=== PATIENT | female | born 1935 | race Caucasian/White ===

== ENCOUNTER → 2017-08-12 13:29 | Outpatient (CLI) | payer MEDICARE, SELFPAY ==
[2017-08-12 14:08] LABS: Absolute Lymphocyte Count 1.72 X10^3/ul (0.83-4.51); Absolute Neutrophil Count 4.7 X10^3/uL (2.0-7.7); Basophil# 0.04 X10^3/uL; Basophil% 0.6 % (0-1); Eosinophil# 0.13 X10^3/uL; Eosinophils% 1.8 % (0-5); Hematocrit 42.1 % (37-47); Hemoglobin 13.8 g/dl (12.0-15.0); Lymphocyte # 1.72 X10^3/ul (4.0); Lymphocyte % 24.4 % (19-41); Mean Corp Hgb Conc 32.8 g/gl (32-36); Mean Corpuscular Hgb 30.7 pg (27.0-32.0); Mean Corpuscular Volume 93.6 fL (81-99); Mean Platelet Vol. 10.7 fl (6.2-12.0); Monocyte# 0.47 X10^3/uL; Monocyte% 6.7 % (0-10); Neutrophil % 66.5 % (47-70); Platelet Count 227 K/mm3 (150-450); RBC Distribution Width SD 43.3 fl (35.1-43.9); White Blood Count 7.1 K/mm3 (4.4-11.0)
[2017-08-12 14:15] LABS: POSITIVE COUNT NO; POSITIVE DIFFERENTIAL NO; POSITIVE MORPHOLOGY NO
[2017-08-12 16:18] LABS: ALB/GLOB Ratio 1.2 RATIO (0.9-2.4); AST(SGOT) 16 U/L (15-37); Alanine Aminotransfer ALT/SGPT 22 U/L (13-56); Albumin, Serum 3.8 g/dL (3.2-5.0); Alkaline Phosphatase 95 U/L (45-117); Anion Gap 7 (5-15); BUN 12 mg/dL (7-18); BUN/Creat Ratio 12.9 RATIO (10-20); Chloride 107 mmol/L (98-107); Creatinine, Serum 0.93 mg/dL (0.55-1.02); EST Glomerular Filtration Rate 61 mL/min (>60); Est Glom Filt Rate - Afr Amer 74 mL/min (>60); Globulin 3.3 g/dL (2.2-4.2); Glucose 100 mg/dL (74-106); Potassium 4.1 mmol/L (3.5-5.1); Protein, Total 7.1 g/dL (6.4-8.2); Sodium Level 142 mmol/L (136-145); Uric Acid 4.3 mg/dL (2.6-6.0)
== END ==
PROVIDERS: Family Provider Family Medicine Geriatric Medicine; PCP Family Medicine Geriatric Medicine; Visit Provider Family Medicine Geriatric Medicine
DX: E11.9 Type 2 diabetes mellitus without complications (principal); E55.9 Vitamin D deficiency, unspecified; I10 Essential (primary) hypertension; M10.9 Gout, unspecified
CPT/HCPCS: 36415; 80053; 82306; 84443; 84550; 85025

== ENCOUNTER 2017-10-09 18:38 | Emergency (ER) | payer MEDICARE, SELFPAY ==
[2017-10-09 18:39] VITALS: PULSE 60; RESP 18; TEMP 36.9; O2SAT 99; BMI 29.2
[2017-10-09 18:46] VITALS: BP 196/92; PULSE 67; RESP 20; O2SAT 99
--- NOTE | 2017-10-09 19:24 | CT_ITS ---
STUDY: CT BRAIN WITHOUT CONTRAST REASON FOR EXAM: Female, 82 years old. Generalized illness, dizziness RADIATION DOSAGE (If Supplied By Facility): CTDIvol = ( 44.99 ) mGy, DLP = ( 779.24 ) mGycm TECHNIQUE: Transaxial CT imaging of the brain was performed without administration of intravenous contrast material. Individualized dose optimization techniques were used for this CT. COMPARISON: November 25, 2014. FINDINGS: Normal soft tissue structures. Normal calvarium. Normal size ventricles and extra-axial spaces for the patient's age. Bilateral white matter microangiopathic ischemic changes of the cerebral hemispheres. Probable old infarcts of the right basal ganglia. Normal thalami. Normal brainstem. Normal cerebellum. There is no intracranial hemorrhage. There are no findings of an acute ischemic infarction. Normal visualized paranasal sinuses. CT/Brain/Head without Contrast IMPRESSION: Stable age-related and chronic changes of the brain. Electronically Signed: Dakotah Cosme DO at 21:00 EDT Tel [phone], Service support ,
[2017-10-09] MEDS: Metoprolol Tartrate 5 MG/5 ML Vial IV (19:57)
[2017-10-09] MEDS: Metoprolol Tartrate 25 MG Tablet 50 MG PO (19:57)
[2017-10-09 20:04] LABS: Absolute Lymphocyte Count 2.39 X10^3/ul (0.83-4.51); Absolute Neutrophil Count 4.9 X10^3/uL (2.0-7.7); Basophil# 0.03 X10^3/uL; Basophil% 0.4 % (0-1); Eosinophil# 0.22 X10^3/uL; Eosinophils% 2.7 % (0-5); Hematocrit 40.4 % (37-47); Hemoglobin 13.2 g/dl (12.0-15.0); Lymphocyte # 2.39 X10^3/ul (4.0); Lymphocyte % 29.5 % (19-41); Mean Corp Hgb Conc 32.7 g/gl (32-36); Mean Corpuscular Hgb 29.9 pg (27.0-32.0); Mean Corpuscular Volume 91.6 fL (81-99); Monocyte# 0.53 X10^3/uL; Monocyte% 6.5 % (0-10); Neutrophil # 4.92 X10^3/uL (2.7-7.7); Neutrophil % 60.8 % (47-70); Platelet Count 226 K/mm3 (150-450); RBC Distribution Width CV 13.3 % (11.6-14.6); RBC Distribution Width SD 44.3 fl (35.1-43.9); Red Blood Count 4.41 M/mm3 (4.2-5.4); White Blood Count 8.1 K/mm3 (4.4-11.0)
[2017-10-09 20:08] LABS: POSITIVE COUNT NO; POSITIVE DIFFERENTIAL NO; POSITIVE MORPHOLOGY NO
[2017-10-09 20:14] LABS: Anion Gap 7 (5-15); BUN 19 mg/dL (7-18); BUN/Creat Ratio 18.4 RATIO (10-20); Calcium,Total 8.7 mg/dL (8.5-10.1); Chloride 107 mmol/L (98-107); Creatinine, Serum 1.03 mg/dL (0.55-1.02); EST Glomerular Filtration Rate 54 mL/min (>60); Est Glom Filt Rate - Afr Amer 66 mL/min (>60); Estimated Creatinine Clearance 36.36 ml/min; Glucose 108 mg/dL (74-106); Potassium 3.9 mmol/L (3.5-5.1); Sodium Level 140 mmol/L (136-145)
[2017-10-09 21:06] VITALS: BP 174/79; PULSE 64; RESP 18; O2SAT 94
[2017-10-09 21:23] LABS: Bacteria 0 SEEN /hpf (None Seen); Mucous, Urine 0 SEEN /hpf (<or=2+); Red Blood Cells-Urine 0 SEEN /hpf (0-5)
[2017-10-09 21:25] LABS: Color, Urine Straw (Yellow); Glucose, Dipstick Normal (Normal); Ketone-Dipstick Negative (Negative); Leukocyte Esterase-Dipstick 500 /ul (Negative); Nitrite-Dipstick Negative (Negative); Occult Blood-Urine Negative /ul (Negative); Protein-Dipstick Negative (Negative); Urine Bilirubin Dipstick Negative (Negative); Urine Urobilinogen Normal (Normal); Urine pH 6.5 (5.0 - 8.0)
[2017-10-09 21:43] LABS: Squamous Epithelial Cells - UA 5-10 SEEN /hpf (5-10); Urine Clarity Sl Cldy (Clear); White Blood Cells 10-25 SEEN /hpf (0-5)
--- NOTE | 2017-10-09 22:33 | ED.VISSUMM ---
- ER Visit Summary Date of Service: 10/09/17 Chief Complaint: Dizziness History of Present Illness: The patient is a [address] Ryan. She reports that she has had intermittent dizziness for the past 2 days. States that she does feel off balance when this is occurs. However, she has not fallen. She denies any change in her hearing. No ringing or roaring in her ears. However, she does report that she has sizzling in my ears. She denies any ear pain. She denies any nausea or vomiting. She reports she has had 2 episodes of diarrhea today. No blood in her stools or black tarry stools. Physical Examination: Vitals: Stable. Afebrile. General: Well-nourished and well-developed. Head: Normocephalic atraumatic. Neck: Supple, no lymphadenopathy. No JVD. Nontender. Cardiovascular: Regular rate and rhythm. No murmurs. Respiratory: No respiratory distress. Clear to auscultation bilaterally. Abdominal: Soft, nontender, nondistended, normal bowel sounds. No guarding, rebound, or peritoneal signs. Back: Nontender. Extremities: Nontender, no edema. Skin: Normal color, no rash. Neurologic: Alert and oriented ?3. Cranial nerves II through XII are intact. Normal strength and sensation. Psych: Normal affect. Test Results: CT brain shows chronic changes. CBC is normal. Chem-7 is more for glucose of 108, BUN 19, creatinine 1.03. UA shows 10-25 white blood cells, but has 5-10 epithelial cells and no bacteria. This was sent for culture. Emergency Department Course and Treatment: The patient was given her evening dose of metoprolol here. Her blood pressure has stabilized at 174/79. She has had no vertigo while here. She would like to go home. Treatment Plan: Patient will be discharged instructions to follow-up with Dr. Schmidt in 1-2 days if not improving. She will placed on Antivert at home. Instructed to return to the emergency department for any worsening symptoms. Disposition: To home in improved and stable condition. Impression: 1. Vertigo, resolved. 2. Coagulopathy on Eliquis. This note was generated with PowerDsine dictation software. It may contain incorrect words, spelling, and punctuation that were not noted in review of the chart prior to signing ED Disposition - Plan for ED Patient: Disposition: Home or Assisted Living Chief Complaint: General Illness Instructions: ED Dizziness [facility] Prescriptions: Meclizine HCl [Antivert] 25 mg PO 4X/DAY PRN PRN #20 tablet PRN Reason: Dizziness Referrals: Rayshawn Ryan Chi, MD [Primary Care Provider] - 1-2 Days if not improving
[2017-10-09 22:40] VITALS: BP 196/75; PULSE 54; RESP 16; O2SAT 96
--- NOTE | 2017-10-09 22:52 | ED.RN ---
CALLED PT'S FAMILY AT [phone] AND INFORMED THEM PT IS DISCHARGED TO HOME. FAMILY WILL BE HERE IN 15 MINUTES TO TAKE PT HOME. PT INFORMED OF SAME.
== END 2017-10-09 23:14 | disposition home or self-care (01) ==
PROVIDERS: Emergency Provider Emergency Medicine; Family Provider Family Medicine Geriatric Medicine; PCP Family Medicine Geriatric Medicine
DX: R42 Dizziness and giddiness (principal); Z79.02 Long term (current) use of antithrombotics/antiplatelets; Z86.73 Personal history of transient ischemic attack (TIA), and cerebral infarction without residual deficits; Z85.038 Personal history of other malignant neoplasm of large intestine
CPT/HCPCS: 70450; 80048; 81001; 85025; 87086; 87088; 96374; 99285; A4216

== ENCOUNTER 2018-03-16 09:36 | Inpatient (IN) | payer MEDICARE, SELFPAY ==
[2018-03-16] VITALS (12 sets, daily range): BP systolic 159–204; BP diastolic 74–97; PULSE 36–76; RESP 16–22; TEMP 36.6–36.7; O2SAT 94–98; BMI 26.6; BMI 25.9
--- NOTE | 2018-03-16 09:45 | EKG12_ITS ---
Test Reason : Blood Pressure : / mmHG Vent. Rate : 059 BPM Atrial Rate : 059 BPM P-R Int : 182 ms QRS Dur : 128 ms QT Int : 462 ms P-R-T Axes : 069 -45 012 degrees QTc Int : 457 ms Sinus bradycardia with marked sinus arrhythmia with Premature supraventricular complexes Left axis deviation Left ventricular hypertrophy with QRS widening Possible Lateral infarct , age undetermined Abnormal ECG Confirmed by MAURICIO MENDEZ, SHERMAN ([id number]), script editor EDUARDA MIMS ([id number]) on 03/19/2018 2:39:29 PM Referred By: KAYDEN Confirmed By:SHERMAN MARTÍNEZ MD
--- NOTE | 2018-03-16 09:45 | CT_ITS ---
STUDY: CT BRAIN WITHOUT CONTRAST REASON FOR EXAM: Female, 83 years old. Weakness. Slurred speech. RADIATION DOSAGE (If Supplied By Facility): CTDIvol = ( 44.99 ) mGy, DLP = ( 779.24 ) mGycm TECHNIQUE: Transaxial CT imaging of the brain was performed without administration of intravenous contrast material. Individualized dose optimization techniques were used for this CT. COMPARISON: October 09, 2017 and November 04, 2014. FINDINGS: Normal soft tissue structures. There is hyperostosis frontalis internus. There is mild cerebral atrophy with widening of the extra-axial spaces and ventricular dilatation. There are areas of decreased attenuation within the white matter tracts of the supratentorial brain, consistent with microvascular disease changes. There are lacunar infarcts of the basal ganglia and thalami. Stable right pontine infarct. There is mild cerebellar atrophy. There is no intracranial hemorrhage. There are no findings of an acute ischemic infarction. Normal visualized paranasal sinuses. CT/Brain/Head without Contrast IMPRESSION: Chronic involutional changes of the brain. No hemorrhage. Electronically Signed: Parish Flores MD at 10:29 EDT , Service support ,
[2018-03-16 09:58] LABS: Absolute Lymphocyte Count 1.49 X10^3/ul (0.83-4.51); Absolute Neutrophil Count 5.1 X10^3/uL (2.0-7.7); Basophil# 0.02 X10^3/uL; Basophil% 0.3 % (0-1); Eosinophil# 0.18 X10^3/uL; Eosinophils% 2.4 % (0-5); Hematocrit 41.4 % (37-47); Hemoglobin 13.3 g/dl (12.0-15.0); Lymphocyte # 1.49 X10^3/ul (4.0); Lymphocyte % 20.1 % (19-41); Mean Corp Hgb Conc 32.1 g/gl (32-36); Mean Corpuscular Volume 93.2 fL (81-99); Monocyte# 0.57 X10^3/uL; Monocyte% 7.7 % (0-10); Neutrophil # 5.13 X10^3/uL (2.7-7.7); Neutrophil % 69.4 % (47-70); Platelet Count 224 K/mm3 (150-450); RBC Distribution Width SD 44.2 fl (35.1-43.9); Red Blood Count 4.44 M/mm3 (4.2-5.4); White Blood Count 7.4 K/mm3 (4.4-11.0)
--- NOTE | 2018-03-16 09:59 | ED.DCSUM_ITS ---
- ER Visit Summary Date of Service: 03/16/18 Chief Complaint: Drooling, problems with balance History of Present Illness: The patient is a 83 F who arrived from home by ambulance because of slurred speech. She informed me that she went to bed at 1830 yesterday Saturday, March 15. She awoke at 030 Saturday, March 16. She informed me that she had drooling at that time. She also reported trouble walking. She denies headache. She denies double vision, blurred vision or partial loss of vision. She denies chest pain, palpitations or rapid heartbeat. She denies shortness of breath, cough, dyspnea on exertion. She denies abdominal pain, nausea, vomiting or diarrhea. She denies dysuria, frequency, urgency or hematuria. She denies trauma. At 0850 I was informed by her nurse, Michelle, that she now reports drooling started 1 week ago. Physical Examination: Patient is not alert but she is oriented. Head is atraumatic normocephalic. Pupils equal round reactive. Extra muscle intact. Sclerae anicteric. Conjunctive are not injected. TMs are normal. Nares are patent. There is a facial droop noted left. Her speech is slurred. Heart is regular and slow. Heart tones are distant. Lungs are clear to auscultation. Abdomen is soft nontender. There is no palpable pulsatile mass. NIH is 5. She was awarded a point for level of consciousness facial palsy on the left weakness left lower extremity and limb ataxia right side (minimal abnormality with finger-nose to finger on the right. Significant difference heel to [place] on the right.). She also received the point for slurred speech. Please read written note for complete detail Test Results: Monitor reveals a sinus rhythm with PACs. KS interval is normal. QRS duration is abnormal and demonstrates a intraventricular conduction delay most likely atypical left bundle. [place] is leftward. There is evidence of LVH. There is decreased anterior force. CT of the head was read reviewed by me and reveals no subdural, epidural, subarachnoid hemorrhage or intraparenchymal bleed. There is no obvious acute ischemic stroke. CBC is unremarkable. BUN is 19 with a creatinine of 1.05 and GFR 53. Coags are normal. Formal radiology read is pending. Emergency Department Course and Treatment: With deficits noted on exam stroke order set was initiated. Patient not a candidate for thrombolytics and she is on Eliquis. Furthermore the onset of her symptoms is unknown. Monitor reveals a sinus rhythm with PACs. KS interval is normal. QRS duration is abnormal and demonstrates a intraventricular conduction delay most likely atypical left bundle. [place] is leftward. There is evidence of LVH. There is decreased anterior force. Treatment Plan: Initiate stroke order set and if there is an intracranial bleed since patient is on Eliquis she will require in all likelihood transfer otherwise she will need admission to PCU. Patient was made n.p.o. since she is drooling and has slurred speech. Disposition: PCU for further evaluation and workup. Impression: 1. CVA 2. Systolic hypertension 3. Type 2 diabetes 4. History of hypothyroidism 5. History of hypercholesterolemia 6. History of prior stroke 7. High risk medication, Eliquis This note was generated with Viptable dictation software. It may contain incorrect words, spelling, and punctuation that were not noted in review of the chart prior to signing ED Disposition - Plan for ED Patient: Chief Complaint: Weakness Referrals: Rayshawn Ryan Chi, MD [Primary Care Provider] -
[2018-03-16 10:00] LABS: POSITIVE COUNT NO; POSITIVE DIFFERENTIAL NO; POSITIVE MORPHOLOGY NO
[2018-03-16 10:01] LABS: Bedside Glucose 110 mg/dL (70-110)
[2018-03-16 10:06] LABS: International Normalized Ratio 1.2; Partial Thromboplast Time 30.8 Seconds (24.1-36.2); Prothrombin Time (Protime)PT. 15.1 SECONDS (11.7-14.9)
[2018-03-16 10:13] LABS: Anion Gap 6 (5-15); BUN 19 mg/dL (7-18); BUN/Creat Ratio 18.1 RATIO (10-20); Calcium,Total 9.3 mg/dL (8.5-10.1); Chloride 106 mmol/L (98-107); Creatinine, Serum 1.05 mg/dL (0.55-1.02); EST Glomerular Filtration Rate 53 mL/min (>60); Est Glom Filt Rate - Afr Amer 64 mL/min (>60); Estimated Creatinine Clearance 35.06 ml/min; Glucose 105 mg/dL (74-106); Potassium 4.1 mmol/L (3.5-5.1); Sodium Level 140 mmol/L (136-145)
--- NOTE | 2018-03-16 11:56 | CT_ITS ---
STUDY: CTA NECK WITH CONTRAST REASON FOR EXAM: Female, 83 years old. TIA, stroke, history of colon cancer RADIATION DOSAGE (If Supplied By Facility): CTDIvol = ( 31.7 ) mGy, DLP = ( 621.14 ) mGycm TECHNIQUE: CT angiography with multi-detector data acquisition was performed from the aortic arch to the skull base following intravenous administration of 100 ml of Isovue 370 contrast. MIP images were reconstructed from the axial data set. Post-processing of the angiographic images was performed, with multiplanar reformation and 3D reconstruction. Individualized dose optimization techniques were used for this CT. COMPARISON: MRI March 16, 2018 FINDINGS: AORTIC ARCH: There is atherosclerotic calcific plaque formation of the aortic arch and great vessels arising from the aortic arch, without a hemodynamically significant stenosis however there is tortuosity visualized.. There is a normal origin of the brachiocephalic, left common carotid, and left subclavian arteries. Normal origins of the brachiocephalic, left common carotid, and left subclavian arteries. RIGHT CAROTID ARTERIES: Normal right common carotid artery (CCA). There is mild atherosclerotic plaque formation with minimal narrowing of the right carotid bulb. Normal origin of the right internal carotid (ICA) artery without a hemodynamically significant stenosis. There is atherosclerotic tortuous elongation of the cervical portion of the right internal carotid artery. Normal origin of the right external carotid artery (ECA). LEFT CAROTID ARTERIES: There is atherosclerotic tortuous elongation of the left common carotid artery. There is mild atherosclerotic plaque formation with minimal narrowing of the left carotid bulb. There is mild atherosclerotic plaque formation of the origin of the left internal carotid artery with less than 50% cross sectional diameter stenosis. Normal visualized cervical portion of the left internal carotid artery. Normal origin of the left external carotid artery (ECA). VERTEBRAL ARTERIES: Normal bilateral vertebral arteries. CT/CTA Neck W/WO Contrast IMPRESSION: Less than 50% stenosis of the bilateral internal carotid arteries. Electronically Signed: Rashmi Almeida MD at 15:04 EDT Tel , Service support ,
--- NOTE | 2018-03-16 11:56 | RAD_ITS ---
STUDY: X-RAY CHEST REASON FOR EXAM: Female, 83 years old. Shortness of breath TECHNIQUE: Single AP portable view of the chest. COMPARISON: Prior study of 07/30/2015 FINDINGS: There is a small calcified granuloma of the left upper lobe. There is minimal left lower lung field fibrosis. There is no demonstrated pleural abnormality. Normal size heart. Normal mediastinum and ene. Normal visualized pulmonary arteries. There are calcified plaques of the aortic arch. There is uncoiling of the descending thoracic aorta. Normal visualized thoracic spine. Normal visualized ribs, clavicles, and shoulders. There is no demonstrated abnormality of the visualized soft tissue structures of the upper abdomen. RAD/Chest 1 View (Portable) IMPRESSION: Calcified plaques of the aortic arch with uncoiling of the descending thoracic aorta. Small calcified granuloma of the left upper lobe. Minimal linear fibrosis of the left lung base. No acute cardiopulmonary disease process is seen. Chest findings are stable in the interval. Electronically Signed: Joey Akins MD at 16:44 EDT , Service support ,
--- NOTE | 2018-03-16 11:56 | ECHOD_ITS ---
Reason For Study: TIA/CVA Procedure This was a 2D Doppler, Color Flow transthoracic echocardiogram. Exam performed portable in patient room. Left Ventricle Normal LV size. Moderate concentric left ventricular hypertrophy. Left ventricular systolic function is normal. The estimated ejection fraction is 60 %. Stage 1 diastolic dysfunction. No regional wall motion abnormalities noted. Right Ventricle Normal RV size. Normal systolic function. Atria Normal left atrium. Normal right atrium. Mitral Valve Normal mitral valve. Mild (1+) eccentric mitral valve insufficiency. Tricuspid Valve Normal tricuspid valve. Mild tricuspid valve insufficiency. Pulmonary artery systolic pressure is 30 mmHg. Aortic Valve Normal aortic valve. Trisinus/trileaflet aortic valve. Pulmonic Valve Normal pulmonic valve. Great Vessels Calcified aortic root. The pulmonary artery is normal size. Normal inferior vena cava. Pericardium/Pleural No pericardial effusion. Medication Previously negative bubble study. MMode/2D Measurements & Calculations LVIDd: 4.4 cm IVSd: 1.4 cm Ao root diam: 3.5 cm LVIDs: 3.3 cm LVPWd: 1.5 cm LA dimension: 3.5 cm RVDd: 3.4 cm FS: 26.4 % LAV(MOD-bp): 25.6 ml LVAd ap4: 25.0 cm2 SV(MOD-sp4): 34.3 ml LAV(MOD-bp) Indexed: 14.8 ml/m2 EDV(MOD-sp4): 68.8 ml LAV(MOD-sp2): 28.1 ml EDV(sp4-el): 71.0 ml LAV(MOD-sp4): 22.1 ml LVAs ap4: 16.0 cm2 ESV(MOD-sp4): 34.5 ml ESV(sp4-el): 34.5 ml EF(MOD-sp4): 49.8 % EF(sp4-el): 51.3 % SV(sp4-el): 36.4 ml LA A4 area: 10.9 cm2 RA A4 area: 11.7 cm2 Time Measurements MV dec time: 0.33 sec Doppler Measurements & Calculations MV E max hunter: 51.0 cm/sec Lat Peak E' Hunter: 2.1 cm/sec Med Peak E' Hunter: 2.5 cm/sec MV A max hunter: 92.5 cm/sec E/E' lat: 24.0 E/E' med: 20.8 MV E/A: 0.55 Ao V2 max: 129.5 cm/sec LV V1 max: 82.2 cm/sec PA V2 max: 95.2 cm/sec Ao max P.7 mmHg LV V1 max P.7 mmHg TR max hunter: 256.9 cm/sec TR max P.4 mmHg Interpretation Summary Normal LV size. Moderate concentric left ventricular hypertrophy. Left ventricular systolic function is normal. The estimated ejection fraction is 60 %. Stage 1 diastolic dysfunction. Mild (1+) eccentric mitral valve insufficiency. Mild tricuspid valve insufficiency. Ordering Physician: Aurelio Lackey Referring Physician: STEFANIE HURTADO CHI Performed By: Micki Escoto, MAURO, RVT
--- NOTE | 2018-03-16 11:56 | MRI_ITS ---
STUDY: MRI BRAIN WITHOUT CONTRAST REASON FOR EXAM: Female, 83 years old. CVA. Weakness. Slurred speech. TECHNIQUE: Standardized multiplanar fat and water weighted pulse sequences were obtained. COMPARISON: 08/18/2008. FINDINGS: Linear restricted diffusion in the left retrolenticular white matter is also visible on the T2 FLAIR sequence. This is subacute lacunar ischemic infarct. Normal size of the ventricles and extra-axial spaces for the patient's age. Periventricular white matter T2 FLAIR hyperintensity foci are chronic white matter ischemic changes. Normal bilateral basal ganglia. Normal thalami. There is no extra-axial fluid accumulation. Normal flow voids within the major intracranial circulation suggesting patency by spin echo criteria. Normal sella turcica, pituitary gland, infundibular stalk, optic chiasm and hypothalamus. Normal tectal plate and pineal gland. Old cystic infarct in the right belly of the yakelin. Normal midbrain and medulla. Normal cerebellum. Normal basal cisterns. Normal bilateral temporal bones. Normal bilateral internal auditory canals. No demonstrated orbital abnormality, within the constraints of a routine brain study. Normal visualized paranasal sinuses. Normal calvarium and skull base. Normal visualized soft tissue structures. Normal visualized upper cervical spine. MRI/Brain without Contrast IMPRESSION: 1. Subacute lacunar ischemic infarct in the left retrolenticular white matter. 2. Old cystic infarct in the right anterior belly of the yakelin. 3. Progression in size and number of chronic white matter ischemic changes in both cerebral hemispheres when compared to 08/18/2008. Electronically Signed: Khalif Dooley MD at 14:30 EDT , Service support ,
--- NOTE | 2018-03-16 11:56 | CT_ITS ---
STUDY: CTA OF THE BRAIN REASON FOR EXAM: Female, 83 years old. Stroke. Slurred speech. RADIATION DOSAGE (If Supplied By Facility): CTDIvol = ( 31.7 ) mGy, DLP = ( 621.14 ) mGycm TECHNIQUE: CT angiography was performed with a multi-detector CT scanner. Data acquisition was obtained from the skull base through the vertex following intravenous administration of 100 ml of Isovue-370. MIP images were reconstructed from the axial data set. Post-processing of the angiographic images was performed, with multiplanar reformation and 3D reconstruction. Individualized dose optimization techniques were used for this CT. COMPARISON: CT of the head, March 16, 2018. FINDINGS: Normal bilateral petrous carotid arteries. There is calcified plaque formation of the right cavernous carotid artery, without a cross-sectional luminal stenosis. There is calcified plaque formation of the left cavernous carotid artery, without a cross-sectional luminal stenosis. Normal right A1 segments of the anterior cerebral artery. Normal left A1 segments of the anterior cerebral artery. Normal intact anterior communicating artery (ACOM). Normal bilateral A2 segments of the anterior cerebral arteries. Normal right M1 and M2 segments of the middle cerebral arteries, with a normal M1 bifurcation. Normal left M1 and M2 segments of the middle cerebral arteries, with a normal M1 bifurcation. There is non-visualization of the right posterior communicating artery (PCOM). Normal left posterior communicating artery (PCOM). There is a small atretic right vertebral artery with a dominant left vertebral artery. Normal basilar artery with a normal basilar bifurcation. The visualized bilateral superior cerebellar (SCA) arteries are normal. Normal P1, P2 and visualized P3 segments of the right posterior cerebral artery. There is an absent P1 segment of the left posterior cerebral artery. Normal P2 and visualized petrous segments. There is no demonstrated aneurysm of the [place]. There is no demonstrated abnormality of the visualized brain. 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 The T2 and T3 segments are supplied via the posterior communicating artery. Otherwise normal [place] of [place]. Electronically Signed: Alin Mo DO at 15:18 EDT Tel [phone], Service support ,
[2018-03-16 12:23] LABS: Thyroid Stim Hormone (TSH) 1.24 uIU/mL (0.358-3.74)
--- NOTE | 2018-03-16 12:46 | PCM.HP.STD ---
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 Prior to that she had difficulty in finding words yesterday late afternoon/evening but her speech in the morning when she woke up was slurred, incomprehensible and low volume. She also right facial droop with drooling. I also told that she has NIH 5 because of (1 for level of consciousness, 1 right upper extremity drifting, 1 for facial droop, 1 mild to moderate dysarthria and 1 for aphasia) she has left lower extremity weakness from prior stroke. Her heart rate in the ED was 32 but sometimes it slows down in 40s or 30s on monitor. On actual pulse check, it is 62/min and irregularly irregular [] Past Medical History Past Medical History (Chronic Problems): Chronic Problems Diabetes mellitus type 2 in obese (Chronic) Hypertension (Chronic) Prior stroke (Chronic) Hypothyroidism (Chronic) Allergies dicyclomine HCl [From Bentyl] Allergy (Verified 10/09/17 18:45) Unknown doxepin [Doxepin] Allergy (Verified 10/09/17 18:45) Unknown hydroxyzine HCl [From Vistaril] Allergy (Verified 10/09/17 18:45) Unknown hydroxyzine pamoate [From Vistaril] Allergy (Verified 10/09/17 18:45) Unknown oxymetazoline HCl [From Tristen-Synephrine (phenylephrine)] Allergy (Verified 10/09/17 18:45) Swelling phenylephrine HCl [From Tristen-Synephrine (phenylephrine)] Allergy (Verified 10/09/17 18:45) Swelling promethazine HCl [From Phenergan] Allergy (Verified 10/09/17 18:45) Unknown xylometazoline HCl [From Tristen-Synephrine (phenylephrine)] Allergy (Verified 10/09/17 18:45) Swelling Home Medications: Ambulatory Orders Medication Instructions Recorded Allopurinol [Zyloprim] 300 mg PO DAILY 10/02/13 Levothyroxine [Synthroid] 50 mcg PO DAILY 10/02/13 Losartan Potassium [Cozaar] 100 mg PO DAILY 10/02/13 Metformin HCl [Glucophage] 1,000 mg PO DAILY 10/02/13 Pravastatin [Pravachol] 40 mg PO QHS 10/02/13 Apixaban [Eliquis] 2.5 mg PO DAILY 10/22/14 Aspirin [Aspirin, Baby] 81 mg PO DAILY@0800 10/22/14 Atenolol [Tenormin (Beta Carol)] 50 mg PO BID 10/22/14 Ergocalciferol [Vitamin D] 50,000 unit PO Q7D 10/22/14 traMADol [Ultram (G)] 50 mg PO Q4H PRN PRN 10/22/14 Amlodipine [Norvasc] 5 mg PO DAILY #30 tablet 10/23/14 Smz/Tmp Ds [Bactrim Ds] 1 tablet PO BID #6 tablet 10/23/14 Meclizine HCl [Antivert] 25 mg PO 4X/DAY PRN PRN #20 tablet 10/09/17 Smoking Status: Never smoker - *Family History Paternal History Items: No pertinent history Review of Systems Constitutional: Denies: Chills, Fever, Weight Change HEENT: Denies: Head Aches, Sinus Congestion, Sinus Drainage Cardiovascular: Denies: Chest Pain, Palpitations Respiratory: Denies: Cough, Shortness of breath at rest, Sputum production Gastrointestinal: Denies: Abdominal Pain, Nausea, Vomiting Genitourinary: Denies: Dysuria Musculoskeletal: Reports: Joint Pain. Denies: Joint Tenderness Skin: Denies: Rash, Wounds Neurological: Reports: Balance problems, Change in Speech, Slurred speech. Denies: Focal weakness, Numbness, Tingling Psychiatric: Denies: Anxiety, Depression, Homicidal Ideations, Suicidal Ideations Hematologic/ Lymphatic: Denies: Easy Bruising, Easy Bleeding VTE Information - Inpt Only VTE Present on Admission: No VTE Mechan Device Prophylaxis: SCD's VTE Pharm Prophylaxis ordered?: Yes Patient Problems: Active and Suspected Problems Acute ischemic stroke (Acute) Dyslipidemia (Acute) - Physical Exam General: Alert, Oriented x3, Cooperative HEENT: Atraumatic, PERRLA, EOMI, Normocephalic Neck: Supple, No JVD, Negative Carotid Bruits Lungs: Clear to auscultation, Normal air movement Cardiovascular: Normal S1, Normal S2, No murmurs, Bradycardic, Irregular Rate Abdomen: Bowel Sounds Present, Soft, Non Tender Extremities: Capillary Refill Less than 3 Seconds, Edema Skin: No rashes, No breakdown Musculoskeletal: No Tenderness to Palpation of Joints or Extremities Neurological: Cranial nerves II-XII grossly intact, - - Chronic left upper extremity drift NIHSS 4 (1 left upper extremity drift, chronic; 2 right facial weakness, 1 for dysarthria) Psych/Mental Status: Normal Affect, Appropriate Vital Signs Temp Pulse Resp BP Pulse Ox 97.8 F 36 L 18 196/97 H 95 03/16/18 11:51 03/16/18 12:30 03/16/18 11:51 03/16/18 11:51 03/16/18 11:51 Oxygen Delivery Method Room Air Weight: 151 lb 1.6 oz Body Mass Index (BMI) 25.9 Assessment/Plan All Active Problems Acute ischemic stroke (Acute) Dyslipidemia (Acute) The patient is a 83 year old F with history of chronic A. 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 Prior to that she had difficulty in finding words yesterday late afternoon/evening but her speech in the morning when she woke up was slurred, incomprehensible and low volume. She also right facial droop with drooling. I also told that she has NIH 5 because of (1 for level of consciousness, 1 right upper extremity drifting, 1 for facial droop, 1 mild to moderate dysarthria and 1 for aphasia) she has left lower extremity weakness from prior stroke. Her heart rate in the ED was 32 but sometimes it slows down in 40s or 30s on monitor. On actual pulse check, it is 62/min and irregularly irregular EKG shows A. fib with LVH at [address] head was done and does not show acute hemorrhage chronic involutional changes. 1. Possible acute/subacute ischemic stroke: Time of onset is unclear as patient states today in the morning, her [id number] yesterday evening and from ER note Dr. Ponce, 1 of the relative states about 1 week ago. She is being admitted on PCU. On stroke protocol with MRI brain, CTA head and neck, aspirin and statin, BP and glucose control as per stroke protocol. Neurologist consult. PT/OT and speech evaluation. Her blood pressure currently is in within BP goal, systolic blood pressure less than 220 mmHg and diastolic less than 120 mmhg Patient did not pass initial swallow screen and made n.p.o. until further assessment by speech therapist. 2. Chronic A. fi with bradycardia: We will hold beta-carol until her heart rate is stabilized. She is on Eliquis 2.5 mg twice daily which I think is underdosed. She has 1 of 3 criteria on age more than 8-year-old. Discussed with the neurologist Dr. Pina suggested if there is no major stroke on MRI, can resume Eliquis 5 mg twice daily. Aspirin 81 mg daily. 3. Hypertension: On amlodipine 5 mg daily. Labetalol 10 mg IV as needed if the above of the BP goal. 4. Diabetes mellitus type II: Hold metformin. Accu-Chek before meals and at bedtime and cover with NovoLog sliding scale. A1c tomorrow a.m. 5. Dyslipidemia, chronic degenerative joint disease, and gout: On a statin. TSH and free T4. DVT prophylaxis: On Eliquis. Laboratory Results 03/16/18 09:50: WBC 7.4, RBC 4.44, Hgb 13.3, Hct 41.4, MCV 93.2, MCH 30.0, MCHC 32.1, RDW 13.0, RDW Differential 44.2 H, Plt Count 224, MPV 10.0, Immature Gran % (Auto) 0.100, Neut % (Auto) 69.4, Lymph % (Auto) 20.1, [place] % (Auto) 7.7, Eos % (Auto) 2.4, Baso % (Auto) 0.3, Absolute Neuts (auto) 5.1, Absolute Lymphs (auto) 1.49, Total Counted Not Reportable 03/16/18 09:50: PT 15.1 H, INR 1.2, APTT 30.8 03/16/18 09:50: Sodium 140, Potassium 4.1, Chloride 106, Carbon Dioxide 28.0, Anion Gap 6, BUN 19 H, Creatinine 1.05 H, Estim Creat Clear Calc 35.06, Est GFR (MDRD) Af Amer 64, Est GFR (MDRD) Non-Af 53 L, BUN/Creatinine Ratio 18.1, Glucose 105, Calcium 9.3 03/16/18 09:50: TSH 1.24 03/16/18 09:56: POC Glucose 110 03/16/18 12:43: POC Glucose 83 03/16/18 12:45: Troponin I < 0.015 Clinical Impression(s) from Imaging Studies Brain CT 03/16/18 09:45 IMPRESSION: Chronic involutional changes of the brain. No hemorrhage. Code Visit Inpatient E&M: 37951 Init Hosp L3
--- NOTE | 2018-03-16 12:56 | HP.PCM_ITS ---
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 Prior to that she had difficulty in finding words yesterday late afternoon/evening but her speech in the morning when she woke up was slurred, incomprehensible and low volume. She also right facial droop with drooling. I also told that she has NIH 5 because of (1 for level of consciousness, 1 right upper extremity drifting, 1 for facial droop, 1 mild to moderate dysarthria and 1 for aphasia) she has left lower extremity weakness from prior stroke. Her heart rate in the ED was 32 but sometimes it slows down in 40s or 30s on monitor. On actual pulse check, it is 62/min and irregularly irregular [] Past Medical History Past Medical History (Chronic Problems): Chronic Problems Diabetes mellitus type 2 in obese (Chronic) Hypertension (Chronic) Prior stroke (Chronic) Hypothyroidism (Chronic) Allergies dicyclomine HCl [From Bentyl] Allergy (Verified 10/09/17 18:45) Unknown doxepin [Doxepin] Allergy (Verified 10/09/17 18:45) Unknown hydroxyzine HCl [From Vistaril] Allergy (Verified 10/09/17 18:45) Unknown hydroxyzine pamoate [From Vistaril] Allergy (Verified 10/09/17 18:45) Unknown oxymetazoline HCl [From Tristen-Synephrine (phenylephrine)] Allergy (Verified 18:45) Swelling phenylephrine HCl [From Tristen-Synephrine (phenylephrine)] Allergy (Verified 18:45) Swelling promethazine HCl [From Phenergan] Allergy (Verified 10/09/17 18:45) Unknown xylometazoline HCl [From Tristen-Synephrine (phenylephrine)] Allergy (Verified 10/09 18:45) Swelling Home Medications: Ambulatory Orders Medication Instructions Recorded Allopurinol [Zyloprim] 300 mg PO DAILY 10/02/13 Levothyroxine [Synthroid] 50 mcg PO DAILY 10/02/13 Losartan Potassium [Cozaar] 100 mg PO DAILY 10/02/13 Metformin HCl [Glucophage] 1,000 mg PO DAILY 10/02/13 Pravastatin [Pravachol] 40 mg PO QHS 10/02/13 Apixaban [Eliquis] 2.5 mg PO DAILY 10/22/14 Aspirin [Aspirin, Baby] 81 mg PO DAILY@0800 10/22/14 Atenolol [Tenormin (Beta Carol)] 50 mg PO BID 10/22/14 Ergocalciferol [Vitamin D] 50,000 unit PO Q7D 10/22/14 traMADol [Ultram (G)] 50 mg PO Q4H PRN PRN 10/22/14 Amlodipine [Norvasc] 5 mg PO DAILY #30 tablet 10/23/14 Smz/Tmp Ds [Bactrim Ds] 1 tablet PO BID #6 tablet 10/23/14 Meclizine HCl [Antivert] 25 mg PO 4X/DAY PRN PRN #20 tablet 10/09/17 Smoking Status: Never smoker - *Family History Paternal History Items: No pertinent history Review of Systems Constitutional: Denies: Chills, Fever, Weight Change HEENT: Denies: Head Aches, Sinus Congestion, Sinus Drainage Cardiovascular: Denies: Chest Pain, Palpitations Respiratory: Denies: Cough, Shortness of breath at rest, Sputum production Gastrointestinal: Denies: Abdominal Pain, Nausea, Vomiting Genitourinary: Denies: Dysuria Musculoskeletal: Reports: Joint Pain. Denies: Joint Tenderness Skin: Denies: Rash, Wounds Neurological: Reports: Balance problems, Change in Speech, Slurred speech. Denies: Focal weakness, Numbness, Tingling Psychiatric: Denies: Anxiety, Depression, Homicidal Ideations, Suicidal Ideations Hematologic/ Lymphatic: Denies: Easy Bruising, Easy Bleeding VTE Information - Inpt Only VTE Present on Admission: No VTE Mechan Device Prophylaxis: SCD's VTE Pharm Prophylaxis ordered?: Yes Patient Problems: Active and Suspected Problems Acute ischemic stroke (Acute) Dyslipidemia (Acute) - Physical Exam General: Alert, Oriented x3, Cooperative HEENT: Atraumatic, PERRLA, EOMI, Normocephalic Neck: Supple, No JVD, Negative Carotid Bruits Lungs: Clear to auscultation, Normal air movement Cardiovascular: Normal S1, Normal S2, No murmurs, Bradycardic, Irregular Rate Abdomen: Bowel Sounds Present, Soft, Non Tender Extremities: Capillary Refill Less than 3 Seconds, Edema Skin: No rashes, No breakdown Musculoskeletal: No Tenderness to Palpation of Joints or Extremities Neurological: Cranial nerves II-XII grossly intact, - - Chronic left upper extremity drift NIHSS 4 (1 left upper extremity drift, chronic; 2 right facial weakness, 1 for dysarthria) Psych/Mental Status: Normal Affect, Appropriate Vital Signs Temp Pulse Resp BP Pulse Ox 97.8 F 36 L 18 196/97 H 95 03/16/18 11:51 03/16/18 12:30 03/16/18 11:51 03/16/18 11:51 03/16/18 11:51 Oxygen Delivery Method Room Air Weight: 151 lb 1.6 oz Body Mass Index (BMI) 25.9 Assessment/Plan All Active Problems Acute ischemic stroke (Acute) Dyslipidemia (Acute) The patient is a 83 year old F with history of chronic A. 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 Prior to that she had difficulty in finding words yesterday late afternoon/evening but her speech in the morning when she woke up was slurred, incomprehensible and low volume. She also right facial droop with drooling. I also told that she has NIH 5 because of (1 for level of consciousness, 1 right upper extremity drifting, 1 for facial droop, 1 mild to moderate dysarthria and 1 for aphasia) she has left lower extremity weakness from prior stroke. Her heart rate in the ED was 32 but sometimes it slows down in 40s or 30s on monitor. On actual pulse check, it is 62/min and irregularly irregular EKG shows A. fib with LVH at [address] head was done and does not show acute hemorrhage chronic involutional changes. 1. Possible acute/subacute ischemic stroke: Time of onset is unclear as patient states today in the morning, her [id number] yesterday evening and from ER note Dr. Ponce, 1 of the relative states about 1 week ago. She is being admitted on PCU. On stroke protocol with MRI brain, CTA head and neck, aspirin and statin, BP and glucose control as per stroke protocol. Neurologist consult. PT/OT and speech evaluation. Her blood pressure currently is in within BP goal, systolic blood pressure less than 220 mmHg and diastolic less than 120 mmhg Patient did not pass initial swallow screen and made n.p.o. until further assessment by speech therapist. 2. Chronic A. fi with bradycardia: We will hold beta-carol until her heart rate is stabilized. She is on Eliquis 2.5 mg twice daily which I think is underdosed. She has 1 of 3 criteria on age more than 8-year-old. Discussed with the neurologist Dr. Pina suggested if there is no major stroke on MRI , can resume Eliquis 5 mg twice daily. Aspirin 81 mg daily. 3. Hypertension: On amlodipine 5 mg daily. Labetalol 10 mg IV as needed if the above of the BP goal. 4. Diabetes mellitus type II: Hold metformin. Accu-Chek before meals and at bedtime and cover with NovoLog sliding scale. A1c tomorrow a.m. 5. Dyslipidemia, chronic degenerative joint disease, and gout: On a statin. TSH and free T4. DVT prophylaxis: On Eliquis. Laboratory Results 03/16/18 09:50: WBC 7.4, RBC 4.44, Hgb 13.3, Hct 41.4, MCV 93.2, MCH 30.0, MCHC 32.1, RDW 13.0, RDW Differential 44.2 H, Plt Count 224, MPV 10.0, Immature Gran % (Auto) 0.100, Neut % (Auto) 69.4, Lymph % (Auto) 20.1, [place] % (Auto) 7.7, Eos % (Auto) 2.4, Baso % (Auto) 0.3, Absolute Neuts (auto) 5.1, Absolute Lymphs ( auto) 1.49, Total Counted Not Reportable 03/16/18 09:50: PT 15.1 H, INR 1.2, APTT 30.8 03/16/18 09:50: Sodium 140, Potassium 4.1, Chloride 106, Carbon Dioxide 28.0, Anion Gap 6, BUN 19 H, Creatinine 1.05 H, Estim Creat Clear Calc 35.06, Est GFR (MDRD) Af Amer 64, Est GFR (MDRD) Non-Af 53 L, BUN/Creatinine Ratio 18.1, Glucose 105, Calcium 9.3 03/16/18 09:50: TSH 1.24 03/16/18 09:56: POC Glucose 110 03/16/18 12:43: POC Glucose 83 03/16/18 12:45: Troponin I < 0.015 Clinical Impression(s) from Imaging Studies Brain CT 03/16/18 09:45 IMPRESSION: Chronic involutional changes of the brain. No hemorrhage. Code Visit Inpatient E&M: 23996 Init Hosp L3
[2018-03-16] MEDS: Dext 5%-0.45% NS 1,000 ML 100 ML IV ×2 (13:00→21:45)
[2018-03-16 13:21] LABS: Bedside Glucose 83 mg/dL (70-110)
[2018-03-16 16:45] LABS: Bedside Glucose 112 mg/dL (70-110)
[2018-03-16 22:35] LABS: Bedside Glucose 110 mg/dL (70-110)
[2018-03-17] VITALS (15 sets, daily range): BP systolic 149–197; BP diastolic 66–99; PULSE 47–79; RESP 16–18; TEMP 36.5–37.1; O2SAT 92–97; BMI 25.9
[2018-03-17 06:33] LABS: Cholesterol 156 mg/dL (200); High Density Lipoprotein 42 mg/dL; T4 Free Direct 0.99 ng/dL (0.76-1.46); Triglycerides 198 mg/dL; Very Low Density Lipoprotein 40 mg/dL (5-40)
[2018-03-17 07:01] LABS: Bedside Glucose 132 mg/dL (70-110)
[2018-03-17 08:30] LABS: Hemoglobin A1c 5.7 % (4.2-6.3)
--- NOTE | 2018-03-17 09:56 | PCM.CONS.GEN ---
Reason for Consult History of Present Illness: The patient is a 83 year old Per admission H&P: The patient is a 83 year old F with history of chronic A. 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 Prior to that she had difficulty in finding words yesterday late afternoon/evening but her speech in the morning when she woke up was slurred, incomprehensible and low volume. She also right facial droop with drooling. I also told that she has NIH 5 because of (1 for level of consciousness, 1 right upper extremity drifting, 1 for facial droop, 1 mild to moderate dysarthria and 1 for aphasia) she has left lower extremity weakness from prior stroke. Her heart rate in the ED was 32 but sometimes it slows down in 40s or 30s on monitor. On actual pulse check, it is 62/min and irregularly irregula Past Medical History Past Medical History (Chronic Problems): Chronic Problems Diabetes mellitus type 2 in obese (Chronic) Hypertension (Chronic) Prior stroke (Chronic) Hypothyroidism (Chronic) Allergies dicyclomine HCl [From Bentyl] Allergy (Verified 10/09/17 18:45) Unknown doxepin [Doxepin] Allergy (Verified 10/09/17 18:45) Unknown hydroxyzine HCl [From Vistaril] Allergy (Verified 10/09/17 18:45) Unknown hydroxyzine pamoate [From Vistaril] Allergy (Verified 10/09/17 18:45) Unknown oxymetazoline HCl [From Tristen-Synephrine (phenylephrine)] Allergy (Verified 10/09/17 18:45) Swelling phenylephrine HCl [From Tristen-Synephrine (phenylephrine)] Allergy (Verified 10/09/17 18:45) Swelling promethazine HCl [From Phenergan] Allergy (Verified 10/09/17 18:45) Unknown xylometazoline HCl [From Tristen-Synephrine (phenylephrine)] Allergy (Verified 10/09/17 18:45) Swelling Home Medications: Ambulatory Orders Medication Instructions Recorded Allopurinol [Zyloprim] 300 mg PO DAILY 10/02/13 Levothyroxine [Synthroid] 50 mcg PO DAILY 10/02/13 Losartan Potassium [Cozaar] 100 mg PO DAILY 10/02/13 Apixaban [Eliquis] 2.5 mg PO BID 10/22/14 Aspirin [Aspirin, Baby] 81 mg PO DAILY@0800 10/22/14 Atenolol [Tenormin (Beta Carol)] 50 mg PO DAILY 10/22/14 traMADol [Ultram (G)] 50 mg PO Q4H PRN PRN 10/22/14 Meclizine HCl [Antivert] 25 mg PO 4X/DAY PRN PRN #20 tablet 10/09/17 Calcium Carb/Vitamin D3/Vit K1 1 each PO DAILY 03/16/18 [Citracal Soft Chew] Potassium Chloride [Klor-Con M20] 20 meq PO DAILY 03/16/18 Smoking Status: Never smoker Tobacco Use: Secondhand - *Family History Paternal History Items: No pertinent history Patient Problems: Active and Suspected Problems Acute ischemic stroke (Acute) Dyslipidemia (Acute) - Physical Exam Vital Signs Temp Pulse Resp BP Pulse Ox 36.8 C 66 18 168/66 H 94 03/17/18 07:38 03/17/18 07:38 03/17/18 08:20 03/17/18 07:38 03/17/18 07:38 Oxygen Delivery Method Room Air Weight: 68.538 kg Body Mass Index (BMI) 25.9 Intake and Output for Last 24 Hours 03/15/18 03/16/18 03/17/18 23:59 23:59 23:59 Intake Total 300 / 300 1549 / 1549 Balance 300 / 300 1549 / 1549 Laboratory Tests Past 24 Hrs 03/16/18 03/16/18 03/16/18 12:45 15:27 18:10 Hemoglobin A1c Troponin I < 0.015 < 0.015 < 0.015 Triglycerides Cholesterol LDL Cholesterol VLDL Cholesterol HDL Cholesterol Free T4 03/17/18 03/17/18 05:35 05:35 Hemoglobin A1c 5.7 Troponin I Triglycerides 198 Cholesterol 156 LDL Cholesterol 74 VLDL Cholesterol 40 HDL Cholesterol 42 Free T4 0.99 POC Glucose 03/17/18 03/16/18 03/16/18 06:51 22:31 16:38 POC Glucose 132 H 110 112 H 03/16/18 12:43 POC Glucose 83 I reviewed the MRI there is multiple old infarcts and 1 acute left basal ganglia infarct. I reviewed the CTA of the neck no significant stenosis. Assessment/Plan All Active Problems Acute ischemic stroke (Acute) Dyslipidemia (Acute)
[2018-03-17] MEDS: Aspirin 81 MG TAB.CHEW PO (10:57)
[2018-03-17] MEDS: Atorvastatin Calcium 80 MG Tablet PO (10:58)
[2018-03-17] MEDS: Allopurinol 300 MG Tablet PO (10:58)
[2018-03-17] MEDS: Losartan Potassium 100 MG Tablet PO (10:58)
[2018-03-17] MEDS: Dext 5%-0.45% NS 1,000 ML 100 ML IV (11:03)
[2018-03-17 12:36] LABS: Bedside Glucose 148 mg/dL (70-110)
--- NOTE | 2018-03-17 13:19 | PCM.PROGNOTE ---
<Precious Allan - Last Filed: 03/17/18 13:36> Patient Problems: Active and Suspected Problems Acute ischemic stroke (Acute) Dyslipidemia (Acute) Subjective: Patient seen and examined. No acute events overnight. Continues to have right facial droop, dysarthria and dysphagia. - Physical Exam General: Alert, Oriented x3, Cooperative, No apparent distress HEENT: Atraumatic, PERRLA, EOMI, Normocephalic Neck: Supple, No JVD, Negative Carotid Bruits Lungs: Clear to auscultation, Normal air movement Cardiovascular: Regular rate, Regular Rhythm, Normal S1, Normal S2, No murmurs Abdomen: Bowel Sounds Present, Soft, Non Tender, Non-Distended Extremities: No clubbing, No cyanosis, No edema, Capillary Refill Less than 3 Seconds Skin: No rashes, No breakdown Musculoskeletal: No Tenderness to Palpation of Joints or Extremities Neurological: Facial Droop - Right, - - Dysarthria Psych/Mental Status: Normal Affect, Appropriate Vital Signs Temp Pulse Resp BP Pulse Ox 98.7 F 69 18 157/92 H 96 03/17/18 11:37 03/17/18 11:37 03/17/18 11:37 03/17/18 11:37 03/17/18 11:37 Oxygen Delivery Method Room Air Body Mass Index (BMI) 25.9 Intake and Output for Last 24 Hours 03/15/18 03/16/18 03/17/18 23:59 23:59 23:59 Intake Total 300 / 300 2 / 2122 Balance 300 / 300 2 / 212 Laboratory Tests Past 24 Hrs 03/16/18 03/16/18 03/16/18 12:45 15:27 18:10 Hemoglobin A1c Troponin I < 0.015 < 0.015 < 0.015 Triglycerides Cholesterol LDL Cholesterol VLDL Cholesterol HDL Cholesterol Free T4 03/17/18 03/17/18 05:35 05:35 Hemoglobin A1c 5.7 Troponin I Triglycerides 198 Cholesterol 156 LDL Cholesterol 74 VLDL Cholesterol 40 HDL Cholesterol 42 Free T4 0.99 POC Glucose 03/17/18 03/17/18 03/16/18 12:30 06:51 22:31 POC Glucose 148 H 132 H 110 03/16/18 03/16/18 16:38 12:43 POC Glucose 112 H 83 Medical Necessity - Tobacco Use Smoking Status: Never smoker Tobacco Use: Secondhand Assessment/Plan All Active Problems Acute ischemic stroke (Acute) Dyslipidemia (Acute) 1. Acute left basal ganglia infarct-neurology consult. Patient continues to have right facial droop, dysarthria and dysphasia. Chronic left lower extremity weakness from prior stroke. Continue aspirin, statin. MRI of brain showed subacute lacunar ischemic infarct, old cystic infarct in the right anterior yakelin. Next CTA showed less than 50% stenosis bilateral internal carotid arteries. Echocardiogram pending. PT/OT/ST. Speech therapy recommending pur?e textures, thin nectar thick liquids. PT evaluation pending. Resume Eliquis pending neurology recommendations at increased dose of 5 mg twice daily. 2. Paroxysmal atrial fibrillation, bradycardia-home beta-haroldo regimen on hold. Heart rate improved. Currently sinus rhythm with a heart rate of 69. Resume Eliquis pending neurology approval. 3. Hypertension-continue home amlodipine, losartan regimen. 4. Type 2 diabetes mellitus-hemoglobin A1c 5.7%. Accu-Cheks before meals at bedtime with sliding scale insulin. 5. Hyperlipidemia-continue statin. 6. Gout-continue home allopurinol regimen. 7. Hypothyroidism-continue home Synthroid regimen. 8. Chronic kidney disease stage III-stable. DVT prophylaxis-Eliquis This patient was seen by REJI Stapleton under the supervision of Dr. Fernandez. <Randi Fenrandez - Last Filed: 03/17/18 22:29> - Physical Exam Vital Signs Temp Pulse Resp BP Pulse Ox 98.6 F 68 18 197/97 H 93 03/17/18 20:30 03/17/18 20:30 03/17/18 20:30 03/17/18 20:30 03/17/18 20:30 Oxygen Delivery Method Room Air Weight: 68.5 kg Body Mass Index (BMI) 25.9 Intake and Output for Last 24 Hours 03/15/18 03/16/18 03/17/18 23:59 23:59 23:59 Intake Total 300 / 300 2482 / 2482 Balance 300 / 300 2482 / 2482 Laboratory Tests Past 24 Hrs 03/17/18 03/17/18 05:35 05:35 Hemoglobin A1c 5.7 Triglycerides 198 Cholesterol 156 LDL Cholesterol 74 VLDL Cholesterol 40 HDL Cholesterol 42 Free T4 0.99 POC Glucose 03/17/18 03/17/18 03/17/18 20:44 16:04 12:30 POC Glucose 88 118 H 148 H 03/17/18 03/16/18 06:51 22:31 POC Glucose 132 H 110 Assessment/Plan Patient was seen and examined independently. I agree with the interval history and physical exam as well as assessment and plan as documented by Precious Allan. Patient appears weaker. No acute events overnight Vitals reviewed, BP higher. Started on home Losartan, will add amlodipine 2.5 mg to keep BP <140/90 Started on Eliquis. Passed swallow evaluation. Will dc fluids. Code Visit Inpatient E&M: 97948 Subs Hosp L2
--- NOTE | 2018-03-17 14:08 | CASEMGMT ---
SW attempted to talk with patient regarding d/c plan, possible rehab unit. However, she is very hard to understand and was tired. SW told her SW will follow up with her tomorrow. Carolee WARE MSW
[2018-03-17 16:25] LABS: Bedside Glucose 118 mg/dL (70-110)
[2018-03-17] MEDS: APIXABAN 5 MG TABLET PO (20:45)
[2018-03-17 22:05] LABS: Bedside Glucose 88 mg/dL (70-110)
[2018-03-17] MEDS: amLODIPine 2.5 MG Tablet PO (22:17)
[2018-03-18] VITALS (8 sets, daily range): BP systolic 151–166; BP diastolic 78–102; PULSE 57–85; RESP 17–18; TEMP 36.4–36.6; O2SAT 92–96; BMI 25.9
[2018-03-18] MEDS: Levothyroxine 50 MCG Tablet PO (05:17)
[2018-03-18 06:45] LABS: Anion Gap 10 (5-15); BUN 10 mg/dL (7-18); Calcium,Total 8.9 mg/dL (8.5-10.1); Chloride 108 mmol/L (98-107); Creatinine, Serum 0.83 mg/dL (0.55-1.02); EST Glomerular Filtration Rate 70 mL/min (>60); Est Glom Filt Rate - Afr Amer 84 mL/min (>60); Estimated Creatinine Clearance 44.35 ml/min; Glucose 86 mg/dL (74-106); Potassium 3.6 mmol/L (3.5-5.1); Sodium Level 144 mmol/L (136-145)
[2018-03-18] MEDS: Aspirin 81 MG TAB.CHEW PO (08:27)
[2018-03-18] MEDS: Allopurinol 300 MG Tablet PO (08:27)
[2018-03-18] MEDS: Atorvastatin Calcium 80 MG Tablet PO (08:28)
[2018-03-18] MEDS: amLODIPine 2.5 MG Tablet PO (08:28)
[2018-03-18] MEDS: Losartan Potassium 100 MG Tablet PO (08:28)
[2018-03-18] MEDS: APIXABAN 5 MG TABLET PO (08:29)
--- NOTE | 2018-03-18 10:50 | CASEMGMT ---
Per CHAGO Rojas, referral to be sent to [place] [facility] [place]. Referral faxed, fax confirmation rec'd. Precious Chou LPN Clinical Support
[2018-03-18 11:25] LABS: Bedside Glucose 173 mg/dL (70-110)
--- NOTE | 2018-03-18 11:53 | CASEMGMT ---
Per CHAGO Rojas, send referral information to [facility]. Attemped to fax, busy. Spoke with [facility]ie at [facility], she received all needed information as [facility] faxed it to her earlier this am. Voicemail left for CHAGO Rojas updating of same. Precious Chou LPN Clinical Support
--- NOTE | 2018-03-18 13:06 | PN_ITS ---
<Precious Allan - Last Filed: 03/18/18 13:07> Subjective: Patient seen and examined. Verbalizes agreement to rehab unit at discharge. However, patient wishes for patient to go to SNF at discharge where another family member is also located. Patient denies any neurological symptoms. - Physical Exam General: Alert, Oriented x3, Cooperative, No apparent distress HEENT: Atraumatic, PERRLA, EOMI, Normocephalic Neck: Supple, No JVD, Negative Carotid Bruits Lungs: Clear to auscultation, Normal air movement Cardiovascular: Regular rate, Regular Rhythm, Normal S1, Normal S2, No murmurs Abdomen: Bowel Sounds Present, Soft, Non Tender, Non-Distended Extremities: No clubbing, No cyanosis, No edema, Capillary Refill Less than 3 Seconds Skin: No rashes, No breakdown Musculoskeletal: No Tenderness to Palpation of Joints or Extremities Neurological: Cranial nerves II-XII grossly intact, - - Facial Droop - Right, - - Dysarthria Psych/Mental Status: Normal Affect, Appropriate Vital Signs Temp Pulse Resp BP Pulse Ox 97.5 F L 80 17 151/90 H 96 03/18/18 08:20 03/18/18 11:17 03/18/18 08:20 03/18/18 08:20 03/18/18 08:20 Oxygen Delivery Method Room Air Weight: 151 lb 0.266 oz Body Mass Index (BMI) 25.9 Intake and Output for Last 24 Hours 03/16/18 03/17/18 03/18/18 23:59 23:59 23:59 Intake Total 300 / 300 2909 / 2909 350 / 350 Balance 300 / 300 2909 / 2909 350 / 350 Laboratory Tests Past 24 Hrs 03/18/18 05:28 Sodium 144 Potassium 3.6 Chloride 108 H Carbon Dioxide 26.0 Anion Gap 10 BUN 10 Creatinine 0.83 Estim Creat Clear Calc 44.35 Est GFR (MDRD) Af Amer 84 Est GFR (MDRD) Non-Af 70 BUN/Creatinine Ratio 12.0 Glucose 86 Calcium 8.9 POC Glucose 03/18/18 03/17/18 03/17/18 11:20 20:44 16:04 POC Glucose 173 H 88 118 H Medical Necessity - Tobacco Use Smoking Status: Never smoker Tobacco Use: Secondhand Assessment/Plan All Active Problems Acute ischemic stroke (Acute) 1. Acute left basal ganglia infarct-neurology consult. Patient continues to have right facial droop, dysarthria and dysphasia. Chronic left lower extremity weakness from prior stroke. Continue aspirin, statin. MRI of brain showed subacute lacunar ischemic infarct, old cystic infarct in the right anterior yakelin. Next CTA showed less than 50% stenosis bilateral internal carotid arteries. Echocardiogram shows ejection fraction of 60%, stage I diastolic dysfunction, mild mitral valve insufficiency, mild tricuspid valve insufficiency.. PT/OT/ST. Speech therapy recommending pur?e textures, thin nectar thick liquids. Resume Eliquis at increased dose of 5 mg twice daily. SNF versus rehab at discharge. 2. Paroxysmal atrial fibrillation, bradycardia-home beta-haroldo regimen on hold. Heart rate improved. Currently sinus rhythm with a heart rate of 69. Resume Eliquis. 3. Hypertension-continue home amlodipine, losartan regimen. 4. Type 2 diabetes mellitus-hemoglobin A1c 5.7%. Accu-Cheks before meals at bedtime with sliding scale insulin. 5. Hyperlipidemia-continue statin. 6. Gout-continue home allopurinol regimen. 7. Hypothyroidism-continue home Synthroid regimen. 8. Chronic kidney disease stage III-stable. DVT prophylaxis-Eliquis Discharge planning: SNF versus rehab pending insurance approval. SNF is patient 's family's first choice. This patient was seen by REJI Stapleton under the supervision of Dr. Fernandez. <Randi Fernandez - Last Filed: 03/22/18 15:08> - Physical Exam Vital Signs Temp Pulse Resp BP Pulse Ox 97.9 F 72 18 153/78 H 95 03/18/18 12:15 03/18/18 16:03 03/18/18 12:15 03/18/18 12:15 03/18/18 12:15 Oxygen Delivery Method Room Air Weight: 68.5 kg Body Mass Index (BMI) 25.9 Assessment/Plan Patient was seen and examined independently. I agree with the interval history and physical exam as well as assessment and plan as documented by Precious Allan. No acute events overnight. Seen patient sitting in a chair. Denies any new complaint. Has dysarthria. Vitals reviewed, BP much better. Labs reviewed, unremarkable. We will continue on Eliquis, PT, OT, ST evaluations. Discussed with case management and social workers, patient has been accepted to SNF. Code Visit Inpatient E&M: 42773 Subs Hosp L2
--- NOTE | 2018-03-18 13:26 | PCM.EXTCARCO ---
<Precious Allan - Last Filed: 03/18/18 13:31> - Diet 03/17/18 10:32 Diet: Regular Diet Food consistency:: Puree Liquid Consistency:: [place] Thick Dietary Modifications:: Pureed Diet [place] Thick Liquids Is pt able to select menu?: No Diet Comments: Supervision; check for R pocketing, seated at 90 degrees, meds w/purees - Routine Orders/Code Status Enema Type: Fleetz Enema Frequency: Daily PRN Suppository Type: Dulcolax 10mg Suppository Frequency: Daily PRN Routine Lab Work: CBC, BMP, - - Weekly - Suggestions for Active Care Change Position every (hours): 2 Times a day to sit in chair: 3 - Therapies Physical Therapy: Eval and Treat Occupational Therapy: Eval and Treat Speech Therapy: Eval and Treat - Problem/Diagnosis (1) Acute ischemic stroke Status: Acute Current Visit: Yes (2) Dyslipidemia Status: Chronic Current Visit: No (3) Diabetes mellitus type 2 in obese Status: Chronic Current Visit: No (4) Hypertension Status: Chronic Current Visit: No (5) Hypothyroidism Status: Chronic Current Visit: No - Allergies/Procedures Done in Hospital Allergies/Adverse Reactions: Allergies dicyclomine HCl [From Bentyl] Allergy (Verified 10/09/17 18:45) Unknown doxepin [Doxepin] Allergy (Verified 10/09/17 18:45) Unknown hydroxyzine HCl [From Vistaril] Allergy (Verified 10/09/17 18:45) Unknown hydroxyzine pamoate [From Vistaril] Allergy (Verified 10/09/17 18:45) Unknown oxymetazoline HCl [From Tristen-Synephrine (phenylephrine)] Allergy (Verified 10/09/17 18:45) Swelling phenylephrine HCl [From Tristen-Synephrine (phenylephrine)] Allergy (Verified 10/09/17 18:45) Swelling promethazine HCl [From Phenergan] Allergy (Verified 10/09/17 18:45) Unknown xylometazoline HCl [From Tristen-Synephrine (phenylephrine)] Allergy (Verified 10/09/17 18:45) Swelling Procedures: 2-D Echocardiogram - Type of Care/Length of Stay Estimated LOS: Convalescent Care Less Than 30 days Type of Care Needed: Skilled Rehab Potential: Fair Prognosis: Fair - Additional Orders/Day of Discharge H&P will serve as current which was dated: 03/16/18 Day of Discharge: 03/18/18 - Dietary and Speech Recommendations Dietitian Recommendations/Changes: Suggest therapeutic diet change to liberal carb-controlled/cardiac with texture/consistency as per speech. - Follow Up Care Primary Care Physician: Rayshawn Ryan Chi, MD [Primary Care Provider] - Please follow up with your Primary Care Physician in: 1 Week Please Follow Up With: Todd Gonzalez MD When: 2-3 Weeks <Randi Fernandez - Last Filed: 03/18/18 14:03> - Diet 03/17/18 10:32 Diet: Regular Diet Food consistency:: Puree Liquid Consistency:: [place] Thick Dietary Modifications:: Pureed Diet [place] Thick Liquids Is pt able to select menu?: No Diet Comments: Supervision; check for R pocketing, seated at 90 degrees, meds w/purelisa
--- NOTE | 2018-03-18 13:29 | TREXTCA.CO_ITS ---
<Precious Allan - Last Filed: 03/18/18 13:31> - Diet 03/17/18 10:32 Diet: Regular Diet Food consistency:: Puree Liquid Consistency:: [place] Thick Dietary Modifications:: Pureed Diet [place] Thick Liquids Is pt able to select menu?: No Diet Comments: Supervision; check for R pocketing, seated at 90 degrees, meds w/purees - Routine Orders/Code Status Enema Type: Fleetz Enema Frequency: Daily PRN Suppository Type: Dulcolax 10mg Suppository Frequency: Daily PRN Routine Lab Work: CBC, BMP, - - Weekly - Suggestions for Active Care Change Position every (hours): 2 Times a day to sit in chair: 3 - Therapies Physical Therapy: Eval and Treat Occupational Therapy: Eval and Treat Speech Therapy: Eval and Treat - Problem/Diagnosis (1) Acute ischemic stroke Status: Acute Current Visit: Yes (2) Dyslipidemia Status: Chronic Current Visit: No (3) Diabetes mellitus type 2 in obese Status: Chronic Current Visit: No (4) Hypertension Status: Chronic Current Visit: No (5) Hypothyroidism Status: Chronic Current Visit: No - Allergies/Procedures Done in Hospital Allergies/Adverse Reactions: Allergies dicyclomine HCl [From Bentyl] Allergy (Verified 10/09/17 18:45) Unknown doxepin [Doxepin] Allergy (Verified 10/09/17 18:45) Unknown hydroxyzine HCl [From Vistaril] Allergy (Verified 10/09/17 18:45) Unknown hydroxyzine pamoate [From Vistaril] Allergy (Verified 10/09/17 18:45) Unknown oxymetazoline HCl [From Tristen-Synephrine (phenylephrine)] Allergy (Verified 18:45) Swelling phenylephrine HCl [From Tristen-Synephrine (phenylephrine)] Allergy (Verified 18:45) Swelling promethazine HCl [From Phenergan] Allergy (Verified 10/09/17 18:45) Unknown xylometazoline HCl [From Tristen-Synephrine (phenylephrine)] Allergy (Verified 10/09 18:45) Swelling Procedures: 2-D Echocardiogram - Type of Care/Length of Stay Estimated LOS: Convalescent Care Less Than 30 days Type of Care Needed: Skilled Rehab Potential: Fair Prognosis: Fair - Additional Orders/Day of Discharge H&P will serve as current which was dated: 03/16/18 Day of Discharge: 03/18/18 - Dietary and Speech Recommendations Dietitian Recommendations/Changes: Suggest therapeutic diet change to liberal carb-controlled/cardiac with texture/consistency as per speech. - Follow Up Care Primary Care Physician: Rayshawn Ryan Chi, MD [Primary Care Provider] - Please follow up with your Primary Care Physician in: 1 Week Please Follow Up With: Todd Gonzalez MD When: 2-3 Weeks <Randi Fernandez - Last Filed: 03/18/18 14:03> - Diet 03/17/18 10:32 Diet: Regular Diet Food consistency:: Puree Liquid Consistency:: [place] Thick Dietary Modifications:: Pureed Diet [place] Thick Liquids Is pt able to select menu?: No Diet Comments: Supervision; check for R pocketing, seated at 90 degrees, meds w/purelisa
--- NOTE | 2018-03-18 13:32 | PCM.DC.SUM ---
<Precious Allan - Last Filed: 03/18/18 13:39> Discharge Date and Diagnosis Date of Admission: 03/16/18 Date of Discharge: 03/18/18 - Primary Discharge Diagnosis Active and Suspected Problems 1. Acute left basal ganglia infarct 2. Paroxysmal atrial fibrillation, bradycardia 3. Hypertension 4. Hyperlipidemia - Secondary Discharge Diagnosis Chronic Problems Diabetes mellitus type 2 in obese (Chronic) Hypertension (Chronic) Dyslipidemia (Chronic) Hypothyroidism (Chronic) Gout Hospital Course and Treatment Imaging Results: Diagnostic Data Brain CT 03/16/18 09:45 IMPRESSION: Chronic involutional changes of the brain. No hemorrhage. Electronically Signed: Parish Flores MD at 10:29 EDT , Service support , Brain MRI 03/16/18 11:56 IMPRESSION: 1. Subacute lacunar ischemic infarct in the left retrolenticular white matter. 2. Old cystic infarct in the right anterior belly of the yakelin. 3. Progression in size and number of chronic white matter ischemic changes in both cerebral hemispheres when compared to 08/18/2008. Electronically Signed: Khalif Dooley MD at 14:30 EDT , Service support , Chest X-Ray 03/16/18 11:56 IMPRESSION: Calcified plaques of the aortic arch with uncoiling of the descending thoracic aorta. Small calcified granuloma of the left upper lobe. Minimal linear fibrosis of the left lung base. No acute cardiopulmonary disease process is seen. Chest findings are stable in the interval. 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 The T2 and T3 segments are supplied via the posterior communicating artery. Otherwise normal [place]. Electronically Signed: Alin Mo DO at 15:18 EDT Tel [phone], Service support , Neck CTA 03/16/18 11:56 IMPRESSION: Less than 50% stenosis of the bilateral internal carotid arteries. Electronically Signed: Rashmi Almeida MD at 15:04 EDT Tel , Service support , Dr. Gonzalez- Neurology Operations: None Procedures: 2-D Echocardiogram Summary of Care Provided: The patient is a 83 year old F admitted 03/16/2018 due to speech abnormality. 1. Acute left basal ganglia infarct-neurology consult. Patient continues to have right facial droop, dysarthria and dysphasia. Chronic left lower extremity weakness from prior stroke. Continue aspirin, statin. MRI of brain showed subacute lacunar ischemic infarct, old cystic infarct in the right anterior yakelin. Next CTA showed less than 50% stenosis bilateral internal carotid arteries. Echocardiogram shows ejection fraction of 60%, stage I diastolic dysfunction, mild mitral valve insufficiency, mild tricuspid valve insufficiency.. PT/OT/ST. Speech therapy recommending pur?e textures, thin nectar thick liquids. Resume Eliquis at increased dose of 5 mg twice daily. SNF at discharge. 2. Paroxysmal atrial fibrillation, bradycardia-home beta-haroldo regimen on hold. Heart rate improved. Currently sinus rhythm with a heart rate of 69. Resume Eliquis. 3. Hypertension-continue home amlodipine, losartan regimen. 4. Type 2 diabetes mellitus-hemoglobin A1c 5.7%. ADA diet. 5. Hyperlipidemia-continue statin. 6. Gout-continue home allopurinol regimen. 7. Hypothyroidism-continue home Synthroid regimen. 8. Chronic kidney disease stage III-stable. General: Alert, Oriented x3, Cooperative, No apparent distress HEENT: Atraumatic, PERRLA, EOMI, Normocephalic Neck: Supple, No JVD, Negative Carotid Bruits Lungs: Clear to auscultation, Normal air movement Cardiovascular: Regular rate, Regular Rhythm, Normal S1, Normal S2, No murmurs Abdomen: Bowel Sounds Present, Soft, Non Tender, Non-Distended Extremities: No clubbing, No cyanosis, No edema, Capillary Refill Less than 3 Seconds Skin: No rashes, No breakdown Musculoskeletal: No Tenderness to Palpation of Joints or Extremities Neurological: Facial Droop - Right, - - Dysarthria Psych/Mental Status: Normal Affect, Appropriate Patient seen and examined prior to discharge. Physical assessment as noted above patient stable for discharge to SNF for further therapy. This patient was seen by REJI Stapleton under the supervision of Dr. Fernandez. Home Medications: Medications to take at Discharge Allopurinol [Zyloprim] 300 mg PO DAILY 10/02/13 Levothyroxine [Synthroid] 50 mcg PO DAILY 10/02/13 Losartan Potassium [Cozaar] 100 mg PO DAILY 10/02/13 Aspirin [Aspirin, Baby] 81 mg PO DAILY@0800 10/22/14 traMADol [Ultram] 50 mg PO Q4H PRN PRN 10/22/14 Meclizine HCl [Antivert] 25 mg PO 4X/DAY PRN PRN #20 tablet 10/09/17 Calcium Carb/Vitamin D3/Vit K1 [Citracal Soft Chew] 1 each PO DAILY 03/16/18 Potassium Chloride [Klor-Con M20] 20 meq PO DAILY 03/16/18 Amlodipine [Norvasc] 5 mg PO DAILY tablet 03/18/18 Apixaban [Eliquis] 5 mg PO BID tablet 03/18/18 Atorvastatin Calcium [Lipitor] 40 mg PO DAILY tablet 03/18/18 Primary Care Physician: Rayshawn Ryan Chi, MD [Primary Care Provider] - Please follow up with your Primary Care Physician in: 1 Week Please Follow Up With: Todd Gonzalez MD When: 2-3 Weeks Disposition: Retirement facility Minutes spent on discharge:: 35 Patient Condition:: Stable Medical Necessity - Tobacco Use Smoking Status: Never smoker Tobacco Use: Secondhand Meaningful Use Info Meaningful Use Diagnoses (Choose all that apply): Ischemic CVA - CVA Therapy Assessed for PT,OT and/or ST?: Yes - Ischemic Stroke Antithrombotic order at d/c?: Yes Dx of Atrial fib/flutter?: Yes Anticoagulant at discharge?: Yes Statins at discharge?: Yes Primary Dx Acute Ischemic CVA?: Yes IV tPA ordered during stay?: No Reason IV t-PA not ordered: Treatment not Indicated <Randi Fernandez - Last Filed: 03/18/18 14:03> Discharge Date and Diagnosis - Secondary Discharge Diagnosis Chronic Problems Diabetes mellitus type 2 in obese (Chronic) Hypertension (Chronic) Dyslipidemia (Chronic) Hypothyroidism (Chronic) Hospital Course and Treatment Summary of Care Provided: The patient is a 83 year old F [] Code Visit Inpatient E&M: 79035 Disch Hosp
--- NOTE | 2018-03-18 13:39 | DS.PCM_ITS ---
<Precious Allan - Last Filed: 03/18/18 13:39> Discharge Date and Diagnosis Date of Admission: 03/16/18 Date of Discharge: 03/18/18 - Primary Discharge Diagnosis Active and Suspected Problems 1. Acute left basal ganglia infarct 2. Paroxysmal atrial fibrillation, bradycardia 3. Hypertension 4. Hyperlipidemia - Secondary Discharge Diagnosis Chronic Problems Diabetes mellitus type 2 in obese (Chronic) Hypertension (Chronic) Dyslipidemia (Chronic) Hypothyroidism (Chronic) Gout Hospital Course and Treatment Imaging Results: Diagnostic Data Brain CT 03/16/18 09:45 IMPRESSION: Chronic involutional changes of the brain. No hemorrhage. Electronically Signed: Parish Flores MD at 10:29 EDT , Service support , Brain MRI 03/16/18 11:56 IMPRESSION: 1. Subacute lacunar ischemic infarct in the left retrolenticular white matter. 2. Old cystic infarct in the right anterior belly of the yakelin. 3. Progression in size and number of chronic white matter ischemic changes in both cerebral hemispheres when compared to 08/18/2008. Electronically Signed: Khalif Dooley MD at 14:30 EDT , Service support , Chest X-Ray 03/16/18 11:56 IMPRESSION: Calcified plaques of the aortic arch with uncoiling of the descending thoracic aorta. Small calcified granuloma of the left upper lobe. Minimal linear fibrosis of the left lung base. No acute cardiopulmonary disease process is seen. Chest findings are stable in the interval. 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 The T2 and T3 segments are supplied via the posterior communicating artery. Otherwise normal [place]. Electronically Signed: Alin Mo DO at 15:18 EDT Tel [phone], Service support , Neck CTA 03/16/18 11:56 IMPRESSION: Less than 50% stenosis of the bilateral internal carotid arteries. Electronically Signed: Rashmi Almeida MD at 15:04 EDT Tel , Service support , Dr. Gonzalez- Neurology Operations: None Procedures: 2-D Echocardiogram Summary of Care Provided: The patient is a 83 year old F admitted 03/16/2018 due to speech abnormality. 1. Acute left basal ganglia infarct-neurology consult. Patient continues to have right facial droop, dysarthria and dysphasia. Chronic left lower extremity weakness from prior stroke. Continue aspirin, statin. MRI of brain showed subacute lacunar ischemic infarct, old cystic infarct in the right anterior yakelin. Next CTA showed less than 50% stenosis bilateral internal carotid arteries. Echocardiogram shows ejection fraction of 60%, stage I diastolic dysfunction, mild mitral valve insufficiency, mild tricuspid valve insufficiency.. PT/OT/ST. Speech therapy recommending pur?e textures, thin nectar thick liquids. Resume Eliquis at increased dose of 5 mg twice daily. SNF at discharge. 2. Paroxysmal atrial fibrillation, bradycardia-home beta-haroldo regimen on hold. Heart rate improved. Currently sinus rhythm with a heart rate of 69. Resume Eliquis. 3. Hypertension-continue home amlodipine, losartan regimen. 4. Type 2 diabetes mellitus-hemoglobin A1c 5.7%. ADA diet. 5. Hyperlipidemia-continue statin. 6. Gout-continue home allopurinol regimen. 7. Hypothyroidism-continue home Synthroid regimen. 8. Chronic kidney disease stage III-stable. General: Alert, Oriented x3, Cooperative, No apparent distress HEENT: Atraumatic, PERRLA, EOMI, Normocephalic Neck: Supple, No JVD, Negative Carotid Bruits Lungs: Clear to auscultation, Normal air movement Cardiovascular: Regular rate, Regular Rhythm, Normal S1, Normal S2, No murmurs Abdomen: Bowel Sounds Present, Soft, Non Tender, Non-Distended Extremities: No clubbing, No cyanosis, No edema, Capillary Refill Less than 3 Seconds Skin: No rashes, No breakdown Musculoskeletal: No Tenderness to Palpation of Joints or Extremities Neurological: Facial Droop - Right, - - Dysarthria Psych/Mental Status: Normal Affect, Appropriate Patient seen and examined prior to discharge. Physical assessment as noted above patient stable for discharge to SNF for further therapy. This patient was seen by REJI Stapleton under the supervision of Dr. Fernandez. Home Medications: Medications to take at Discharge Allopurinol [Zyloprim] 300 mg PO DAILY 10/02/13 Levothyroxine [Synthroid] 50 mcg PO DAILY 10/02/13 Losartan Potassium [Cozaar] 100 mg PO DAILY 10/02/13 Aspirin [Aspirin, Baby] 81 mg PO DAILY@0800 10/22/14 traMADol [Ultram] 50 mg PO Q4H PRN PRN 10/22/14 Meclizine HCl [Antivert] 25 mg PO 4X/DAY PRN PRN #20 tablet 10/09/17 Calcium Carb/Vitamin D3/Vit K1 [Citracal Soft Chew] 1 each PO DAILY 03/16/18 Potassium Chloride [Klor-Con M20] 20 meq PO DAILY 03/16/18 Amlodipine [Norvasc] 5 mg PO DAILY tablet 03/18/18 Apixaban [Eliquis] 5 mg PO BID tablet 03/18/18 Atorvastatin Calcium [Lipitor] 40 mg PO DAILY tablet 03/18/18 Primary Care Physician: Rayshawn Ryan Chi, MD [Primary Care Provider] - Please follow up with your Primary Care Physician in: 1 Week Please Follow Up With: Todd Gonzalez MD When: 2-3 Weeks Disposition[facility] Minutes spent on discharge:: 35 Patient Condition:: Stable Medical Necessity - Tobacco Use Smoking Status: Never smoker Tobacco Use: Secondhand Meaningful Use Info Meaningful Use Diagnoses (Choose all that apply): Ischemic CVA - CVA Therapy Assessed for PT,OT and/or ST?: Yes - Ischemic Stroke Antithrombotic order at d/c?: Yes Dx of Atrial fib/flutter?: Yes Anticoagulant at discharge?: Yes Statins at discharge?: Yes Primary Dx Acute Ischemic CVA?: Yes IV tPA ordered during stay?: No Reason IV t-PA not ordered: Treatment not Indicated <Randi Fernandez - Last Filed: 03/18/18 14:03> Discharge Date and Diagnosis - Secondary Discharge Diagnosis Chronic Problems Diabetes mellitus type 2 in obese (Chronic) Hypertension (Chronic) Dyslipidemia (Chronic) Hypothyroidism (Chronic) Hospital Course and Treatment Summary of Care Provided: The patient is a 83 year old F [] Code Visit Inpatient E&M: 66827 Disch Hosp
--- NOTE | 2018-03-18 14:20 | CASEMGMT ---
Social Work: TC from Erika at [facility]. Erika states a one time contract was established and that patient can be admitted today. Spoke with LYNDON Lang who states that patient is medically ready for D/C today. TC to patient's POA Sarah Tuttle who states that she is able to transport patient by car and will call this SW with a picker feeder time. HENS completed and copy in chart. Orders and med list faxed to Erika at [facility]. PLAN: Patient to be discharged to [facility] today with family transporting. JOHN Edwards
[2018-03-18 17:00] LABS: Bedside Glucose 97 mg/dL (70-110)
== END 2018-03-18 16:40 | disposition skilled nursing facility (03) | DRG 66 ==
LOC: ED 10:56 → PCU 11:10
PROVIDERS: Nurse Practitioner Family; Admitting Provider Internal Medicine; Emergency Provider Emergency Medicine; Family Provider Family Medicine Geriatric Medicine; PCP Family Medicine Geriatric Medicine; Visit Provider Internal Medicine
DX: I63.9 Cerebral infarction, unspecified (principal); E78.5 Hyperlipidemia, unspecified; M10.9 Gout, unspecified; I69.344 Monoplegia of lower limb following cerebral infarction affecting left non-dominant side; E03.9 Hypothyroidism, unspecified; R29.810 Facial weakness; R47.1 Dysarthria and anarthria; R29.705 NIHSS score 5; E11.9 Type 2 diabetes mellitus without complications; I10 Essential (primary) hypertension; Z79.84 Long term (current) use of oral hypoglycemic drugs; I48.0 Paroxysmal atrial fibrillation; R00.1 Bradycardia, unspecified; R47.02 Dysphasia
CPT/HCPCS: 36415; 70450; 70496; 70498; 70551; 71045; 80048; 80061; 82962; 83036; 84439; 84443; 84484; 85025; 85610; 85730; 92507; 93005; 93306; 97110; 97116; 97162; 97166; 97530; 97535; 97802; 99285; Q9967; A4216; J7799

== ENCOUNTER → 2018-03-20 08:00 | Outpatient (REF) | payer MEDICARE, SELFPAY ==
[2018-03-20 08:55] LABS: Hematocrit 43.2 % (37-47); Hemoglobin 14.3 g/dl (12.0-15.0); Mean Corp Hgb Conc 33.1 g/gl (32-36); Mean Corpuscular Volume 93.5 fL (81-99); Mean Platelet Vol. 10.4 fl (6.2-12.0); Platelet Count 235 K/mm3 (150-450); RBC Distribution Width CV 12.9 % (11.6-14.6); RBC Distribution Width SD 43.2 fl (35.1-43.9); Red Blood Count 4.62 M/mm3 (4.2-5.4); White Blood Count 7.8 K/mm3 (4.4-11.0)
[2018-03-20 08:59] LABS: Scan Indicated on CBC? Y/N NO
[2018-03-20 09:10] LABS: Anion Gap 8 (5-15); BUN 17 mg/dL (7-18); BUN/Creat Ratio 15.3 RATIO (10-20); Calcium,Total 9.4 mg/dL (8.5-10.1); Chloride 104 mmol/L (98-107); Creatinine, Serum 1.11 mg/dL (0.55-1.02); EST Glomerular Filtration Rate 50 mL/min (>60); Est Glom Filt Rate - Afr Amer 60 mL/min (>60); Glucose 112 mg/dL (74-106); Potassium 4.4 mmol/L (3.5-5.1); Sodium Level 139 mmol/L (136-145)
== END ==
LOC: OLS.AVEB 08:00
PROVIDERS: Visit Provider Family Medicine
DX: I10 Essential (primary) hypertension (principal); E03.9 Hypothyroidism, unspecified
CPT/HCPCS: 36415; 80048; 85027

== ENCOUNTER → 2018-03-27 05:00 | Outpatient (REF) | payer MEDICARE, SELFPAY ==
[2018-03-27 08:53] LABS: Hemoglobin 13.5 g/dl (12.0-15.0); Mean Corp Hgb Conc 32.1 g/gl (32-36); Mean Corpuscular Hgb 30.3 pg (27.0-32.0); Mean Corpuscular Volume 94.2 fL (81-99); Mean Platelet Vol. 10.7 fl (6.2-12.0); Platelet Count 258 K/mm3 (150-450); RBC Distribution Width CV 13.1 % (11.6-14.6); RBC Distribution Width SD 44.9 fl (35.1-43.9); Red Blood Count 4.46 M/mm3 (4.2-5.4); White Blood Count 7.4 K/mm3 (4.4-11.0)
[2018-03-27 08:54] LABS: Scan Indicated on CBC? Y/N NO
[2018-03-27 09:06] LABS: Anion Gap 8 (5-15); BUN 19 mg/dL (7-18); BUN/Creat Ratio 18.8 RATIO (10-20); Calcium,Total 9.4 mg/dL (8.5-10.1); Chloride 108 mmol/L (98-107); Creatinine, Serum 1.01 mg/dL (0.55-1.02); EST Glomerular Filtration Rate 56 mL/min (>60); Est Glom Filt Rate - Afr Amer 67 mL/min (>60); Glucose 121 mg/dL (74-106); Potassium 3.6 mmol/L (3.5-5.1); Sodium Level 141 mmol/L (136-145)
== END ==
LOC: OLS.AVEB 05:00
PROVIDERS: Visit Provider Family Medicine
DX: I10 Essential (primary) hypertension (principal); E78.5 Hyperlipidemia, unspecified; E03.9 Hypothyroidism, unspecified; Z79.01 Long term (current) use of anticoagulants
CPT/HCPCS: 36415; 80048; 85027

== ENCOUNTER → 2018-04-03 05:00 | Outpatient (REF) | payer MEDICARE, SELFPAY ==
[2018-04-03 08:53] LABS: Hematocrit 42.8 % (37-47); Hemoglobin 13.9 g/dl (12.0-15.0); Mean Corp Hgb Conc 32.5 g/gl (32-36); Mean Corpuscular Hgb 30.7 pg (27.0-32.0); Mean Corpuscular Volume 94.5 fL (81-99); Platelet Count 328 K/mm3 (150-450); RBC Distribution Width SD 43.8 fl (35.1-43.9); Red Blood Count 4.53 M/mm3 (4.2-5.4); White Blood Count 9.3 K/mm3 (4.4-11.0)
[2018-04-03 08:55] LABS: Scan Indicated on CBC? Y/N NO
[2018-04-03 08:59] LABS: Anion Gap 7 (5-15); BUN 17 mg/dL (7-18); BUN/Creat Ratio 15.5 RATIO (10-20); Calcium,Total 9.6 mg/dL (8.5-10.1); Chloride 107 mmol/L (98-107); EST Glomerular Filtration Rate 50 mL/min (>60); Est Glom Filt Rate - Afr Amer 61 mL/min (>60); Glucose 121 mg/dL (74-106); Potassium 4.1 mmol/L (3.5-5.1); Sodium Level 141 mmol/L (136-145)
== END ==
LOC: OLS.AVEB 05:00
PROVIDERS: Visit Provider Family Medicine
DX: I10 Essential (primary) hypertension (principal); E03.9 Hypothyroidism, unspecified
CPT/HCPCS: 36415; 80048; 85027

== ENCOUNTER → 2018-04-10 05:00 | Outpatient (REF) | payer MEDICARE, SELFPAY ==
[2018-04-10 08:13] LABS: Hematocrit 39.2 % (37-47); Hemoglobin 12.8 g/dl (12.0-15.0); Mean Corp Hgb Conc 32.7 g/gl (32-36); Mean Corpuscular Hgb 30.8 pg (27.0-32.0); Mean Corpuscular Volume 94.5 fL (81-99); Mean Platelet Vol. 10.3 fl (6.2-12.0); Platelet Count 262 K/mm3 (150-450); RBC Distribution Width SD 43.4 fl (35.1-43.9); Red Blood Count 4.15 M/mm3 (4.2-5.4); White Blood Count 7.3 K/mm3 (4.4-11.0)
[2018-04-10 08:21] LABS: Anion Gap 6 (5-15); BUN 17 mg/dL (7-18); BUN/Creat Ratio 17.6 RATIO (10-20); Calcium,Total 9.3 mg/dL (8.5-10.1); Chloride 108 mmol/L (98-107); Creatinine, Serum 0.96 mg/dL (0.55-1.02); EST Glomerular Filtration Rate 59 mL/min (>60); Est Glom Filt Rate - Afr Amer 71 mL/min (>60); Glucose 134 mg/dL (74-106); Potassium 4.2 mmol/L (3.5-5.1); Sodium Level 141 mmol/L (136-145)
[2018-04-10 08:22] LABS: Scan Indicated on CBC? Y/N NO
== END ==
LOC: OLS.AVEB 05:00
PROVIDERS: Visit Provider Family Medicine
DX: I10 Essential (primary) hypertension (principal); I25.2 Old myocardial infarction; E03.9 Hypothyroidism, unspecified
CPT/HCPCS: 36415; 80048; 85027

== ENCOUNTER → 2018-04-17 05:00 | Outpatient (REF) | payer MEDICARE, SELFPAY ==
[2018-04-17 07:58] LABS: Hematocrit 42.6 % (37-47); Hemoglobin 13.4 g/dl (12.0-15.0); Mean Corp Hgb Conc 31.5 g/gl (32-36); Mean Corpuscular Volume 95.3 fL (81-99); Mean Platelet Vol. 10.4 fl (6.2-12.0); Platelet Count 275 K/mm3 (150-450); RBC Distribution Width CV 13.5 % (11.6-14.6); RBC Distribution Width SD 46.4 fl (35.1-43.9); Red Blood Count 4.47 M/mm3 (4.2-5.4); White Blood Count 9.1 K/mm3 (4.4-11.0)
[2018-04-17 07:59] LABS: Scan Indicated on CBC? Y/N NO
[2018-04-17 08:10] LABS: Anion Gap 6 (5-15); BUN 23 mg/dL (7-18); BUN/Creat Ratio 22.3 RATIO (10-20); Calcium,Total 9.4 mg/dL (8.5-10.1); Chloride 106 mmol/L (98-107); Creatinine, Serum 1.03 mg/dL (0.55-1.02); EST Glomerular Filtration Rate 54 mL/min (>60); Est Glom Filt Rate - Afr Amer 66 mL/min (>60); Glucose 107 mg/dL (74-106); Potassium 3.6 mmol/L (3.5-5.1); Sodium Level 140 mmol/L (136-145)
== END ==
LOC: OLS.AVEB 05:00
PROVIDERS: Visit Provider Family Medicine
DX: I10 Essential (primary) hypertension (principal); E03.9 Hypothyroidism, unspecified
CPT/HCPCS: 36415; 80048; 85027

== ENCOUNTER → 2018-04-24 05:25 | Outpatient (REF) | payer MEDICARE, SELFPAY ==
[2018-04-24 08:45] LABS: Hematocrit 41.7 % (37-47); Hemoglobin 13.3 g/dl (12.0-15.0); Mean Corp Hgb Conc 31.9 g/gl (32-36); Mean Corpuscular Hgb 30.5 pg (27.0-32.0); Mean Corpuscular Volume 95.6 fL (81-99); Mean Platelet Vol. 10.5 fl (6.2-12.0); Platelet Count 256 K/mm3 (150-450); RBC Distribution Width CV 13.6 % (11.6-14.6); RBC Distribution Width SD 45.9 fl (35.1-43.9); Red Blood Count 4.36 M/mm3 (4.2-5.4); Scan Indicated on CBC? Y/N NO; White Blood Count 8.4 K/mm3 (4.4-11.0)
[2018-04-24 08:57] LABS: Anion Gap 5 (5-15); BUN 17 mg/dL (7-18); BUN/Creat Ratio 14.4 RATIO (10-20); Calcium,Total 9.4 mg/dL (8.5-10.1); Chloride 107 mmol/L (98-107); Creatinine, Serum 1.18 mg/dL (0.55-1.02); EST Glomerular Filtration Rate 47 mL/min (>60); Est Glom Filt Rate - Afr Amer 56 mL/min (>60); Glucose 104 mg/dL (74-106); Sodium Level 140 mmol/L (136-145)
== END ==
LOC: OLS.AVEB 05:25
DX: E03.9 Hypothyroidism, unspecified (principal)
CPT/HCPCS: 36415; 80048; 85027

== ENCOUNTER → 2018-07-15 16:10 | Outpatient (CLI) | payer MEDICARE, SELFPAY ==
--- NOTE | 2018-07-15 17:16 | RAD_ITS ---
STUDY: X-RAY - SACRUM/COCCYX REASON FOR EXAM: Female, 83 years old. fall last week, went to sit in chair and missed, pain to tailbone, pelvic pain TECHNIQUE: 3 view(s) of the sacrum and coccyx were obtained. COMPARISON: None. FINDINGS: There is degenerative arthrosis of the bilateral sacroiliac joints. Normal visualized sacral ala and fused sacral bodies. There is displacement of the distal sacrococcygeal articulation such that the distal aspect is anterior to the superior aspect as best seen on sagittal imaging by approximately 3 mm. This has occurred just above the third distal coccygeal segment at the articulation. The presacral soft tissue structures are unremarkable as seen by plain film. RAD/Sacrum-Coccyx min 2 Views IMPRESSION: There is displacement of the distal sacrococcygeal articulation such that the distal aspect is anterior to the superior aspect as best seen on sagittal imaging by approximately 3 mm. This has occurred just above the third distal coccygeal segment at the articulation. Electronically Signed: Jennifer James MD at 8:23 EST , Service support ,
[2018-07-15 17:17] LABS: Absolute Lymphocyte Count 1.86 X10^3/ul (0.83-4.51); Absolute Neutrophil Count 5.1 X10^3/uL (2.0-7.7); Basophil# 0.03 X10^3/uL; Basophil% 0.4 % (0-1); Eosinophil# 0.13 X10^3/uL; Eosinophils% 1.7 % (0-5); Hematocrit 42.7 % (37-47); Hemoglobin 13.9 g/dl (12.0-15.0); Lymphocyte # 1.86 X10^3/ul (4.0); Mean Corp Hgb Conc 32.6 g/gl (32-36); Mean Corpuscular Hgb 30.3 pg (27.0-32.0); Mean Corpuscular Volume 93.2 fL (81-99); Monocyte# 0.65 X10^3/uL; Monocyte% 8.4 % (0-10); Neutrophil # 5.06 X10^3/uL (2.7-7.7); Neutrophil % 65.4 % (47-70); Platelet Count 249 K/mm3 (150-450); RBC Distribution Width CV 12.7 % (11.6-14.6); RBC Distribution Width SD 42.4 fl (35.1-43.9); Red Blood Count 4.58 M/mm3 (4.2-5.4); White Blood Count 7.7 K/mm3 (4.4-11.0)
--- NOTE | 2018-07-15 17:20 | RAD_ITS ---
STUDY: X-RAY - PELVIS REASON FOR EXAM: Female, 83 years old. fall last week, went to sit in chair and missed, pain to tailbone, pelvic pain TECHNIQUE: One view of the pelvis was obtained. COMPARISON: Plain film sacrum and coccyx same date FINDINGS: There is a non-specific bowel gas pattern. There are multiple calcified phleboliths. There is cortical sclerosis and osteophyte formation of the sacroiliac joint consistent with degenerative osteoarthritic changes. Normal visualized bilateral superior and inferior pubic rami. There are degenerative changes of the pubic symphysis with articular narrowing and sclerosis. Normal ischial tuberosities. Normal visualized right femoral head. Normal right acetabulum. Normal right hip joint. Normal visualized left femoral head. Normal left acetabulum. Normal left hip joint. RAD/Pelvis 1 or 2 Views IMPRESSION: Degenerative changes. Refer to sacrococcygeal x-ray for further information. Electronically Signed: Jennifer James MD at 8:25 EST , Service support ,
[2018-07-15 17:23] LABS: POSITIVE COUNT NO; POSITIVE DIFFERENTIAL NO; POSITIVE MORPHOLOGY NO
[2018-07-15 17:48] LABS: Vitamin D,25 Hydroxy 27.6 ng/mL (29.95-100.01)
[2018-07-15 17:50] LABS: ALB/GLOB Ratio 1.2 RATIO (0.9-2.4); AST(SGOT) 17 U/L (15-37); Alanine Aminotransfer ALT/SGPT 21 U/L (13-56); Albumin, Serum 3.9 g/dL (3.2-5.0); Alkaline Phosphatase 86 U/L (45-117); Anion Gap 8 (5-15); BUN 13 mg/dL (7-18); BUN/Creat Ratio 13.2 RATIO (10-20); Calcium,Total 9.5 mg/dL (8.5-10.1); Chloride 103 mmol/L (98-107); Creatinine, Serum 0.99 mg/dL (0.55-1.02); EST Glomerular Filtration Rate 57 mL/min (>60); Est Glom Filt Rate - Afr Amer 69 mL/min (>60); Globulin 3.2 g/dL (2.2-4.2); Glucose 108 mg/dL (74-106); Protein, Total 7.1 g/dL (6.4-8.2); Sodium Level 138 mmol/L (136-145); Thyroid Stim Hormone (TSH) 1.46 uIU/mL (0.358-3.74); Uric Acid 3.7 mg/dL (2.6-6.0)
== END ==
LOC: POLAB3 16:11 → RAD 17:14
PROVIDERS: Family Provider Family Medicine Geriatric Medicine; PCP Family Medicine Geriatric Medicine; Referring Provider Family Medicine Geriatric Medicine; Visit Provider Family Medicine Geriatric Medicine
DX: E11.9 Type 2 diabetes mellitus without complications (principal); E55.9 Vitamin D deficiency, unspecified; I10 Essential (primary) hypertension; M10.9 Gout, unspecified; S32.9XXA Fracture of unspecified parts of lumbosacral spine and pelvis, initial encounter for closed fracture; S32.2XXA Fracture of coccyx, initial encounter for closed fracture
CPT/HCPCS: 36415; 72170; 72220; 80053; 82306; 84443; 84550; 85025

== ENCOUNTER → 2019-01-13 | Outpatient (CLI) | payer MEDICARE, SELFPAY ==
[2019-01-13 17:14] LABS: Absolute Lymphocyte Count 1.79 X10^3/uL (0.83-4.51); Absolute Neutrophil Count 5.5 X10^3/uL (2.0-7.7); Basophil# 0.04 X10^3/uL; Basophil% 0.5 % (0-1); Eosinophil# 0.18 X10^3/uL; Eosinophils% 2.2 % (0-5); Hemoglobin 13.1 g/dL (12.0-15.0); Lymphocyte # 1.79 X10^3/ul (4.0); Mean Corp Hgb Conc 32.8 g/dL (32-36); Mean Corpuscular Hgb 30.4 pg (27.0-32.0); Mean Corpuscular Volume 92.8 fL (81-99); Mean Platelet Vol. 10.6 fl (6.2-12.0); Monocyte% 7.4 % (0-10); NRBC Flagged by Analyzer 0 % (0-5); Neutrophil # 5.51 X10^3/uL (2.7-7.7); Neutrophil % 67.5 % (47-70); Platelet Count 252 K/mm3 (150-450); RBC Distribution Width CV 12.7 % (11.6-14.6); RBC Distribution Width SD 43.8 fl (35.1-43.9); Red Blood Count 4.31 M/mm3 (4.2-5.4); White Blood Count 8.2 K/mm3 (4.4-11.0)
[2019-01-13 17:23] LABS: Vitamin D,25 Hydroxy 19.8 ng/mL (29.95-100.01)
[2019-01-13 17:25] LABS: ALB/GLOB Ratio 1.2 RATIO (0.9-2.4); AST(SGOT) 15 U/L (15-37); Alanine Aminotransfer ALT/SGPT 19 U/L (13-56); Albumin, Serum 3.7 g/dL (3.2-5.0); Alkaline Phosphatase 74 U/L (45-117); Anion Gap 9 (5-15); BUN 19 mg/dL (7-18); BUN/Creat Ratio 19.1 RATIO (10-20); Calcium,Total 9.4 mg/dL (8.5-10.1); Chloride 104 mmol/L (98-107); EST Glomerular Filtration Rate 57 mL/min (>60); Est Glom Filt Rate - Afr Amer 68 mL/min (>60); Globulin 3.2 g/dL (2.2-4.2); Glucose 102 mg/dL (74-106); Potassium 4.3 mmol/L (3.5-5.1); Protein, Total 6.9 g/dL (6.4-8.2); Sodium Level 139 mmol/L (136-145); Uric Acid 4.2 mg/dL (2.6-6.0)
== END | disposition home or self-care (01) ==
LOC: POLAB3 09:23
PROVIDERS: Family Provider Family Medicine Geriatric Medicine; PCP Family Medicine Geriatric Medicine; Visit Provider Family Medicine Geriatric Medicine
DX: E11.9 Type 2 diabetes mellitus without complications (principal); E55.9 Vitamin D deficiency, unspecified; I10 Essential (primary) hypertension; M10.9 Gout, unspecified
CPT/HCPCS: 36415; 80053; 82306; 84443; 84550; 85025

== ENCOUNTER 2019-02-13 10:06 | Emergency (ER) | payer MEDICARE, SELFPAY ==
[2019-02-13 10:07] VITALS: BP 134/95; PULSE 61; RESP 18; TEMP 36.9; O2SAT 97; BMI 26.9
[2019-02-13 10:09] VITALS: TEMP 36.9
--- NOTE | 2019-02-13 10:28 | EKG12_ITS ---
Test Reason : SOB Blood Pressure : / mmHG Vent. Rate : 057 BPM Atrial Rate : 057 BPM P-R Int : 200 ms QRS Dur : 154 ms QT Int : 486 ms P-R-T Axes : 079 -63 088 degrees QTc Int : 473 ms Sinus bradycardia with Premature atrial complexes Left axis deviation Left bundle branch block Abnormal ECG Confirmed by MINAL MENDEZ, CHUCK ([id number]), manager editorial DALIA JOSEPH ([id number]) on 02/19/2019 1:06:49 PM Referred By: KAYDEN Confirmed By:CHCUK FONTAINE MD
--- NOTE | 2019-02-13 10:35 | RAD_ITS ---
STUDY: X-RAY CHEST REASON FOR EXAM: Female, 84 years old. Shortness of breath. History of colon cancer. TECHNIQUE: AP and lateral views of the chest. COMPARISON: Comparison is made with prior study of March 16, 2018. FINDINGS: EKG electrodes are seen. Hyperinflation. There is no demonstrated pleural abnormality. There is borderline cardiomegaly. Normal mediastinum and ene. Normal visualized pulmonary arteries. There is atherosclerotic calcification of the aortic arch with tortuosity. There are diffuse degenerative changes of the visualized thoracic spine. Normal visualized ribs, clavicles, and shoulders. There is no demonstrated abnormality of the visualized soft tissue structures of the upper abdomen. RAD/Chest PA and Lateral IMPRESSION: Hyperinflation. No acute abnormality seen. Electronically Signed: Stew Green, at 11:11 EDT , Service support ,
[2019-02-13 10:40] VITALS: PULSE 62; RESP 18; O2SAT 97
[2019-02-13 10:41] VITALS: O2SAT 97
--- NOTE | 2019-02-13 10:42 | ED.VIS.GEN ---
History of Present Illness Chief Complaint: Shortness of Breath Detail of Chief Complaint: Patient is a poor informant Informant: Patient, Family Onset: Yesterday Context: - - Unable to determine Timing: Continuous Quality: Shortness of breath Location: Not applicable Current Severity: Moderate Maximum Severity: Moderate Worsened by: Nothing Relieved by: Nothing Associated Symptoms: Per patient no associated symptoms Narrative: Patient is 84-year-old woman who has resided in a shelter since a stroke 5 years ago. Not a good informant. Daughter corrected her multiple times. Apparently she has had a cough which she did not acknowledge. Cough started yesterday. No documented fever. 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 Daughter states she has marked abnormality in one eye. Patient states she cannot read. Daughter form is able to read the numbers in the telephone book. There is no history of coronary disease or congestive heart failure. Daughter states there is no history of irregular heartbeat. Patient states there is. Prior similar symptoms: No Recent Illness/Hospitalization: No - Past Medical History (1) Acute ischemic stroke Status: Acute (2) Diabetes mellitus type 2 in obese Status: Chronic (3) Dyslipidemia Status: Chronic (4) Hypertension Status: Chronic (5) Hypothyroidism Status: Chronic Past Medical History - Allergies and Home Meds Allergies/Adverse Reactions: Allergies dicyclomine HCl [From Bentyl] Allergy (Verified 02/13/19 10:09) Unknown doxepin [Doxepin] Allergy (Verified 02/13/19 10:09) Unknown hydroxyzine HCl [From Vistaril] Allergy (Verified 02/13/19 10:09) Unknown hydroxyzine pamoate [From Vistaril] Allergy (Verified 02/13/19 10:09) Unknown oxymetazoline HCl [From Tristen-Synephrine (phenylephrine)] Allergy (Verified 02/13/19 10:09) Swelling phenylephrine HCl [From Tristen-Synephrine (phenylephrine)] Allergy (Verified 02/13/19 10:09) Swelling promethazine HCl [From Phenergan] Allergy (Verified 02/13/19 10:09) Unknown xylometazoline HCl [From Tristen-Synephrine (phenylephrine)] Allergy (Verified 02/13/19 10:09) Swelling Primary Care Physician: Rayshawn Ryan Chi, MD [Primary Care Provider] - Prior records reviewed: Yes Lives: Group Home Smoking Status: Never smoker Alcohol: None Drugs: None - Family History Paternal Family History: Reports: No pertinent history Review of Systems General: Reports: Malaise Eyes: Reports: - - States she is blind ENT: Denies: Rhinorrhea, Sore throat Cardiovascular: Denies: Palpitations, Heart racing Respiratory: Reports: Dyspnea, Cough Gastrointestinal: Denies: Abdominal pain, Nausea, Vomiting, Diarrhea, Melena, Hematochezia Genitourinary: Denies: Dysuria, Hematuria, Frequency Musculoskeletal: Denies: Myalgias, Arthralgias, Neck pain, Back pain, Swelling, Extremity Pain Skin: Reports: Rash - She stated my stupid doctors states I have heat rash.. Denies: Wounds Endocrine: Denies: Polyuria, Polydipsia Allergy: Denies: Uticaria, Swelling of the mouth, Swelling of the tongue Physical Exam Vital Signs/Narrative: Vital Signs Temp Pulse Resp BP Pulse Ox 02/13/19 10:40 62 18 97 02/13/19 10:09 98.4 F 02/13/19 10:07 98.4 F 61 18 134/95 H 97 Inital Vital Signs reviewed: Yes General: Well nourished, Well developed, No Acute Distress Head: Normocephalic, Atraumatic Eyes: Perrl, EOMI. Negative for: Pale conjunctiva, Scleral icterus, - ENT: Moist mucous membranes, No rhinorrhea, TM's clear Neck: Supple, Nontender, No lymphadenopathy, No JVD Cardiovascular: Regular rate, Regular rhythm, No murmurs. Negative for: Normal S1, Normal S2 Respiratory: No distress, Chest nontender, Rales - Lower lobe posteriorly Abdomen: Soft, Nontender, Nondistended, Normal bowel sounds Rectal: Deferred Back: Nontender, Normal Inspection. Negative for: CVA tenderness Extremities: Nontender, Edema Skin: No Trauma, Pallor, Rash. Negative for: Normal color, No rash, Cyanosis, Diaphoresis, Jaundice Neurological: Oriented x3, Cranial nerves II-XII grossly intact, Normal Strength, Normal Sensation Psychological: Depressed Diagnostic/Tx/Re-eval Chest X-Ray - ED: 2 View, Read by ED Physician, Unchanged, Normal, Heart, Mediastinum, Bony Structures, No Acute Disease, Chronic Changes Impressions Chest X-Ray 02/13/19 10:35 IMPRESSION: Hyperinflation. No acute abnormality seen. Electronically Signed: Stew Green, at 11:11 EDT , Service support , 02/13/19 10:35 Chest PA and Lateral [RAD] Stat Laboratory Results 02/13/19 02/13/19 10:35 10:35 WBC 6.6 RBC 4.37 Hgb 13.2 Hct 40.0 MCV 91.5 MCH 30.2 MCHC 33.0 RDW Std Deviation 42.0 RDW Coeff of Angie 12.6 Plt Count 213 MPV 9.7 Immature Gran % (Auto) 0.300 Neut % (Auto) 63.9 Lymph % (Auto) 20.3 [place] % (Auto) 12.1 H Eos % (Auto) 2.6 Baso % (Auto) 0.8 Absolute Neuts (auto) 4.2 Absolute Lymphs (auto) 1.34 Nucleated RBC % 0 Sodium 132 L Potassium 3.6 Chloride 97 L Carbon Dioxide 29.0 Anion Gap 6 BUN 12 Creatinine 0.97 Estim Creat Clear Calc 37.28 Est GFR (MDRD) Af Amer 70 Est GFR (MDRD) Non-Af 58 L BUN/Creatinine Ratio 12.3 Glucose 101 Calcium 9.1 - EKG Initial EKG Interpretation: Sinus Bradycardia - Sinus bradycardia with a ventricular rate of 57. MT interval is 200 ms. QRS duration 104 ms and morphology consistent with left bundle branch block. QT duration 486 ms. There are premature atrial complexes noted. [place] is to the left. - Medical Decision Making With chief complaint of shortness of breath and rales on exam and per shelter cough that started yesterday will obtain chest x-ray to assess for pneumonia. Blood work was obtained. Differential diagnosis includes bronchitis, pneumonia, congestive heart failure. EKG was obtained since monitor reveals marked irregularity. QRS complex is wide. There was no etiology for patient's symptoms. Since work-up is negative will return to nursing facility. ED Disposition - Plan for ED Patient: Disposition: [facility] Facility Diagnosis: Dyspnea Instructions: ED Dyspnea Referrals: Rayshawn Ryan Chi, MD [Primary Care Provider] - 3-5 Days if not improving
[2019-02-13 10:48] LABS: Absolute Lymphocyte Count 1.34 X10^3/uL (0.83-4.51); Absolute Neutrophil Count 4.2 X10^3/uL (2.0-7.7); Basophil# 0.05 X10^3/uL; Basophil% 0.8 % (0-1); Eosinophil# 0.17 X10^3/uL; Eosinophils% 2.6 % (0-5); Hemoglobin 13.2 g/dL (12.0-15.0); Lymphocyte # 1.34 X10^3/ul (4.0); Lymphocyte % 20.3 % (19-41); Mean Corpuscular Hgb 30.2 pg (27.0-32.0); Mean Corpuscular Volume 91.5 fL (81-99); Mean Platelet Vol. 9.7 fl (6.2-12.0); Monocyte% 12.1 % (0-10); NRBC Flagged by Analyzer 0 % (0-5); Neutrophil # 4.22 X10^3/uL (2.7-7.7); Neutrophil % 63.9 % (47-70); Platelet Count 213 K/mm3 (150-450); RBC Distribution Width CV 12.6 % (11.6-14.6); Red Blood Count 4.37 M/mm3 (4.2-5.4); White Blood Count 6.6 K/mm3 (4.4-11.0)
[2019-02-13 11:09] LABS: Anion Gap 6 (5-15); BUN 12 mg/dL (7-18); BUN/Creat Ratio 12.3 RATIO (10-20); Calcium,Total 9.1 mg/dL (8.5-10.1); Chloride 97 mmol/L (98-107); Creatinine, Serum 0.97 mg/dL (0.55-1.02); EST Glomerular Filtration Rate 58 mL/min (>60); Est Glom Filt Rate - Afr Amer 70 mL/min (>60); Estimated Creatinine Clearance 37.28 ml/min; Glucose 101 mg/dL (74-106); Potassium 3.6 mmol/L (3.5-5.1); Sodium Level 132 mmol/L (136-145)
== END 2019-02-13 11:36 | disposition home or self-care (01) ==
PROVIDERS: Emergency Provider Emergency Medicine; Family Provider Family Medicine Geriatric Medicine; PCP Family Medicine Geriatric Medicine
DX: R06.00 Dyspnea, unspecified (principal); E66.9 Obesity, unspecified; E11.9 Type 2 diabetes mellitus without complications; I10 Essential (primary) hypertension; Z86.73 Personal history of transient ischemic attack (TIA), and cerebral infarction without residual deficits
CPT/HCPCS: 71046; 80048; 85025; 93005; 99284; A4216

== ENCOUNTER → 2019-02-18 | Outpatient (CLI) | payer MEDICARE, SELFPAY ==
[2019-02-13 10:07] VITALS: BMI 26.9
[2019-02-18 12:15] LABS: Absolute Lymphocyte Count 1.47 X10^3/uL (0.83-4.51); Absolute Neutrophil Count 4.5 X10^3/uL (2.0-7.7); Basophil# 0.04 X10^3/uL; Basophil% 0.6 % (0-1); Eosinophil# 0.17 X10^3/uL; Eosinophils% 2.6 % (0-5); Hematocrit 37.4 % (37-47); Hemoglobin 12.6 g/dL (12.0-15.0); Lymphocyte # 1.47 X10^3/ul (4.0); Lymphocyte % 22.1 % (19-41); Mean Corp Hgb Conc 33.7 g/dL (32-36); Mean Corpuscular Hgb 30.4 pg (27.0-32.0); Mean Corpuscular Volume 90.3 fL (81-99); Mean Platelet Vol. 10.7 fl (6.2-12.0); Monocyte# 0.48 X10^3/uL; Monocyte% 7.2 % (0-10); NRBC Flagged by Analyzer 0 % (0-5); Neutrophil # 4.48 X10^3/uL (2.7-7.7); Neutrophil % 67.2 % (47-70); Platelet Count 213 K/mm3 (150-450); RBC Distribution Width CV 12.5 % (11.6-14.6); RBC Distribution Width SD 41.2 fl (35.1-43.9); Red Blood Count 4.14 M/mm3 (4.2-5.4); White Blood Count 6.7 K/mm3 (4.4-11.0)
[2019-02-18 12:39] LABS: Anion Gap 6 (5-15); BUN 11 mg/dL (7-18); BUN/Creat Ratio 12.5 RATIO (10-20); Calcium,Total 8.7 mg/dL (8.5-10.1); Chloride 94 mmol/L (98-107); Creatinine, Serum 0.88 mg/dL (0.55-1.02); EST Glomerular Filtration Rate 65 mL/min (>60); Est Glom Filt Rate - Afr Amer 78 mL/min (>60); Glucose 91 mg/dL (74-106); Potassium 3.8 mmol/L (3.5-5.1); Sodium Level 126 mmol/L (136-145)
== END | disposition home or self-care (01) ==
LOC: POLAB3 09:31
PROVIDERS: Family Provider Family Medicine Geriatric Medicine; PCP Family Medicine Geriatric Medicine; Visit Provider Family Medicine Geriatric Medicine
DX: N39.0 Urinary tract infection, site not specified (principal); F05 Delirium due to known physiological condition
CPT/HCPCS: 36415; 80048; 85025; 87086; 87088

== ENCOUNTER → 2019-02-19 | Outpatient (CLI) | payer MEDICARE, SELFPAY ==
[2019-02-13 10:07] VITALS: BMI 26.9
[2019-02-19 12:40] LABS: Anion Gap 6 (5-15); BUN 14 mg/dL (7-18); BUN/Creat Ratio 15.5 RATIO (10-20); Calcium,Total 8.9 mg/dL (8.5-10.1); Chloride 102 mmol/L (98-107); EST Glomerular Filtration Rate 63 mL/min (>60); Est Glom Filt Rate - Afr Amer 76 mL/min (>60); Glucose 91 mg/dL (74-106); Potassium 3.7 mmol/L (3.5-5.1); Sodium Level 136 mmol/L (136-145)
== END | disposition home or self-care (01) ==
LOC: POLAB3 11:39
PROVIDERS: Family Provider Family Medicine Geriatric Medicine; PCP Family Medicine Geriatric Medicine; Visit Provider Family Medicine Geriatric Medicine
DX: E87.6 Hypokalemia (principal)
CPT/HCPCS: 36415; 80048

== ENCOUNTER → 2019-07-16 15:29 | Outpatient (CLI) | payer MEDICARE, SELFPAY ==
[2019-07-16 16:41] LABS: Absolute Lymphocyte Count 1.91 X10^3/uL (0.83-4.51); Absolute Neutrophil Count 5.7 X10^3/uL (2.0-7.7); Basophil# 0.06 X10^3/uL; Basophil% 0.7 % (0-1); Eosinophil# 0.25 X10^3/uL; Eosinophils% 2.9 % (0-5); Hematocrit 40.8 % (37-47); Lymphocyte # 1.91 X10^3/ul (4.0); Lymphocyte % 21.9 % (19-41); Mean Corp Hgb Conc 31.9 g/dL (32-36); Mean Corpuscular Hgb 29.6 pg (27.0-32.0); Mean Corpuscular Volume 92.9 fL (81-99); Mean Platelet Vol. 10.3 fl (6.2-12.0); Monocyte# 0.81 X10^3/uL; Monocyte% 9.3 % (0-10); NRBC Flagged by Analyzer 0 % (0-5); Neutrophil # 5.66 X10^3/uL (2.7-7.7); Neutrophil % 64.9 % (47-70); Platelet Count 281 K/mm3 (150-450); RBC Distribution Width CV 12.9 % (11.6-14.6); RBC Distribution Width SD 44.2 fl (35.1-43.9); Red Blood Count 4.39 M/mm3 (4.2-5.4); White Blood Count 8.7 K/mm3 (4.4-11.0)
[2019-07-16 17:10] LABS: ALB/GLOB Ratio 1.1 RATIO (0.9-2.4); AST(SGOT) 18 U/L (15-37); Alanine Aminotransfer ALT/SGPT 25 U/L (13-56); Albumin, Serum 3.6 g/dL (3.2-5.0); Alkaline Phosphatase 85 U/L (45-117); Anion Gap 6 (5-15); BUN 17 mg/dL (7-18); Calcium,Total 9.1 mg/dL (8.5-10.1); Chloride 98 mmol/L (98-107); Creatinine, Serum 1.06 mg/dL (0.55-1.02); EST Glomerular Filtration Rate 52 mL/min (>60); Est Glom Filt Rate - Afr Amer 63 mL/min (>60); Globulin 3.3 g/dL (2.2-4.2); Glucose 143 mg/dL (74-106); Potassium 3.9 mmol/L (3.5-5.1); Protein, Total 6.9 g/dL (6.4-8.2); Sodium Level 133 mmol/L (136-145); Thyroid Stim Hormone (TSH) 1.69 uIU/mL (0.358-3.74); Uric Acid 3.6 mg/dL (2.6-6.0)
== END ==
PROVIDERS: PCP Family Medicine Geriatric Medicine; Visit Provider Family Medicine Geriatric Medicine
DX: E55.9 Vitamin D deficiency, unspecified (principal); I10 Essential (primary) hypertension; M10.9 Gout, unspecified
CPT/HCPCS: 36415; 80053; 82306; 84443; 84550; 85025

== ENCOUNTER → 2020-08-24 15:18 | Outpatient (CLI) | payer MEDICARE, SELFPAY ==
[2020-08-24 16:14] LABS: Absolute Lymphocyte Count 1.37 X10^3/uL (0.83-4.51); Absolute Neutrophil Count 5.1 X10^3/uL (2.0-7.7); Basophil# 0.04 X10^3/uL; Basophil% 0.5 % (0-1); Eosinophil# 0.23 X10^3/uL; Eosinophils% 3.1 % (0-5); Lymphocyte # 1.37 X10^3/ul (4.0); Lymphocyte % 18.6 % (19-41); Mean Corp Hgb Conc 31.7 g/dL (32-36); Mean Corpuscular Volume 94.5 fL (81-99); Monocyte# 0.59 X10^3/uL; NRBC Flagged by Analyzer 0 % (0-5); Neutrophil # 5.11 X10^3/uL (2.7-7.7); Neutrophil % 69.5 % (47-70); Platelet Count 283 K/mm3 (150-450); RBC Distribution Width CV 12.9 % (11.6-14.6); RBC Distribution Width SD 45.2 fl (35.1-43.9); Red Blood Count 4.34 M/mm3 (4.2-5.4); White Blood Count 7.4 K/mm3 (4.4-11.0)
[2020-08-24 16:44] LABS: Vitamin D,25 Hydroxy 20.7 ng/mL
[2020-08-24 16:50] LABS: ALB/GLOB Ratio 1.2 RATIO (0.9-2.4); AST(SGOT) 18 U/L (15-37); Alanine Aminotransfer ALT/SGPT 22 U/L (13-56); Albumin, Serum 3.8 g/dL (3.2-5.0); Alkaline Phosphatase 83 U/L (45-117); Anion Gap 6 (5-15); BUN 20 mg/dL (7-18); Calcium,Total 9.4 mg/dL (8.5-10.1); Chloride 104 mmol/L (98-107); Creatinine, Serum 1.05 mg/dL (0.55-1.02); EST Glomerular Filtration Rate 53 mL/min (>60); Est Glom Filt Rate - Afr Amer 64 mL/min (>60); Globulin 3.3 g/dL (2.2-4.2); Glucose 108 mg/dL (74-106); Potassium 4.3 mmol/L (3.5-5.1); Protein, Total 7.1 g/dL (6.4-8.2); Sodium Level 140 mmol/L (136-145); Thyroid Stim Hormone (TSH) 1.72 uIU/mL (0.358-3.74); Uric Acid 4.3 mg/dL (2.6-6.0)
== END ==
PROVIDERS: PCP Family Medicine Geriatric Medicine; Visit Provider Family Medicine Geriatric Medicine
DX: E11.9 Type 2 diabetes mellitus without complications (principal); E55.9 Vitamin D deficiency, unspecified; M10.9 Gout, unspecified; R53.83 Other fatigue
CPT/HCPCS: 36415; 80053; 82306; 84443; 84550; 85025

== ENCOUNTER → 2021-02-23 15:02 | Outpatient (CLI) | payer MEDICARE, SELFPAY ==
[2021-02-23 16:46] LABS: Vitamin D,25 Hydroxy 29.7 ng/mL
[2021-02-23 17:00] LABS: Absolute Lymphocyte Count 1.77 X10^3/uL (0.83-4.51); Absolute Neutrophil Count 4.5 X10^3/uL (2.0-7.7); Basophil# 0.04 X10^3/uL; Basophil% 0.6 % (0-1); Eosinophil# 0.21 X10^3/uL; Eosinophils% 2.9 % (0-5); Hematocrit 37.2 % (37-47); Hemoglobin 12.1 g/dL (12.0-15.0); Lymphocyte # 1.77 X10^3/ul (0.83-4.51); Lymphocyte % 24.8 % (19-41); Mean Corp Hgb Conc 32.5 g/dL (32-36); Mean Corpuscular Hgb 30.2 pg (27.0-32.0); Mean Corpuscular Volume 92.8 fL (81-99); Mean Platelet Vol. 10.2 fl (6.2-12.0); Monocyte# 0.58 X10^3/uL; Monocyte% 8.1 % (0-10); NRBC Flagged by Analyzer 0 % (0-5); Neutrophil # 4.51 X10^3/uL (2.7-7.7); Neutrophil % 63.2 % (47-70); Platelet Count 255 K/mm3 (150-450); RBC Distribution Width CV 12.8 % (11.6-14.6); RBC Distribution Width SD 43.8 fl (35.1-43.9); Red Blood Count 4.01 M/mm3 (4.2-5.4); White Blood Count 7.1 K/mm3 (4.4-11.0)
[2021-02-23 17:08] LABS: ALB/GLOB Ratio 1.1 RATIO (0.9-2.4); AST(SGOT) 20 U/L (15-37); Alanine Aminotransfer ALT/SGPT 34 U/L (13-56); Albumin, Serum 3.4 g/dL (3.2-5.0); Alkaline Phosphatase 75 U/L (45-117); Anion Gap 6 (5-15); BUN 17 mg/dL (7-18); BUN/Creat Ratio 17.1 RATIO (10-20); Calcium,Total 8.6 mg/dL (8.5-10.1); Chloride 98 mmol/L (98-107); EST Glomerular Filtration Rate 56 mL/min (>60); Est Glom Filt Rate - Afr Amer 68 mL/min (>60); Globulin 3.1 g/dL (2.2-4.2); Glucose 121 mg/dL (74-106); Potassium 3.9 mmol/L (3.5-5.1); Protein, Total 6.5 g/dL (6.4-8.2); Sodium Level 132 mmol/L (136-145); Thyroid Stim Hormone (TSH) 1.79 uIU/mL (0.358-3.74)
== END ==
PROVIDERS: PCP Family Medicine Geriatric Medicine; Visit Provider Family Medicine Geriatric Medicine
DX: E11.9 Type 2 diabetes mellitus without complications (principal); E55.9 Vitamin D deficiency, unspecified; I10 Essential (primary) hypertension; M10.9 Gout, unspecified
CPT/HCPCS: 36415; 80053; 82306; 84443; 84550; 85025

== ENCOUNTER 2021-03-06 13:57 | Emergency (ER) | payer MEDICARE, SELFPAY ==
[2021-03-06 14:02] VITALS: BP 176/69; PULSE 62; RESP 16; TEMP 36.8; O2SAT 96; BMI 26.9
[2021-03-06 15:10] VITALS: BP 176/76; PULSE 61; RESP 18; O2SAT 97
--- NOTE | 2021-03-06 15:17 | EKG12_ITS ---
Test Reason : SYNCOPE Blood Pressure : / mmHG Vent. Rate : 055 BPM Atrial Rate : 055 BPM P-R Int : 208 ms QRS Dur : 156 ms QT Int : 494 ms P-R-T Axes : 071 -57 102 degrees QTc Int : 472 ms Sinus bradycardia Left axis deviation Left bundle branch block Abnormal ECG Confirmed by MAURICIO MENDEZ, SHERMAN ([id number]), associate editor DALIA JOSEPH ([id number]) on 03/08/2021 9:16:52 AM Referred By: Confirmed By:SHERMAN MARTÍNEZ MD
--- NOTE | 2021-03-06 15:23 | RAD_ITS ---
STUDY: X-RAY CHEST REASON FOR EXAM: Female, 86 years old. Chest pain. Near syncopal episode after mowing the lawn. No change in symptoms over several days. TECHNIQUE: Single AP portable view of the chest. COMPARISON: 02/13/2019. FINDINGS: The lungs are clear and expanded. There is no demonstrated pleural abnormality. Normal size heart. Normal mediastinum and ene. Normal visualized pulmonary arteries. There is mild atherosclerotic calcification of the aortic arch with tortuosity. There are diffuse degenerative changes of the visualized thoracic spine. There is degenerative osteoarthritis of the bilateral shoulders. There is no demonstrated abnormality of the visualized soft tissue structures of the upper abdomen. RAD/Chest 1 View (Portable) IMPRESSION: No acute cardiopulmonary disease or major interval change. Electronically Signed: Alin Mo DO at 16:17 EDT Tel [phone], Service support ,
[2021-03-06 15:30] LABS: Absolute Neutrophil Count 4.5 X10^3/uL (2.0-7.7); Basophil# 0.05 X10^3/uL; Basophil% 0.7 % (0-1); Eosinophil# 0.24 X10^3/uL; Eosinophils% 3.4 % (0-5); Hematocrit 41.6 % (37-47); Hemoglobin 13.1 g/dL (12.0-15.0); Lymphocyte % 23.9 % (19-41); Mean Corp Hgb Conc 31.5 g/dL (32-36); Mean Corpuscular Volume 95.4 fL (81-99); Mean Platelet Vol. 10.4 fl (6.2-12.0); Monocyte% 8.4 % (0-10); NRBC Flagged by Analyzer 0 % (0-5); Neutrophil # 4.49 X10^3/uL (2.7-7.7); Neutrophil % 63.2 % (47-70); Platelet Count 256 K/mm3 (150-450); RBC Distribution Width CV 13.1 % (11.6-14.6); Red Blood Count 4.36 M/mm3 (4.2-5.4); White Blood Count 7.1 K/mm3 (4.4-11.0)
--- NOTE | 2021-03-06 15:45 | EX.ED.DYSGE1 ---
HPI History of Present Illness Chief Complaint: Syncope Detail of Chief Complaint: Lightheaded. No syncope. Patient did not pass out. Informant: patient and family Onset/Context/Timing Onset: Today and Days Context: Gradual Onset Timing: Continuous Current Severity: Mild Maximum Severity: Mild Narrative Narrative: 86-year-old female with vascular dementia. Prior stroke, diabetes currently on no medication. History of A. fib on Eliquis. Prior colon cancer partial colectomy. Patient states she feels dizzy today. Has the last several days. She describes it as a feeling lightheaded. She denies any headache. She denies room spinning. She denies recent illness. No nausea, vomiting or diarrhea. No melena. No fever or chills. No dysuria. She denies any recent falls or head injury. She normally uses a walker. Daughter states that she was downstairs short of punch people upstairs and she realized that her mom had called the paramedics stating that she was lightheaded. Daughter states she has not been recently ill nor is she recently been hospitalized. Prior similar symptoms: Yes Recent Illness/Hospitalization: No PFSH PFSH Medical History Afib CVA (cerebral vascular accident) Depression Gout HTN (hypertension) Hypothyroid TIA (transient ischemic attack) Vascular dementia Home Medications allopurinol 150 mg PO DAILY 10/02/13 [History Last Taken Unknown] levothyroxine 50 mcg PO DAILY 10/02/13 [History Last Taken 11/12/13 07:30 50 MCG] losartan [Cozaar] 100 mg PO DAILY 10/02/13 [History Last Taken 11/12/13 07:30 100 MG] calcium-vitamin D3-vitamin K [Citracal-D3 Soft Chew] 1 ea PO DAILY 03/16/18 [History Last Taken Unknown] potassium chloride [Klor-Con M20] 20 meq PO DAILY 03/16/18 [History Last Taken Unknown] amlodipine 5 mg PO DAILY tablet 03/18/18 [Rx Last Taken Unknown] apixaban [Eliquis] 2.5 mg PO DAILY 03/06/21 [History Last Taken Unknown] atenolol 50 mg PO DAILY 03/06/21 [History Last Taken Unknown] quetiapine 25 mg PO QHS 03/06/21 [History Last Taken Unknown] Allergy/AdvReac Type Severity Reaction Status Date / Time dicyclomine HCl [From Bentyl] Allergy Unknown Verified 03/06/21 15:06 doxepin [Doxepin] Allergy Unknown Verified 03/06/21 15:06 hydroxyzine HCl Allergy Unknown Verified 03/06/21 15:06 [From Vistaril] hydroxyzine pamoate Allergy Unknown Verified 03/06/21 15:06 [From Vistaril] oxymetazoline HCl Allergy Swelling Verified 03/06/21 15:06 [From Tristen-Synephrine (phenylephrine)] phenylephrine HCl Allergy Swelling Verified 03/06/21 15:06 [From Tristen-Synephrine (phenylephrine)] promethazine HCl Allergy Unknown Verified 03/06/21 15:06 [From Phenergan] xylometazoline HCl Allergy Swelling Verified 03/06/21 15:06 [From Tristen-Synephrine (phenylephrine)] Social History Smoking Status: Never smoker ROS ROS ED ROS Narrative Denies recent illness. Review of Systems ROS Unobtainable: Denies due to encephalopathy Constitutional Constitutional ED: Denies chills or fever(s) Eyes Eyes: Denies change in vision ENT ENT ED: Denies ear pain or sore throat Cardiovascular Cardiovascular: Denies chest pain or palpitations Respiratory/Chest Respiratory/Chest: Denies cough or dyspnea Gastrointestinal Gastrointestinal: Denies abdominal pain, diarrhea, melena, nausea or vomiting Genitourinary Genitourinary ED: Denies dysuria or hematuria Integumentary Denies rash Neurologic Neurologic: Denies headache(s) Psychiatric Psychiatric: Denies depression Endocrine Endocrinology: Denies polyuria Allergic/Immunologic Allergic/Immunologic ED: Denies urticaria EXAM Physical Exam Narrative Exam Narrative: Well-appearing elderly female. Vital signs are stable and afebrile. Pulse ox 97% on room air no signs hypoxia. Patient is in no distress. H EENT exam unremarkable. Pupils are reactive light. No facial droop. Normal speech. No signs of trauma. Neck nontender. Lungs clear to auscultation bilaterally. Heart regular rhythm rate about 60 no murmur. Abdomen soft nontender normal bowel sounds no peritoneal signs. Chest were nontender. Pelvic girdle intact. Moving all 4 extremities. Trace edema left lower extremity. Neurologically she is awake and alert. She is answering questions and following commands. 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 She can lift either leg. There is no focal motor deficits. Const Vital Signs: 03/06/21 14:02 03/06/21 15:10 03/06/21 15:15 Temperature 98.3 F Temperature Source Temporal Pulse Rate 62 61 Respiratory Rate 16 18 Respiratory Effort Normal Non-Labored Respiratory Pattern Normal Blood Pressure 176/69 H 176/76 H Blood Pressure Mean 104 109 Pulse Ox 96 97 Oxygen Delivery Method Room Air Room Air 03/06/21 15:37 Temperature Temperature Source Pulse Rate Respiratory Rate Respiratory Effort Respiratory Pattern Blood Pressure Blood Pressure Mean Pulse Ox Oxygen Delivery Method Room Air Positive well nourished and well developed; Negative for unkempt General Appearance ED: well developed and NAD; Negative for unkempt HEENT Reports moist mucous membranes Negative for trauma or tenderness Eyes PERRL and EOMs intact bilaterally Neck no lymphadenopathy, supple and no JVD General: Negative for tenderness Chest Wall inspection of chest normal and palpation of chest normal Resp normal respiratory effort and clear to auscultation bilaterally Auscultation: Negative for rales, rhonchi or diminished lung sounds Cardio regular rate, regular rhythm, S1 normal heart sound, S2 normal heart sound and no murmurs GI normal to inspection, nondistended, normoactive bowel sounds, non-tender and non-distended; Negative for no masses Inspection: Negative for abdominal distention Auscultation: normoactive bowel sounds Palpation: soft; Negative for tender, guarding or rebound tenderness present Back/Spine no CVA tenderness General Back: Negative for CVA tenderness Cervical Spine: Negative for cervical spine tenderness Extremity normal to inspection Extremity Narrative: Trace edema left lower leg. Calf nontender no cord. General Extremety ED: Yes edema; Negative for tenderness General Extremity: edema Neuro oriented x3 Sensorium / Orientation: alert; Negative for lethargic or stuporous Motor Exam: strength 5/5 throughout Psych mental status grossly normal Appearance: Negative for unkempt Skin no rashes or lesions noted and no wounds MDM MDM MDM Narrative Medical decision making narrative: Elderly female reportedly lightheaded. Vital signs stable afebrile. Exam is benign. Repeat exam at 4:55 PM patient is doing well will be discharged home. Outpatient follow-up with her primary care physician. Lab Data Attestation: I reviewed the patient's lab results. Lab results narrative: CBC shows a white count of 7. Hemoglobin 13. No bands. Chemistries show a gap of 5 normal creatinine glucose of 119. Troponin is 17. Labs: Laboratory Results - last 24 hr 03/06/21 03/06/21 14:00 14:00 WBC 7.1 RBC 4.36 Hgb 13.1 Hct 41.6 MCV 95.4 MCH 30.0 MCHC 31.5 L RDW Std Deviation 46.0 H RDW Coeff of Angie 13.1 Plt Count 256 MPV 10.4 Immature Gran % (Auto) 0.400 Neut % (Auto) 63.2 Lymph % (Auto) 23.9 [place] % (Auto) 8.4 Eos % (Auto) 3.4 Baso % (Auto) 0.7 Absolute Neuts (auto) 4.5 Absolute Lymphs (auto) 1.70 Nucleated RBC % 0 Sodium 141 Potassium 3.9 Chloride 109 H Carbon Dioxide 27.0 Anion Gap 5 BUN 18 Creatinine 0.97 Estim Creat Clear Calc 35.95 Est GFR (MDRD) Af Amer 70 Est GFR (MDRD) Non-Af 58 L BUN/Creatinine Ratio 18.6 Glucose 119 H Calcium 9.3 Troponin I High Sens 17 Radiography Chest X-Ray - ED: 1 View, Read by ED Physician, Read by Radiologist, Normal, Heart, Lungs, Mediastinum, Bony Structures, No Acute Disease and Chronic Changes Diagnostic Testing: Radiology Impression Chest X-Ray 03/06/21 15:23 IMPRESSION: No acute cardiopulmonary disease or major interval change. Electronically Signed: Alin Mo DO at 16:17 EDT Tel [phone], Service support , Portable single view chest x-ray showed chronic changes no acute process. Interpreted both by myself and radiologist. Rhythm Strip Rhythm Strip: Sinus Rhythm Rate: 55 EKG Initial EKG: Attestation: I personally reviewed and interpreted this EKG as follows: Interpretation: No Acute Injury Pattern and Sinus Bradycardia Comments: Sinus bradycardia rate of 55 no acute signs of MA or ischemia. Left bundle branch block. Discharge Plan Triage Chief Complaint: Syncope ED Provider: Trace Menon Dx/Rx/DC Orders Clinical Impression: Dizziness, nonspecific Instructions: ED Dizziness, Uncertain Cause Prescriptions: No Action allopurinol 300 MG tablet 150 mg PO DAILY RF: 0 losartan [Cozaar] 100 MG tablet 100 mg PO DAILY RF: 0 levothyroxine 50 MCG tablet 50 mcg PO DAILY RF: 0 potassium chloride [Klor-Con M20] 20 MEQ tablet,ER particles/crystals 20 meq PO DAILY RF: 0 calcium-vitamin D3-vitamin K [Citracal-D3 Soft Chew] 1 EACH tablet,chewable 1 ea PO DAILY RF: 0 amlodipine 2.5 MG tablet 5 mg PO DAILY RF: 0 quetiapine 25 mg tablet 25 mg PO QHS RF: 0 atenolol 50 mg tablet 50 mg PO DAILY RF: 0 Eliquis 2.5 mg tablet 2.5 mg PO DAILY RF: 0 Primary Care Provider: Rayshawn Ryan Chi Referrals: Rayshawn Ryan Chi, MD [Primary Care Provider] - 3-5 Days Activity Restrictions/Additional Instructions: Your labs are unremarkable. Exam is benign. Follow-up your primary care physician. Disposition Disposition: Home, Self Care
[2021-03-06 16:15] LABS: Anion Gap 5 (5-15); BUN 18 mg/dL (7-18); BUN/Creat Ratio 18.6 RATIO (10-20); Calcium,Total 9.3 mg/dL (8.5-10.1); Chloride 109 mmol/L (98-107); Creatinine, Serum 0.97 mg/dL (0.55-1.02); EST Glomerular Filtration Rate 58 mL/min (>60); Est Glom Filt Rate - Afr Amer 70 mL/min (>60); Estimated Creatinine Clearance 35.95 ml/min; Glucose 119 mg/dL (74-106); Potassium 3.9 mmol/L (3.5-5.1); Sodium Level 141 mmol/L (136-145); Troponin-I HS 17 pg/mL (3.0-54.0)
[2021-03-06 17:53] VITALS: BP 184/93; PULSE 63; RESP 14; O2SAT 97
[2021-03-06 18:03] VITALS: BP 170/98; BP 175/81; BP 183/87; PULSE 54; PULSE 58; PULSE 60; PULSE 62; RESP 20
[2021-03-06 18:18] VITALS: BP 170/98; PULSE 61; RESP 18; O2SAT 98
== END 2021-03-06 18:43 | disposition home or self-care (01) ==
PROVIDERS: Emergency Provider Emergency Medicine; PCP Family Medicine Geriatric Medicine
DX: R42 Dizziness and giddiness (principal); F01.50 Vascular dementia, unspecified severity, without behavioral disturbance, psychotic disturbance, mood disturbance, and anxiety; I48.91 Unspecified atrial fibrillation; F32.9 Major depressive disorder, single episode, unspecified; I10 Essential (primary) hypertension; E03.9 Hypothyroidism, unspecified; Z79.02 Long term (current) use of antithrombotics/antiplatelets; Z79.899 Other long term (current) drug therapy; Z86.73 Personal history of transient ischemic attack (TIA), and cerebral infarction without residual deficits
CPT/HCPCS: 71045; 80048; 84484; 85025; 93005; 99285

== ENCOUNTER 2021-09-01 10:48 | Inpatient (IN) | payer MEDICARE, MEDICAID, SELFPAY ==
[2021-09-01] VITALS (17 sets, daily range): BP systolic 129–200; BP diastolic 58–80; PULSE 25–46; RESP 12–28; TEMP 36.1–36.9; O2SAT 17–98; BMI 31.1; BMI 30.4
--- NOTE | 2021-09-01 10:53 | EKG12_ITS ---
Test Reason : BRADYCARDIA Blood Pressure : / mmHG Vent. Rate : 048 BPM Atrial Rate : 073 BPM P-R Int : 000 ms QRS Dur : 142 ms QT Int : 578 ms P-R-T Axes : 000 084 -60 degrees QTc Int : 516 ms Wide QRS rhythm with frequent Premature ventricular complexes , AV Dissociation Non-specific intra-ventricular conduction block T wave abnormality, consider inferior ischemia T wave abnormality, consider anterolateral ischemia Abnormal ECG Confirmed by MINAL MENDEZ, CHUCK ([id number]), electronic news gathering editor DALIA JOSEPH ([id number]) on 09/04/2021 10:49:59 AM Referred By: TRACI Confirmed By:CHUCK FONTAINE MD
[2021-09-01 11:01] LABS: Bedside Glucose 147 mg/dL (74-106)
[2021-09-01 11:05] LABS: Absolute Lymphocyte Count 1.31 X10^3/uL (0.83-4.51); Absolute Neutrophil Count 5.8 X10^3/uL (2.0-7.7); Basophil# 0.05 X10^3/uL; Basophil% 0.6 % (0-1); Eosinophil# 0.19 X10^3/uL; Eosinophils% 2.4 % (0-5); Hematocrit 38.1 % (37-47); Hemoglobin 12.1 g/dL (12.0-15.0); Lymphocyte # 1.31 X10^3/ul (0.83-4.51); Lymphocyte % 16.2 % (19-41); Mean Corp Hgb Conc 31.8 g/dL (32-36); Mean Corpuscular Hgb 30.3 pg (27.0-32.0); Mean Corpuscular Volume 95.5 fL (81-99); Mean Platelet Vol. 10.4 fl (6.2-12.0); Monocyte# 0.65 X10^3/uL; Monocyte% 8.1 % (0-10); NRBC Flagged by Analyzer 0 % (0-5); Neutrophil # 5.84 X10^3/uL (2.7-7.7); Neutrophil % 72.3 % (47-70); Platelet Count 198 K/mm3 (150-450); RBC Distribution Width CV 13.4 % (11.6-14.6); RBC Distribution Width SD 47.2 fl (35.1-43.9); Red Blood Count 3.99 M/mm3 (4.2-5.4); White Blood Count 8.1 K/mm3 (4.4-11.0)
[2021-09-01] MEDS: Atropine Sulfate 1 MG/10 ML Syringe 0.5 MG IV (11:05)
--- NOTE | 2021-09-01 11:18 | CT_ITS ---
STUDY: CT BRAIN WITHOUT CONTRAST REASON FOR EXAM: Female, 86 years old. Altered mental status RADIATION DOSAGE (If Supplied By Facility): CTDIvol = ( 44.99 ) mGy, DLP = ( 832.67 ) mGycm TECHNIQUE: Transaxial CT imaging of the brain was performed without administration of intravenous contrast material. Individualized dose optimization techniques were used for this CT. COMPARISON: Comparison is made with prior study dated 03/16/2018. FINDINGS: Normal soft tissue structures. Normal calvarium. There is mild cerebral atrophy with widening of the extra-axial spaces and ventricular dilatation. There are areas of decreased attenuation within the white matter tracts of the supratentorial brain, consistent with microvascular disease changes. Stable small bilateral lacunar infarcts. Normal brainstem. There is mild cerebellar atrophy. There is no intracranial hemorrhage. There are no findings of an acute ischemic infarction. Atherosclerotic calcification of the vertebral arteries and cavernous portions of the internal carotid arteries bilaterally. Normal visualized paranasal sinuses. CT/Brain/Head without Contrast IMPRESSION: Chronic involutional changes of the brain. Stable examination. Electronically Signed: Stew Green MD at 12:28 EST ,
[2021-09-01 11:22] LABS: Bacteria 0 SEEN /hpf (None Seen); Mucous, Urine 0 SEEN /hpf (<or=2+); Red Blood Cells-Urine 0 SEEN /hpf (0-5)
[2021-09-01] MEDS: Glucagon 1 MG/ML Syringe 5 MG IV (11:22)
[2021-09-01 11:31] LABS: Anion Gap 1 (5-15); BUN 21 mg/dL (7-18); BUN/Creat Ratio 17.2 RATIO (10-20); Calcium,Total 8.9 mg/dL (8.5-10.1); Chloride 109 mmol/L (98-107); Creatinine, Serum 1.22 mg/dL (0.55-1.02); EST Glomerular Filtration Rate 44 mL/min (>60); Est Glom Filt Rate - Afr Amer 54 mL/min (>60); Estimated Creatinine Clearance 28.58 ml/min; Glucose 141 mg/dL (74-106); Magnesium 2.6 mg/dL (1.6-2.6); Potassium 4.2 mmol/L (3.5-5.1); Sodium Level 140 mmol/L (136-145); Thyroid Stim Hormone (TSH) 2.41 uIU/mL (0.358-3.74); Troponin-I HS 78 pg/mL (3.0-54.0)
[2021-09-01 11:33] LABS: Color, Urine Yellow (Yellow); Glucose, Dipstick Normal (Normal); Ketone-Dipstick Negative (Negative); Leukocyte Esterase-Dipstick 25 /ul (Negative); Nitrite-Dipstick Negative (Negative); Occult Blood-Urine Negative /ul (Negative); Protein-Dipstick 15 mg/dl (Negative); Urine Bilirubin Dipstick Negative (Negative); Urine Clarity Sl. Cloudy (Clear); Urine Urobilinogen Normal (Normal); Urine pH 6.5 (5.0 - 8.0)
[2021-09-01 11:39] LABS: Squamous Epithelial Cells - UA 0-5 SEEN /hpf (5-10); White Blood Cells 0-5 SEEN /hpf (0-5)
[2021-09-01] MEDS: Metoclopramide 10 MG/2 ML Vial IV (11:42)
--- NOTE | 2021-09-01 11:42 | EDS_ITS ---
HPI History of Present Illness Chief Complaint: Mental Status Change Narrative Narrative: 86-year-old female with history of diabetes, hypertension, ischemic stroke, dyslipidemia, hypothyroidism presenting with confusion and generalized weakness. It was reported that she did not come out of her room and somebody went to check on her and she appeared confused. EMS found her to have a heart rate in the 40s. They did not transmit a rhythm strip or EKG. Patient was given atropine just before arrival without any response. Patient is awake and alert with a history of dementia and is a poor informant. She states that she does have some lower back pain secondary to bad hips. She does not report chest pain or shortness of breath. She does state that she would not see want CPR or intubation. Her POA did arrive and did confirm this. Appropriate paperwork was filled out during the interview process. She states she has not had any fall or injury. [facility] Medical History (Updated 09/01/21 @ 13:[address] Sonny Alicea, ) Afib Colon cancer CVA (cerebral vascular accident) Depression Diabetes Diabetes Gout HTN (hypertension) Hypothyroid TIA (transient ischemic attack) Vascular dementia Home Medications allopurinol 300 mg PO DAILY 10/02/13 [History Last Taken Unknown] levothyroxine 50 mcg PO DAILY 10/02/13 [History Last Taken 11/12/13 07:30 50 MCG] losartan [Cozaar] 100 mg PO DAILY 10/02/13 [History Last Taken 11/12/13 07:30 100 MG] calcium-vitamin D3-vitamin K [Citracal-D3 Soft Chew] 1 ea PO DAILY 03/16/18 [History Last Taken Unknown] potassium chloride [Klor-Con M20] 20 meq PO DAILY 03/16/18 [History Last Taken Unknown] apixaban [Eliquis] 2.5 mg PO BID 03/06/21 [History Last Taken Unknown] atenolol 50 mg PO DAILY 03/06/21 [History Last Taken Unknown] citalopram 09/01/21 [History Last Taken Unknown] metformin 1,500 mg PO DAILY 09/01/21 [History Last Taken Unknown] pravastatin 40 mg PO DAILY 09/01/21 [History Last Taken Unknown] Allergy/AdvReac Type Severity Reaction Status Date / Time dicyclomine HCl [From Bentyl] Allergy Unknown Verified 09/01/21 11:41 doxepin [Doxepin] Allergy Unknown Verified 09/01/21 11:41 hydroxyzine HCl Allergy Unknown Verified 09/01/21 11:41 [From Vistaril] hydroxyzine pamoate Allergy Unknown Verified 09/01/21 11:41 [From Vistaril] oxymetazoline HCl Allergy Swelling Verified 09/01/21 11:41 [From Tristen-Synephrine (phenylephrine)] phenylephrine HCl Allergy Swelling Verified 09/01/21 11:41 [From Tristen-Synephrine (phenylephrine)] promethazine HCl Allergy Unknown Verified 09/01/21 11:41 [From Phenergan] xylometazoline HCl Allergy Swelling Verified 09/01/21 11:41 [From Trsiten-Synephrine (phenylephrine)] Surgical History (Updated 09/01/21 @ 11:49 by Michelle Cobos) H/O eye surgery History of colon surgery Social History Smoking Status: Never smoker ROS ROS ED Constitutional Constitutional ED: Denies chills or fever(s) Eyes Eyes: Denies blurry vision or diplopia ENT ENT ED: Denies rhinorrhea or sore throat Cardiovascular Cardiovascular: Denies chest pain Respiratory/Chest Respiratory/Chest: Denies cough or dyspnea Gastrointestinal Gastrointestinal: Reports nausea; Denies abdominal pain or vomiting Genitourinary Genitourinary ED: Denies dysuria or hematuria Integumentary Denies rash Neurologic Neurologic: Reports other Details: Generalized weakness EXAM Physical Exam Const Vital Signs: 09/01/21 10:49 09/01/21 11:04 09/01/21 11:09 Temperature 96.9 F L Temperature Source Temporal Pulse Rate 45 L 43 L Respiratory Rate 16 18 Blood Pressure 160/60 H Blood Pressure Mean 93 Pulse Ox 96 17 Oxygen Delivery Method Room Air Room Air Room Air Oxygen Flow Rate (L/min) 09/01/21 11:24 09/01/21 11:50 09/01/21 12:16 Temperature Temperature Source Pulse Rate 46 L 38 L 31 L Respiratory Rate 19 H 14 15 Blood Pressure 180/80 H 190/78 H 192/72 H Blood Pressure Mean 113 115 112 Pulse Ox 98 96 95 Oxygen Delivery Method Room Air Nasal Cannula Nasal Cannula Oxygen Flow Rate (L/min) 2 2 09/01/21 12:38 09/01/21 12:56 09/01/21 13:05 Temperature Temperature Source Pulse Rate 37 L 30 L Respiratory Rate 12 18 Blood Pressure 188/76 H 182/80 H Blood Pressure Mean 113 114 Pulse Ox 97 96 Oxygen Delivery Method Nasal Cannula Nasal Cannula Oxygen Flow Rate (L/min) 2 2 Positive obese General Appearance ED: NAD; Negative for pallor Nutritional Appearance: obese HEENT Reports moist mucous membranes Negative for trauma Eyes PERRL and EOMs intact bilaterally General Eye ED: Negative for pale conjunctiva Resp normal respiratory effort and clear to auscultation bilaterally Cardio Rate: bradycardia Rhythm: abnormal rhythm irregularly irregular Extremity normal to inspection Neuro oriented x3 and CN's II-XII intact bilaterally Sensorium / Orientation: alert Psych Psych Narrative: Slow to answer Skin no rashes or lesions noted General Skin Exam: Negative for jaundice or pallor MDM MDM MDM Narrative Medical decision making narrative: Patient presenting with confusion and generalized weakness from her long-term. She is bradycardic and her EKG is c oncerning for complete heart block with a ventricular rate of 48 bpm. Patient was given atropine in route and in the emergency room and this did not change her heart rate. She has been actually a little hypertensive. She was given glucagon by milligrams without change in her heart rhythm. I spoke with Dr. Herr who recommended to admit the patient and we will have to wait to do a pacemaker because she is on Eliquis. I did review the EKGs with him. She had a second EKG interpreted by myself to be complete heart block at a ventricular to 30 bpm. Chest x-ray is read by the radiologist as left lower lobe infiltrate however the patient is not febrile, does not have a leukocytosis, is not hypoxic so I do not interpret this as a pneumonia that needs antibiotics. CT of the brain is performed and is negative for acute findings. Patient CBC shows a white blood cell count 8.1, hemoglobin 12.1, hematocrit 38.1, platelets 198. Creatinine slightly elevated at 1.22 TSH is normal. High-sensitivity troponin is 69. The patient states that she does not want CPR or intubation. A DNR CCA was filled out. Her POA who is here signed this after speaking with her. Both the family and the patient as well as the POA want her to have a pacemaker if possible. This was again discussed with Dr. Nemesio later. Patient was discussed with the hospitalist for admission. Impression: 1. heart block 2. Confusion 3. Generalized weakness Lab Data Attestation: I reviewed the patient's lab results. Labs: Laboratory Results - last 24 hr 09/01/21 09/01/21 09/01/21 10:53 10:53 10:54 WBC 8.1 RBC 3.99 L Hgb 12.1 Hct 38.1 MCV 95.5 MCH 30.3 MCHC 31.8 L RDW Std Deviation 47.2 H RDW Coeff of Angie 13.4 Plt Count 198 MPV 10.4 Immature Gran % (Auto) 0.400 Neut % (Auto) 72.3 H Lymph % (Auto) 16.2 L [place] % (Auto) 8.1 Eos % (Auto) 2.4 Baso % (Auto) 0.6 Absolute Neuts (auto) 5.8 Absolute Lymphs (auto) 1.31 Nucleated RBC % 0 Sodium 140 Potassium 4.2 Chloride 109 H Carbon Dioxide 30.0 Anion Gap 1 L BUN 21 H Creatinine 1.22 H Estim Creat Clear Calc 28.58 Est GFR (MDRD) Af Amer 54 L Est GFR (MDRD) Non-Af 44 L BUN/Creatinine Ratio 17.2 Glucose 141 H Calcium 8.9 Magnesium 2.6 Troponin I High Sens 78 H TSH 2.41 Urine Color Urine Clarity Urine pH Ur Specific [place] Urine Protein Urine Glucose (UA) Urine Ketones Urine Occult Blood Urine Nitrite Urine Bilirubin Urine Urobilinogen Ur Leukocyte Esterase Urine RBC Urine WBC Ur Squamous Epith Cells Urine Bacteria Urine Mucus POC Glucose 147 H 09/01/21 09/01/21 11:12 13:00 WBC RBC Hgb Hct MCV MCH MCHC RDW Std Deviation RDW Coeff of Angie Plt Count MPV Immature Gran % (Auto) Neut % (Auto) Lymph % (Auto) [place] % (Auto) Eos % (Auto) Baso % (Auto) Absolute Neuts (auto) Absolute Lymphs (auto) Nucleated RBC % Sodium Potassium Chloride Carbon Dioxide Anion Gap BUN Creatinine Estim Creat Clear Calc Est GFR (MDRD) Af Amer Est GFR (MDRD) Non-Af BUN/Creatinine Ratio Glucose Calcium Magnesium Troponin I High Sens 69 H TSH Urine Color Yellow Urine Clarity Sl. Cloudy Urine pH 6.5 Ur Specific [place] 1.010 Urine Protein 15 H Urine Glucose (UA) Normal Urine Ketones Negative Urine Occult Blood Negative Urine Nitrite Negative Urine Bilirubin Negative Urine Urobilinogen Normal Ur Leukocyte Esterase 25 H Urine RBC 0 SEEN Urine WBC 0-5 SEEN Ur Squamous Epith Cells 0-5 SEEN Urine Bacteria 0 SEEN Urine Mucus 0 SEEN POC Glucose Radiography Diagnostic Testing: Clinical Impression(s) from Imaging Studies Brain CT 09/01/21 11:18 IMPRESSION: Chronic involutional changes of the brain. Stable examination. Electronically Signed: Stew Green MD at 12:28 EST , Chest X-Ray 09/01/21 11:53 IMPRESSION: Left lower lobe infiltrate. Electronically Signed: Stew Green MD at 12:20 EST , Discharge Plan Triage Chief Complaint: Mental Status Change ED Provider: Tho Cho Dx/Rx/DC Orders Primary Care Provider: Rayshawn Ryan Chi
--- NOTE | 2021-09-01 11:53 | RAD_ITS ---
STUDY: X-RAY CHEST REASON FOR EXAM: Female, 86 years old. Chest pain TECHNIQUE: Single AP portable view of the chest. COMPARISON: Comparison is made with prior study of 03/06/2021. FINDINGS: EKG electrodes are seen. Left lower lobe infiltrate. There is no demonstrated pleural abnormality. Normal size heart. Normal mediastinum and ene. Normal visualized pulmonary arteries. There is atherosclerotic tortuosity of the aortic arch and descending thoracic aorta. There are diffuse degenerative changes of the visualized thoracic spine. Normal visualized ribs, clavicles, and shoulders. There is no demonstrated abnormality of the visualized soft tissue structures of the upper abdomen. RAD/Chest 1 View (Portable) IMPRESSION: Left lower lobe infiltrate. Electronically Signed: Stew Green MD at 12:20 EST ,
--- NOTE | 2021-09-01 13:10 | EKG12_ITS ---
Test Reason : REPEAT Blood Pressure : / mmHG Vent. Rate : 032 BPM Atrial Rate : 084 BPM P-R Int : 000 ms QRS Dur : 114 ms QT Int : 570 ms P-R-T Axes : 000 103 -84 degrees QTc Int : 416 ms AV Dissociation Low voltage QRS ST & T wave abnormality, consider inferolateral ischemia Abnormal ECG Confirmed by MINAL MENDEZ, CHUCK ([id number]), development editor DALIA JOSEPH ([id number]) on 09/04/2021 10:51:39 AM Referred By: TRACI Confirmed By:CHUCK FONTAINE MD
[2021-09-01 13:26] LABS: Troponin-I HS 69 pg/mL (3.0-54.0)
--- NOTE | 2021-09-01 13:46 | HP.PCM.HOS_ITS ---
HPI - General General Date of Admission: 09/01/21 Date of Service: 09/01/21 Chief Complaint: confusion HPI Narrative WILI SOARES, is a 86 F who presents presents after being noted to be confused by family. Baseline, patient normally pretty interactive but not as sharp as she used to be according to her family. Is much more withdrawn today and they were concerned and patient was brought to the hospital. Patient was noted to have heart rate in the 30s and did receive atropine which had little benefit. She also did receive some glucagon she does take atenolol but no benefit as well. Dr. Herr, cardiology, was contacted and I would be seeing the patient in consultation. No imminent plans for permanent pacemaker at this time. Patient is groggy but able to state that she is not short of breath or having any chest pain. [facility] Medical History Afib Colon cancer CVA (cerebral vascular accident) Depression Diabetes Diabetes Gout HTN (hypertension) Hypothyroid TIA (transient ischemic attack) Vascular dementia Home Medications allopurinol 300 mg PO DAILY 10/02/13 [History Last Taken Unknown] levothyroxine 50 mcg PO DAILY 10/02/13 [History Last Taken 11/12/13 07:30 50 MCG] losartan [Cozaar] 100 mg PO DAILY 10/02/13 [History Last Taken 11/12/13 07:30 100 MG] calcium-vitamin D3-vitamin K [Citracal-D3 Soft Chew] 1 ea PO DAILY 03/16/18 [History Last Taken Unknown] potassium chloride [Klor-Con M20] 20 meq PO DAILY 03/16/18 [History Last Taken Unknown] apixaban [Eliquis] 2.5 mg PO BID 03/06/21 [History Last Taken Unknown] atenolol 50 mg PO DAILY 03/06/21 [History Last Taken Unknown] citalopram 09/01/21 [History Last Taken Unknown] metformin 1,500 mg PO DAILY 09/01/21 [History Last Taken Unknown] pravastatin 40 mg PO DAILY 09/01/21 [History Last Taken Unknown] Allergy/AdvReac Type Severity Reaction Status Date / Time dicyclomine HCl [From Bentyl] Allergy Unknown Verified 09/01/21 11:41 doxepin [Doxepin] Allergy Unknown Verified 09/01/21 11:41 hydroxyzine HCl Allergy Unknown Verified 09/01/21 11:41 [From Vistaril] hydroxyzine pamoate Allergy Unknown Verified 09/01/21 11:41 [From Vistaril] oxymetazoline HCl Allergy Swelling Verified 09/01/21 11:41 [From Tristen-Synephrine (phenylephrine)] phenylephrine HCl Allergy Swelling Verified 09/01/21 11:41 [From Tristen-Synephrine (phenylephrine)] promethazine HCl Allergy Unknown Verified 09/01/21 11:41 [From Phenergan] xylometazoline HCl Allergy Swelling Verified 09/01/21 11:41 [From Tritsen-Synephrine (phenylephrine)] unable to obtain (Patient very groggy and poor historian) Surgical History H/O eye surgery History of colon surgery Social History Smoking Status: Never smoker ROS ROS Narrative Limited review of systems given patient's grogginess and not answering questions appropriately. Otherwise all review of systems were negative except as mentioned above in the history of present illness and the other review of systems. Vital Signs Vital Signs Vital Signs: 09/01/21 10:49 09/01/21 11:04 09/01/21 11:09 Temperature 36.1 C L Temperature Source Temporal Pulse Rate 45 L 43 L Respiratory Rate 16 18 Blood Pressure 160/60 H Blood Pressure Mean 93 Pulse Ox 96 17 Oxygen Delivery Method Room Air Room Air Room Air Oxygen Flow Rate (L/min) 09/01/21 11:24 09/01/21 11:50 09/01/21 12:16 Temperature Temperature Source Pulse Rate 46 L 38 L 31 L Respiratory Rate 19 H 14 15 Blood Pressure 180/80 H 190/78 H 192/72 H Blood Pressure Mean 113 115 112 Pulse Ox 98 96 95 Oxygen Delivery Method Room Air Nasal Cannula Nasal Cannula Oxygen Flow Rate (L/min) 2 2 09/01/21 12:38 09/01/21 12:56 09/01/21 13:05 Temperature Temperature Source Pulse Rate 37 L 30 L Respiratory Rate 12 18 Blood Pressure 188/76 H 182/80 H Blood Pressure Mean 113 114 Pulse Ox 97 96 Oxygen Delivery Method Nasal Cannula Nasal Cannula Oxygen Flow Rate (L/min) 2 2 Weight Weight: 82.2 kg Body Mass Index (BMI) 31.1 Physical Exam Const alert and no apparent distress Constitutional Narrative: Opens eyes to voice and does follow some commands and does not answer any questions appropriately but other times trails off in regar ds to her answers none does not answer the questions sufficiently. General Appearance: cooperative HEENT normocephalic and head/scalp atraumatic Resp normal respiratory effort, no retractions, no use of accessory muscles and clear to auscultation bilaterally Cardio regular rate, regular rhythm, S1 normal heart sound and S2 normal heart sound GI normal to inspection, nondistended, normoactive bowel sounds, soft to palpation, non-tender and non-distended Extremity Extremity Narrative: Bilateral nonpitting lower extremity edema Skin no rashes or lesions noted Neuro Sensorium / Orientation: awake and alert Results Lab / Micro Data Attestation: I reviewed the patient's lab results. Result Diagrams: 09/01/21 10:53 09/01/21 10:53 Labs: Laboratory Results - last 24 hr 09/01/21 10:53: WBC 8.1, RBC 3.99 L, Hgb 12.1, Hct 38.1, MCV 95.5, MCH 30.3, MCHC 31.8 L, RDW Std Deviation 47.2 H, RDW Coeff of Angie 13.4, Plt Count 198, MPV 10.4, Immature Gran % (Auto) 0.400, Neut % (Auto) 72.3 H, Lymph % (Auto) 16.2 L, [place] % (Auto) 8.1, Eos % (Auto) 2.4, Baso % (Auto) 0.6, Absolute Neuts (auto) 5.8, Absolute Lymphs (auto) 1.31, Nucleated RBC % 0 09/01/21 10:53: Sodium 140, Potassium 4.2, Chloride 109 H, Carbon Dioxide 30.0, Anion Gap 1 L, BUN 21 H, Creatinine 1.22 H, Estim Creat Clear Calc 28.58, Est GFR (MDRD) Af Amer 54 L, Est GFR (MDRD) Non-Af 44 L, BUN/Creatinine Ratio 17.2, Glucose 141 H, Calcium 8.9, Magnesium 2.6, Troponin I High Sens 78 H, TSH 2.41 09/01/21 10:54: POC Glucose 147 H 09/01/21 11:12: Urine Color Yellow, Urine Clarity Sl. Cloudy, Urine pH 6.5, Ur Specific [place] 1.010, Urine Protein 15 H, Urine Glucose (UA) Normal, Urine Ketones Negative, Urine Occult Blood Negative, Urine Nitrite Negative, Urine Bilirubin Negative, Urine Urobilinogen Normal, Ur Leukocyte Esterase 25 H, Urine RBC 0 SEEN, Urine WBC 0-5 SEEN, Ur Squamous Epith Cells 0-5 SEEN, Urine Bacteria 0 SEEN, Urine Mucus 0 SEEN 09/01/21 13:00: Troponin I High Sens 69 H EKG Initial EKG: Attestation: I personally reviewed and interpreted this EKG as follows: Prior EKG tracings: available for review EKG Rhythm Intrepretation: Sinus Bradycardia Radiology Impression Brain CT 09/01/21 11:18 IMPRESSION: Chronic involutional changes of the brain. Stable examination. Electronically Signed: Stew Green MD at 12:28 EST , Chest X-Ray 09/01/21 11:53 IMPRESSION: Left lower lobe infiltrate. Electronically Signed: Stew Green MD at 12:20 EST , Assessment & Plan Assessment/Plan (1) Bradycardia: (2) Metabolic encephalopathy: PLAN: 1. Bradycardia I do not feel that this is iatrogenic but will hold the atenolol. Patient has received atropine in the emergency room with minimal benefit. Continue to hold the atenolol . Cardiology consult. Discussed with the family that patient may need transcutaneous pacing if she further decompensates. 2. Encephalopathy, metabolic Likely related to bradycardia. Cannot rule out underlying dementia but family notes that the patient is not as sharp as she used to be. Hold potentiating medications Follow-up geriatrics for formal dementia evaluation. Seems like the family was leaning towards an evaluation prior to this visit. 3. Diabetes mellitus type 2 Sliding scale insulin 4. VTE prophylaxis with SCDs 5. Chronic A. fib Hold atenolol and apixaban. Holding the apixaban for potential pacemaker placement. 6. CODE STATUS: Addressed with family. Patient has previous been DNR Comfort Care arrest. Discussed with them that the may wish to consider resending that until after her pacemaker, she does have that placed. Power of certified meeting professional is currently not available. Encouraged them to discuss with power of certified meeting professional and if they do decide to change to let us know and we can change her over full CODE STATUS but in the meantime patient will be DNR Comfort Care arrest no intubation. Charges/Coding Visit Charges Inpatient E&M: 42438 Init Hosp L3
--- NOTE | 2021-09-01 16:23 | ECHOD_ITS ---
Reason For Study: Abn EKG Procedure This was a 2D Doppler, Color Flow transthoracic echocardiogram. Exam performed portable in patient room. Left Ventricle Normal LV size. Moderate concentric left ventricular hypertrophy. Left ventricular systolic function is normal. The estimated ejection fraction is 60 %. No regional wall motion abnormalities noted. Right Ventricle Normal RV size. Normal systolic function. Atria Normal left atrium. Normal right atrium. Mitral Valve Normal mitral valve. Tricuspid Valve Normal tricuspid valve. Mild (1+) tricuspid valve insufficiency. Pulmonary artery systolic pressure is 44 mmHg. Aortic Valve Trisinus/trileaflet aortic valve. Normal aortic valve. Pulmonic Valve The pulmonic valve is not well visualized. Great Vessels Calcified aortic root. The pulmonary artery is normal size. Normal inferior vena cava. Pericardium/Pleural No pericardial effusion. MMode/2D Measurements & Calculations LVIDd: 4.9 cm IVSd: 1.3 cm Ao root diam: 3.3 cm LVIDs: 3.6 cm LVPWd: 1.5 cm RVDd: 3.8 cm FS: 26.1 % LAV(MOD-bp): 59.0 ml LVAd ap4: 26.0 cm2 SV(MOD-sp4): 40.4 ml LAV(MOD-bp) Indexed: 31.8 ml/m2 LVLd ap4: 7.6 cm LAV(MOD-sp2): 68.9 ml EDV(MOD-sp4): 73.6 ml LAV(MOD-sp4): 46.1 ml EDV(sp4-el): 75.7 ml LVAs ap4: 15.0 cm2 LVLs ap4: 5.9 cm ESV(MOD-sp4): 33.1 ml ESV(sp4-el): 32.4 ml EF(MOD-sp4): 54.9 % EF(sp4-el): 57.1 % SV(sp4-el): 43.3 ml LA A4 area: 18.0 cm2 LA dimension(2D): 4.4 cm RA A4 area: 19.2 cm2 Doppler Measurements & Calculations MV E max jemal: 117.6 cm/sec Ao V2 max: 181.5 cm/sec LV V1 max: 87.7 cm/sec Ao max P.2 mmHg LV V1 max P.1 mmHg Ao V2 mean: 116.0 cm/sec Ao mean P.1 mmHg Ao V2 VTI: 41.9 cm PA V2 max: 69.0 cm/sec TR max jemal: 313.5 cm/sec TR max P.3 mmHg ECHO/Echo Complete Interpretation Summary Normal LV size. Moderate concentric left ventricular hypertrophy. Left ventricular systolic function is normal. The estimated ejection fraction is 60 %. Pulmonary artery systolic pressure is 44 mmHg. Ordering Physician: Sonny Alicea Referring Physician: Rayshawn Ryan Chi Performed By: Lauren Varghese, MAURO, RVT
--- NOTE | 2021-09-01 16:25 | EKG12_ITS ---
Test Reason : HR Blood Pressure : / mmHG Vent. Rate : 032 BPM Atrial Rate : 034 BPM P-R Int : 000 ms QRS Dur : 118 ms QT Int : 600 ms P-R-T Axes : 000 114 -48 degrees QTc Int : 438 ms Sinus rhythm with AV dissociation Low voltage QRS ST & T wave abnormality, consider inferolateral ischemia Abnormal ECG When compared with ECG of 06-MAR-2021 14:04, Junctional rhythm has replaced Sinus rhythm Vent. rate has decreased BY 23 BPM Left bundle branch block is no longer Present Confirmed by MINAL MENDEZ, CHUCK ([id number]), editor at large DALIA JOSEPH ([id number]) on 09/04/2021 2:31:38 PM Referred By: CAROLYNN Confirmed By:CHUCK FONTAINE MD
--- NOTE | 2021-09-01 16:26 | EKG12_ITS ---
Test Reason : HR Blood Pressure : / mmHG Vent. Rate : 039 BPM Atrial Rate : 061 BPM P-R Int : 000 ms QRS Dur : 134 ms QT Int : 566 ms P-R-T Axes : -21 -61 108 degrees QTc Int : 455 ms Sinus rhythm with A-V dissociation and Idioventricular rhythm with occasional Premature ventricular c omplexes Left axis deviation Right bundle branch block Left ventricular hypertrophy with QRS widening Inferior infarct , age undetermined T wave abnormality, consider lateral ischemia Abnormal ECG When compared with ECG of 01-SEP-2021 16:25, MANUAL COMPARISON REQUIRED, DATA IS UNCONFIRMED Confirmed by MINAL MENDEZ, CHUCK ([id number]), editor magazine DALIA JOSEPH ([id number]) on 09/04/2021 2:30:57 PM Referred By: CAROLYNN Confirmed By:CHUCK FONTAINE MD
[2021-09-01 17:25] LABS: Bedside Glucose 90 mg/dL (74-106)
[2021-09-01 17:43] LABS: Troponin-I HS 74 pg/mL (3.0-54.0)
--- NOTE | 2021-09-01 17:57 | CON.PCM.CA_ITS ---
Assessment & Plan Assessment/Plan (1) Bradycardia: PLAN: Patient presents with minimally symptomatic bradycardia. The EKG demonstrates sinus rhythm with A-V dissociation as well as junctional rhythm. There are periods of 3-1 AV block noted. I suspect the above is likely secondary to beta-haroldo interaction with intrinsic conduction system disease. * Her blood pressure appears to be stable at this time I do not see any evidence of heart failure. I would recommend that we hold her beta-haroldo as well as her Eliquis. * If there is no improvement in the next 24 to 48 hrs. then I would consider permanent pacemaker implantation. I have discussed this at length with the family and they understand. I did suggest to them that it may not necessarily be alive prolonging measure. * An echocardiogram should be performed to assess her ventricular function. * * Thank you for allowing me to participate in the care of your patient. Please don't hesitate to call if any issues arise. (2) Hypertension: PLAN: She is hypertensive with her blood pressure not under good control at this particular time. We will however continue to hold her antihypertensive medication until she has received her pacemaker all things have normalized with respect to her heart rhythm. HPI Consult Data Date of Consult: 09/01/21 HPI Narrative HPI Narrative: WILI SOARES, is a 86 F who presents from the assisted with a feeling of grogginess which appears to be more than usual. It is difficult to obtain a history from the patient. However it appears that she has a previous history of atrial fibrillation, hypertension, previous transient ischemic attack on anticoagulation as well as antihypertensive therapy. She was seen in the emergency room and was noted to be hypertensive with a slow heart rate. She had been given atropine on the way here. She denies any chest pain or shortness of breath or paroxysmal nocturnal dyspnea she does have mild pedal edema. She is currently domiciled in the assisted. [facility] Medical History Afib Cancer Chest pain Colon cancer CVA (cerebral vascular accident) Dementia Depression Diabetes Diabetes Gout HTN (hypertension) Hypothyroid Non-smoker TIA (transient ischemic attack) Vascular dementia Home Medications allopurinol 150 mg PO DAILY 10/02/13 [History Last Taken 09/01/21] levothyroxine 50 mcg PO DAILY 10/02/13 [History Last Taken 09/01/21] losartan [Cozaar] 100 mg PO DAILY 10/02/13 [History Last Taken 09/01/21] calcium-vitamin D3-vitamin K [Citracal-D3 Soft Chew] 1 ea PO DAILY 03/16/18 [History Last Taken 09/01/21] potassium chloride [Klor-Con M20] 20 meq PO DAILY 03/16/18 [History Last Taken 09/01/21] apixaban [Eliquis] 2.5 mg PO BID 03/06/21 [History Last Taken 09/01/21] atenolol 50 mg PO DAILY 03/06/21 [History Last Taken 09/01/21] amlodipine 2.5 mg PO DAILY 09/01/21 [History Last Taken 09/01/21] quetiapine 25 mg PO QHS 09/01/21 [History Last Taken 08/31/21] Allergy/AdvReac Type Severity Reaction Status Date / Time dicyclomine HCl [From Bentyl] Allergy Unknown Verified 09/01/21 11:41 doxepin [Doxepin] Allergy Unknown Verified 09/01/21 11:41 hydroxyzine HCl Allergy Unknown Verified 09/01/21 11:41 [From Vistaril] hydroxyzine pamoate Allergy Unknown Verified 09/01/21 11:41 [From Vistaril] oxymetazoline HCl Allergy Swelling Verified 09/01/21 11:41 [From Tristen-Synephrine (phenylephrine)] phenylephrine HCl Allergy Swelling Verified 09/01/21 11:41 [From Tristen-Synephrine (phenylephrine)] promethazine HCl Allergy Unknown Verified 09/01/21 11:41 [From Phenergan] xylometazoline HCl Allergy Swelling Verified 09/01/21 11:41 [From Tristen-Synephrine (phenylephrine)] Family History unable to obtain Surgical History H/O eye surgery History of colon surgery Social History Smoking Status: Never smoker ROS Constitutional Constitutional: Denies fever(s) or weight loss Eyes Eyes: Reports systems reviewed and no addt'l complaints, except as documented ENT HEENT: Reports systems reviewed and no addt'l complaints, except as documented Cardiovascular Cardiovascular: Denies chest pain at rest, chest pain with activity, dyspnea at rest, dyspnea on exertion, edema, palpitations or paroxysmal nocturnal dyspnea Respiratory/Chest Respiratory/Chest: Denies dyspnea on exertion, productive cough, shortness of breath at rest or shortness of breath with exertion Gastrointestinal Gastrointestinal: Denies change in bowel habits, nausea, vomiting or weight changes Genitourinary Genitourinary: Denies difficulty urinating Musculoskeletal Musculoskeletal: Denies joint stiffness or muscle weakness Integumentary Integumentary: Denies lesions Neurologic Neurologic: Denies dizziness or syncope Psychiatric Psychiatric: Denies anxiety Endocrine Endocrinology: Denies excessive sweating or fatigue Hematologic/Lymphatic Hematologic/Lymphatic: Denies anemia Allergic/Immunologic Allergic/Immunologic: Denies seasonal rhinorrhea Physical Exam Const alert, oriented x3 and no apparent distress General Appearance: cooperative HEENT hearing grossly normal bilaterally Head and Scalp: atraumatic Eyes EOMs intact bilaterally Neck General: normal visual inspection Chest inspection of chest normal and palpation of chest normal Resp normal respiratory effort Auscultation: clear to auscultation bilaterally Cardio regular rate, regular rhythm, S1 normal heart sound and S2 normal heart sound Cardio Narrative: Bradycardic Jugular Venous Distention: JVD GI normal to inspection, nondistended, normoactive bowel sounds Extremity normal capillary refill General Extremity: edema Peripheral Pulses: Yes pulses 2+ throughout and femoral pulses present Skin no rashes or lesions noted Neuro oriented x3 and CN's II-XII intact bilaterally Psych Appearance: grossly normal and appropriate Risk Stratification Risk Stratification Applicable: No Objective Data Vital Signs: Vital Signs Temp Pulse Resp BP Pulse Ox 97.5 F L 25 L 22 H 148/68 H 96 09/01/21 15:55 09/01/21 16:03 09/01/21 15:55 09/01/21 15:55 09/01/21 15:55 Oxygen Flow Rate (L/min) 4 Oxygen Delivery Method Nasal Cannula Weight: 177 lb 4.026 oz Body Mass Index (BMI) 30.4 Lab / Micro Data Result Diagrams: 09/01/21 10:53 09/01/21 10:53 Labs: Laboratory Results - last 24 hr 09/01/21 10:53: WBC 8.1, RBC 3.99 L, Hgb 12.1, Hct 38.1, MCV 95.5, MCH 30.3, MCHC 31.8 L, RDW Std Deviation 47.2 H, RDW Coeff of Angie 13.4, Plt Count 198, MPV 10.4, Immature Gran % (Auto) 0.400, Neut % (Auto) 72.3 H, Lymph % (Auto) 16.2 L, [place] % (Auto) 8.1, Eos % (Auto) 2.4, Baso % (Auto) 0.6, Absolute Neuts (auto) 5.8, Absolute Lymphs (auto) 1.31, Nucleated RBC % 0 09/01/21 10:53: Sodium 140, Potassium 4.2, Chloride 109 H, Carbon Dioxide 30.0, Anion Gap 1 L, BUN 21 H, Creatinine 1.22 H, Estim Creat Clear Calc 28.58, Est GFR (MDRD) Af Amer 54 L, Est GFR (MDRD) Non-Af 44 L, BUN/Creatinine Ratio 17.2, Glucose 141 H, Calcium 8.9, Magnesium 2.6, Troponin I High Sens 78 H, TSH 2.41 09/01/21 10:54: POC Glucose 147 H 09/01/21 11:12: Urine Color Yellow, Urine Clarity Sl. Cloudy, Urine pH 6.5, Ur Specific [place] 1.010, Urine Protein 15 H, Urine Glucose (UA) Normal, Urine Ketones Negative, Urine Occult Blood Negative, Urine Nitrite Negative, Urine Bilirubin Negative, Urine Urobilinogen Normal, Ur Leukocyte Esterase 25 H, Urine RBC 0 SEEN, Urine WBC 0-5 SEEN, Ur Squamous Epith Cells 0-5 SEEN, Urine Bacteria 0 SEEN, Urine Mucus 0 SEEN 09/01/21 13:00: Troponin I High Sens 69 H 09/01/21 17:05: Troponin I High Sens 74 H 09/01/21 17:20: POC Glucose 90 Cardiology Labs/Tests 09/01/21 10:53: WBC 8.1, RBC 3.99 L, Hgb 12.1, Hct 38.1, MCV 95.5, MCH 30.3, MCHC 31.8 L, Plt Count 198, MPV 10.4, Immature Gran % (Auto) 0.400, Neut % (Auto) 72.3 H, Lymph % (Auto) 16.2 L, [place] % (Auto) 8.1, Eos % (Auto) 2.4, Baso % (Auto) 0.6, Absolute Neuts (auto) 5.8, Nucleated RBC % 0 09/01/21 10:53: Sodium 140, Potassium 4.2, Chloride 109 H, Carbon Dioxide 30.0, Anion Gap 1 L, BUN 21 H, Creatinine 1.22 H, Est GFR (MDRD) Af Amer 54 L, Est GFR (MDRD) Non-Af 44 L, BUN/Creatinine Ratio 17.2, Glucose 141 H, Calcium 8.9, Magnesium 2.6 09/01/21 11:12: Urine Color Yellow, Urine Clarity Sl. Cloudy, Urine pH 6.5, Ur Specific [place] 1.010, Urine Protein 15 H, Urine Glucose (UA) Normal, Urine Ketones Negative, Urine Occult Blood Negative, Urine Nitrite Negative, Urine Bilirubin Negative, Urine Urobilinogen Normal, Ur Leukocyte Esterase 25 H, Urine RBC 0 SEEN, Urine WBC 0-5 SEEN Rhythm: EKG: ECHO: Stress Test: Cardiac Cath: PCI: CT Surgery: Holter monitor: EPS: PPM: CXR: Chest CT Scan: Radiography Diagnostic Testing: Radiology Impression Brain CT 09/01/21 11:18 IMPRESSION: Chronic involutional changes of the brain. Stable examination. Electronically Signed: Stew Green MD at 12:28 EST , Chest X-Ray 09/01/21 11:53 IMPRESSION: Left lower lobe infiltrate. Electronically Signed: Stew Green MD at 12:20 EST ,
[2021-09-01 22:35] LABS: Bedside Glucose 144 mg/dL (74-106)
[2021-09-02] VITALS (15 sets, daily range): BP systolic 113–166; BP diastolic 50–137; PULSE 32–54; RESP 14–28; TEMP 36.4–37.4; O2SAT 92–97
[2021-09-02] MEDS: Levothyroxine 50 MCG Tablet PO (06:49)
[2021-09-02 07:01] LABS: Bedside Glucose 96 mg/dL (74-106)
[2021-09-02 07:28] LABS: Anion Gap 5 (5-15); BUN 21 mg/dL (7-18); BUN/Creat Ratio 20.4 RATIO (10-20); Calcium,Total 8.6 mg/dL (8.5-10.1); Chloride 111 mmol/L (98-107); Creatinine, Serum 1.03 mg/dL (0.55-1.02); EST Glomerular Filtration Rate 54 mL/min (>60); Est Glom Filt Rate - Afr Amer 65 mL/min (>60); Estimated Creatinine Clearance 33.86 ml/min; Glucose 92 mg/dL (74-106); Potassium 3.8 mmol/L (3.5-5.1); Sodium Level 141 mmol/L (136-145); Thyroid Stim Hormone (TSH) 3.03 uIU/mL (0.358-3.74)
[2021-09-02 07:32] LABS: International Normalized Ratio 1.3; Prothrombin Time (Protime)PT. 15.8 SECONDS (11.7-14.9)
--- NOTE | 2021-09-02 08:38 | EKG12_ITS ---
Test Reason : HEART BLOCK Blood Pressure : / mmHG Vent. Rate : 038 BPM Atrial Rate : 083 BPM P-R Int : 000 ms QRS Dur : 146 ms QT Int : 586 ms P-R-T Axes : 072 -70 070 degrees QTc Int : 465 ms Sinus rhythm with A-V dissociation and Idioventricular rhythm with frequent Premature ventricular com plexes with ventricular escape complexes Right bundle branch block Left anterior fascicular block Confirmed by MINAL MENDEZ, CHUCK ([id number]), associate editor DALIA JOSEPH ([id number]) on 09/04/2021 2:26:34 PM Referred By: CAROLYNN Confirmed By:CHUCK FONTAINE MD
--- NOTE | 2021-09-02 09:02 | EKG12_ITS ---
Test Reason : BRADYCARDIA Blood Pressure : / mmHG Vent. Rate : 042 BPM Atrial Rate : 022 BPM P-R Int : 000 ms QRS Dur : 146 ms QT Int : 548 ms P-R-T Axes : 000 -60 109 degrees QTc Int : 457 ms Sinus rhythm with AV dissociation Right bundle branch block Left anterior fascicular block Bifascicular block T wave abnormality, consider lateral ischemia Abnormal ECG When compared with ECG of 01-SEP-2021 16:26, MANUAL COMPARISON REQUIRED, DATA IS UNCONFIRMED Confirmed by MINAL MENDEZ, CHUCK ([id number]), videotape editor DALIA JOSEPH ([id number]) on 09/04/2021 2:32:01 PM Referred By: MINAL Confirmed By:CHUCK FONTAINE MD
--- NOTE | 2021-09-02 09:38 | CASEMGMT ---
WAQAR CONWAY Assessment: Face to Face with pt for initial transition planning/care coordination assessment. RN MAN introduced self and role at [facility], pt voices understanding and consents to assessment. Pt is A/O x4 and answers all questions appropriately at this time. Pt lying in bed, nurse at bedside as well as DIL. Physician also came into room during assessment. Care providers, pharmacy, and demographics verified/updated. Admitting Dx: bradycardia PCP:Connor Specialists:Pt denies. Preferred Pharmacy: [facility] Insurance: [employer] [facility], [facility] Prescription Benefit: yes LW/HPOA: Pt has a LW/DPOA on file at [facility] and it is her DIL Sarah Tuttle. LNOK: Sarah Tuttle, emeterio Living Arrangements: Pt lives with son and dil in a single story house with 5 steps to enter with a rail on both sides. Pt reports being I in ADL's and denies concerns at home. Transportation: Pt dil transports her to medical appts. Pt denies concerns with transportation. DME/HHC/SNF: Pt has a cane, walker, grab bars in the bathroom. Pt has had HHC in the past but is unsure of which agency this was from. DIL did not know either. Pt has been to [facility] and [facility]. Pt goes to [facility] daily 7am to 4pm. Pt states no concerns with going home at time of dc. Pt is currently on BR per nurse. Pt states no further concerns/needs. CM to follow. Advised pt to ask CM if any further question/concerns/needs arise, voices understanding. Pt Goal: Home Plan: Home with family support and resuming [facility].
[2021-09-02] MEDS: Allopurinol 300 MG Tablet PO (10:04)
[2021-09-02] MEDS: Pravastatin 40 MG Tablet PO (10:04)
[2021-09-02] MEDS: Losartan Potassium 100 MG Tablet PO (10:04)
[2021-09-02] MEDS: amLODIPine 2.5 MG Tablet PO (10:04)
[2021-09-02] MEDS: Calcium Carb/Vitamin D 1 TABLET Tablet PO (11:13)
[2021-09-02 12:10] LABS: Bedside Glucose 135 mg/dL (74-106)
--- NOTE | 2021-09-02 13:09 | PCM.PN.HOSP ---
Subjective Subjective No new events. Objective Data Objective Data Vital Signs: Vital Signs Temp Pulse Resp BP Pulse Ox 36.8 C 32 L 14 158/52 H 92 09/02/21 12:57 09/02/21 12:57 09/02/21 12:57 09/02/21 12:57 09/02/21 12:57 Oxygen Flow Rate (L/min) 2 Oxygen Delivery Method Nasal Cannula Weight: 80.4 kg Body Mass Index (BMI) 30.4 Intake & Output: Intake and Output for Last 24 Hours 08/31/21 09/01/21 09/02/21 23:59 23:59 23:59 Intake Total 100 / 100 300 / 300 Output Total 400 / 400 700 / 700 Balance -300 / -300 -400 / -400 Lab / Micro Data Result Diagrams: 09/01/21 10:53 09/02/21 06:08 Labs: Laboratory Results - last 24 hr 09/01/21 13:00: Troponin I High Sens 69 H 09/01/21 17:05: Troponin I High Sens 74 H 09/01/21 17:20: POC Glucose 90 09/01/21 21:56: POC Glucose 144 H 09/02/21 06:08: PT 15.8 H, INR 1.3 09/02/21 06:08: Sodium 141, Potassium 3.8, Chloride 111 H, Carbon Dioxide 25.0, Anion Gap 5, BUN 21 H, Creatinine 1.03 H, Estim Creat Clear Calc 33.86, Est GFR (MDRD) Af Amer 65, Est GFR (MDRD) Non-Af 54 L, BUN/Creatinine Ratio 20.4 H, Glucose 92, Calcium 8.6, TSH 3.03 09/02/21 06:47: POC Glucose 96 09/02/21 11:11: POC Glucose 135 H Physical Exam Const alert and no apparent distress Resp normal respiratory effort, no retractions, no use of accessory muscles and clear to auscultation bilaterally Cardio regular rate, regular rhythm, S1 normal heart sound and S2 normal heart sound GI normal to inspection, nondistended, normoactive bowel sounds, soft to palpation, non-tender and non-distended Extremity normal to inspection Assessment & Plan Assessment/Plan (1) Bradycardia: (2) Metabolic encephalopathy: PLAN: 1. Bradycardia Ongoing. I do not feel that this is iatrogenic but will hold the atenolol. Patient has received atropine in the emergency room with minimal benefit. Continue to hold the atenolol . Cardiology consult. Discussed with the family that patient may need transcutaneous pacing if she further decompensates. 2. Encephalopathy, metabolic Resolved Likely related to bradycardia. Cannot rule out underlying dementia but family notes that the patient is not as sharp as she used to be. Hold potentiating medications Follow-up geriatrics for formal dementia evaluation. Seems like the family was leaning towards an evaluation prior to this visit. 3. Diabetes mellitus type 2 Sliding scale insulin 4. VTE prophylaxis with SCDs 5. Chronic A. fib Hold atenolol and apixaban. Holding the apixaban for potential pacemaker placement. 6. CODE STATUS: Addressed with family. Patient has previous been DNR Comfort Care arrest. Discussed with them that the may wish to consider resending that until after her pacemaker, she does have that placed. Power of business unit manager is currently not available. Encouraged them to discuss with power of business unit manager and if they do decide to change to let us know and we can change her over full CODE STATUS but in the meantime patient will be DNR Comfort Care arrest no intubation. Charges/Coding Visit Charges Inpatient E&M: 21326 Subs Hosp L2
[2021-09-02 16:16] LABS: Bedside Glucose 186 mg/dL (74-106)
[2021-09-02] MEDS: Furosemide 40 MG/4 ML Vial IV (20:52)
[2021-09-02 21:56] LABS: Bedside Glucose 109 mg/dL (74-106)
--- NOTE | 2021-09-02 23:22 | NURSING ---
Pt down to lab specialist w/ [employer] [facility] and primary RN per Dr. Herr's plan to put in a temporary pacer.
--- NOTE | 2021-09-02 23:41 | PN.CARD_ITS ---
Subjective Subjective Patient seen and evaluated. Was stable this morning. Echocardiogram performed this morning demonstrated preserved ejection fraction. Was called by the nurse later this evening that patient was having rather labored breathing which was getting worse. Objective Data Vital Signs: Vital Signs Temp Pulse Resp BP Pulse Ox 98.5 F 42 L 20 H 152/72 H 95 09/02/21 21:47 09/02/21 21:47 09/02/21 21:47 09/02/21 21:47 09/02/21 21:47 Oxygen Flow Rate (L/min) 2 Oxygen Delivery Method Nasal Cannula Weight: 177 lb 4.026 oz Body Mass Index (BMI) 30.4 Intake & Output: Intake and Output for Last 24 Hours 08/31/21 09/01/21 09/02/21 23:59 23:59 23:59 Intake Total 100 / 100 420 / 420 Output Total 400 / 400 1625 / 1625 Balance -300 / -300 -1205 / -1205 Lab / Micro Data Result Diagrams: 09/01/21 10:53 09/02/21 06:08 Labs: Laboratory Results - last 24 hr 09/02/21 06:08: PT 15.8 H, INR 1.3 09/02/21 06:08: Sodium 141, Potassium 3.8, Chloride 111 H, Carbon Dioxide 25.0, Anion Gap 5, BUN 21 H, Creatinine 1.03 H, Estim Creat Clear Calc 33.86, Est GFR (MDRD) Af Amer 65, Est GFR (MDRD) Non-Af 54 L, BUN/Creatinine Ratio 20.4 H, Glucose 92, Calcium 8.6, TSH 3.03 09/02/21 06:47: POC Glucose 96 09/02/21 11:11: POC Glucose 135 H 09/02/21 15:59: POC Glucose 186 H 09/02/21 21:44: POC Glucose 109 H Cardiology Labs/Tests 09/02/21 06:08: PT 15.8 H, INR 1.3 09/02/21 06:08: Sodium 141, Potassium 3.8, Chloride 111 H, Carbon Dioxide 25.0, Anion Gap 5, BUN 21 H, Creatinine 1.03 H, Est GFR (MDRD) Af Amer 65, Est GFR (MD RD) Non-Af 54 L, BUN/Creatinine Ratio 20.4 H, Glucose 92, Calcium 8.6 Rhythm: EKG: ECHO: Stress Test: Cardiac Cath: PCI: CT Surgery: Holter monitor: EPS: PPM: CXR: Chest CT Scan: Radiography Diagnostic Testing: Radiology Impression Echocardiogram 09/01/21 16:23 Interpretation Summary Normal LV size. Moderate concentric left ventricular hypertrophy. Left ventricular systolic function is normal. The estimated ejection fraction is 60 %. Pulmonary artery systolic pressure is 44 mmHg. Ordering Physician: Sonny Alicea Referring Physician: Rayshawn Ryan Chi Performed By: Lauren Varghese, MAURO, RVT Physical Exam Const alert, oriented x3 and no apparent distress General Appearance: cooperative HEENT hearing grossly normal bilaterally Head and Scalp: atraumatic Eyes EOMs intact bilaterally Neck General: normal visual inspection Chest inspection of chest normal and palpation of chest normal Resp normal respiratory effort Auscultation: clear to auscultation bilaterally Cardio regular rate, regular rhythm, S1 normal heart sound and S2 normal heart sound Jugular Venous Distention: JVD GI normal to inspection, nondistended, normoactive bowel sounds Extremity normal capillary refill and no pedal edema General Extremity: edema Peripheral Pulses: Yes pulses 2+ throughout and femoral pulses present Skin no rashes or lesions noted Neuro oriented x3 and CN's II-XII intact bilaterally Psych Appearance: grossly normal and appropriate Assessment & Plan Assessment/Plan (1) Bradycardia: PLAN: Patient presents with minimally symptomatic bradycardia. The EKG demonstrates sinus rhythm with A-V dissociation as well as junctional rhythm. There are periods of 3-1 AV block noted. I suspect the above is likely secondary to beta-haroldo interaction with intrinsic conduction system disease. * Her blood pressure appears to be stable at this time I do not see any evidence of heart failure. I would recommend that we hold her beta-haroldo as well as her Eliquis. * If there is no improvement in the next 24 to 48 hrs. then I would consider per manent pacemaker implantation. I have discussed this at length with the family and they understand. I did suggest to them that it may not necessarily be alive prolonging measure. * An echocardiogram performed demonstrated preserved left ventricular systolic function. * * Addendum: Was called to see patient was having more labored breathing. EKG continues to demonstrate a 3-1 heart block with A-V dissociation and mildly increased QRS widening. It was therefore decided that should pursue temporary pacemaker implantation. This was performed on an emergency basis successfully. With scheduled for permanent pacemaker implantation in a.m. * * Thank you for allowing me to participate in the care of your patient. Please don't hesitate to call if any issues arise. (2) Hypertension: PLAN: She is hypertensive with her blood pressure not under good control at this particular time. We will however continue to hold her antihypertensive medication until she has received her pacemaker all things have normalized with respect to her heart rhythm.
--- NOTE | 2021-09-02 23:51 | CL.IE_ITS ---
Patient: WILI SOARES Study Date: 09/02/2021 Performing: Oscar Herr MD : 1935 Age: 86 Gender: female PROCEDURES PERFORMED LP13-([id number])TEMPORARY INTRAVENTRICULAR PACING INDICATIONS 3 to 1 heart block PROCEDURE DETAILS The patient was brought to the Catheterization Lab in the postabsorptive nonsedated state. [facility] the procedure. Temporary pacemaker was inserted into the right femo ral vein and advanced to the RV apex, settings were placed at a rate of 60 ppm , 5 mA , VVI mode, Tem porary pacemaker turned on, Temporary pacemaker was secured and left in place. . The patient tolerat ed the procedure well. Estimated Blood Loss: 10 ml's IMPLANTED / EX-PLANTED DEVICES DEVICE PARAMETERS CONCLUSIONS / RECOMMENDATIONS Device Conclusions: Successful implantation of a single chamber temporary transvenous pacemaker PROCEDURE MEDICATIONS Oxygen: 2 L/min via nasal cannula Signed By Oscar Herr MD On 09/02/2021 23:50:07 Oscar Herr MD
[2021-09-03] VITALS (36 sets, daily range): BP systolic 136–218; BP diastolic 61–108; PULSE 60–99; RESP 18–30; TEMP 36.4–37.7; O2SAT 91–97
[2021-09-03] MEDS: 0.9% Normal Saline 1,000 ML 15 ML IV (00:15)
[2021-09-03] MEDS: hydrALAZINE 20 MG/ML Vial 10 MG IV ×3 (02:30→14:33)
[2021-09-03] MEDS: CHLORHEXIDINE GLUC 2% CLOTH 1 EACH TOWELETTE TOPICAL (04:00)
[2021-09-03] MEDS: Ondansetron 4 MG/2 ML Vial IV ×2 (04:28→10:31)
[2021-09-03 05:03] LABS: Absolute Lymphocyte Count 0.76 X10^3/uL (0.83-4.51); Absolute Neutrophil Count 9.8 X10^3/uL (2.0-7.7); Basophil# 0.04 X10^3/uL; Basophil% 0.3 % (0-1); Eosinophil# 0.11 X10^3/uL; Hematocrit 39.5 % (37-47); Hemoglobin 13.1 g/dL (12.0-15.0); Lymphocyte # 0.76 X10^3/ul (0.83-4.51); Lymphocyte % 6.6 % (19-41); Mean Corp Hgb Conc 33.2 g/dL (32-36); Mean Corpuscular Hgb 31.6 pg (27.0-32.0); Mean Corpuscular Volume 95.2 fL (81-99); Mean Platelet Vol. 10.6 fl (6.2-12.0); Monocyte% 6.9 % (0-10); NRBC Flagged by Analyzer 0 % (0-5); Neutrophil # 9.79 X10^3/uL (2.7-7.7); Neutrophil % 84.7 % (47-70); Platelet Count 219 K/mm3 (150-450); RBC Distribution Width CV 13.2 % (11.6-14.6); RBC Distribution Width SD 46.5 fl (35.1-43.9); Red Blood Count 4.15 M/mm3 (4.2-5.4); White Blood Count 11.6 K/mm3 (4.4-11.0)
[2021-09-03 05:17] LABS: Anion Gap 7 (5-15); BUN 22 mg/dL (7-18); Calcium,Total 8.5 mg/dL (8.5-10.1); Chloride 108 mmol/L (98-107); EST Glomerular Filtration Rate 50 mL/min (>60); Est Glom Filt Rate - Afr Amer 61 mL/min (>60); Glucose 139 mg/dL (74-106); Potassium 3.1 mmol/L (3.5-5.1); Sodium Level 142 mmol/L (136-145)
[2021-09-03] MEDS: 0.9% Saline Lock 10 ML Syringe IV ×3 (05:44→10:31)
[2021-09-03] MEDS: Potassium Chloride 10mEq/100mL 10 MEQ/100 ML IV.SOLN. 100 MEQ IV BOLUS ×4 (05:44→08:39)
[2021-09-03] MEDS: Levothyroxine 50 MCG Tablet PO (05:51)
[2021-09-03 10:41] LABS: Bedside Glucose 150 mg/dL (74-106)
[2021-09-03] MEDS: Losartan Potassium 100 MG Tablet PO (11:16)
[2021-09-03] MEDS: amLODIPine 10 MG Tablet PO (11:16)
--- NOTE | 2021-09-03 11:30 | NURSING ---
Pt down to poultry farm laborer at this time. family at bedside. Down with pt to poultry farm laborer
--- NOTE | 2021-09-03 13:08 | PCM.PN.HOSP ---
Subjective Subjective Shortness of breath last night. Had a temporary catheter placed last evening. Objective Data Objective Data Vital Signs: Vital Signs Temp Pulse Resp BP Pulse Ox 37.5 C H 63 21 H 171/70 H 96 09/03/21 10:00 09/03/21 11:00 09/03/21 11:00 09/03/21 11:00 09/03/21 11:00 Oxygen Flow Rate (L/min) 2 Oxygen Delivery Method Nasal Cannula Weight: 76.5 kg Body Mass Index (BMI) 30.4 Intake & Output: Intake and Output for Last 24 Hours 09/01/21 09/02/21 09/03/21 23:59 23:59 23:59 Intake Total 100 / 100 420 / 420 386.67 / 386.67 Output Total 400 / 400 1625 / 1625 2550 / 2550 Balance -300 / -300 -1205 / -1205 -2163.33 / -2163.33 Lab / Micro Data Result Diagrams: 09/03/21 04:30 09/03/21 04:30 Labs: Laboratory Results - last 24 hr 09/02/21 15:59: POC Glucose 186 H 09/02/21 21:44: POC Glucose 109 H 09/03/21 04:30: WBC 11.6 H, RBC 4.15 L, Hgb 13.1, Hct 39.5, MCV 95.2, MCH 31.6, MCHC 33.2, RDW Std Deviation 46.5 H, RDW Coeff of Angie 13.2, Plt Count 219, MPV 10.6, Immature Gran % (Auto) 0.500, Neut % (Auto) 84.7 H, Lymph % (Auto) 6.6 L, [place] % (Auto) 6.9, Eos % (Auto) 1.0, Baso % (Auto) 0.3, Absolute Neuts (auto) 9.8 H, Absolute Lymphs (auto) 0.76 L, Nucleated RBC % 0 09/03/21 04:30: Sodium 142, Potassium 3.1 L, Chloride 108 H, Carbon Dioxide 27.0, Anion Gap 7, BUN 22 H, Creatinine 1.10 H, Estim Creat Clear Calc 31.70, Est GFR (MDRD) Af Amer 61, Est GFR (MDRD) Non-Af 50 L, BUN/Creatinine Ratio 20.0, Glucose 139 H, Calcium 8.5 09/03/21 10:36: POC Glucose 150 H Radiography Diagnostic Testing: Radiology Impression Echocardiogram 09/01/21 16:23 Interpretation Summary Normal LV size. Moderate concentric left ventricular hypertrophy. Left ventricular systolic function is normal. The estimated ejection fraction is 60 %. Pulmonary artery systolic pressure is 44 mmHg. Ordering Physician: Sonny Alicea Referring Physician: Rayshawn Ryan Chi Performed By: Lauren Varghese, MAURO, RVT Physical Exam Const alert and no apparent distress Resp normal respiratory effort, no retractions, no use of accessory muscles and clear to auscultation bilaterally Cardio regular rate, regular rhythm, S1 normal heart sound and S2 normal heart sound GI normal to inspection, nondistended, normoactive bowel sounds, soft to palpation, non-tender and non-distended Extremity normal to inspection Assessment & Plan Assessment/Plan (1) Bradycardia: (2) Metabolic encephalopathy: PLAN: 1. Bradycardia Ongoing despite holding beta-haroldo. Status post temporary ventricular pacer on the fifth. Plan for permanent pacemaker today. 2. Encephalopathy, metabolic Resolved Likely related to bradycardia. Cannot rule out underlying dementia but family notes that the patient is not as sharp as she used to be. Hold potentiating medications Follow-up geriatrics for formal dementia evaluation. Seems like the family was leaning towards an evaluation prior to this visit. 3. Diabetes mellitus type 2 Sliding scale insulin 4. VTE prophylaxis with SCDs 5. Chronic A. fib Hold atenolol and apixaban. Holding the apixaban for potential pacemaker placement. 6. CODE STATUS: Addressed with family. Patient has previous been DNR Comfort Care arrest. Discussed with them that the may wish to consider resending that until after her pacemaker, she does have that placed. Power of client service executive is currently not available. Encouraged them to discuss with power of client service executive and if they do decide to change to let us know and we can change her over full CODE STATUS but in the meantime patient will be DNR Comfort Care arrest no intubation. 7. Hypertension accelerated Increase amlodipine from 2.5 to 10 mg daily. Continue losartan 100 mg daily. Charges/Coding Visit Charges Inpatient E&M: 27073 Subs Hosp L2
--- NOTE | 2021-09-03 13:10 | CL.IE_ITS ---
Patient: WILI SOARES Study Date: 09/03/2021 Performing: Oscar Herr MD : 1935 Age: 86 Gender: female PROCEDURES PERFORMED LP04-([id number])INITIAL PACER INSERT+DUAL LEADS INDICATIONS Other second degree AV block PROCEDURE DETAILS The patient was brought to the Catheterization Lab in the postabsorptive nonsedated state. Infor med consent was obtained prior to the procedure. Temporary pacemaker . i ^FreeText^, Temporary pacema ker turned off, Temporary pacemaker was then removed. Manual pressure held to the right groin for hem ostasis Local anesthetic was given subcutaneously to the left upper chest area with Lidocaine 2%. Inc ision was made to the left subclavicular area. Access was achieved and a guidewire was advanced into the left subclavian vein. PPM ventricular lead was inserted / positioned to right ventricular apex. P PM ventricular lead testing performed. PPM ventricular lead testing performed. PPM atrial lead was in serted / positioned to the right atrial appendage. PPM atrial lead testing performed. The Atrial lead sutured in place with 2-0 Silk. The Ventricular PM lead sutured in place with 2-0 Silk. Device pocke t was irrigated with antibiotic Ancef 2 gm. PPM generator was attached to the lead(s) and inserted into the pocket. PPM generator was then interrogated by the communications programmer. Subcutaneous closure was completed with 3-0 Vicryl. Skin closure was completed with 4-0 Vicryl. Steri-strips applied to L t chest area. Instrument, sponge, and needle counts were noted to be normal. The patient tolerated th e procedure well. Estimated Blood Loss: 10 ml's IMPLANTED / EX-PLANTED DEVICES IMPLANTED DEVICE(S): PPM Ventricular lead - Failure Analysis Engineer: [employer], Model # Ingevity 7841 , Serial # [id number] PPM Atrial lead - Failure Analysis Engineer: [employer], Model # Ingevity 7840 , Serial # [id number] PPM Generator - Failure Analysis Engineer: [employer], Model # Essent[employer] MRI L111 , Serial # [id number] DEVICE PARAMETERS ATRIAL LEAD PARAMETERS: P wave- 3.4 (mV) Current- 1.9 (mA) threshold- 1.0 (V) impedence- 528 (OHMS) VENTRICULAR LEAD PARAMETERS: R wave- Paced (mV) Current- 0.9 (mA) threshold- 0.6 (V) impedence- 732 (OHMS) DEVICE PARAMETERS: Mode- DDD Lower rate- 60 Upper rate- 120 CONCLUSIONS / RECOMMENDATIONS Device Conclusions: Successful implantation of a dual chamber pacemaker Device Recommendations: Follow up with Primary Care Physician PROCEDURE MEDICATIONS Fentanyl 50 mcg IV Versed 1 mg IV Oxygen: 2 L/min via nasal cannula Ancef 2 Gm IV @ 09/03/2021 11:52:05 Signed By Oscar Herr MD On 09/03/2021 13:08:57 Oscar Herr MD
--- NOTE | 2021-09-03 13:14 | PN.CARD_ITS ---
Subjective Subjective Patient seen and eval noted. Underwent temporary pacemaker yesterday and a permanent pacemaker today. Objective Data Vital Signs: Vital Signs Temp Pulse Resp BP Pulse Ox 99.5 F H 63 21 H 171/70 H 96 09/03/21 10:00 09/03/21 11:00 09/03/21 11:00 09/03/21 11:00 09/03/21 11:00 Oxygen Flow Rate (L/min) 2 Oxygen Delivery Method Nasal Cannula Weight: 168 lb 10.458 oz Body Mass Index (BMI) 30.4 Intake & Output: Intake and Output for Last 24 Hours 09/01/21 09/02/21 09/03/21 23:59 23:59 23:59 Intake Total 100 / 100 420 / 420 386.67 / 386.67 Output Total 400 / 400 1625 / 1625 2550 / 2550 Balance -300 / -300 -1205 / -1205 -2163.33 / -2163.33 Lab / Micro Data Result Diagrams: 09/03/21 04:30 09/03/21 04:30 Labs: Laboratory Results - last 24 hr 09/02/21 15:59: POC Glucose 186 H 09/02/21 21:44: POC Glucose 109 H 09/03/21 04:30: WBC 11.6 H, RBC 4.15 L, Hgb 13.1, Hct 39.5, MCV 95.2, MCH 31.6, MCHC 33.2, RDW Std Deviation 46.5 H, RDW Coeff of Angie 13.2, Plt Count 219, MPV 10.6, Immature Gran % (Auto) 0.500, Neut % (Auto) 84.7 H, Lymph % (Auto) 6.6 L, [place] % (Auto) 6.9, Eos % (Auto) 1.0, Baso % (Auto) 0.3, Absolute Neuts (auto) 9.8 H, Absolute Lymphs (auto) 0.76 L, Nucleated RBC % 0 09/03/21 04:30: Sodium 142, Potassium 3.1 L, Chloride 108 H, Carbon Dioxide 27.0, Anion Gap 7, BUN 22 H, Creatinine 1.10 H, Estim Creat Clear Calc 31.70, Est GFR (MDRD) Af Amer 61, Est GFR (MDRD) Non-Af 50 L, BUN/Creatinine Ratio 20.0, Glucose 139 H, Calcium 8.5 09/03/21 10:36: POC Glucose 150 H Cardiology Labs/Tests 09/03/21 04:30: WBC 11.6 H, RBC 4.15 L, Hgb 13.1, Hct 39.5, MCV 95.2, MCH 31.6, MCHC 33.2, Plt Count 219, MPV 10.6, Immature Gran % (Auto) 0.500, Neut % (Auto) 84.7 H, Lymph % (Auto) 6.6 L, [place] % (Auto) 6.9, Eos % (Auto) 1.0, Baso % (Auto) 0.3, Absolute Neuts (auto) 9.8 H, Nucleated RBC % 0 09/03/21 04:30: Sodium 142, Potassium 3.1 L, Chloride 108 H, Carbon Dioxide 27.0, Anion Gap 7, BUN 22 H, Creatinine 1.10 H, Est GFR (MDRD) Af Amer 61, Est GFR (MDRD) Non-Af 50 L, BUN/Creatinine Ratio 20.0, Glucose 139 H, Calcium 8.5 Rhythm: EKG: ECHO: Stress Test: Cardiac Cath: PCI: CT Surgery: Holter monitor: EPS: PPM: CXR: Chest CT Scan: Radiography Diagnostic Testing: Radiology Impression Echocardiogram 09/01/21 16:23 Interpretation Summary Normal LV size. Moderate concentric left ventricular hypertrophy. Left ventricular systolic function is normal. The estimated ejection fraction is 60 %. Pulmonary artery systolic pressure is 44 mmHg. Ordering Physician: Sonny Alicea Referring Physician: Rayshawn Ryan Chi Performed By: Lauren Varghese, RDCS, RVT Assessment & Plan Assessment/Plan (1) Bradycardia: PLAN: Patient presents with minimally symptomatic bradycardia. The EKG demonstrates sinus rhythm with A-V dissociation as well as junctional rhythm. There are periods of 3-1 AV block noted. I suspect the above is likely secondary to beta-haroldo interaction with intrinsic conduction system disease. * Echocardiogram demonstrated preserved ejection fraction * With yesterday's worsening and having to place a temporary pacemaker the patient underwent a permanent pacemaker today dual-chamber. * Patient tolerated the procedure well * Thank you for allowing me to participate in the care of your patient. Please don't hesitate to call if any issues arise. (2) Hypertension: PLAN: She is hypertensive with her blood pressure not under good control at this particular time. We will however continue to hold her antihypertensive medication until she has received her pacemaker all things have normalized with respect to her heart rhythm.
--- NOTE | 2021-09-03 13:47 | NURSING ---
returns from laboratory veterinarian
[2021-09-03] MEDS: 0.9% Normal Saline 1,000 ML 60 ML IV (13:57)
[2021-09-03 22:16] LABS: Bedside Glucose 133 mg/dL (74-106)
[2021-09-04] VITALS (14 sets, daily range): BP systolic 139–203; BP diastolic 60–78; PULSE 72–93; RESP 16–18; TEMP 36.8–37.2; O2SAT 92–95
[2021-09-04] MEDS: hydrALAZINE 20 MG/ML Vial 10 MG IV (05:35)
[2021-09-04] MEDS: Levothyroxine 50 MCG Tablet PO (05:35)
[2021-09-04] MEDS: 0.9% Saline Lock 10 ML Syringe IV (05:36)
--- NOTE | 2021-09-04 05:55 | RAD_ITS ---
EXAM: XR CHEST, 3 VIEWS : 1935 CLINICAL INDICATION: Post permanant ICD/Pacemaker -- inspiration/expiration. Arms Down. Wet read to MD TECHNIQUE: Frontal inspiratory and expiratory, as well as lateral view of the chest. This report was created using [employer] report generation technology. COMPARISON: 09/01/21. FINDINGS: LUNGS AND PLEURAL SPACES: Bibasilar airspace disease and small pleural effusions. No pneumothorax. HEART: Unremarkable. Cardiac silhouette not enlarged. MEDIASTINUM: Central airways and mediastinal contour are unremarkable. BONES/JOINTS: Degenerative changes of the spine. SOFT TISSUES: Unremarkable. TUBES, LINES AND DEVICES: Left chest pacer with leads in the right atrium and right ventricle. RAD/Chest 3 View IMPRESSION: 1. Left chest pacer with leads in the right atrium and right ventricle. No pneumothorax identified. 2. Bibasilar airspace disease and small pleural effusions. Findings may indicate atelectasis or infection. at 0514 Reported and signed by: Girish Panda MD Electronically Signed: Girish Panda MD at 5:13 EST ,
[2021-09-04 06:21] LABS: Bedside Glucose 115 mg/dL (74-106)
[2021-09-04 07:04] LABS: Absolute Lymphocyte Count 0.99 X10^3/uL (0.83-4.51); Basophil# 0.04 X10^3/uL; Basophil% 0.4 % (0-1); Eosinophil# 0.08 X10^3/uL; Eosinophils% 0.8 % (0-5); Hematocrit 38.7 % (37-47); Hemoglobin 12.4 g/dL (12.0-15.0); Lymphocyte # 0.99 X10^3/ul (0.83-4.51); Mean Corpuscular Hgb 30.1 pg (27.0-32.0); Mean Corpuscular Volume 93.9 fL (81-99); Mean Platelet Vol. 10.5 fl (6.2-12.0); Monocyte# 0.78 X10^3/uL; Monocyte% 7.9 % (0-10); NRBC Flagged by Analyzer 0 % (0-5); Neutrophil # 8.01 X10^3/uL (2.7-7.7); Neutrophil % 80.6 % (47-70); Platelet Count 220 K/mm3 (150-450); RBC Distribution Width CV 13.6 % (11.6-14.6); RBC Distribution Width SD 46.5 fl (35.1-43.9); Red Blood Count 4.12 M/mm3 (4.2-5.4); White Blood Count 9.9 K/mm3 (4.4-11.0)
[2021-09-04 07:28] LABS: Anion Gap 6 (5-15); BUN 22 mg/dL (7-18); Calcium,Total 8.4 mg/dL (8.5-10.1); Chloride 110 mmol/L (98-107); EST Glomerular Filtration Rate 56 mL/min (>60); Est Glom Filt Rate - Afr Amer 68 mL/min (>60); Estimated Creatinine Clearance 34.87 ml/min; Glucose 107 mg/dL (74-106); Potassium 3.7 mmol/L (3.5-5.1); Sodium Level 142 mmol/L (136-145)
[2021-09-04] MEDS: Allopurinol 300 MG Tablet PO (08:56)
[2021-09-04] MEDS: amLODIPine 10 MG Tablet PO (08:56)
[2021-09-04] MEDS: Pravastatin 40 MG Tablet PO (08:56)
--- NOTE | 2021-09-04 09:21 | PN.CARD_ITS ---
Subjective Subjective Patient seen and evaluated. Status post permanent pacemaker implantation. Doing well. Objective Data Vital Signs: Vital Signs Temp Pulse Resp BP Pulse Ox 98.2 F 79 18 164/78 H 93 09/04/21 05:30 09/04/21 07:43 09/04/21 05:30 09/04/21 06:53 09/04/21 08:41 Oxygen Flow Rate (L/min) 2 Oxygen Delivery Method Room Air Weight: 167 lb 15.876 oz Body Mass Index (BMI) 30.4 Intake & Output: Intake and Output for Last 24 Hours 09/02/21 09/03/21 09/04/21 23:59 23:59 23:59 Intake Total 420 / 420 642.17 / 642.17 1000 / 1000 Output Total 1625 / 1625 3200 / 3350 350 / 350 Balance -1205 / -1205 -2557.83 / -2707.83 650 / 650 Lab / Micro Data Result Diagrams: 09/04/21 06:20 09/04/21 06:20 Labs: Laboratory Results - last 24 hr 09/03/21 10:36: POC Glucose 150 H 09/03/21 20:58: POC Glucose 133 H 09/04/21 06:15: POC Glucose 115 H 09/04/21 06:20: WBC 9.9, RBC 4.12 L, Hgb 12.4, Hct 38.7, MCV 93.9, MCH 30.1, MCHC 32.0, RDW Std Deviation 46.5 H, RDW Coeff of Angie 13.6, Plt Count 220, MPV 10.5, Immature Gran % (Auto) 0.300, Neut % (Auto) 80.6 H, Lymph % (Auto) 10.0 L, [place] % (Auto) 7.9, Eos % (Auto) 0.8, Baso % (Auto) 0.4, Absolute Neuts (auto) 8.0 H, Absolute Lymphs (auto) 0.99, Nucleated RBC % 0 09/04/21 06:20: Sodium 142, Potassium 3.7, Chloride 110 H, Carbon Dioxide 26.0, Anion Gap 6, BUN 22 H, Creatinine 1.00, Estim Creat Clear Calc 34.87, Est GFR (MDRD) Af Amer 68, Est GFR (MDRD) Non-Af 56 L, BUN/Creatinine Ratio 22.0 H, Glucose 107 H, Calcium 8.4 L Cardiology Labs/Tests 09/04/21 06:20: WBC 9.9, RBC 4.12 L, Hgb 12.4, Hct 38.7, MCV 93.9, MCH 30.1, MCHC 32.0, Plt Count 220, MPV 10.5, Immature Gran % (Auto) 0.300, Neut % (Auto) 80.6 H, Lymph % (Auto) 10.0 L, [place] % (Auto) 7.9, Eos % (Auto) 0.8, Baso % (Auto) 0.4, Absolute Neuts (auto) 8.0 H, Nucleated RBC % 0 09/04/21 06:20: Sodium 142, Potassium 3.7, Chloride 110 H, Carbon Dioxide 26.0, Anion Gap 6, BUN 22 H, Creatinine 1.00, Est GFR (MDRD) Af Amer 68, Est GFR (MDRD) Non-Af 56 L, BUN/Creatinine Ratio 22.0 H, Glucose 107 H, Calcium 8.4 L Rhythm: EKG: ECHO: Stress Test: Cardiac Cath: PCI: CT Surgery: Holter monitor: EPS: PPM: CXR: Chest CT Scan: Radiography Diagnostic Testing: Radiology Impression Chest X-Ray 09/04/21 05:55 IMPRESSION: 1. Left chest pacer with leads in the right atrium and right ventricle. No pneumothorax identified. 2. Bibasilar airspace disease and small pleural effusions. Findings may indicate atelectasis or infection. at 0514 Reported and signed by: Girish Panda MD Electronically Signed: Girish Panda MD at 5:13 EST , Physical Exam Const alert, oriented x3 and no apparent distress General Appearance: cooperative HEENT hearing grossly normal bilaterally Head and Scalp: atraumatic Eyes EOMs intact bilaterally Neck General: normal visual inspection Chest inspection of chest normal and palpation of chest normal Resp normal respiratory effort Auscultation: clear to auscultation bilaterally Cardio regular rate, regular rhythm, S1 normal heart sound and S2 normal heart sound Jugular Venous Distention: JVD GI normal to inspection, nondistended, normoactive bowel sounds Extremity normal capillary refill and no pedal edema Peripheral Pulses: Yes pulses 2+ throughout and femoral pulses present Skin no rashes or lesions noted Neuro oriented x3 and CN's II-XII intact bilaterally Psych Appearance: grossly normal and appropriate Assessment & Plan Assessment/Plan (1) Bradycardia: PLAN: Patient presents with minimally symptomatic bradycardia. The EKG demonstrates sinus rhythm with A-V dissociation as well as junctional rhythm. * Patient underwent implantation of a dual-chamber pacemaker. It was checked this morning and is functioning well. Normal chest x-ray. Patient can be discharged for outpatient follow-up. (2) Hypertension: PLAN: She is hypertensive with her blood pressure not under good control at this particular time. She can resume her blood pressure medications.
--- NOTE | 2021-09-04 09:23 | PCM.DC ---
Discharge Instructions Diet Discharge Diet: No restrictions (as you feel able. No excessive stretching. No lifting your arm over your head (keep elbow below shoulder level) until seen for your pacemaker check. Do not lift your elbow away from your side until you are seen for your first visit. Keep the arm sling on if it helps remind you not to lift your arm.) Activity May shower in (days): 3 Dressing / Incision Call your doctor if your incision/area has: Continuous Slow Oozing, Sudden Increased Bleeding, Increased Pain/ Swelling, Increased Redness, Foul Smelling Discharge and Swelling at the incision site Call your doctor if you observe: Fever of 101 or Higher, Shortness of breath, Dizziness, Fainting spells, Swelling in the ankles, Chest pain, Prolonged hiccupping and Increased palpitations (irregular heartbeat) Additional Dressing/Incision Instructions:: When dressing is removed, wash and dry incision. Keep covered with a light bandage if it is rubbing against your clothing. Do not cover the incision with an airtight bandage. Change the bandage daily. Do not remove steri strips. The strips will fall off on their own. Follow Up Care Please Follow Up With: Oscar Herr MD When: Call [phone] for follow up. Follow-up in pacemaker clinic on September 12 at 9:30 AM Test Results: Test results from this visit will be discussed in further detail at your follow-up appointment, if applicable. Discharge Plan Admission Admit Date/Time: 09/01/21 13:37 Attending Provider: Aurelio Lackey Primary Care Provider: Rayshawn Ryan Chi Consulting Providers: Oscar Herr Discharge Orders/Prescriptions Prescriptions: Discontinued Eliquis 2.5 mg tablet 2.5 mg PO BID RF: 0 No Action allopurinol 300 MG tablet 150 mg PO DAILY RF: 0 losartan [Cozaar] 100 MG tablet 100 mg PO DAILY RF: 0 levothyroxine 50 MCG tablet 50 mcg PO DAILY RF: 0 potassium chloride [Klor-Con M20] 20 MEQ tablet,ER particles/crystals 20 meq PO DAILY RF: 0 calcium-vitamin D3-vitamin K [Citracal-D3 Soft Chew] 1 EACH tablet,chewable 1 ea PO DAILY RF: 0 atenolol 50 mg tablet 50 mg PO DAILY RF: 0 quetiapine 25 mg tablet 25 mg PO QHS RF: 0 amlodipine 2.5 mg tablet 2.5 mg PO DAILY RF: 0 Referrals / Follow Up: Rayshawn Ryan Chi, MD [Primary Care Provider] -
[2021-09-04] MEDS: Losartan Potassium 100 MG Tablet PO (09:25)
--- NOTE | 2021-09-04 10:10 | CASEMGMT ---
RN told CHAGO patient's family is interested in placement for patient. CHAGO met with patient's daughter in law, Sarah. Introduced self and role at [facility]. CHAGO discussed discharge planning. Sarah feels patient would benefit from rehab at a facility. CHAGO provided Sarah with SNF providers including quality and resource use data and consistent with the patient?s preferred geographic region, medical needs, and insurance network. Sarah's choices were: [facility]. [facility], [facility], [facility]. [facility]. CHAGO let Sarah know CHAGO will work on referrals. CHAGO spoke with Celia, Discharge Quality Assurance Specialist and asked her to send referrals to [facility] and [facility]. Await answers. Carolee Hutchison BREAST SURGEON [facility]
--- NOTE | 2021-09-04 10:13 | DCINST_ITS ---
Discharge Instructions Diet Discharge Diet: No restrictions (as you feel able. No excessive stretching. No lifting your arm over your head (keep elbow below shoulder level) until seen for your pacemaker check. Do not lift your elbow away from your side until you are seen for your first visit. Keep the arm sling on if it helps remind you not to lift your arm.) Activity Discharge Activity: Return to Normal Activity and May Not Drive May shower in (days): 3 Dressing / Incision Call your doctor if your incision/area has: Continuous Slow Oozing, Sudden Increased Bleeding, Increased Pain/ Swelling, Increased Redness, Foul Smelling Discharge and Swelling at the incision site Call your doctor if you observe: Fever of 101 or Higher, Coldness, Increased Pain, Numbness or Tingling, Change in Color, Inability to urinate, Inability to have a bowel movement, Using more than 1 pad per hour, Shortness of breath, Dizziness, Fainting spells, Swelling in the ankles, Chest pain, Prolonged hiccupping, Increased palpitations (irregular heartbeat) and Calf discomfort Additional Dressing/Incision Instructions:: When dressing is removed, wash and dry incision. Keep covered with a light bandage if it is rubbing against your clothing. Do not cover the incision with an airtight bandage. Change the bandage daily. Do not remove steri strips. The strips will fall off on their own. Follow Up Care Please Follow Up With: Oscar Herr MD Test Results: Test results from this visit will be discussed in further detail at your follow-up appointment, if applicable. Discharge Plan Admission Admit Date/Time: 09/01/21 13:37 Primary Reason for Your Visit: Severe symptomatic bradycardia with AV dissociation Attending Provider: Aurelio Lackey Primary Care Provider: Rayshawn Ryan Chi Consulting Providers: Oscar Herr Discharge Orders/Prescriptions Prescriptions: New amlodipine 10 mg Tablet 10 mg PO DAILY Qty: 30 RF: 1 pravastatin 40 mg Tablet 40 mg PO DAILY Qty: 30 RF: 2 Continued losartan [Cozaar] 100 MG tablet 100 mg PO DAILY RF: 0 levothyroxine 50 MCG tablet 50 mcg PO DAILY RF: 0 potassium chloride [Klor-Con M20] 20 MEQ tablet,ER particles/crystals 20 meq PO DAILY RF: 0 calcium-vitamin D3-vitamin K [Citracal-D3 Soft Chew] 1 EACH tablet,chewable 1 ea PO DAILY RF: 0 atenolol 50 mg tablet 50 mg PO DAILY RF: 0 quetiapine 25 mg tablet 25 mg PO QHS RF: 0 Changed allopurinol 300 MG tablet 300 mg PO DAILY Qty: 0 RF: 0 Discontinued Eliquis 2.5 mg tablet 2.5 mg PO BID RF: 0 amlodipine 2.5 mg tablet 2.5 mg PO DAILY RF: 0 Referrals / Follow Up: Oscar Herr MD [STAFF PHYSICIAN] - Within 1 Month (FOR POST PACER CHECK UP) Rayshawn Ryan Chi, MD [Primary Care Provider] - Within 2 Weeks Karishma Joaquin PA [PHYSICIAN SALES SUPPORT ADVISOR] - 10/16/21 11:00 am Disposition Discharge Orders: Discharge Patient (Routine); Ordered 09/04/21 Ordered By: Dr. Aurelio Lackey
--- NOTE | 2021-09-04 10:51 | CASEMGMT ---
Discharge Complex Care Nurse Called Amber at [facility]. She has one bed open today and one tomorrow. Referral sent over. Will follow up. Celia Joaquin Discharge Complex Care Nurse
[2021-09-04] MEDS: CHLORHEXIDINE GLUC 2% CLOTH 1 EACH TOWELETTE TOPICAL (11:18)
--- NOTE | 2021-09-04 11:23 | CASEMGMT ---
SW called [facility] and spoke with the coverage line. Patient's case making machine operator is May Stinson. Patient goes to daycare at [employer] 5 days a week from 7a-4p, she gets [employer] Me[employer], she has a lifeline button through [employer], and they assist with transportation. CHAGO explained plan is long-term, but not sure which one yet. Plan: SNF pending acceptance and pre-cert. Carolee Hutchison WILDLIFE FORENSIC GENETICIST [facility]
--- NOTE | 2021-09-04 12:52 | PN.HOSP_ITS ---
Documented by User: Shoaib BYRD 09/04/21 13:03 Subjective Subjective Patient is an 86-year-old female comfortably resting in bed, alert and oriented x3.Patient denies development of any new symptoms overnight. Does not appear in acute distress. Objective Data Objective Data Vital Signs: Vital Signs Temp Pulse Resp BP Pulse Ox 99.0 F 92 18 139/64 H 93 09/04/21 11:00 09/04/21 11:00 09/04/21 11:00 09/04/21 11:00 09/04/21 11:00 Oxygen Flow Rate (L/min) 2 Oxygen Delivery Method Room Air Weight: 167 lb 15.876 oz Body Mass Index (BMI) 30.4 Intake & Output: Intake and Output for Last 24 Hours 09/02/21 09/03/21 09/04/21 23:59 23:59 23:59 Intake Total 420 / 420 642.17 / 642.17 1000 / 1000 Output Total 1625 / 1625 3200 / 3350 350 / 350 Balance -1205 / -1205 -2557.83 / -2707.83 650 / 650 Lab / Micro Data Result Diagrams: 09/04/21 06:20 09/04/21 06:20 Labs: Laboratory Results - last 24 hr 09/03/21 20:58: POC Glucose 133 H 09/04/21 06:15: POC Glucose 115 H 09/04/21 06:20: WBC 9.9, RBC 4.12 L, Hgb 12.4, Hct 38.7, MCV 93.9, MCH 30.1, MCHC 32.0, RDW Std Deviation 46.5 H, RDW Coeff of Angie 13.6, Plt Count 220, MPV 10.5, Immature Gran % (Auto) 0.300, Neut % (Auto) 80.6 H, Lymph % (Auto) 10.0 L, [place] % (Auto) 7.9, Eos % (Auto) 0.8, Baso % (Auto) 0.4, Absolute Neuts (auto) 8.0 H, Absolute Lymphs (auto) 0.99, Nucleated RBC % 0 09/04/21 06:20: Sodium 142, Potassium 3.7, Chloride 110 H, Carbon Dioxide 26.0, Anion Gap 6, BUN 22 H, Creatinine 1.00, Estim Creat Clear Calc 34.87, Est GFR (MDRD) Af Amer 68, Est GFR (MDRD) Non-Af 56 L, BUN/Creatinine Ratio 22.0 H, Glucose 107 H, Calcium 8.4 L Radiography Diagnostic Testing: Radiology Impression Chest X-Ray 09/04/21 05:55 IMPRESSION: 1. Left chest pacer with leads in the right atrium and right ventricle. No pneumothorax identified. 2. Bibasilar airspace disease and small pleural effusions. Findings may indicate atelectasis or infection. at 0514 Reported and signed by: Girish Panda MD Electronically Signed: Girish Panda MD at 5:13 EST , Physical Exam Const alert, oriented x3 and no apparent distress HEENT head/scalp atraumatic and moist oral mucous membranes Head and Scalp: normocephalic Eyes PERRL and conjunctivae normal Neck no lymphadenopathy, supple and no JVD Resp normal respiratory effort, no retractions and no use of accessory muscles Cardio regular rate, regular rhythm and no JVD GI normal to inspection, nondistended, normoactive bowel sounds Extremity normal to inspection Skin no rashes or lesions noted Neuro CN's II-XII intact bilaterally Psych affect normal Assessment & Plan Assessment/Plan (1) Bradycardia: (2) Metabolic encephalopathy: PLAN: Day 3 Discharge planning: Current plan is for patient to discharge to SNF pending acceptance and pre-CERT. 1) bradycardia POD 1 s/p successful implantation of dual-chamber pacemaker. Follow-up with primary care physician on discharge. 2) DM2 Stable, continue Accu-Cheks and sliding scale insulin. 3) chronic A. fib We will stop atenolol on discharge, continue to hold Eliquis until pacemaker check. 4) HTN Stable, continue amlodipine 10 mg daily and losartan 100 mg daily. DVT prophylaxis - SCDs Patient seen by Shoaib Valdez PA-C, under the supervision of Dr. Lcakey. Time spent on patient care: 10 min. Documented by User: Dr. Aurelio Lackey MD 09/04/21 17:20 Subjective Subjective Patient was sleeping in the morning. Denies any chest pain. Mild pain over the pacemaker insertion site. Objective Data Lab / Micro Data Result Diagrams: 09/04/21 06:20 09/04/21 06:20 Physical Exam Narrative General: Alert, Oriented x3, Cooperative HEENT: Atraumatic, PERRLA, EOMI, Normocephalic Oral: No Gingival or Mucosal Lesions/ Ulcerations Neck: Supple, No JVD, Negative Carotid Bruits Chest/lungs: Dressing over left subclavicular region at pacemaker site dry. Mild superficial tenderness. Air entry diminished in bilateral lung bases. No crepitation/rhonchi Cardiovascular: Paced rhythm., Normal S1, Normal S2, No murmurs Abdomen: Bowel Sounds Present, Soft, Non Tender, Non-Distended : No renal angle tenderness. No suprapubic tenderness. Extremities: No edema, Capillary Refill Less than 3 Seconds Skin: No rashes, No breakdown Musculoskeletal: No Tenderness to Palpation of Joints or Extremities Neurological: Cranial nerves II-XII grossly intact, DTR 2+/4 and Symmetrical, Neuro grossly intact Psych/Mental Status: Flat affect. Assessment & Plan Assessment/Plan (1) Junctional rhythm: (2) AVB (atrioventricular block): PLAN: This patient was seen in conjunction with CARSON Sharif. I have independently interviewed and examined the patient and reviewed pertinent h istory, examination findings, laboratory and plan of management. I have reviewed the note and agree with the documented findings with the few additional points. In brief, patient is admitted for confusion which of recent origin. Patient more withdrawn. In ED, patient was found bradycardic. Twelve-lead EKG shows sinus rhythm with A-V dissociation and junctional rhythm. Patient had dual-myra vik pacemaker insertion on 09/03. gambling monitor shows sinus rhythm/paced rhythm. Patient main caregiver is going to have shoulder surgery therefore requested intermediate. Discussed with case and manager social media. Discussed with procurement internship. Entomologist out because of bradycardia. Hold Eliquis until pacemaker checkup as an outpatient. Other comorbidities as mentioned above. I have discussed my assessment with CARSON Sharif and orders have been reviewed. Total time of the visit includes total time spent in counseling or coordination of care, (more than 50% of the total time, spent in obtaining medical information from nurses and other ancillary care providers,explaining to the patient about labs, imaging, diagnosis and management), discussion with process improvement consultant, review of labs and imaging is 30 minutes; I spent 18 minutes, more than half time and CARSON spent 12 minutes Charges/Coding Visit Charges Inpatient E&M: 76695 Subs Hosp L2
[2021-09-04] MEDS: Acetaminophen 325 MG Tablet 650 MG PO (13:04)
[2021-09-04] MEDS: Ondansetron ODT 4 MG Tablet PO (13:05)
--- NOTE | 2021-09-04 13:48 | CASEMGMT ---
Discharge Real Estate Financial Analyst Left a follow up VM with Amber at [facility]. Called over to the [facility] and Faxed over referral to [facility]. Will follow up. Celia Joaquin Discharge Real Estate Financial Analyst
--- NOTE | 2021-09-04 14:37 | CASEMGMT ---
Discharge Agriculture Science Teacher Amber called from [facility]. [facility] can accept patient. Amber will start pre-cert. I notified CHAGO Zarco.
--- NOTE | 2021-09-04 15:07 | CASEMGMT ---
CHAGO spoke with patient's daughter in law and let her know that [facility] has accepted patient. CHAGO explained patient will stay at [facility] until insurance approves. CHAGO let her know this likely will not be until tomorrow. Plan: d/c to [facility] pending insurance approval. Carolee WARE
--- NOTE | 2021-09-04 15:07 | CHAPLAIN ---
Type of Pastoral Visit _x__ Initial Visit ___ Follow-up Visit ___ On-call Visit ___ General Patient Visit ___ Spiritual Assessment ___ Family Conference ___ Bereavement ___ Rapid Response ___ Code Blue ___ Other (describe below) Pastoral Care Referral From _x__ Patient _x__ Family ___ Nurse ___ Physician ___ Licensed Master Social Worker ___ Unit Secy ___ Other (describe below) Sacrament/Intervention _x__ Active listening ___ Anointing ___ Anabaptist ___ Bereavement ___ Communion ___ Annette exploration ___ _x__ Life review _x__ Prayer ___ Reconciliation ___ Sacrament of Sick ___ Supportive presence ___ Wedding ___ Other (describe below) Pastoral Comments patient is sleeping in her chair and will open her eyes when spoken to; pt will respond to questions but keeps her eyes closed and appears uninterested in the conversation; dil is present and gives much insight into life of pt; pt does welcome prayer; pt used to be member of a local restoration until she had health issues;
[2021-09-04 15:56] LABS: Bedside Glucose 148 mg/dL (74-106)
[2021-09-04 16:11] LABS: Bedside Glucose 117 mg/dL (74-106)
[2021-09-04 22:05] LABS: Bedside Glucose 109 mg/dL (74-106)
[2021-09-05] VITALS (12 sets, daily range): BP systolic 140–172; BP diastolic 48–80; PULSE 66–88; RESP 16–20; TEMP 36.6–37.1; O2SAT 87–96
[2021-09-05] MEDS: Acetaminophen 325 MG Tablet 650 MG PO ×3 (01:22→23:14)
--- NOTE | 2021-09-05 01:38 | EKG12_ITS ---
Test Reason : CP Blood Pressure : / mmHG Vent. Rate : 081 BPM Atrial Rate : 081 BPM P-R Int : 146 ms QRS Dur : 172 ms QT Int : 464 ms P-R-T Axes : 086 -77 093 degrees QTc Int : 539 ms Sinus rhythm with frequent Premature ventricular complexes and Fusion complexes [id number] Abnormal ECG When compared with ECG of 02-SEP-2021 22:03, Sinus rhythm has replaced Idioventricular rhythm Vent. rate has increased BY 43 BPM Confirmed by CHUCK FONTAINE MD ([id number]), senior editor DALIA JOSEPH ([id number]) on 09/06/2021 9:55:43 AM Referred By: DR PRADHAN Confirmed By:CHUCK FONTAINE MD
--- NOTE | 2021-09-05 01:39 | NURSING ---
Pt c/o chest pain and shortness of breath.Elevated head of bed and O2 2l applied. Tylenol also given d/t surgical site discomfort. Messaged Michelle Quintero SENIOR BUSINESS OBJECTS DEVELOPER re pt pt complaints. Orders received.
[2021-09-05 02:41] LABS: Troponin-I HS 107 pg/mL (3.0-54.0)
[2021-09-05] MEDS: Levothyroxine 50 MCG Tablet PO (05:38)
[2021-09-05 06:56] LABS: Bedside Glucose 91 mg/dL (74-106)
[2021-09-05] MEDS: Losartan Potassium 100 MG Tablet PO (08:19)
[2021-09-05] MEDS: Allopurinol 300 MG Tablet PO (08:19)
[2021-09-05] MEDS: amLODIPine 10 MG Tablet PO (08:19)
[2021-09-05] MEDS: Pravastatin 40 MG Tablet PO (08:20)
[2021-09-05] MEDS: Calcium Carb/Vitamin D 1 TABLET Tablet PO (11:34)
[2021-09-05 12:21] LABS: Bedside Glucose 147 mg/dL (74-106)
--- NOTE | 2021-09-05 15:26 | CASEMGMT ---
Discharge Electrical Engineering Technologist Amber from [facility] called. [facility] is requesting a Hens/Pasr to be completed. CHAGO Zarco notified.
--- NOTE | 2021-09-05 15:37 | PCM.PN.HOSP ---
Documented by User: Shoaib BYRD 09/05/21 15:43 Subjective Subjective Patient is a 86-year-old female comfortably resting in bed, alert and orient x3. No complaints noted, does not appear in acute distress. Objective Data Objective Data Vital Signs: Vital Signs Temp Pulse Resp BP Pulse Ox 98.3 F 81 18 163/66 H 96 09/05/21 08:20 09/05/21 12:00 09/05/21 08:20 09/05/21 08:20 09/05/21 08:20 Oxygen Flow Rate (L/min) 2 Oxygen Delivery Method Room Air Weight: 170 lb 13.732 oz Body Mass Index (BMI) 30.4 Intake & Output: Intake and Output for Last 24 Hours 09/03/21 09/04/21 09/05/21 23:59 23:59 23:59 Intake Total 642.17 / 642.17 1390 / 1490 680 / 680 Output Total 3200 / 3350 775 / 975 600 / 600 Balance -2557.83 / -2707.83 615 / 515 80 / 80 Lab / Micro Data Result Diagrams: 09/04/21 06:20 09/04/21 06:20 Labs: Laboratory Results - last 24 hr 09/04/21 11:16: POC Glucose 148 H 09/04/21 16:04: POC Glucose 117 H 09/04/21 21:22: POC Glucose 109 H 09/05/21 02:05: Troponin I High Sens 107 H 09/05/21 06:38: POC Glucose 91 09/05/21 11:32: POC Glucose 147 H Physical Exam Const alert, oriented x3 and no apparent distress HEENT head/scalp atraumatic and moist oral mucous membranes Head and Scalp: normocephalic Eyes PERRL and conjunctivae normal Neck no lymphadenopathy, supple and no JVD Resp normal respiratory effort, no retractions and no use of accessory muscles Cardio regular rate, regular rhythm and no JVD GI normal to inspection, nondistended, normoactive bowel sounds Extremity normal to inspection Skin no rashes or lesions noted Neuro CN's II-XII intact bilaterally Psych affect normal Assessment & Plan Assessment/Plan (1) Metabolic encephalopathy: (2) Bradycardia: PLAN: Day 4 Discharge planning: Current plan is for patient to discharge to SNF pending acceptance and pre-CERT. 1) bradycardia POD 2 s/p successful implantation of dual-chamber pacemaker. Follow-up with primary care physician on discharge. 2) DM2 Stable, continue Accu-Cheks and sliding scale insulin. 3) chronic A. fib We will stop atenolol on discharge, continue to hold Eliquis until pacemaker check. 4) HTN Stable, continue amlodipine 10 mg daily and losartan 100 mg daily. DVT prophylaxis - SCDs Patient seen by Shoaib Valdez PA-C, under the supervision of Dr. Lackey. Time spent on patient care: 10 min. Documented by User: Dr. Aurelio Lackey MD 09/05/21 16:29 Objective Data Lab / Micro Data Result Diagrams: 09/04/21 06:20 09/04/21 06:20 Physical Exam Narrative Seen and examined. pvc monitor shows irregular sinus rhythm with PVCs General: Alert, Oriented x3, Cooperative. Fatigue. HEENT: Atraumatic, PERRLA, EOMI, Normocephalic Oral: No Gingival or Mucosal Lesions/ Ulcerations Neck: Supple, No JVD, Negative Carotid Bruits Chest/lungs: Dressing over left subclavicular region at pacemaker site dry. No tenderness. Air entry diminished in bilateral lung bases. No crepitation/rhonchi Cardiovascular: Sinus rhythm with PVCs. Intermittent paced rhythm. Normal S1, Normal S2, No murmurs Abdomen: Bowel Sounds Present, Soft, Non Tender, Non-Distended : No renal angle tenderness. No suprapubic tenderness. Extremities: No edema, Capillary Refill Less than 3 Seconds Skin: No rashes, No breakdown Musculoskeletal: No Tenderness to Palpation of Joints or Extremities Neurological: Cranial nerves II-XII grossly intact, DTR 2+/4 and Symmetrical, Neuro grossly intact Psych/Mental Status: Flat affect. Assessment & Plan Assessment/Plan (1) AVB (atrioventricular block): PLAN: This patient was seen in conjunction with CARSON Sharif. I have independently interviewed and examined the patient and reviewed pertinent history, examination findings, laboratory and plan of management. I have reviewed the note and agree with the documented findings with the few additional points. In brief, patient is admitted for confusion which of recent origin. Patient more withdrawn. In ED, patient was found bradycardic. Twelve-lead EKG shows sinus rhythm with A-V dissociation and junctional rhythm. Patient had dual-chamber pacemaker insertion on 09/03. pvc monitor shows sinus rhythm/paced rhythm. Patient main caregiver is going to have shoulder surgery therefore requested intermediate. Discussed with case and social science manager. Patient needs SNF pending pre-CERT. Discussed with manufacturer's representative. Hold Eliquis until pacemaker checkup as an outpatient. Other comorbidities as mentioned above. I have discussed my assessment with CARSON Sharif and orders have been reviewed. Total time of the visit includes total time spent in counseling or coordination of care, (more than 50% of the total time, spent in obtaining medical information from nurses and other ancillary care providers,explaining to the patient about labs, imaging, diagnosis and management), discussion with it architecture consultant, review of labs and imaging is 30 minutes; I spent 18 minutes, more than half time and CARSON spent 12 minutes Charges/Coding Visit Charges Inpatient E&M: 36193 Subs Hosp L2
--- NOTE | 2021-09-05 16:01 | CASEMGMT ---
DIMITRI completed and faxed to [facility]. Carolee Hutchison TIRE AND LUBE TECHNICIAN PROTEIN SPECIALIST
[2021-09-05 18:02] LABS: Bedside Glucose 118 mg/dL (74-106)
[2021-09-05 22:27] LABS: Bedside Glucose 136 mg/dL (74-106)
[2021-09-06] VITALS (11 sets, daily range): BP systolic 132–169; BP diastolic 58–101; PULSE 75–91; RESP 16–18; TEMP 36.4–37; O2SAT 93–96
[2021-09-06] MEDS: Acetaminophen 325 MG Tablet 650 MG PO ×2 (05:35→14:27)
[2021-09-06] MEDS: Levothyroxine 50 MCG Tablet PO (05:35)
[2021-09-06 07:31] LABS: Bedside Glucose 94 mg/dL (74-106)
[2021-09-06] MEDS: Losartan Potassium 100 MG Tablet PO (09:24)
[2021-09-06] MEDS: Pravastatin 40 MG Tablet PO (09:24)
[2021-09-06] MEDS: amLODIPine 10 MG Tablet PO (09:24)
[2021-09-06] MEDS: Allopurinol 300 MG Tablet PO (09:24)
[2021-09-06] MEDS: Calcium Carb/Vitamin D 1 TABLET Tablet PO (11:20)
[2021-09-06] MEDS: Insulin Lispro 100 UNIT/ML INSULN.PEN SC (11:21)
[2021-09-06 11:36] LABS: Bedside Glucose 192 mg/dL (74-106)
--- NOTE | 2021-09-06 13:47 | CASEMGMT ---
Discharge After School Tutor Called Amber at [facility]. Pre-cert is still pending. Will follow up. Celia Joaquin Discharge After School Tutor
--- NOTE | 2021-09-06 14:03 | PCM.PN.HOSP ---
Documented by User: Shoaib BYRD 09/06/21 14:05 Subjective Subjective Patient is a 86-year-old female comfortably resting in bed, alert and orient x3. No complaints noted, does not appear in acute distress. Objective Data Objective Data Vital Signs: Vital Signs Temp Pulse Resp BP Pulse Ox 98.0 F 82 18 150/58 H 93 09/06/21 09:25 09/06/21 12:00 09/06/21 09:25 09/06/21 09:25 09/06/21 10:08 Oxygen Flow Rate (L/min) 2 Oxygen Delivery Method Room Air Weight: 166 lb 7.184 oz Body Mass Index (BMI) 30.4 Intake & Output: Intake and Output for Last 24 Hours 09/04/21 09/05/21 09/06/21 23:59 23:59 23:59 Intake Total 1390 / 1490 680 / 880 320 / 320 Output Total 775 / 975 840 / 990 450 / 450 Balance 615 / 515 -160 / -110 -130 / -130 Lab / Micro Data Result Diagrams: 09/04/21 06:20 09/04/21 06:20 Labs: Laboratory Results - last 24 hr 09/05/21 17:32: POC Glucose 118 H 09/05/21 21:35: POC Glucose 136 H 09/06/21 06:29: POC Glucose 94 09/06/21 11:15: POC Glucose 192 H Physical Exam Const alert, oriented x3 and no apparent distress HEENT head/scalp atraumatic Head and Scalp: normocephalic Eyes PERRL and conjunctivae normal Neck no lymphadenopathy, supple and no JVD Resp normal respiratory effort, no retractions and no use of accessory muscles Cardio regular rate, regular rhythm and no JVD GI normal to inspection, nondistended, normoactive bowel sounds Extremity normal to inspection Skin no rashes or lesions noted Neuro CN's II-XII intact bilaterally Psych affect normal Assessment & Plan Assessment/Plan (1) Metabolic encephalopathy: (2) Bradycardia: PLAN: Day 5 Discharge planning: Current plan is for patient to discharge to SNF pending acceptance and pre-CERT. 1) bradycardia POD 3 s/p successful implantation of dual-chamber pacemaker. Follow-up with primary care physician on discharge. 2) DM2 Stable, continue Accu-Cheks and sliding scale insulin. 3) chronic A. fib We will stop atenolol on discharge, continue to hold Eliquis until pacemaker check. 4) HTN Stable, continue amlodipine 10 mg daily and losartan 100 mg daily. DVT prophylaxis - SCDs Patient seen by Shoaib Valdez PA-C, under the supervision of Dr. Lackey. Time spent on patient care: 7 min. Documented by User: Dr. Aurelio Lackey MD 09/06/21 14:26 Objective Data Lab / Micro Data Result Diagrams: 09/04/21 06:20 09/04/21 06:20 Physical Exam Narrative Seen and examined. doctor of podiatric medicine shows sinus rhythm with PVCs. Patient gets short of breath on walking short distances although does not get hypoxic. General: Alert, Oriented x3, Cooperative. Fatigue. HEENT: Atraumatic, PERRLA, EOMI, Normocephalic Oral: No Gingival or Mucosal Lesions/ Ulcerations Neck: Supple, No JVD, Negative Carotid Bruits Chest/lungs: Dressing over left subclavicular region at pacemaker site dry. No tenderness. Air entry diminished in bilateral lung bases. No crepitation/rhonchi Cardiovascular: Sinus rhythm with PVCs. Intermittent paced rhythm. Normal S1, Normal S2, No murmurs Abdomen: Bowel Sounds Present, Soft, Non Tender, Non-Distended : No renal angle tenderness. No suprapubic tenderness. Extremities: No edema, Capillary Refill Less than 3 Seconds Skin: No rashes, No breakdown Musculoskeletal: No Tenderness to Palpation of Joints or Extremities Neurological: Cranial nerves II-XII grossly intact, DTR 2+/4 and Symmetrical, Neuro grossly intact Psych/Mental Status: Flat affect. Assessment & Plan Assessment/Plan (1) AVB (atrioventricular block): PLAN: This patient was seen in conjunction with CARSON Sharif. I have independently interviewed and examined the patient and reviewed pertinent history, examination findings, laboratory and plan of management. I have reviewed the note and agree with the documented findings with the few additional points. In brief, patient is admitted for confusion which of recent origin. Patient more withdrawn. In ED, patient was found bradycardic. Twelve-lead EKG shows sinus rhythm with A-V dissociation and junctional rhythm. Patient had dual-chamber pacemaker insertion on 09/03. doctor of podiatric medicine shows sinus rhythm/paced rhythm. Patient main caregiver is going to have shoulder surgery therefore requested assisted. Discussed with case and social media campaign manager. 09/06: Blood sugars in the 90s in the morning but high in the afternoon and evening. Accu-Cheks and cover with Humalog sliding scale. Labile diabetes mellitus. Patient gets short of breath on walking short distance from bed to the bathroom but not hypoxic. Patient needs SNF pending pre-CERT. Discussed with device engineer. Hold Eliquis until pacemaker checkup as an outpatient. Other comorbidities as mentioned above. I have discussed my assessment with CARSON Sharif and orders have been reviewed. Total time of the visit includes total time spent in counseling or coordination of care, (more than 50% of the total time, spent in obtaining medical information from nurses and other ancillary care providers,explaining to the patient about labs, imaging, diagnosis and management), discussion with platform consultant, review of labs and imaging is 30 minutes; I spent 18 minutes, more than half time and CARSON spent 12 minutes Charges/Coding Visit Charges Inpatient E&M: 45937 Subs Hosp L2
--- NOTE | 2021-09-06 14:19 | CASEMGMT ---
Patient has a Healthcare Power of Lottery Clerk on file at [facility]. Patient's daughter in law Sarah Tuttle is patient's Healthcare Power of Lottery Clerk. Patient does not have a Healthcare Living Will. Carolee WARE
--- NOTE | 2021-09-06 15:51 | CASEMGMT ---
CHAGO called Monroe at [facility] and asked that if she gets insurance authorization for patient to call PCU. CHAGO left a green sheet on patient's chart so if pre-cert is received patient can go today. CHAGO notified receptionist secretary. Carolee Hutchison LADLE PULLERSakina WARE
[2021-09-06 23:51] LABS: Bedside Glucose 123 mg/dL (74-106)
[2021-09-07 02:19] VITALS: BP 155/111; PULSE 92; RESP 18; TEMP 37.2; O2SAT 95
[2021-09-07] MEDS: Acetaminophen 325 MG Tablet 650 MG PO (02:27)
[2021-09-07 04:28] VITALS: PULSE 77
[2021-09-07 05:21] VITALS: BP 142/79; PULSE 87; RESP 18; TEMP 36.6; O2SAT 99
[2021-09-07] MEDS: Levothyroxine 50 MCG Tablet PO (05:24)
[2021-09-07 07:26] VITALS: O2SAT 94
[2021-09-07 08:17] VITALS: BP 159/74
[2021-09-07] MEDS: amLODIPine 10 MG Tablet PO (08:18)
[2021-09-07] MEDS: Pravastatin 40 MG Tablet PO (08:18)
[2021-09-07] MEDS: Allopurinol 300 MG Tablet PO (08:18)
[2021-09-07] MEDS: Losartan Potassium 100 MG Tablet PO (08:19)
--- NOTE | 2021-09-07 09:49 | CASEMGMT ---
CHAGO received a call from Amber at [facility]. The nurse reviewer with patient's insurance said patient was discharged to another facility. CHAGO told Amber that is not accurate. Patient is still at [facility] waiting on insurance approval. Carolee WARE
--- NOTE | 2021-09-07 10:53 | PCM.TXEXTCAR ---
Diet 09/06/21 15:48 Diet: Regular - General Dietary Modifications:: No Added Salt Type of Dietary Supplement:: Glucerna Shake Is pt able to select menu?: No Diet Comments: 4 oz GS w/ meals Routine Orders/Code Status Suppository Type: Dulcolax 10mg Suppository Frequency: Daily PRN Code Status: DNRCC-A Wound(s) rt groin: Wound Type: Puncture left chest: Wound Type: Surgical Incision Therapies Weight Bearing: Weight bearing as tolerated Extremity Affected:: Bilateral Lower Physical Therapy: Eval and Treat Occupational Therapy: Eval and Treat Speech Therapy: Eval and Treat Problem/Diagnosis (1) AVB (atrioventricular block): Status: Acute Allergies/Procedures Done in Hospital Allergies dicyclomine HCl [From Bentyl] Allergy (Verified 09/01/21 11:41) Unknown doxepin [Doxepin] Allergy (Verified 09/01/21 11:41) Unknown hydroxyzine HCl [From Vistaril] Allergy (Verified 09/01/21 11:41) Unknown hydroxyzine pamoate [From Vistaril] Allergy (Verified 09/01/21 11:41) Unknown oxymetazoline HCl [From Tristen-Synephrine (phenylephrine)] Allergy (Verified 09/01/21 11:41) Swelling phenylephrine HCl [From Tristen-Synephrine (phenylephrine)] Allergy (Verified 09/01/21 11:41) Swelling promethazine HCl [From Phenergan] Allergy (Verified 09/01/21 11:41) Unknown xylometazoline HCl [From Tristen-Synephrine (phenylephrine)] Allergy (Verified 09/01/21 11:41) Swelling Type of Care/Length of Stay Estimated LOS: Convalescent Care Less Than 30 days Type of Care Needed: Skilled Rehab Potential: Good Prognosis: Good Additional Orders/Day of Discharge Day of Discharge: 09/07/21 Dietary and Speech Recommendations Dietitian Recommendations/Changes: will liberalize diet to regular, no added salt given compromised PO intake; continue glucerna ONS w/ meals Follow Up Care Please Follow Up With: Oscar Herr MD Discharge Plan Admission Admit Date/Time: 09/01/21 13:40 Primary Reason for Your Visit: Severe symptomatic bradycardia with AV dissociation Attending Provider: Aurelio Lackey Primary Care Provider: Rayshawn Ryan Chi Consulting Providers: Oscar Herr Instructions Additional Instructions / Restrictions: Resume Eliquis after pacemaker check. Discharge Orders/Prescriptions Prescriptions: New amlodipine 10 mg Tablet 10 mg PO DAILY Qty: 30 RF: 1 pravastatin 40 mg Tablet 40 mg PO DAILY Qty: 30 RF: 2 Continued losartan [Cozaar] 100 MG tablet 100 mg PO DAILY RF: 0 levothyroxine 50 MCG tablet 50 mcg PO DAILY RF: 0 potassium chloride [Klor-Con M20] 20 MEQ tablet,ER particles/crystals 20 meq PO DAILY RF: 0 calcium-vitamin D3-vitamin K [Citracal-D3 Soft Chew] 1 EACH tablet,chewable 1 ea PO DAILY RF: 0 quetiapine 25 mg tablet 25 mg PO QHS RF: 0 Changed allopurinol 300 MG tablet 300 mg PO DAILY Qty: 0 RF: 0 Discontinued atenolol 50 mg tablet 50 mg PO DAILY RF: 0 Eliquis 2.5 mg tablet 2.5 mg PO BID RF: 0 amlodipine 2.5 mg tablet 2.5 mg PO DAILY RF: 0 Referrals / Follow Up: Rayshawn Ryan Chi, MD [Primary Care Provider] - Within 2 Weeks Karishma Joaquin PA [PHYSICIAN STATION DETECTIVE] - 10/16/21 11:00 am Disposition Disposition (needs filled in before D/C Order can be placed): Home, Self Care
[2021-09-07 10:54] LABS: Absolute Lymphocyte Count 1.13 X10^3/uL (0.83-4.51); Absolute Neutrophil Count 5.4 X10^3/uL (2.0-7.7); Basophil# 0.04 X10^3/uL; Basophil% 0.5 % (0-1); Eosinophil# 0.29 X10^3/uL; Eosinophils% 3.9 % (0-5); Hemoglobin 12.4 g/dL (12.0-15.0); Lymphocyte # 1.13 X10^3/ul (0.83-4.51); Lymphocyte % 15.2 % (19-41); Mean Corp Hgb Conc 31.8 g/dL (32-36); Mean Corpuscular Volume 94.4 fL (81-99); Mean Platelet Vol. 9.8 fl (6.2-12.0); Monocyte# 0.56 X10^3/uL; Monocyte% 7.5 % (0-10); NRBC Flagged by Analyzer 0 % (0-5); Neutrophil # 5.41 X10^3/uL (2.7-7.7); Neutrophil % 72.6 % (47-70); Platelet Count 200 K/mm3 (150-450); RBC Distribution Width CV 13.2 % (11.6-14.6); RBC Distribution Width SD 45.3 fl (35.1-43.9); Red Blood Count 4.13 M/mm3 (4.2-5.4); White Blood Count 7.5 K/mm3 (4.4-11.0)
--- NOTE | 2021-09-07 10:58 | DS.PCM_ITS ---
Providers Date of Admission: 09/01/21 Date of Discharge: 09/07/21 Primary Care Physician: Dr. Rayshawn Ryan MD Consultations 09/01/21 16:23 Consult: Cardiology Routine Consulting Provider: Oscar Herr Reason for Consult: bradycardia EMERGENT Consult: No MD Notified: Yes Date Notified: 09/01/21 Time Notified: 13:44 Method of Notification: Verbal Reason For Visit: BRADYCARDIA Diagnosis Discharge Diagnosis (1) AVB (atrioventricular block): Status: Acute Code(s): I44.30 - Unspecified atrioventricular block Medications at Discharge Home Medications levothyroxine 50 mcg PO DAILY 10/02/13 losartan [Cozaar] 100 mg PO DAILY 10/02/13 calcium-vitamin D3-vitamin K [Citracal-D3 Soft Chew] 1 ea PO DAILY 03/16/18 potassium chloride [Klor-Con M20] 20 meq PO DAILY 03/16/18 quetiapine 25 mg PO QHS 09/01/21 allopurinol 300 mg PO DAILY #0 tab 09/04/21 amlodipine 10 mg PO DAILY #30 tab 09/04/21 pravastatin 40 mg PO DAILY #30 tab 09/04/21 Hospital Course Summary of Care Provided Hospital Course: The patient is 86-year-old female was admitted for confusion which of recent origin. Patient more withdrawn. In ED, patient was found bradycardic. Twelve-lead EKG shows sinus rhythm with A-V dissociation and junctional rhythm. Patient was admitted in PCU. Fire Control Technician G was consulted. Patient had dual-chamber pacemaker insertion on 09/03. ekg monitor tech shows sinus rhythm/paced rhythm. Patient main caregiver is going to have shoulder surgery therefore requested correction. Discussed with case and sr. social media & mobile manager. Patient is going to SNF. Diabetes mellitus type 2: Labile in nature and fluctuates. Follow-up with PCP. On 09/06: Blood sugars in the 90s in the morning but high in the afternoon and evening. Accu-Cheks and cover with Humalog sliding scale. Labile diabetes mellitus. On 09/07 123. 3) chronic A. fib: At long one-stop. Hold Eliquis until pacemaker check. 4) HTN Stable, continue amlodipine 10 mg daily and losartan 100 mg daily. DVT prophylaxis - SCDs Discussed with desktop publisher. Hold Eliquis until pacemaker checkup as an outpatient. Discharge medication reconciliation done. Discharge follow-up instructions completed. Discharge process discussed with the patient and all questions were answered to patient's satisfaction. Total time spent, exact 35 minutes on discharge meds reconciliation, examination, coordination of care with nurses and ancillary staff, review of imaging and blood test and discussion with the patient on follow-up instructions. Physical Exam Narrative Seen and examined. ekg monitor tech shows paced rhythm. Patient on the recliner. General: Alert, Oriented x3, Cooperative. Fatigue. HEENT: Atraumatic, PERRLA, EOMI, Normocephalic Oral: No Gingival or Mucosal Lesions/ Ulcerations Neck: Supple, No JVD, Negative Carotid Bruits Chest/lungs: Dressing over left subclavicular region at pacemaker site dry. Dr mendoza was changed. No tenderness. Air entry diminished in bilateral lung bases. No crepitation/rhonchi Cardiovascular: Paced rhythm. Sometimes sinus rhythm. Normal S1, Normal S2, No murmurs Abdomen: Bowel Sounds Present, Soft, Non Tender, Non-Distended : No renal angle tenderness. No suprapubic tenderness. Extremities: No edema, Capillary Refill Less than 3 Seconds Skin: No rashes, No breakdown Musculoskeletal: No Tenderness to Palpation of Joints or Extremities Neurological: Cranial nerves II-XII grossly intact, DTR 2+/4 and Symmetrical, Neuro grossly intact Psych/Mental Status: Flat affect. Weight / BMI Weight Weight: 167 lb 1.766 oz Body Mass Index (BMI) 30.4 ABG / Lab / Microbiology Data Result Diagrams: 09/07/21 10:40 09/04/21 06:20 Laboratory: Laboratory Results - last 24 hr 09/06/21 11:15: POC Glucose 192 H 09/06/21 23:44: POC Glucose 123 H 09/07/21 10:40: WBC 7.5, RBC 4.13 L, Hgb 12.4, Hct 39.0, MCV 94.4, MCH 30.0, MCHC 31.8 L, RDW Std Deviation 45.3 H, RDW Coeff of Angie 13.2, Plt Count 200, MPV 9.8, Immature Gran % (Auto) 0.300, Neut % (Auto) 72.6 H, Lymph % (Auto) 15.2 L, Allen % (Auto) 7.5, Eos % (Auto) 3.9, Baso % (Auto) 0.5, Absolute Neuts (auto) 5.4, Absolute Lymphs (auto) 1.13, Nucleated RBC % 0 D/C Instructions Discharge Diet: No restrictions (as you feel able. No excessive stretching. No lifting your arm over your head (keep elbow below shoulder level) until seen for your pacemaker check. Do not lift your elbow away from your side until you are seen for your first visit. Keep the arm sling on if it helps remind you not to lift your arm.) May shower in (days): 3 Call your doctor if your incision/area has: Continuous Slow Oozing, Sudden Increased Bleeding, Increased Pain/ Swelling, Increased Redness, Foul Smelling Discharge and Swelling at the incision site Call your doctor if you observe: Fever of 101 or Higher, Coldness, Increased Pain, Numbness or Tingling, Change in Color, Inability to urinate, Inability to have a bowel movement, Using more than 1 pad per hour, Shortness of breath, Dizziness, Fainting spells, Swelling in the ankles, Chest pain, Prolonged hiccupping, Increased palpitations (irregular heartbeat) and Calf discomfort Additional Dressing/Incision Instructions: When dressing is removed, wash and dry incision. Keep covered with a light bandage if it is rubbing against your clothing. Do not cover the incision with an airtight bandage. Change the bandage daily. Do not remove steri strips. The strips will fall off on their own. Please Follow Up With: Oscar Herr MD When: Call [phone] for follow up. Follow-up in pacemaker clinic on September 12 at 9:30 AM Meaningful Use Info Meaningful Use Diagnoses (Choose all that apply): None applicable Discharge Plan Admission Admit Date/Time: 09/01/21 13:40 Primary Reason for Your Visit: Severe symptomatic bradycardia with AV dissociati on Attending Provider: Aurelio Lackey Primary Care Provider: Rayshawn Ryan Chi Consulting Providers: Oscar Herr Instructions Additional Instructions / Restrictions: Resume Eliquis after pacemaker check. Discharge Orders/Prescriptions Prescriptions: New amlodipine 10 mg Tablet 10 mg PO DAILY Qty: 30 RF: 1 pravastatin 40 mg Tablet 40 mg PO DAILY Qty: 30 RF: 2 Continued losartan [Cozaar] 100 MG tablet 100 mg PO DAILY RF: 0 levothyroxine 50 MCG tablet 50 mcg PO DAILY RF: 0 potassium chloride [Klor-Con M20] 20 MEQ tablet,ER particles/crystals 20 meq PO DAILY RF: 0 calcium-vitamin D3-vitamin K [Citracal-D3 Soft Chew] 1 EACH tablet,chewable 1 ea PO DAILY RF: 0 quetiapine 25 mg tablet 25 mg PO QHS RF: 0 Changed allopurinol 300 MG tablet 300 mg PO DAILY Qty: 0 RF: 0 Discontinued atenolol 50 mg tablet 50 mg PO DAILY RF: 0 Eliquis 2.5 mg tablet 2.5 mg PO BID RF: 0 amlodipine 2.5 mg tablet 2.5 mg PO DAILY RF: 0 Referrals / Follow Up: Rayshawn Ryan Chi, MD [Primary Care Provider] - Within 2 Weeks Karishma Joaquin PA [PHYSICIAN GASTROENTEROLOGY NURSE PRACTITIONER] - 10/16/21 11:00 am Disposition Disposition (needs filled in before D/C Order can be placed): Home, Self Care Charges/Coding Visit Charges Inpatient E&M: 22722 Disch Hosp
[2021-09-07 11:10] VITALS: BP 144/62; PULSE 86; RESP 20; TEMP 36.9; O2SAT 96
[2021-09-07] MEDS: Potassium Chloride Oral Tablet 20 MEQ 40 MEQ PO (11:14)
--- NOTE | 2021-09-07 11:21 | CASEMGMT ---
CHAGO received a call from Amber at [facility] and patient was approved. CHAGO notified physician, RN, executive legal secretary, and patient's daughter in law, Sarah. CHAGO faxed orders to [facility]. Await COVID test results and set up transport. CHAGO completed PASRR on HENS. Carolee Hutchison VAT PACKER CHAZ
[2021-09-07 11:23] LABS: Magnesium 1.9 mg/dL (1.6-2.6); Phosphorus 2.5 mg/dL (2.5-4.9)
--- NOTE | 2021-09-07 12:25 | CASEMGMT ---
COVID test results received. SW arranged for patient to get picked up at [facility] via cot. SW notified RN, patient's daughter in law, placement secretary, and [place] at [place]. All in agreement with d/c plan. Plan: d/c to [place] under skilled level of care on a PASRR. [facility] transported via cot. Carolee Hutchison DEVICE SALES CONSULTANTSakina WARE
[2021-09-07] MEDS: Calcium Carb/Vitamin D 1 TABLET Tablet PO (12:26)
== END 2021-09-07 13:42 | disposition home or self-care (01) | DRG 242 ==
LOC: ED 13:32 → PCU 13:43 → ICU 09-04 13:39
PROVIDERS: Family Medicine; Nurse Practitioner Family; Emergency Provider Student in an Organized Health Care Education/Training Program; PCP Family Medicine Geriatric Medicine; Visit Provider Internal Medicine
DX: I44.30 Unspecified atrioventricular block (principal); G93.41 Metabolic encephalopathy; E11.9 Type 2 diabetes mellitus without complications; I48.20 Chronic atrial fibrillation, unspecified; Z79.4 Long term (current) use of insulin; I10 Essential (primary) hypertension; E78.5 Hyperlipidemia, unspecified; M10.9 Gout, unspecified; R00.1 Bradycardia, unspecified; Z66 Do not resuscitate; Z79.01 Long term (current) use of anticoagulants; Z86.73 Personal history of transient ischemic attack (TIA), and cerebral infarction without residual deficits
CPT/HCPCS: 33208; 33210; 36415; 51702; 70450; 71045; 71047; 80048; 81001; 82962; 83735; 84100; 84443; 84484; 85025; 85610; 87426; 93005; 93306; 97110; 97116; 97162; 97166; 97530; 97535; 97803; 99152; 99153; 99285; J7030; J7040; J7050; A4216; C1894; J1610; J1940; J2405

== ENCOUNTER → 2021-09-13 | Outpatient (REF) | payer SELFPAY ==
[2021-09-13 08:52] LABS: Hematocrit 38.5 % (37-47); Mean Corp Hgb Conc 31.2 g/dL (32-36); Mean Corpuscular Hgb 29.9 pg (27.0-32.0); Mean Corpuscular Volume 95.8 fL (81-99); Mean Platelet Vol. 10.6 fl (6.2-12.0); Platelet Count 262 K/mm3 (150-450); RBC Distribution Width CV 12.9 % (11.6-14.6); RBC Distribution Width SD 45.9 fl (35.1-43.9); Red Blood Count 4.02 M/mm3 (4.2-5.4)
[2021-09-13 09:06] LABS: Anion Gap 5 (5-15); BUN 20 mg/dL (7-18); BUN/Creat Ratio 17.9 RATIO (10-20); Calcium,Total 9.3 mg/dL (8.5-10.1); Chloride 110 mmol/L (98-107); Creatinine, Serum 1.12 mg/dL (0.55-1.02); EST Glomerular Filtration Rate 49 mL/min (>60); Est Glom Filt Rate - Afr Amer 59 mL/min (>60); Glucose 87 mg/dL (74-106); Potassium 4.1 mmol/L (3.5-5.1); Sodium Level 142 mmol/L (136-145)
== END | disposition home or self-care (01) ==
LOC: OLS.WHLTCC 05:00
PROVIDERS: PCP Family Medicine Geriatric Medicine; Visit Provider Family Medicine
DX: E11.9 Type 2 diabetes mellitus without complications (principal); K21.9 Gastro-esophageal reflux disease without esophagitis; M10.9 Gout, unspecified; M19.90 Unspecified osteoarthritis, unspecified site; M62.81 Muscle weakness (generalized); M25.519 Pain in unspecified shoulder; R26.9 Unspecified abnormalities of gait and mobility
CPT/HCPCS: 36415; 80048; 85027

== ENCOUNTER → 2021-09-20 | Outpatient (REF) | payer SELFPAY ==
[2021-09-20 08:13] LABS: Hematocrit 38.6 % (37-47); Hemoglobin 12.6 g/dL (12.0-15.0); Mean Corp Hgb Conc 32.6 g/dL (32-36); Mean Corpuscular Hgb 30.7 pg (27.0-32.0); Mean Corpuscular Volume 93.9 fL (81-99); Mean Platelet Vol. 10.6 fl (6.2-12.0); Platelet Count 345 K/mm3 (150-450); RBC Distribution Width CV 12.5 % (11.6-14.6); RBC Distribution Width SD 42.8 fl (35.1-43.9); Red Blood Count 4.11 M/mm3 (4.2-5.4); White Blood Count 8.5 K/mm3 (4.4-11.0)
[2021-09-20 08:43] LABS: Anion Gap 4 (5-15); BUN 25 mg/dL (7-18); BUN/Creat Ratio 22.9 RATIO (10-20); Calcium,Total 9.1 mg/dL (8.5-10.1); Chloride 107 mmol/L (98-107); Creatinine, Serum 1.09 mg/dL (0.55-1.02); EST Glomerular Filtration Rate 51 mL/min (>60); Est Glom Filt Rate - Afr Amer 61 mL/min (>60); Glucose 93 mg/dL (74-106); Sodium Level 141 mmol/L (136-145)
== END | disposition home or self-care (01) ==
LOC: OLS.WHLTCC 04:00
PROVIDERS: PCP Family Medicine Geriatric Medicine; Referring Provider Family Medicine; Visit Provider Family Medicine
DX: E11.9 Type 2 diabetes mellitus without complications (principal); K21.9 Gastro-esophageal reflux disease without esophagitis; M10.9 Gout, unspecified; M19.90 Unspecified osteoarthritis, unspecified site; M25.519 Pain in unspecified shoulder; M62.81 Muscle weakness (generalized); R26.9 Unspecified abnormalities of gait and mobility
CPT/HCPCS: 36415; 80048; 85027

== ENCOUNTER → 2021-10-25 | Outpatient (REF) | payer SELFPAY ==
[2021-10-25 07:23] LABS: Hematocrit 38.7 % (37-47); Hemoglobin 12.2 g/dL (12.0-15.0); Mean Corp Hgb Conc 31.5 g/dL (32-36); Mean Corpuscular Hgb 29.4 pg (27.0-32.0); Mean Corpuscular Volume 93.3 fL (81-99); Mean Platelet Vol. 10.3 fl (6.2-12.0); Platelet Count 221 K/mm3 (150-450); RBC Distribution Width CV 13.3 % (11.6-14.6); RBC Distribution Width SD 45.8 fl (35.1-43.9); Red Blood Count 4.15 M/mm3 (4.2-5.4)
[2021-10-25 07:34] LABS: Anion Gap 5 (5-15); BUN 23 mg/dL (7-18); BUN/Creat Ratio 22.5 RATIO (10-20); Calcium,Total 8.9 mg/dL (8.5-10.1); Chloride 110 mmol/L (98-107); Creatinine, Serum 1.02 mg/dL (0.55-1.02); EST Glomerular Filtration Rate 55 mL/min (>60); Est Glom Filt Rate - Afr Amer 66 mL/min (>60); Glucose 86 mg/dL (74-106); Potassium 3.9 mmol/L (3.5-5.1); Sodium Level 143 mmol/L (136-145)
== END | disposition home or self-care (01) ==
LOC: OLS.WHLTCC 05:00
PROVIDERS: Visit Provider Family Medicine
DX: E11.9 Type 2 diabetes mellitus without complications (principal); K21.9 Gastro-esophageal reflux disease without esophagitis; M10.9 Gout, unspecified; M19.90 Unspecified osteoarthritis, unspecified site; M25.519 Pain in unspecified shoulder; M62.81 Muscle weakness (generalized); R26.9 Unspecified abnormalities of gait and mobility
CPT/HCPCS: 36415; 80048; 85027

== ENCOUNTER → 2021-11-13 | Outpatient (CLI) | payer MEDICARE, MEDICAID, SELFPAY ==
[2021-11-13 12:34] LABS: Absolute Lymphocyte Count 1.43 X10^3/uL (0.83-4.51); Absolute Neutrophil Count 6.2 X10^3/uL (2.0-7.7); Basophil# 0.06 X10^3/uL; Basophil% 0.7 % (0-1); Eosinophil# 0.23 X10^3/uL; Eosinophils% 2.7 % (0-5); Hematocrit 36.9 % (37-47); Hemoglobin 11.8 g/dL (12.0-15.0); Lymphocyte # 1.43 X10^3/ul (0.83-4.51); Lymphocyte % 16.8 % (19-41); Mean Corpuscular Volume 93.9 fL (81-99); Mean Platelet Vol. 10.5 fl (6.2-12.0); Monocyte# 0.54 X10^3/uL; Monocyte% 6.4 % (0-10); NRBC Flagged by Analyzer 0 % (0-5); Neutrophil # 6.21 X10^3/uL (2.7-7.7); Neutrophil % 73.2 % (47-70); Platelet Count 273 K/mm3 (150-450); RBC Distribution Width CV 13.5 % (11.6-14.6); RBC Distribution Width SD 46.6 fl (35.1-43.9); Red Blood Count 3.93 M/mm3 (4.2-5.4); White Blood Count 8.5 K/mm3 (4.4-11.0)
[2021-11-13 12:47] LABS: Vitamin D,25 Hydroxy 34.3 ng/mL
[2021-11-13 12:54] LABS: AST(SGOT) 18 U/L (15-37); Alanine Aminotransfer ALT/SGPT 22 U/L (13-56); Albumin, Serum 3.4 g/dL (3.2-5.0); Alkaline Phosphatase 75 U/L (45-117); Anion Gap 6 (5-15); BUN 19 mg/dL (7-18); BUN/Creat Ratio 17.6 RATIO (10-20); Calcium,Total 9.2 mg/dL (8.5-10.1); Chloride 104 mmol/L (98-107); Creatinine, Serum 1.08 mg/dL (0.55-1.02); EST Glomerular Filtration Rate 51 mL/min (>60); Est Glom Filt Rate - Afr Amer 62 mL/min (>60); Globulin 3.3 g/dL (2.2-4.2); Glucose 152 mg/dL (74-106); Potassium 3.9 mmol/L (3.5-5.1); Protein, Total 6.7 g/dL (6.4-8.2); Sodium Level 138 mmol/L (136-145); Thyroid Stim Hormone (TSH) 1.34 uIU/mL (0.358-3.74); Uric Acid 4.8 mg/dL (2.6-6.0)
== END | disposition home or self-care (01) ==
LOC: POLAB3 08:56
PROVIDERS: Visit Provider Family Medicine Geriatric Medicine
DX: E11.9 Type 2 diabetes mellitus without complications (principal); E55.9 Vitamin D deficiency, unspecified; I10 Essential (primary) hypertension; M10.9 Gout, unspecified
CPT/HCPCS: 36415; 80053; 82306; 84443; 84550; 85025

== ENCOUNTER 2021-11-27 04:15 | Emergency (ER) | payer MEDICARE, MEDICAID, SELFPAY ==
[2021-11-27 04:16] VITALS: BP 169/99; PULSE 119; RESP 22; TEMP 36.7; O2SAT 91; BMI 27.7
--- NOTE | 2021-11-27 04:36 | CT_ITS ---
EXAM: CT LUMBAR SPINE WITHOUT INTRAVENOUS CONTRAST CLINICAL INDICATION: trauma TECHNIQUE: Helically acquired images were obtained of the lumbar spine without intravenous contrast. 2D reformats were reviewed. This CT exam was performed using one or more of the following dose reduction techniques: automated exposure control, adjustment of the mA and/or kV according to patient size, and/or use of iterative reconstruction technique. This report was created using [employer] ([employer]) report generation technology. RADIATION DOSE: CTDIvol = 18.80 mGy, DLP = 574.46 mGy-cmContrast: COMPARISON: Enhanced abdomen and pelvis CT June 01, 2015. FINDINGS: VERTEBRAE: Unremarkable. No fracture. No traumatic subluxation. No discrete lytic or blastic abnormality. Normal alignment. DISCS/SPINAL CANAL/NEURAL FORAMINA: No significant spinal stenosis. VASCULATURE: Peripheral calcification and tortuosity of the aorta, no omaira aneurysm. No retroperitoneal hematoma. LYMPH NODES: Unremarkable. No retroperitoneal adenopathy. LUNGS AND PLEURAL SPACES: Mild right pleural effusion, slight left pleural effusion. KIDNEYS AND URETERS: Partially included presumed exophytic cyst of the lower pole of the left kidney, at least 5.7 cm, it was roughly 4.8 cm on exam of 2014.. STOMACH AND BOWEL: Diverticulosis of the sigmoid. REPRODUCTIVE: Presumed right adnexal cystic lesion of 3.9 cm x 3.3 cm x 3.8 cm, it was at least 4.1 cm x 3.7 cm x 4.7 [address] in May [address] CT/Spine Lumbar without Contrast IMPRESSION: No acute findings in the lumbar spine. Partially included exophytic left renal cyst and slightly smaller measurements of a right adnexal cyst since 2014. Mild right and slight left pleural effusion, uncertain etiology and significance. Electronically Signed: Estrellita Pack MD at 5:27 EDT ,
--- NOTE | 2021-11-27 04:36 | CT_ITS ---
EXAM: CT CERVICAL SPINE WITHOUT INTRAVENOUS CONTRAST CLINICAL INDICATION: trauma TECHNIQUE: Helically acquired images were obtained of the cervical spine without intravenous contrast. 2D reformatted images were reviewed. This CT exam was performed using one or more of the following dose reduction techniques: automated exposure control, adjustment of the mA and/or kV according to patient size, and/or use of iterative reconstruction technique. This report was created using [employer] report generation technology. RADIATION DOSE: CTDIvol = 18.41 mGy, DLP = 371.23 mGy-cm COMPARISON: None. FINDINGS: VERTEBRAE: Straightening of the usual lordotic curvature. Fusion of the bodies of C5-C7. Anterior ligamentous ossifications at C5-C7 and anterior spondylosis at multiple levels. Facet joint hypertrophic changes, mild. No fracture. No traumatic subluxation. No discrete lytic or blastic abnormality. Normal craniocervical junction and cervicothoracic junction. DISCS/SPINAL CANAL/NEURAL FORAMINA: No evidence of significant spinal stenosis. Marked left C4-5 and mild right neural foraminal narrowing. Moderate left greater than right C5-6 neural foraminal narrowing and marked right C6-7 neural foraminal narrowing. SOFT TISSUES: Unremarkable. No prevertebral soft tissue swelling. LYMPH NODES: Unremarkable. No cervical adenopathy. LUNG APICES: Increased interstitial markings and presumed interstitial edema in the upper lung doty. Pacemaker leads are partially seen in the left subclavian. Bilateral effusions. CT/Spine Cervical without Contras IMPRESSION: 1. No acute cervical spine abnormality. Degenerative changes. 2. Pulmonary interstitial edema and pleural effusions. Electronically Signed: Estrellita Pack MD at 5:33 EDT ,
--- NOTE | 2021-11-27 04:37 | EKG12_ITS ---
Test Reason : FALL Blood Pressure : / mmHG Vent. Rate : 109 BPM Atrial Rate : 109 BPM P-R Int : 000 ms QRS Dur : 168 ms QT Int : 408 ms P-R-T Axes : 000 -83 087 degrees QTc Int : 549 ms Ventricular-paced rhythm Abnormal ECG Confirmed by CHUCK FONTAINE MD ([id number]), news editor JEFF DENIS ([id number]) on 11/28/2021 1:28:58 PM Referred By: PL Confirmed By:CHUCK FONTAINE MD
--- NOTE | 2021-11-27 04:38 | EDS_ITS ---
HPI HPI - Fall History of Present Illness Chief Complaint: Fall Informant: patient and family Narrative Narrative: Patient lives at home with family members. She was getting up to go the bathroom. She got up and sat on the edge of the bed. As she went to get up she slid off the edge of the bed. She landed on her buttocks on the ground. She never hit her head. She states it hurts mostly in her lower back. She states she has little soreness in her neck but mostly it is her lower back that hurts. She was able to get up and walk to the bathroom afterwards with assistance when they got her off the ground. She has been feeling normally recently. No recent illness. She was not syncopal. [facility] Medical History AVB (atrioventricular block) Bradycardia Cancer Colon cancer CVA (cerebral vascular accident) (2015) Dementia Depression Diabetes mellitus type 2 in obese Essential hypertension Gout Hypothyroid Hypothyroidism Junctional rhythm Left ventricular hypertrophy Paroxysmal atrial fibrillation TIA (transient ischemic attack) Vascular dementia Home Medications levothyroxine 50 mcg PO DAILY 10/02/13 [History Last Taken 09/01/21] losartan [Cozaar] 100 mg PO DAILY 10/02/13 [History Last Taken 09/01/21] calcium-vitamin D3-vitamin K [Citracal-D3 Soft Chew] 1 ea PO DAILY 03/16/18 [History Last Taken 09/01/21] potassium chloride [Klor-Con M20] 20 meq PO DAILY 03/16/18 [History Last Taken 09/01/21] quetiapine 25 mg PO QHS 09/01/21 [History Last Taken 08/31/21] allopurinol 300 mg PO DAILY #0 tab 09/04/21 [Rx Last Taken 09/01/21] amlodipine 10 mg PO DAILY #30 tab 09/04/21 [Rx Last Taken Unknown] pravastatin 40 mg PO DAILY #30 tab 09/04/21 [Rx Last Taken Unknown] apixaban 2.5 mg tablet 2.5 mg PO BID 09/13/21 [History Last Taken Unknown] donepezil 5 mg PO DAILY 11/27/21 [History Last Taken Unknown] Allergy/AdvReac Type Severity Reaction Status Date / Time dicyclomine HCl [From Bentyl] Allergy Unknown Verified 10/16/21 11:22 doxepin [Doxepin] Allergy Unknown Verified 10/16/21 11:22 hydroxyzine HCl Allergy Unknown Verified 10/16/21 11:22 [From Vistaril] hydroxyzine pamoate Allergy Unknown Verified 10/16/21 11:22 [From Vistaril] oxymetazoline HCl Allergy Swelling Verified 10/16/21 11:22 [From Tristen-Synephrine (phenylephrine)] phenylephrine HCl Allergy Swelling Verified 10/16/21 11:22 [From Tristen-Synephrine (phenylephrine)] promethazine HCl Allergy Unknown Verified 10/16/21 11:22 [From Phenergan] xylometazoline HCl Allergy Swelling Verified 10/16/21 11:22 [From Tristen-Synephrine (phenylephrine)] Surgical History H/O eye surgery History of colon surgery History of permanent cardiac pacemaker placement (09/03/21) Social History Smoking Status: Never smoker ROS ROS ED Constitutional Constitutional ED: Denies fever(s) Eyes Eyes: Denies blurry vision ENT ENT ED: Denies sore throat Cardiovascular Cardiovascular: Reports other Details: History of atrial fibrillation. Patient had a pacer also placed in August ; Denies chest pain or palpitations Respiratory/Chest Respiratory/Chest: Denies cough or dyspnea Gastrointestinal Gastrointestinal: Denies abdominal pain, diarrhea, nausea or vomiting Genitourinary Genitourinary ED: Denies dysuria Musculoskeletal Musculoskeletal: Reports back pain and neck pain; Denies arthralgias or myalgias Integumentary Denies rash Neurologic Neurologic: Denies headache(s), paresthesias or weakness Psychiatric Psychiatric: Denies anxiety or depression Endocrine Endocrinology: Denies polydipsia or polyuria Hematologic/Lymphatic Hematologic/Lymphatic: Reports easy bleeding, easy bruising and other Details: Patient is on Eliquis. Allergic/Immunologic Allergic/Immunologic ED: Denies urticaria EXAM Physical Exam Const Vital Signs: 11/27/21 04:16 11/27/21 06:15 Temperature 98.1 F Temperature Source Temporal Pulse Rate 119 H 119 H Respiratory Rate 22 H 18 Blood Pressure 169/99 H 156/102 H Blood Pressure Mean 122 120 Pulse Ox 91 96 Oxygen Delivery Method Nasal Cannula Room Air Oxygen Flow Rate (L/min) 2 Positive well nourished and well developed General Appearance ED: well developed and NAD HEENT Reports normocephalic HEENT Narrative: No sign of contusions abrasions or injury atraumatic; Negative for trauma or tenderness Eyes EOMs intact bilaterally Neck supple Neck Narrative: No tenderness. She does state that her neck is a little sore but there is no focal tenderness anywhere. General: Negative for tenderness Chest Wall inspection of chest normal Resp normal respiratory effort and clear to auscultation bilaterally Cardio Rate: tachycardic GI non-tender and non-distended Auscultation: normoactive bowel sounds Palpation: soft Back/Spine no CVA tenderness Back/Spine Narrative: She does have some mild nonfocal low to mid lumbar tenderness. No step-off. Extremity Extremity Narrative: Left hip almost looks hair rotated out but she is leaning that way. However she can lift her leg off the bed. I can move her left hip. She states she feels a little soreness but mostly feels it in her back. Its not the hip that hurts. Neuro oriented x3 Sensorium / Orientation: alert Psych mental status grossly normal Skin Rashes: no rashes MDM MDM MDM Narrative Medical decision making narrative: CT scan of the lumbar spine shows no acute process. Same process of the cervical spine. There is a little bit of pulmonary interstitial edema but she is not having any symptoms at this whatsoever. X-rays of the hip and pelvis are negative. Patient was ambulated and actually did quite well without difficulty. We will get her home at this time. Radiography Diagnostic Testing: Clinical Impression(s) from Imaging Studies Cervical Spine CT 11/27/21 04:36 IMPRESSION: 1. No acute cervical spine abnormality. Degenerative changes. 2. Pulmonary interstitial edema and pleural effusions. Electronically Signed: Estrellita Pack MD at 5:33 EDT , Lumbar Spine CT 11/27/21 04:36 IMPRESSION: No acute findings in the lumbar spine. Partially included exophytic left renal cyst and slightly smaller measurements of a right adnexal cyst since 2014. Mild right and slight left pleural effusion, uncertain etiology and significance. Electronically Signed: Estrellita Pack MD at 5:27 EDT , Hip/Pelvis X-Ray 11/27/21 05:00 IMPRESSION: No acute findings in the pelvis or left hip. Electronically Signed: Estrellita Pack MD at 5:54 EDT , Discharge Plan Triage Chief Complaint: Fall ED Provider: Giles Oneal Dx/Rx/DC Orders Clinical Impression: Fall at home, Lumbar strain Instructions: ED Back Sprain/Strain, ED Mechanical Fall Prescriptions: No Action losartan [Cozaar] 100 MG tablet 100 mg PO DAILY RF: 0 levothyroxine 50 MCG tablet 50 mcg PO DAILY RF: 0 potassium chloride [Klor-Con M20] 20 MEQ tablet,ER particles/crystals 20 meq PO DAILY RF: 0 calcium-vitamin D3-vitamin K [Citracal-D3 Soft Chew] 1 EACH tablet,chewable 1 ea PO DAILY RF: 0 quetiapine 25 mg tablet 25 mg PO QHS RF: 0 amlodipine 10 mg Tablet 10 mg PO DAILY Qty: 30 RF: 1 pravastatin 40 mg Tablet 40 mg PO DAILY Qty: 30 RF: 2 allopurinol 300 MG tablet 300 mg PO DAILY Qty: 0 RF: 0 donepezil 5 mg tablet 5 mg PO DAILY RF: 0 Eliquis 2.5 mg tablet 2.5 mg PO BID RF: 0 Primary Care Provider: Rayshawn Ryan Chi Referrals: Rayshawn Ryan Chi, MD [Primary Care Provider] - 3-5 Days if not improving Disposition Disposition: Home, Self Care
--- NOTE | 2021-11-27 05:00 | RAD_ITS ---
EXAM: XR LEFT HIP WITH PELVIS WHEN PERFORMED, 2 OR 3 VIEWS CLINICAL INDICATION: trauma TECHNIQUE: Two or three views of the left hip with pelvis when performed. This report was created using [employer] report generation technology. COMPARISON: No FINDINGS: BONES/JOINTS: No fracture or subluxation seen.. No destructive or sclerotic lesions. Note that overlapping bowel shadows may however obscure fine detail. Sacroiliac joint is unremarkable. No widening of the pubic symphysis. The articular structures are unremarkable. SOFT TISSUES: Unremarkable. No soft tissue swelling or gas. OTHER FINDINGS: 3 views total. Frontal view the pelvis, 2 views of the left hip. RAD/HIP, UNI W/ Pelvis 2-3 Views IMPRESSION: No acute findings in the pelvis or left hip. Electronically Signed: Estrellita Pack MD at 5:54 EDT ,
[2021-11-27 06:15] VITALS: BP 156/102; PULSE 119; RESP 18; O2SAT 96
[2021-11-27 07:47] VITALS: RESP 16
== END 2021-11-27 07:47 | disposition home or self-care (01) ==
PROVIDERS: Emergency Provider Emergency Medicine; PCP Family Medicine Geriatric Medicine; Visit Provider Emergency Medicine
DX: S39.012A Strain of muscle, fascia and tendon of lower back, initial encounter (principal); F01.50 Vascular dementia, unspecified severity, without behavioral disturbance, psychotic disturbance, mood disturbance, and anxiety; E11.69 Type 2 diabetes mellitus with other specified complication; I48.0 Paroxysmal atrial fibrillation; I10 Essential (primary) hypertension; W06.XXXA Fall from bed, initial encounter; Z85.038 Personal history of other malignant neoplasm of large intestine; Z86.73 Personal history of transient ischemic attack (TIA), and cerebral infarction without residual deficits; F32.A Depression, unspecified; M10.9 Gout, unspecified; E03.9 Hypothyroidism, unspecified; E66.9 Obesity, unspecified; Y92.009 Unspecified place in unspecified non-institutional (private) residence as the place of occurrence of the external cause; Z95.0 Presence of cardiac pacemaker; Z79.01 Long term (current) use of anticoagulants; Z79.899 Other long term (current) drug therapy; M54.2 Cervicalgia; Z68.27 Body mass index [BMI] 27.0-27.9, adult
CPT/HCPCS: 72125; 72131; 73502; 93005; 99283

== ENCOUNTER 2022-01-05 17:08 | Inpatient (IN) | payer MEDICARE, MEDICAID, SELFPAY ==
[2022-01-05] VITALS (9 sets, daily range): BP systolic 133–154; BP diastolic 78–99; PULSE 83–106; RESP 18–26; TEMP 36.7–36.8; O2SAT 92–96; BMI 30.7; BMI 32.4
--- NOTE | 2022-01-05 17:18 | EKG12_ITS ---
Test Reason : CP Blood Pressure : / mmHG Vent. Rate : 064 BPM Atrial Rate : 064 BPM P-R Int : 160 ms QRS Dur : 082 ms QT Int : 484 ms P-R-T Axes : 040 013 -20 degrees QTc Int : 499 ms Normal sinus rhythm T wave abnormality, consider anterior ischemia Prolonged QT Abnormal ECG Confirmed by MAURICIO MENDEZ, SHERMAN ([id number]), book or script editor DALIA JOSEPH ([id number]) on 01/10/2022 11:02:26 AM Referred By: LAUREN Confirmed By:SHERMAN MARTÍNEZ MD
--- NOTE | 2022-01-05 17:58 | EKG12_ITS ---
Test Reason : CP Blood Pressure : / mmHG Vent. Rate : 101 BPM Atrial Rate : 101 BPM P-R Int : 120 ms QRS Dur : 176 ms QT Int : 418 ms P-R-T Axes : 079 -73 105 degrees QTc Int : 542 ms Atrial-sensed ventricular-paced rhythm Abnormal ECG Confirmed by MAURICIO MENDEZ, SHERMAN ([id number]), publication editor DALIA JOSEPH ([id number]) on 01/10/2022 10:59:42 AM Referred By: LAUREN Confirmed By:SHERMAN MARTÍNEZ MD
[2022-01-05] MEDS: Ipratropium/Albuterol Sulfate 3 ML AMPUL.NEB INHALATION (18:07)
[2022-01-05] MEDS: Albuterol 2.5 MG/3 ML VIAL.NEB. INHALATION (18:07)
--- NOTE | 2022-01-05 18:13 | RAD_ITS ---
STUDY: X-RAY CHEST REASON FOR EXAM: Female, 86 years old. shortness of breath TECHNIQUE: XR Chest 1 View COMPARISON: 11/04/2021 FINDINGS: There are bilateral pleural effusions. There are bilateral infiltrates. There is a left sided pacemaker batterypack. Normal size heart. Normal mediastinum and ene. Normal visualized pulmonary arteries. There is atherosclerotic calcification of the aortic arch with tortuosity. There are diffuse degenerative changes of the visualized thoracic spine. There is degenerative osteoarthritis of the bilateral shoulders. There is no demonstrated abnormality of the visualized soft tissue structures of the upper abdomen. RAD/Chest 1 View (Portable) IMPRESSION: Pulmonary findings appear worse. Electronically Signed: Girish Stephens MD at 18:25 EDT ,
[2022-01-05 18:23] LABS: Basophil# 0.05 X10^3/uL; Basophil% 0.7 % (0-1); Eosinophil# 0.27 X10^3/uL; Eosinophils% 3.6 % (0-5); Hematocrit 41.2 % (37-47); Hemoglobin 12.6 g/dL (12.0-15.0); Lymphocyte % 21.2 % (19-41); Mean Corp Hgb Conc 30.6 g/dL (32-36); Mean Corpuscular Hgb 29.9 pg (27.0-32.0); Mean Corpuscular Volume 97.6 fL (81-99); Mean Platelet Vol. 11.1 fl (6.2-12.0); Monocyte# 0.58 X10^3/uL; Monocyte% 7.7 % (0-10); NRBC Flagged by Analyzer 0 % (0-5); Neutrophil # 5.03 X10^3/uL (2.7-7.7); Neutrophil % 66.7 % (47-70); Platelet Count 277 K/mm3 (150-450); RBC Distribution Width SD 54.3 fl (35.1-43.9); Red Blood Count 4.22 M/mm3 (4.2-5.4); White Blood Count 7.5 K/mm3 (4.4-11.0)
[2022-01-05 18:46] LABS: Anion Gap 7 (5-15); BUN 24 mg/dL (7-18); BUN/Creat Ratio 19.5 RATIO (10-20); Calcium,Total 9.5 mg/dL (8.5-10.1); Chloride 111 mmol/L (98-107); Creatinine, Serum 1.23 mg/dL (0.55-1.02); EST Glomerular Filtration Rate 44 mL/min (>60); Est Glom Filt Rate - Afr Amer 53 mL/min (>60); Estimated Creatinine Clearance 28.35 ml/min; Glucose 146 mg/dL (74-106); Potassium 4.1 mmol/L (3.5-5.1); Sodium Level 142 mmol/L (136-145); Troponin-I HS 64 pg/mL (3.0-54.0)
--- NOTE | 2022-01-05 18:48 | EDS_ITS ---
HPI <REJI Yarbrough - Last Filed: 01/05/22 19:21> History of Present Illness Chief Complaint: Shortness of Breath Narrative Narrative: 86-year-old female with history of dementia hypertension atrial fibrillation, TIA on Eliquis presents to the emergency department for dyspnea. Per the daughter who she lives with, patient does continuously complain of shortness of breath throughout the day however today, the patient looked to be in some distress, and the ambulance was called. The patient denies any chest pain, per the daughter, the patient's legs have been more edematous in the last 2 months, her PCP is made aware of this. Patient is on any oxygen at home. [facility] <REJI Yarbrough - Last Filed: 01/05/22 19:21> [facility] Medical History AVB (atrioventricular block) Bradycardia Cancer Colon cancer CVA (cerebral vascular accident) (2015) Dementia Depression Diabetes mellitus type 2 in obese Essential hypertension Gout Hypothyroid Hypothyroidism Junctional rhythm Left ventricular hypertrophy Paroxysmal atrial fibrillation TIA (transient ischemic attack) Vascular dementia Home Medications levothyroxine 50 mcg tablet 50 mcg PO DAILY thyroid 10/02/13 [History Last Taken 09/01/21] losartan 100 mg tablet (Cozaar) 100 mg PO DAILY bp 10/02/13 [History Last Taken 09/01/21] calcium-vitamin D3-vitamin K 500 mg-1,000 unit-40 mcg chewable tablet (Citracal- D3 Soft Chew) 1 ea PO DAILY supplement 03/16/18 [History Last Taken 09/01/21] potassium chloride 20 mEq tablet,extended release(part/cryst) (Klor-Con M) 20 meq PO DAILY supplement 03/16/18 [History Last Taken 09/01/21] quetiapine 25 mg tablet (Seroquel) 25 mg PO QHS mood 09/01/21 [History Last Taken 08/31/21] allopurinol 300 mg tablet 300 mg PO DAILY gout #0 tabs 09/04/21 [Rx Last Taken 09/01/21] apixaban 2.5 mg tablet (Eliquis) 2.5 mg PO BID blood thinner 09/13/21 [History Last Taken Unknown] Allergy/AdvReac Type Severity Reaction Status Date / Time dicyclomine HCl [From Bentyl] Allergy Unknown Verified 01/05/22 17:14 doxepin [Doxepin] Allergy Unknown Verified 01/05/22 17:14 hydroxyzine HCl Allergy Unknown Verified 01/05/22 17:14 [From Vistaril] hydroxyzine pamoate Allergy Unknown Verified 01/05/22 17:14 [From Vistaril] oxymetazoline HCl Allergy Swelling Verified 01/05/22 17:14 [From Tristen-Synephrine (phenylephrine)] phenylephrine HCl Allergy Swelling Verified 01/05/22 17:14 [From Tristen-Synephrine (phenylephrine)] promethazine HCl Allergy Unknown Verified 01/05/22 17:14 [From Phenergan] xylometazoline HCl Allergy Swelling Verified 01/05/22 17:14 [From Tristen-Synephrine (phenylephrine)] Family History Other Dementia Diabetes Surgical History H/O eye surgery History of colon surgery History of permanent cardiac pacemaker placement (09/03/21) Social History Smoking Status: Never smoker ROS <REJI Yarbrough - Last Filed: 01/05/22 19:21> ROS ED ROS Narrative Constitutional: Negative for fever, chills, weight loss, weakness Eyes: Negative for vision loss, vision change, double vision ENT: Negative for any sore throat, ear pain, congestion Cardiovascular: Negative for any chest pain, tightness, palpitations Respiratory: Negative for any cough, sputum production, hemoptysis.positive for dyspnea, dyspnea on exertion, orthopnea Gastrointestinal: Negative for any abdominal pain, nausea, vomiting, diarrhea, constipation, blood in stool, blood in vomit : Negative for any urinary frequency, dysuria, retention, blood in urine Muscle skeletal: Negative for any muscle joint pain, stiffness, myalgias, arthralgias, neck pain, back pain Neurological: Negative for any headache, syncope, numbness or tingling, dizziness Skin: Negative for any rashes, lumps, itching, abrasions, lacerations Psychiatric: Negative for any depression, anxiety, stress, suicidal ideation, homicidal ideation Hematologic: Negative for any easy bruising, excessive bruising, easy bleeding Allergies: Negative for any eczema, hives, rash EXAM <REJI Yarbrough - Last Filed: 01/05/22 19:21> Physical Exam Narrative Exam Narrative: Vital signs reviewed. HEET: Head normocephalic atraumatic, TMs clear bilaterally. Posterior pharynx is clear, dry mucous membranes. Nares clear bilaterally. Neck: Supple with no lymphadenopathy or tenderness. No signs of meningismus, negative jolt sign. Cardiac: Regular rate and rhythm no murmurs gallops or rubs, equal peripheral p ulses bilaterally. Respiratory: Patient has crackles to both the left and right lower lobe. Diminished lung sounds in the left. No chest tenderness. Abdomen: Soft, nontender, nondistended. No abdominal bruit or pulsatile masses. No hepatosplenomegaly Extremities: +2 pitting edema bilaterally below the knee. Slight redness to the left ankle. Active full range of motion of all extremities. Neuro: Cranial nerves II through XII intact, no focal neurological deficits. Skin: Clean dry and intact with no rash, purpura, petechiae, vesicles or pustules. Backs/flank: No CVA tenderness, no midline spinal tenderness, no deformity. Psych: Normal mood and affect. No SI, HI or acute psychosis. Const Vital Signs: 01/05/22 17:10 01/05/22 17:19 01/05/22 17:25 Temperature 98.2 F Temperature Source Oral Pulse Rate 106 H Respiratory Rate 26 H Respiratory Effort Respiratory Depth Respiratory Pattern Blood Pressure 142/99 H Blood Pressure Mean 113 Pulse Ox 96 Oxygen Delivery Method Room Air Nasal Cannula Nasal Cannula Oxygen Flow Rate (L/min) 2 2 01/05/22 18:06 01/05/22 18:08 01/05/22 18:33 Temperature Temperature Source Pulse Rate 101 H 95 Respiratory Rate 22 H 20 H Respiratory Effort Non-Labored Respiratory Depth Shallow Respiratory Pattern Tachypnea Blood Pressure 146/83 H Blood Pressure Mean 104 Pulse Ox 94 Oxygen Delivery Method Room Air Room Air Oxygen Flow Rate (L/min) Positive well nourished and well developed General Appearance ED: well developed <Khalif Linares MD - Last Filed: 01/05/22 23:23> Physical Exam Const Vital Signs: 01/05/22 17:10 01/05/22 17:19 01/05/22 17:25 Temperature 98.2 F Temperature Source Oral Pulse Rate 106 H Respiratory Rate 26 H Respiratory Effort Respiratory Depth Respiratory Pattern Blood Pressure 142/99 H Blood Pressure Mean 113 Pulse Ox 96 Oxygen Delivery Method Room Air Nasal Cannula Nasal Cannula Oxygen Flow Rate (L/min) 2 2 01/05/22 18:06 01/05/22 18:08 01/05/22 18:33 Temperature Temperature Source Pulse Rate 101 H 95 Respiratory Rate 22 H 20 H Respiratory Effort Non-Labored Respiratory Depth Shallow Respiratory Pattern Tachypnea Blood Pressure 146/83 H Blood Pressure Mean 104 Pulse Ox 94 Oxygen Delivery Method Room Air Room Air Oxygen Flow Rate (L/min) MDM <REJI Yarbrough - Last Filed: 01/05/22 19:21> MDM Lab Data Labs: Laboratory Results - last 24 hr 01/05/22 01/05/22 01/05/22 17:35 17:35 17:35 WBC 7.5 RBC 4.22 Hgb 12.6 Hct 41.2 MCV 97.6 MCH 29.9 MCHC 30.6 L RDW Std Deviation 54.3 H RDW Coeff of Angie 15.0 H Plt Count 277 MPV 11.1 Immature Gran % (Auto) 0.100 Neut % (Auto) 66.7 Lymph % (Auto) 21.2 [place] % (Auto) 7.7 Eos % (Auto) 3.6 Baso % (Auto) 0.7 Absolute Neuts (auto) 5.0 Absolute Lymphs (auto) 1.60 Nucleated RBC % 0 Sodium 142 Potassium 4.1 Chloride 111 H Carbon Dioxide 24.0 Anion Gap 7 BUN 24 H Creatinine 1.23 H Estim Creat Clear Calc 28.35 Est GFR (MDRD) Af Amer 53 L Est GFR (MDRD) Non-Af 44 L BUN/Creatinine Ratio 19.5 Glucose 146 H Calcium 9.5 Troponin I High Sens 64 H B-Natriuretic Peptide 2317.1 H Radiography Diagnostic Testing: Clinical Impression(s) from Imaging Studies Chest X-Ray 01/05/22 18:13 IMPRESSION: Pulmonary findings appear worse. Electronically Signed: Girish Stephens MD at 18:25 EDT , EKG Atrial sensed ventricular paced rhythm: Attestation: I personally reviewed and interpreted this EKG as follows: Comments: Paced rhythm, rate of 101 bpm, KS interval 120 ms, QRS duration 176 ms, no acute ST elevation, no acute infarct noted. Treatment and Re-Evaluation Narrative: Patient appears to be in mild respiratory distress, she is tachypneic, 92% on room air. Patient presents to the emergency department for respiratory distres s.Patient did receive a full pulmonary, cardiology work-up. Patient did receive laboratory values, patient CBC was unremarkable, patient's chemistries showed slight renal dysfunction with a creatinine of 1.23, patient's troponin was elevated at 64, patient's BNP was greatly elevated at 2317. Patient did receive chest x-ray which was interpreted by ER physician this did show that there are bilateral pleural effusions with bilateral infiltrates. Consistent with CHF, patient also has bilateral lower leg edema which is getting worse. Patient did receive 40 mg of IV Lasix as well as a breathing treatments. Patient is now 94% on room air, patient still tachypneic, crackles to bilateral lower bases. At this time there is no evidence of any bacterial infection such as pneumonia however I do believe the patient is suffering from new onset CHF. Patient is currently not on any Lasix, diuretic, I believe the patient would benefit for admission to the hospital for diuresis, this will improve her mobility as well as breathing. <Khalif Linares MD - Last Filed: 01/05/22 23:23> [employer] Narrative Medical decision making narrative: I have personally performed a face to face assessment of the patient and have reviewed the THAD Note. I performed a substantive portion of the visit including all aspects of the following. My tay findings include: History is shortness of breath at adult daycare facility. Exam is afebrile. Vital signs noted. Decreased breath sounds with rales bilateral bases. Medical Decision Making check chest x-ray. Check labs. New onset CHF with pleural effusions. Lasix. Admit. Other additions or changes: [None] Lab Data Attestation: I reviewed the patient's lab results. Labs: Laboratory Results - last 24 hr 01/05/22 01/05/22 01/05/22 17:35 17:35 17:35 WBC 7.5 RBC 4.22 Hgb 12.6 Hct 41.2 MCV 97.6 MCH 29.9 MCHC 30.6 L RDW Std Deviation 54.3 H RDW Coeff of Angie 15.0 H Plt Count 277 MPV 11.1 Immature Gran % (Auto) 0.100 Neut % (Auto) 66.7 Lymph % (Auto) 21.2 [place] % (Auto) 7.7 Eos % (Auto) 3.6 Baso % (Auto) 0.7 Absolute Neuts (auto) 5.0 Absolute Lymphs (auto) 1.60 Nucleated RBC % 0 Sodium 142 Potassium 4.1 Chloride 111 H Carbon Dioxide 24.0 Anion Gap 7 BUN 24 H Creatinine 1.23 H Estim Creat Clear Calc 28.35 Est GFR (MDRD) Af Amer 53 L Est GFR (MDRD) Non-Af 44 L BUN/Creatinine Ratio 19.5 Glucose 146 H Calcium 9.5 Troponin I High Sens 64 H B-Natriuretic Peptide 2317.1 H Radiography Diagnostic Testing: Clinical Impression(s) from Imaging Studies Chest X-Ray 01/05/22 18:13 IMPRESSION: Pulmonary findings appear worse. Electronically Signed: Girish Stephens MD at 18:25 EDT Reading Location ID and State: [facility] / [place] , Service support , Discharge Plan Dx/Rx/DC Orders Clinical Impression: New onset of congestive heart failure, History of permanent cardiac pacemaker placement, Elevated troponin I level Disposition Disposition: Acute Care Hospital [facility] Discharge Date/Time: 01/05/22 20:25
--- NOTE | 2022-01-05 19:28 | HP.PCM.HOS_ITS ---
[facility] - General General Date of Admission: 01/05/22 Date of Service: 01/05/22 Chief Complaint: Shortness of breath HPI Narrative WILI SOARES, is a 86 F with a significant history of dementia; hypertension; atrial fibrillation; TIA on Eliquis; and controlled diabetes who presents emergency department with 1 week history of progressively worsening shortness of breath. Associated with her symptoms is orthopnea and increased swelling of bi lateral legs. Family reported that in October 2021 her legs were swollen. Patient was taken off her amlodipine because of leg swelling. However per family the swelling of her legs is worsening. Patient has anorexia. She is fatigued and weak. She has orthopnea. [facility] Medical History AVB (atrioventricular block) Bradycardia Cancer Colon cancer CVA (cerebral vascular accident) (2014) Dementia Depression Diabetes mellitus type 2 in obese Essential hypertension Gout Hypothyroid Hypothyroidism Junctional rhythm Left ventricular hypertrophy Paroxysmal atrial fibrillation TIA (transient ischemic attack) Vascular dementia Home Medications levothyroxine 50 mcg tablet 50 mcg PO DAILY thyroid 10/02/13 [History Last Taken 09/01/21] losartan 100 mg tablet (Cozaar) 100 mg PO DAILY bp 10/02/13 [History Last Taken 09/01/21] calcium-vitamin D3-vitamin K 500 mg-1,000 unit-40 mcg chewable tablet (Citracal- D3 Soft Chew) 1 ea PO DAILY supplement 03/16/18 [History Last Taken 09/01/21] potassium chloride 20 mEq tablet,extended release(part/cryst) (Klor-Con M) 20 meq PO DAILY supplement 03/16/18 [History Last Taken 09/01/21] quetiapine 25 mg tablet (Seroquel) 25 mg PO QHS mood 09/01/21 [History Last Taken 08/31/21] allopurinol 300 mg tablet 300 mg PO DAILY gout #0 tabs 09/04/21 [Rx Last Taken 09/01/21] apixaban 2.5 mg tablet (Eliquis) 2.5 mg PO BID blood thinner 09/13/21 [History Last Taken Unknown] Allergy/AdvReac Type Severity Reaction Status Date / Time dicyclomine HCl [From Bentyl] Allergy Unknown Verified 01/05/22 17:14 doxepin [Doxepin] Allergy Unknown Verified 01/05/22 17:14 hydroxyzine HCl Allergy Unknown Verified 01/05/22 17:14 [From Vistaril] hydroxyzine pamoate Allergy Unknown Verified 01/05/22 17:14 [From Vistaril] oxymetazoline HCl Allergy Swelling Verified 01/05/22 17:14 [From Tristen-Synephrine (phenylephrine)] phenylephrine HCl Allergy Swelling Verified 01/05/22 17:14 [From Tristen-Synephrine (phenylephrine)] promethazine HCl Allergy Unknown Verified 01/05/22 17:14 [From Phenergan] xylometazoline HCl Allergy Swelling Verified 01/05/22 17:14 [From Tristen-Synephrine (phenylephrine)] Family History Other Dementia Diabetes Surgical History H/O eye surgery History of colon surgery History of permanent cardiac pacemaker placement (09/03/21) Social History Smoking Status: Never smoker ROS ROS Narrative Pertinent positives and pertinent negatives as noted in HPI. All other systems were reviewed and are negative. Vital Signs Vital Signs Vital Signs: 01/05/22 17:10 01/05/22 17:19 01/05/22 17:25 Temperature 98.2 F Temperature Source Oral Pulse Rate 106 H Respiratory Rate 26 H Respiratory Effort Respiratory Depth Respiratory Pattern Blood Pressure 142/99 H Blood Pressure Mean 113 Pulse Ox 96 Oxygen Delivery Method Room Air Nasal Cannula Nasal Cannula Oxygen Flow Rate (L/min) 2 2 01/05/22 18:06 01/05/22 18:08 01/05/22 18:33 Temperature Temperature Source Pulse Rate 101 H 95 Respiratory Rate 22 H 20 H Respiratory Effort Non-Labored Respiratory Depth Shallow Respiratory Pattern Tachypnea Blood Pressure 146/83 H Blood Pressure Mean 104 Pulse Ox 94 Oxygen Delivery Method Room Air Room Air Oxygen Flow Rate (L/min) Weight Weight: 81.2 kg Body Mass Index (BMI) 30.7 Physical Exam Narrative Physical exam: General: Moaning in bed. Head: Normocephalic, atraumatic, no tenderness Eyes: Vision is grossly intact. EOMI ENT, no trauma, moist mucous membranes, no rhinorrhea Neck: Nontender, full range of motion, no spinal tenderness, deformities, step- off CVS: Regular rate and rhythm. S1-S2 present. No murmur, gallop or rub. 4+ pitting edema of left lower leg; 3+ pitting edema of right lower leg. Respiratory : Left base rales; chest wall nontender, no wheezing Abdomen: Soft, nontender, nondistended, normal bowel sounds, no masses : Deferred Back: Nontender, no CVA tenderness, no midline spinal tenderness, deformities, step-offs Extremities: Nontender full range of motion, no trauma Skin: Erythema of left leg. Normal color, no trauma, abrasions Neuro: Alert, oriented, cranial nerves II through XII grossly intact. Psychiatry: Appears depressed Results Lab / Micro Data Result Diagrams: 01/05/22 17:35 01/05/22 17:35 Labs: Laboratory Results - last 24 hr 01/05/22 17:35: WBC 7.5, RBC 4.22, Hgb 12.6, Hct 41.2, MCV 97.6, MCH 29.9, MCHC 30.6 L, RDW Std Deviation 54.3 H, RDW Coeff of Angie 15.0 H, Plt Count 277, MPV 11 .1, Immature Gran % (Auto) 0.100, Neut % (Auto) 66.7, Lymph % (Auto) 21.2, [place] % (Auto) 7.7, Eos % (Auto) 3.6, Baso % (Auto) 0.7, Absolute Neuts (auto) 5.0, Absolute Lymphs (auto) 1.60, Nucleated RBC % 0 01/05/22 17:35: Sodium 142, Potassium 4.1, Chloride 111 H, Carbon Dioxide 24.0, Anion Gap 7, BUN 24 H, Creatinine 1.23 H, Estim Creat Clear Calc 28.35, Est GFR (MDRD) Af Amer 53 L, Est GFR (MDRD) Non-Af 44 L, BUN/Creatinine Ratio 19.5, Glucose 146 H, Calcium 9.5, Troponin I High Sens 64 H 01/05/22 17:35: B-Natriuretic Peptide 2317.1 H Micro: Microbiology 01/05/22 18:05 Nasal Secretion SARS-CoV-2 & FLU Antigen (Rapid) - Final Radiology Impression Chest X-Ray 01/05/22 18:13 IMPRESSION: Pulmonary findings appear worse. Electronically Signed: Girish Stephens MD at 18:25 EDT , Assessment & Plan Assessment/Plan (1) Heart failure: (2) Elevated troponin I level: (3) Diabetes mellitus type 2 in obese: (4) Essential hypertension: PLAN: Plan Acute on chronic heart failure with preserved ejection fraction Likely heart failure has being going on for some time but is newly diagnosed at this time. Place on monitored bed on progressive care unit Weight on admission to the floor; and then daily Strict I&O's CXR image was visualized and independently interpreted. I agree with radiologist interpretation of bilateral pleural effusion; bilateral infiltrates. Previous chest x-ray was also compared with current chest x-ray. Current chest x-ray appears worsened. Emergency department labs reviewed showed BNP of 2,317.1 Lasix 40mg IVP bid ordered Last echocardiogram was on 09/01/2021. Echocardiogram at that time showed estimated ejection fraction of 60%; no regional wall motion abnormalities noted. Pulmonary artery systolic pressure was 44 mmHg. No hemodynamically significant valvular abnormality reported. Monitor electrolytes and renal function Adan wrap to bilateral lower extremities Fluid restriction of 1500 mls daily Cardiac and diabetic diet ordered. Nursing communication to demarcate erythematous area of left lower leg edema Elevated troponin 1 level Troponin on presentation was 64; chronic; trend. Hypertension Blood pressure is not within goal Losartan continued. As needed hydralazine ordered. Trend blood pressure and adjust blood pressure medications. Diabetes mellitus Diet controlled. Cardiac and diabetic diet ordered as above. Trend BMP. CKD stage IIIa Stable Trend BMP. DVT prophylaxis: Not indicated as patient is on Eliquis for A. fib and Eliquis has been continued. Charges/Coding Visit Charges Inpatient E&M: 16060 Init Hosp L3
[2022-01-05] MEDS: Furosemide 40 MG/4 ML Vial IV (19:31)
[2022-01-05 20:16] LABS: Troponin-I HS 70 pg/mL (3.0-54.0)
[2022-01-06] VITALS (9 sets, daily range): BP systolic 138–160; BP diastolic 89–95; PULSE 87–99; RESP 16–20; TEMP 36.4–36.8; O2SAT 92–95
[2022-01-06 00:05] LABS: Troponin-I HS 66 pg/mL (3.0-54.0)
[2022-01-06] MEDS: Levothyroxine 50 MCG Tablet PO (06:20)
[2022-01-06 06:42] LABS: Absolute Lymphocyte Count 1.07 X10^3/uL (0.83-4.51); Absolute Neutrophil Count 4.9 X10^3/uL (2.0-7.7); Basophil# 0.02 X10^3/uL; Basophil% 0.3 % (0-1); Eosinophil# 0.15 X10^3/uL; Eosinophils% 2.3 % (0-5); Hematocrit 35.6 % (37-47); Hemoglobin 11.1 g/dL (12.0-15.0); Lymphocyte # 1.07 X10^3/ul (0.83-4.51); Lymphocyte % 16.1 % (19-41); Mean Corp Hgb Conc 31.2 g/dL (32-36); Mean Corpuscular Hgb 30.1 pg (27.0-32.0); Mean Corpuscular Volume 96.5 fL (81-99); Mean Platelet Vol. 10.9 fl (6.2-12.0); Monocyte# 0.46 X10^3/uL; Monocyte% 6.9 % (0-10); NRBC Flagged by Analyzer 0 % (0-5); Neutrophil # 4.91 X10^3/uL (2.7-7.7); Neutrophil % 74.1 % (47-70); Platelet Count 228 K/mm3 (150-450); RBC Distribution Width CV 14.8 % (11.6-14.6); RBC Distribution Width SD 52.1 fl (35.1-43.9); Red Blood Count 3.69 M/mm3 (4.2-5.4); White Blood Count 6.6 K/mm3 (4.4-11.0)
[2022-01-06 07:09] LABS: Anion Gap 6 (5-15); BUN 22 mg/dL (7-18); BUN/Creat Ratio 21.4 RATIO (10-20); Chloride 110 mmol/L (98-107); Creatinine, Serum 1.03 mg/dL (0.55-1.02); EST Glomerular Filtration Rate 54 mL/min (>60); Est Glom Filt Rate - Afr Amer 65 mL/min (>60); Estimated Creatinine Clearance 33.86 ml/min; Glucose 93 mg/dL (74-106); Potassium 3.6 mmol/L (3.5-5.1); Sodium Level 143 mmol/L (136-145)
[2022-01-06] MEDS: Calcium Carb/Vitamin D 1 TABLET Tablet PO (09:41)
[2022-01-06] MEDS: Allopurinol 300 MG Tablet PO (09:41)
[2022-01-06] MEDS: Menthol/Lanolin/Calamine/Znox 113 GM Tube 1 APPLIC TOPICAL (09:41)
[2022-01-06] MEDS: Furosemide 40 MG/4 ML Vial IV ×2 (09:41→16:15)
[2022-01-06] MEDS: Potassium Chloride Oral Tablet 20 MEQ PO (09:41)
[2022-01-06] MEDS: Losartan Potassium 100 MG Tablet PO (09:41)
[2022-01-06] MEDS: APIXABAN 2.5 MG TABLET PO ×2 (09:41→20:24)
--- NOTE | 2022-01-06 10:25 | CASEMGMT ---
RN CM Face to Face with patient for initial transition planning/care coordination assessment. RN CM introduced self and role at [facility]. Patient lying in bed, sitting in chair, daughter at bedside. Patient willing to participate in assessment and is able to answer all questions appropriately. Care providers, pharmacy, and demographics verified. Patient wishes to discharge home. Daughter wants to see how patient progresses with therapy before setting up HHC. Patient and daughter was provided a list of HHC providers including quality and resource use data and consistent with the patient?s preferred geographic region, medical needs, and insurance network. Daughter to review list and CM to follow-up on Saturday if patient and daughter want HHC for therapy. Patient states he has no further needs or concerns at this time. CM to follow for discharge planning needs that may arise. PCP: Connor Specialists: [employer] glove examiner Preferred Pharmacy: [facility], [facility] at discharge Insurance: [employer] Prescription Benefit: yes Living Will/HPOA: yes, daughter in law Sarah Tuttle, HPOA LNOK: son, JEIRLYN Living Arrangements: Patient lives with DIL and son in a single story home with 4 steps and railing. DIL assists patient with ADLs, patient is able to toilet self. Patient goes to [facility] 5 days per week. Transportation: Daughter for appts DME/HHC: Patient has raised toilet, tub bench, walker, grab bars, lift chair, and medical alert. Patient has had HHC in the past but family could not recall agency. Patient has been to [facility], [place], and [place] in the past. Patient has [employer] with casework specialist May Stinson. Disposition Plan: Patient to discharge home with family support and follow-up plans in place. Will monitor and follow up with daughter regarding possible HHC for home therapy. Maria IGNACIO, RN, CM
--- NOTE | 2022-01-06 10:43 | PN.HOSP_ITS ---
Subjective Subjective Doing well, no issues overnight, breathing better today than she has been. She states that she does feel little bit weak and awaiting PT and OT evaluation Objective Data Objective Data Vital Signs: Vital Signs Temp Pulse Resp BP Pulse Ox O2 Del Method O2 Flow Rate 97.5 F L 98 18 160/90 H 92 Room Air 2 01/06/22 08:55 01/06/22 08:55 01/06/22 08:55 01/06/22 08:55 01/06/22 08:55 01/06/22 08:55 01/05/22 17:25 Oxygen Flow Rate (L/min) 2 Oxygen Delivery Method Room Air Weight: 188 lb 14.978 oz Body Mass Index (BMI) 32.4 Intake & Output: Intake and Output for Last 24 Hours 01/05/22 01/06/22 01/07/22 03:59 03:59 03:59 Intake Total 15 Output Total 1300 / 1300 1050 / 1050 Balance -1300 / -1300 -1035 / -1035 Lab / Micro Data Result Diagrams: 01/06/22 06:15 01/06/22 06:15 Labs: Laboratory Results - last 24 hr 01/05/22 17:35: WBC 7.5, RBC 4.22, Hgb 12.6, Hct 41.2, MCV 97.6, MCH 29.9, MCHC 30.6 L, RDW Std Deviation 54.3 H, RDW Coeff of Angie 15.0 H, Plt Count 277, MPV 11.1, Immature Gran % (Auto) 0.100, Neut % (Auto) 66.7, Lymph % (Auto) 21.2, [place] % (Auto) 7.7, Eos % (Auto) 3.6, Baso % (Auto) 0.7, Absolute Neuts (auto) 5.0, Absolute Lymphs (auto) 1.60, Nucleated RBC % 0 01/05/22 17:35: Sodium 142, Potassium 4.1, Chloride 111 H, Carbon Dioxide 24.0, Anion Gap 7, BUN 24 H, Creatinine 1.23 H, Estim Creat Clear Calc 28.35, Est GFR (MDRD) Af Amer 53 L, Est GFR (MDRD) Non-Af 44 L, BUN/Creatinine Ratio 19.5, Glucose 146 H, Calcium 9.5, Troponin I High Sens 64 H 01/05/22 17:35: B-Natriuretic Peptide 2317.1 H 01/05/22 19:35: Troponin I High Sens 70 H 01/05/22 23:32: Troponin I High Sens 66 H 01/06/22 06:15: WBC 6.6, RBC 3.69 L, Hgb 11.1 L, Hct 35.6 L, MCV 96.5, MCH 30.1, MCHC 31.2 L, RDW Std Deviation 52.1 H, RDW Coeff of Angie 14.8 H, Plt Count 228, MPV 10.9, Immature Gran % (Auto) 0.300, Neut % (Auto) 74.1 H, Lymph % (Auto) 16.1 L, [place] % (Auto) 6.9, Eos % (Auto) 2.3, Baso % (Auto) 0.3, Absolute Neuts (auto) 4.9, Absolute Lymphs (auto) 1.07, Nucleated RBC % 0 01/06/22 06:15: Sodium 143, Potassium 3.6, Chloride 110 H, Carbon Dioxide 27.0, Anion Gap 6, BUN 22 H, Creatinine 1.03 H, Estim Creat Clear Calc 33.86, Est GFR (MDRD) Af Amer 65, Est GFR (MDRD) Non-Af 54 L, BUN/Creatinine Ratio 21.4 H, Glucose 93, Calcium 9.0 Micro: Microbiology 01/05/22 18:05 Nasal Secretion SARS-CoV-2 & FLU Antigen (Rapid) - Final Radiography Diagnostic Testing: Radiology Impression Chest X-Ray 01/05/22 18:13 IMPRESSION: Pulmonary findings appear worse. Electronically Signed: Girish Stephens MD at 18:25 EDT , Physical Exam Const alert, oriented x3 and no apparent distress General Appearance: cooperative HEENT normocephalic and moist oral mucous membranes Eyes PERRL, EOMs intact bilaterally and conjunctivae normal Neck supple and no JVD Resp normal respiratory effort, no retractions and no use of accessory muscles Auscultation: rales; Negative for crackles, rhonchi or wheezes Cardio regular rate, regular rhythm, S1 normal heart sound, S2 normal heart sound and no murmurs GI soft to palpation, non-tender and non-distended; Negative for hepatosplenomegaly Extremity General Extremity: edema Skin no rashes or lesions noted Skin Narrative: Both legs are wrapped Neuro no focal motor deficits and no sensory deficits noted Psych affect normal Appearance: appropriate Assessment & Plan Assessment/Plan (1) Heart failure: (2) Elevated troponin I level: (3) Diabetes mellitus type 2 in obese: (4) Essential hypertension: PLAN: Plan 1. Acute on chronic diastolic CHF/pulmonary hypertension/HTN/HLD/A. fib ? She is breathing better today, continue with twice daily IV Lasix ? PT and OT evaluation pending ? Continue with her home blood pressure medications ? He does have a pacemaker in place ? Continue with wrapping her lower extremities, significant edema ? Echo from August 2021 demonstrates normal EF with pulmonary artery systolic pressures of 44 mmHg ? Continue with fluid restriction ? Troponin is chronically elevated with no will not follow ? Continue with Eliquis 2. Hypothyroidism ? Stable ? Continue with Synthroid 3. CKD 3 a ? Functions at baseline ? We will continue to monitor DVT: Eliquis Charges/Coding Visit Charges Inpatient E&M: 90797 Subs Hosp L2
--- NOTE | 2022-01-06 16:58 | CM.ED ---
CHAGO called May Stinson at [facility] and left voice mail message for Ms. Stinson advising that patient is scheduled for discharge from [facility] on 01/07/22. Trish WATKINS
[2022-01-06] MEDS: QUEtiapine 25 MG Tablet PO (20:25)
[2022-01-07] VITALS (12 sets, daily range): BP systolic 125–165; BP diastolic 64–94; PULSE 88–107; RESP 20; TEMP 36–37.1; O2SAT 82–97
[2022-01-07] MEDS: Menthol/Lanolin/Calamine/Znox 113 GM Tube 1 APPLIC TOPICAL ×3 (00:17→21:20)
[2022-01-07] MEDS: Levothyroxine 50 MCG Tablet PO (05:19)
--- NOTE | 2022-01-07 05:21 | PCA ---
double checked with Flores QIU, papier mache' molder and director staffing aware.
[2022-01-07 06:57] LABS: Absolute Lymphocyte Count 1.25 X10^3/uL (0.83-4.51); Absolute Neutrophil Count 6.6 X10^3/uL (2.0-7.7); Basophil# 0.03 X10^3/uL; Basophil% 0.3 % (0-1); Eosinophil# 0.22 X10^3/uL; Eosinophils% 2.5 % (0-5); Hematocrit 37.9 % (37-47); Lymphocyte # 1.25 X10^3/ul (0.83-4.51); Lymphocyte % 14.4 % (19-41); Mean Corp Hgb Conc 31.7 g/dL (32-36); Mean Corpuscular Hgb 29.9 pg (27.0-32.0); Mean Corpuscular Volume 94.3 fL (81-99); Mean Platelet Vol. 10.3 fl (6.2-12.0); Monocyte# 0.59 X10^3/uL; Monocyte% 6.8 % (0-10); NRBC Flagged by Analyzer 0 % (0-5); Neutrophil # 6.57 X10^3/uL (2.7-7.7); Neutrophil % 75.7 % (47-70); Platelet Count 246 K/mm3 (150-450); RBC Distribution Width CV 14.6 % (11.6-14.6); RBC Distribution Width SD 50.7 fl (35.1-43.9); Red Blood Count 4.02 M/mm3 (4.2-5.4); White Blood Count 8.7 K/mm3 (4.4-11.0)
[2022-01-07 07:20] LABS: Anion Gap 7 (5-15); BUN 18 mg/dL (7-18); BUN/Creat Ratio 16.2 RATIO (10-20); Chloride 106 mmol/L (98-107); Creatinine, Serum 1.11 mg/dL (0.55-1.02); EST Glomerular Filtration Rate 49 mL/min (>60); Est Glom Filt Rate - Afr Amer 60 mL/min (>60); Estimated Creatinine Clearance 31.42 ml/min; Glucose 103 mg/dL (74-106); Potassium 3.4 mmol/L (3.5-5.1); Sodium Level 142 mmol/L (136-145)
--- NOTE | 2022-01-07 07:22 | CPS ---
o2 check this monring.pt was confused, sat was 85% on room air, placed on 2 lnc. RN notified.
[2022-01-07] MEDS: Calcium Carb/Vitamin D 1 TABLET Tablet PO (07:53)
[2022-01-07] MEDS: APIXABAN 2.5 MG TABLET PO ×2 (07:53→21:21)
[2022-01-07] MEDS: Furosemide 40 MG/4 ML Vial IV ×2 (07:53→17:22)
[2022-01-07] MEDS: Allopurinol 300 MG Tablet PO (07:53)
[2022-01-07] MEDS: Losartan Potassium 100 MG Tablet PO (07:53)
[2022-01-07] MEDS: Potassium Chloride Oral Tablet 20 MEQ PO (07:54)
--- NOTE | 2022-01-07 08:05 | RAD_ITS ---
EXAM: XR CHEST, 1 VIEW CLINICAL INDICATION: increased o2 needs TECHNIQUE: Frontal view of the chest. This report was created using MD Revolution report generation technology. COMPARISON: 01/05/2022 FINDINGS: LUNGS AND PLEURAL SPACES: There are bilateral pleural effusions which are not significantly changed. There is also bibasilar airspace disease. No pneumothorax. HEART: Unremarkable. Cardiac silhouette not enlarged. MEDIASTINUM: Central airways and mediastinal contour are unremarkable. BONES/JOINTS: Unremarkable. SOFT TISSUES: Unremarkable. TUBES, LINES AND DEVICES: Left-sided pacemaker in stable position. RAD/Chest 1 View (Portable) IMPRESSION: No significant change in the appearance of the chest from the reference exam. Electronically Signed: Isaac Cai MD at 9:24 EDT ,
[2022-01-07 08:51] LABS: Base Excess 4 mmol/L (-2 to +2); Blood Gas Specimen Type ART; O2 Delivery Device Cannula; PO2 84 mmHG (75-100); SITE R Radial; SO2 97 % (95-99); Total Carbon Dioxide 29 mmol/L; pCO2 41.9 mmHg (35-45); pH 7.43 (7.35-7.45)
--- NOTE | 2022-01-07 10:04 | PCM.PN.HOSP ---
Subjective Subjective Found to be hypoxic this morning unsure as to the etiology at this time. She also seems little bit more tired, she does open her eyes to voice but does not respond to questions. Objective Data Objective Data Vital Signs: Vital Signs Temp Pulse Resp BP Pulse Ox O2 Del Method O2 Flow Rate 97.9 F 104 H 20 H 125/64 H 97 Nasal Cannula 2 01/07/22 07:51 01/07/22 07:51 01/07/22 07:51 01/07/22 07:51 01/07/22 09:06 01/07/22 09:06 01/07/22 09:34 Oxygen Flow Rate (L/min) 2 Oxygen Delivery Method Nasal Cannula Weight: 160 lb 11.472 oz Body Mass Index (BMI) 32.4 Intake & Output: Intake and Output for Last 24 Hours 01/06/22 01/07/22 01/08/22 03:59 03:59 03:59 Intake Total 135 / 135 50 / 50 Output Total 1300 / 1300 4150 / 4150 425 / 425 Balance -1300 / -1300 -4015 / -4015 -375 / -375 Lab / Micro Data Result Diagrams: 01/07/22 06:45 01/07/22 06:45 Labs: Laboratory Results - last 24 hr 01/07/22 06:45: WBC 8.7, RBC 4.02 L, Hgb 12.0, Hct 37.9, MCV 94.3, MCH 29.9, MCHC 31.7 L, RDW Std Deviation 50.7 H, RDW Coeff of Angie 14.6, Plt Count 246, MPV 10.3, Immature Gran % (Auto) 0.300, Neut % (Auto) 75.7 H, Lymph % (Auto) 14.4 L, [place] % (Auto) 6.8, Eos % (Auto) 2.5, Baso % (Auto) 0.3, Absolute Neuts (auto) 6.6, Absolute Lymphs (auto) 1.25, Nucleated RBC % 0 01/07/22 06:45: Sodium 142, Potassium 3.4 L, Chloride 106, Carbon Dioxide 29.0, Anion Gap 7, BUN 18, Creatinine 1.11 H, Estim Creat Clear Calc 31.42, Est GFR (MDRD) Af Amer 60, Est GFR (MDRD) Non-Af 49 L, BUN/Creatinine Ratio 16.2, Glucose 103, Calcium 9.0 Micro: Microbiology 01/05/22 18:05 Nasal Secretion SARS-CoV-2 & FLU Antigen (Rapid) - Final ABG Data ABG results: ABG 01/07/22 08:47 Specimen Type ART Sample Site R Radial pH 7.43 Bicarbonate Actual 28.0 H Total CO2 29 Base Excess 4 H O2 Saturation 97 ABG pCO2 41.9 ABG pO2 84 O2 Delivery Device Cannula Liter Flow 2.0 Radiography Diagnostic Testing: Radiology Impression Chest X-Ray 01/07/22 08:05 IMPRESSION: No significant change in the appearance of the chest from the reference exam. Electronically Signed: Isaac Cai MD at 9:24 EDT , Physical Exam Narrative Const Opens her eyes to voice but otherwise she is sleeping, and no apparent distress General Appearance: cooperative HEENT normocephalic and moist oral mucous membranes Eyes PERRL, EOMs intact bilaterally and conjunctivae normal Neck supple and no JVD Resp normal respiratory effort, no retractions and no use of accessory muscles Auscultation: Diminished; Negative for crackles, rales, rhonchi or wheezes Cardio regular rate, regular rhythm, S1 normal heart sound, S2 normal heart sound and no murmurs GI soft to palpation, non-tender and non-distended; Negative for hepatosplenomegaly Extremity General Extremity: edema Skin no rashes or lesions noted Skin Narrative: Both legs are wrapped Neuro no focal motor deficits and no sensory deficits noted Psych Flat affect Appearance: appropriate Assessment & Plan Assessment/Plan (1) Heart failure: (2) Elevated troponin I level: (3) Diabetes mellitus type 2 in obese: (4) Essential hypertension: PLAN: Plan 1. Acute hypoxic respiratory failure secondary to acute on chronic diastolic CHF/pulmonary hypertension/HTN/HLD/A. fib ? Now on oxygen despite diuresing fairly well. ? Chest x-ray and ABG are pending ? PT and OT evaluation ? Continue with her home blood pressure medications ? He does have a pacemaker in place ? Continue with wrapping her lower extremities, significant edema on admission ? Echo from August 2021 demonstrates normal EF with pulmonary artery systolic pressures of 44 mmHg ? Continue with fluid restriction ? Troponin is chronically elevated with no will not follow ? Continue with Eliquis 2. Hypothyroidism ? Stable ? Continue with Synthroid 3. CKD 3 a ? Functions at baseline ? We will continue to monitor DVT: Eliquis Charges/Coding Visit Charges Inpatient E&M: 58819 Subs Hosp L2
[2022-01-07 10:11] LABS: Phosphorus 2.9 mg/dL (2.5-4.9)
--- NOTE | 2022-01-07 14:37 | NURSING ---
PT WITH IRREGULAR BREATHING PATTERN. CYCLING THROUGH PERIODS OF SHALLOW TACHYPNIC BREATHING W/ 10-15 SEC OF APNEA. SPO2=95% TO 87% ON RA. PT RESPONDS TO VOICE. ANSWERS QUESTIONS AND GOES BACK TO SLEEP. DR VALENCIA AWARE AND HAS OBSERVED PT MULTIPLE TIMES. REVEIWED ABG'S, CXR AND LABS. NNO, WILL CONTINUE TO MONITOR.
[2022-01-07] MEDS: QUEtiapine 25 MG Tablet PO (21:21)
[2022-01-08] VITALS (13 sets, daily range): BP systolic 114–147; BP diastolic 65–87; PULSE 83–97; RESP 16–18; TEMP 36.2–37.5; O2SAT 90–96
[2022-01-08 06:47] LABS: Anion Gap 7 (5-15); BUN 16 mg/dL (7-18); BUN/Creat Ratio 15.1 RATIO (10-20); Chloride 102 mmol/L (98-107); Creatinine, Serum 1.06 mg/dL (0.55-1.02); EST Glomerular Filtration Rate 52 mL/min (>60); Est Glom Filt Rate - Afr Amer 63 mL/min (>60); Glucose 80 mg/dL (74-106); Potassium 2.9 mmol/L (3.5-5.1); Sodium Level 142 mmol/L (136-145)
[2022-01-08] MEDS: Levothyroxine 50 MCG Tablet PO (08:18)
--- NOTE | 2022-01-08 08:20 | PN.HOSP_ITS ---
Subjective Subjective Patient is an 86-year-old female admitted with progressive shortness of breath diagnosed with acute congestive heart failure Objective Data Objective Data Vital Signs: Vital Signs Temp Pulse Resp BP Pulse Ox O2 Del Method O2 Flow Rate 97.2 F L 97 18 147/87 H 96 Room Air 2 01/08/22 02:00 01/08/22 07:27 01/08/22 02:00 01/08/22 02:00 01/08/22 07:20 01/08/22 07:20 01/07/22 20:00 Oxygen Flow Rate (L/min) 2 Oxygen Delivery Method Room Air Weight: 69.6 kg Body Mass Index (BMI) 32.4 Intake & Output: Intake and Output for Last 24 Hours 01/06/22 01/07/22 01/08/22 23:59 23:59 23:59 Intake Total 15 / 135 170 / 170 Output Total 3900 / 5450 3850 / 3850 700 / 700 Balance -3885 / -5315 -3680 / -3680 -700 / -700 Lab / Micro Data Result Diagrams: 01/07/22 06:45 01/08/22 05:30 Labs: Laboratory Results - last 24 hr 01/07/22 06:45: Phosphorus 2.9, Magnesium 2.0 01/08/22 05:30: Sodium 142, Potassium 2.9 L, Chloride 102, Carbon Dioxide 33.0 H , Anion Gap 7, BUN 16, Creatinine 1.06 H, Estim Creat Clear Calc 32.90, Est GFR (MDRD) Af Amer 63, Est GFR (MDRD) Non-Af 52 L, BUN/Creatinine Ratio 15.1, Glucose 80, Calcium 9.0 Micro: Microbiology 01/05/22 18:05 Nasal Secretion SARS-CoV-2 & FLU Antigen (Rapid) - Final ABG Data ABG results: ABG 01/07/22 08:47 Specimen Type ART Sample Site R Radial pH 7.43 Bicarbonate Actual 28.0 H Total CO2 29 Base Excess 4 H O2 Saturation 97 ABG pCO2 41.9 ABG pO2 84 O2 Delivery Device Cannula Liter Flow 2.0 Radiography Diagnostic Testing: Radiology Impression Chest X-Ray 01/07/22 08:05 IMPRESSION: No significant change in the appearance of the chest from the reference exam. Electronically Signed: Isaac Cai MD at 9:24 EDT , Physical Exam Narrative GENERAL: Patient is frail looking HEENT: Atraumatic; EYES; Anicteric, Normal Conjunctiva NECK; supple, normal thyroid, RESPIRATORY: Diminished to auscultation CARDIOVASCULAR: Regular S1 S2, GI: soft, normoactive bowel sounds, : No Renal angle tenderness; EXTREMITIES: Bipedal edema, no clubbing, MUSCULOSKELETAL: no muscle wasting NEURO: Awake; no lateralizing signs. SKIN: No Rash PSYCH; Flat affect Assessment & Plan Assessment/Plan (1) Heart failure: (2) Elevated troponin I level: (3) Diabetes mellitus type 2 in obese: (4) Essential hypertension: PLAN: Plan Patient is an 86-year-old female admitted with progressive shortness of breath diagnosed with acute congestive heart failure 1. Acute on chronic congestive heart failure with preserved ejection fraction ? Echo obtained in August 2021 demonstrated a normal EF with slightly elevated pulmonary arterial systolic pressure of 44 mmHg. Admitted to regular nursing floor managed with strict input and output, daily weight, and IV diuretics patient appears to be responding to treatment 2. Pulmonary hypertension ? Patient being treated symptomatically 3. Paroxysmal A. fib ? Rate controlled on systemic anticoagulation with Eliquis did continue 4. Hypertension - Blood pressure controlled, home medications continued with dose adjustment as needed 5. Gout ? Patient is on allopurinol 6. Hypothyroidism - Patient is on levothyroxine home dose continued 7. DVT prophylaxis ? Patient is on Eliquis 8. Hypokalemia -Corrected per protocol Charges/Coding Visit Charges Inpatient E&M: 17835 Subs Hosp L2
[2022-01-08] MEDS: Allopurinol 300 MG Tablet PO (10:02)
[2022-01-08] MEDS: Losartan Potassium 100 MG Tablet PO (10:02)
[2022-01-08] MEDS: Furosemide 40 MG/4 ML Vial IV ×2 (10:03→17:29)
[2022-01-08] MEDS: APIXABAN 2.5 MG TABLET PO ×2 (10:03→21:51)
[2022-01-08] MEDS: Calcium Carb/Vitamin D 1 TABLET Tablet PO (10:03)
[2022-01-08] MEDS: Menthol/Lanolin/Calamine/Znox 113 GM Tube 1 APPLIC TOPICAL ×2 (10:03→21:50)
[2022-01-08] MEDS: 0.9% Saline Lock 10 ML Syringe IV ×2 (10:05→21:50)
[2022-01-08] MEDS: Potassium Chloride Oral Tablet 20 MEQ 40 MEQ PO (10:05)
[2022-01-08 10:32] LABS: Magnesium 2.2 mg/dL (1.6-2.6)
--- NOTE | 2022-01-08 14:45 | CASEMGMT ---
Patient is not doing well and has become weaker while being in [facility]. Per RN patient is not very responsive so SW should contact her daughter. SW called patient's daughter in law Sarah. Sarah was concerned about patient coming home also. Sarah asked that a referral be sent to [facility] as patient has been there in the past. CHAGO notified annia Yang/c community planning technician and she will send a referral to [facility]. Carolee Hutchison MSW CHAZ
--- NOTE | 2022-01-08 14:55 | CASEMGMT ---
Discharge Auto Body Mechanic Apprentice Celia Rebolledo/deon Wheat Buyer faxed over referral to [facility]. Will follow up. Celia Joaquin Discharge Auto Body Mechanic Apprentice
[2022-01-08 14:56] LABS: Allen Test Positive; Base Excess 7 mmol/L (-2 to +2); Bicarbonate 30.1 mmol/L (22-26); Blood Gas Specimen Type ART; O2 Delivery Device Room Air; PO2 66 mmHG (75-100); SITE R Radial; SO2 94 % (95-99); Total Carbon Dioxide 31 mmol/L; pCO2 40.7 mmHg (35-45); pH 7.48 (7.35-7.45)
--- NOTE | 2022-01-08 15:15 | CASEMGMT ---
Discharge Stave Mill Hand Amber from [facility] reached out. Patient has been accepted. CHAGO Zarco has been notified. Celia Joaquin Discharge Stave Mill Hand
--- NOTE | 2022-01-08 15:27 | CASEMGMT ---
[facility] is able to take patient when she is medically ready. SW called patient's daughter in law Sarah and let her know. Plan: d/c to [facility] when medically ready and pending insurance approval. Carolee WARE
--- NOTE | 2022-01-08 15:33 | CHAPLAIN ---
Type of Pastoral Visit _x__ Initial Visit ___ Follow-up Visit ___ On-call Visit ___ General Patient Visit ___ Spiritual Assessment ___ Family Conference ___ Bereavement ___ Rapid Response ___ Code Blue ___ Other (describe below) Pastoral Care Referral From ___ Patient ___ Family ___ Nurse ___ Physician ___ Nursing Home Physician ___ Parish Visitor _x__ Other (describe below) Sacrament/Intervention ___ Active listening ___ Anointing ___ Scientology ___ Bereavement ___ Communion ___ Annette exploration ___ ___ Life review _x__ Prayer ___ Reconciliation ___ Sacrament of Sick _x__ Supportive presence ___ Wedding ___ Other (describe below) Pastoral Comments patient did not open her eyes but once or twice briefly during this visit; pt would occasionally moan or hum during this visit but did not seem to have pain or distress; pt did reach out her hand so this technical service representative held her hand; pt continued to hold hand of technical service representative while this technical service representative sang songs/hymns to her and had a prayer
[2022-01-08] MEDS: Potassium Chloride Oral Tablet 20 MEQ PO (17:29)
[2022-01-08] MEDS: QUEtiapine 25 MG Tablet PO (21:51)
[2022-01-09] VITALS (10 sets, daily range): BP systolic 131–143; BP diastolic 62–87; PULSE 80–105; RESP 14–18; TEMP 36.2–37.1; O2SAT 93–97
[2022-01-09] MEDS: Levothyroxine 50 MCG Tablet PO (05:38)
[2022-01-09 07:29] LABS: Absolute Neutrophil Count 6.9 X10^3/uL (2.0-7.7); Basophil# 0.04 X10^3/uL; Basophil% 0.4 % (0-1); Eosinophil# 0.25 X10^3/uL; Eosinophils% 2.7 % (0-5); Hematocrit 43.6 % (37-47); Hemoglobin 13.5 g/dL (12.0-15.0); Mean Corpuscular Hgb 29.5 pg (27.0-32.0); Mean Corpuscular Volume 95.2 fL (81-99); Mean Platelet Vol. 11.4 fl (6.2-12.0); Monocyte% 8.6 % (0-10); NRBC Flagged by Analyzer 0 % (0-5); Neutrophil # 6.88 X10^3/uL (2.7-7.7); RBC Distribution Width CV 14.4 % (11.6-14.6); RBC Distribution Width SD 49.5 fl (35.1-43.9); Red Blood Count 4.58 M/mm3 (4.2-5.4); White Blood Count 9.3 K/mm3 (4.4-11.0)
[2022-01-09 07:50] LABS: Platelet Count 204 K/mm3 (150-450)
[2022-01-09 07:54] LABS: Anion Gap 8 (5-15); BUN 19 mg/dL (7-18); BUN/Creat Ratio 16.1 RATIO (10-20); Calcium,Total 9.2 mg/dL (8.5-10.1); Chloride 102 mmol/L (98-107); Creatinine, Serum 1.18 mg/dL (0.55-1.02); EST Glomerular Filtration Rate 46 mL/min (>60); Est Glom Filt Rate - Afr Amer 56 mL/min (>60); Estimated Creatinine Clearance 29.55 ml/min; Glucose 84 mg/dL (74-106); Potassium 3.9 mmol/L (3.5-5.1); Sodium Level 141 mmol/L (136-145)
[2022-01-09] MEDS: APIXABAN 2.5 MG TABLET PO ×2 (09:01→21:57)
[2022-01-09] MEDS: Allopurinol 300 MG Tablet PO (09:01)
[2022-01-09] MEDS: Potassium Chloride Oral Tablet 20 MEQ PO ×2 (09:01→18:05)
[2022-01-09] MEDS: Calcium Carb/Vitamin D 1 TABLET Tablet PO (09:01)
[2022-01-09] MEDS: Losartan Potassium 100 MG Tablet PO (09:01)
[2022-01-09] MEDS: Menthol/Lanolin/Calamine/Znox 113 GM Tube 1 APPLIC TOPICAL ×2 (09:01→21:59)
--- NOTE | 2022-01-09 10:12 | CASEMGMT ---
[facility] was contacted and asked to please start process to obtain pre-cert. Carolee Hutchison BARN WORKER CHAZ
[2022-01-09] MEDS: Furosemide 40 MG Tablet PO (11:08)
--- NOTE | 2022-01-09 12:25 | PCM.PN.HOSP ---
Documented by User: REJI Baxter 01/09/22 12:31 Subjective Subjective Patient seen and examined. Patient lying in bed eyes closed. Patient lethargic and not willing to answer questions at this time. Objective Data Objective Data Vital Signs: Vital Signs Temp Pulse Resp BP Pulse Ox O2 Del Method O2 Flow Rate 97.1 F L 93 16 137/65 H 97 Room Air 2 01/09/22 09:45 01/09/22 09:45 01/09/22 10:00 01/09/22 09:45 01/09/22 10:00 01/09/22 10:00 01/09/22 07:06 Oxygen Flow Rate (L/min) 2 Oxygen Delivery Method Room Air Weight: 150 lb 9.211 oz Body Mass Index (BMI) 32.4 Intake & Output: Intake and Output for Last 24 Hours 01/07/22 01/08/22 01/09/22 23:59 23:59 23:59 Intake Total 170 / 170 580 / 580 Output Total 3850 / 3850 1850 / 1850 250 / 250 Balance -3680 / -3680 -1270 / -1270 -250 / -250 Lab / Micro Data Result Diagrams: 01/09/22 07:00 01/09/22 07:00 Labs: Laboratory Results - last 24 hr 01/09/22 07:00: WBC 9.3, RBC 4.58, Hgb 13.5, Hct 43.6, MCV 95.2, MCH 29.5, MCHC 31.0 L, RDW Std Deviation 49.5 H, RDW Coeff of Angie 14.4, Plt Count 204, MPV 11.4, Immature Gran % (Auto) 0.300, Neut % (Auto) 74.0 H, Lymph % (Auto) 14.0 L, [place] % (Auto) 8.6, Eos % (Auto) 2.7, Baso % (Auto) 0.4, Absolute Neuts (auto) 6.9, Absolute Lymphs (auto) 1.30, Nucleated RBC % 0 01/09/22 07:00: Sodium 141, Potassium 3.9, Chloride 102, Carbon Dioxide 31.0, Anion Gap 8, BUN 19 H, Creatinine 1.18 H, Estim Creat Clear Calc 29.55, Est GFR (MDRD) Af Amer 56 L, Est GFR (MDRD) Non-Af 46 L, BUN/Creatinine Ratio 16.1, Glucose 84, Calcium 9.2 Micro: Microbiology 01/05/22 18:05 Nasal Secretion SARS-CoV-2 & FLU Antigen (Rapid) - Final ABG Data ABG results: ABG 01/08/22 14:50 Specimen Type ART Sample Site R Radial pH 7.48 H Bicarbonate Actual 30.1 H Total CO2 31 Base Excess 7 H O2 Saturation 94 L ABG pCO2 40.7 ABG pO2 66 L [place] Test Positive O2 Delivery Device Room Air Physical Exam Const no apparent distress Orientation / Consciousness: lethargic HEENT normocephalic and moist oral mucous membranes Eyes conjunctivae normal and no scleral icterus Neck supple General: trachea midline Resp normal respiratory effort and normal air movement Auscultation: rales Cardio regular rate, regular rhythm, S1 normal heart sound and S2 normal heart sound GI soft to palpation, non-tender and non-distended Extremity General Extremity: edema Skin no rashes or lesions noted Skin Narrative: Both legs are wrapped Neuro moves all extremities, no focal motor deficits and no sensory deficits noted Assessment & Plan Assessment/Plan (1) Heart failure: (2) Elevated troponin I level: (3) Diabetes mellitus type 2 in obese: (4) Essential hypertension: PLAN: Plan 1. Acute on chronic congestive heart failure with preserved ejection fraction ? Echo obtained in August 2021 demonstrated a normal EF with slightly elevated pulmonary arterial systolic pressure of 44 mmHg. -Strict input and output -daily weight -IV diuretics, diuresing well 2. Pulmonary hypertension ? Patient being treated symptomatically 3. Paroxysmal A. fib ?Currently rate controlled -Continue Eliquis 4. Hypertension -Continue Losartan, furosemide -Vital signs per protocol, currently stable 5. Gout ? Continue allopurinol 6. Hypothyroidism -Continue levothyroxine DVT prophylaxis-Continue eliquis Discharge planning-patient awaiting pre-CERT for ECF placement This patient was seen by REJI Baxter under the supervision of Dr. Middleton 14 minutes spent in clinical coordination of patient's plan of care. Documented by User: Dr. Javy Middleton MD 01/09/22 14:24 Objective Data Lab / Micro Data Result Diagrams: 01/09/22 07:00 01/09/22 07:00 Assessment & Plan Assessment/Plan (1) Heart failure: (2) Elevated troponin I level: (3) Diabetes mellitus type 2 in obese: (4) Essential hypertension: Addt'l Comments This patient was seen in conjunction with REJI Baxter . I have independently interviewed and examined the patient and reviewed pertinent historical, laboratory, and other data. Please refer to REJI Baxter note for details of this patient's presentation, findings, and recommendations. I have reviewed REJI Baxter note and concur with documented findings. In brief, patient Patient is an 86-year-old female admitted with progressive shortness of breath diagnosed with acute congestive heart failure 01/09/2022; adjusted patient Lasix drip in view of worsening kidney function Physical Examination: GENERAL: Patient is frail looking HEENT: Atraumatic; EYES; Anicteric, Normal Conjunctiva NECK; supple, normal thyroid, RESPIRATORY: Diminished to auscultation CARDIOVASCULAR:? Regular S1 S2, GI:? soft, normoactive bowel sounds, : No Renal angle tenderness; EXTREMITIES: Bipedal edema, no clubbing, MUSCULOSKELETAL:? no muscle wasting NEURO:? Awake;? no lateralizing signs. SKIN:? No Rash PSYCH; Flat? affect Assessment: 1.? Acute on chronic congestive heart failure with preserved ejection fraction ? Echo obtained in August 2021 demonstrated a normal EF with slightly elevated pulmonary arterial systolic pressure of 44 mmHg.? Admitted to regular nursing floor managed with strict input and output, daily weight, and IV diuretics patient appears to be responding to treatment 2.? Pulmonary hypertension ? Patient being treated symptomatically 3.? Paroxysmal A. fib ? Rate controlled on systemic anticoagulation with Eliquis did continue 4.? Hypertension - Blood pressure controlled, home medications continued with dose adjustment as needed 5.? Gout ? Patient is on allopurinol 6.? Hypothyroidism - Patient is on levothyroxine home dose continued 7.? DVT prophylaxis ? Patient is on Eliquis 8.? Hypokalemia -Corrected per protocol Recommendations: 1. I have discussed the results of my overview and impressions with the patient 2. Options for management were reviewed Total time spent by myself and the advanced practice practitioner evaluating patient, reviewing labs, subsequent management decisions, discussion with patient as well as other providers 40 minutes ( 25 of which was spent by myself) Charges/Coding Visit Charges Inpatient E&M: 59389 Subs Hosp L2
[2022-01-09] MEDS: 0.9% Saline Lock 10 ML Syringe IV (20:11)
[2022-01-09] MEDS: QUEtiapine 25 MG Tablet PO (21:58)
[2022-01-10] VITALS (10 sets, daily range): BP systolic 128–136; BP diastolic 76–93; PULSE 82–100; RESP 16–20; TEMP 36.8–37.1; O2SAT 92–94
[2022-01-10] MEDS: Levothyroxine 50 MCG Tablet PO (05:45)
[2022-01-10 06:15] LABS: Absolute Lymphocyte Count 1.72 X10^3/uL (0.83-4.51); Absolute Neutrophil Count 6.3 X10^3/uL (2.0-7.7); Basophil# 0.05 X10^3/uL; Basophil% 0.6 % (0-1); Eosinophils% 3.3 % (0-5); Hematocrit 40.2 % (37-47); Lymphocyte # 1.72 X10^3/ul (0.83-4.51); Lymphocyte % 19.1 % (19-41); Mean Corp Hgb Conc 32.3 g/dL (32-36); Mean Corpuscular Volume 92.6 fL (81-99); Mean Platelet Vol. 10.5 fl (6.2-12.0); Monocyte# 0.64 X10^3/uL; Monocyte% 7.1 % (0-10); NRBC Flagged by Analyzer 0 % (0-5); Neutrophil # 6.26 X10^3/uL (2.7-7.7); Neutrophil % 69.7 % (47-70); Platelet Count 248 K/mm3 (150-450); RBC Distribution Width CV 14.2 % (11.6-14.6); RBC Distribution Width SD 48.5 fl (35.1-43.9); Red Blood Count 4.34 M/mm3 (4.2-5.4)
[2022-01-10 06:39] LABS: Anion Gap 3 (5-15); BUN 27 mg/dL (7-18); BUN/Creat Ratio 23.9 RATIO (10-20); Calcium,Total 9.1 mg/dL (8.5-10.1); Chloride 103 mmol/L (98-107); Creatinine, Serum 1.13 mg/dL (0.55-1.02); EST Glomerular Filtration Rate 48 mL/min (>60); Est Glom Filt Rate - Afr Amer 59 mL/min (>60); Estimated Creatinine Clearance 30.86 ml/min; Glucose 93 mg/dL (74-106); Potassium 3.4 mmol/L (3.5-5.1); Sodium Level 139 mmol/L (136-145)
[2022-01-10] MEDS: Furosemide 40 MG Tablet PO (08:33)
[2022-01-10] MEDS: APIXABAN 2.5 MG TABLET PO ×2 (08:33→21:28)
[2022-01-10] MEDS: Allopurinol 300 MG Tablet PO (08:33)
[2022-01-10] MEDS: Calcium Carb/Vitamin D 1 TABLET Tablet PO (08:33)
[2022-01-10] MEDS: Potassium Chloride Oral Tablet 20 MEQ PO ×2 (08:33→18:14)
[2022-01-10] MEDS: Losartan Potassium 100 MG Tablet PO (08:33)
[2022-01-10] MEDS: Menthol/Lanolin/Calamine/Znox 113 GM Tube 1 APPLIC TOPICAL ×2 (08:34→21:28)
--- NOTE | 2022-01-10 12:47 | PN.HOSP_ITS ---
Documented by User: REJI Baxter 01/10/22 12:49 Subjective Subjective Patient seen and examined. Patient sitting in chair no distress noted. Objective Data Objective Data Vital Signs: Vital Signs Temp Pulse Resp BP Pulse Ox O2 Del Method O2 Flow Rate 98.2 F 88 20 H 136/81 H 93 Room Air 2 01/10/22 08:28 01/10/22 08:28 01/10/22 08:28 01/10/22 08:28 01/10/22 09:40 01/10/22 08:40 01/09/22 07:06 Oxygen Flow Rate (L/min) 2 Oxygen Delivery Method Room Air Weight: 149 lb 11.102 oz Body Mass Index (BMI) 32.4 Intake & Output: Intake and Output for Last 24 Hours 01/08/22 01/09/22 01/10/22 23:59 23:59 23:59 Intake Total 580 / 580 560 / 560 Output Total 1850 / 1850 1375 / 1375 250 / 250 Balance -1270 / -1270 -815 / -815 -250 / -250 Lab / Micro Data Result Diagrams: 01/10/22 05:53 01/10/22 05:53 Labs: Laboratory Results - last 24 hr 01/10/22 05:53: WBC 9.0, RBC 4.34, Hgb 13.0, Hct 40.2, MCV 92.6, MCH 30.0, MCHC 32.3, RDW Std Deviation 48.5 H, RDW Coeff of Angie 14.2, Plt Count 248, MPV 10.5, Immature Gran % (Auto) 0.200, Neut % (Auto) 69.7, Lymph % (Auto) 19.1, Harmon % (Auto) 7.1, Eos % (Auto) 3.3, Baso % (Auto) 0.6, Absolute Neuts (auto) 6.3, A bsolute Lymphs (auto) 1.72, Nucleated RBC % 0 01/10/22 05:53: Sodium 139, Potassium 3.4 L, Chloride 103, Carbon Dioxide 33.0 H , Anion Gap 3 L, BUN 27 H, Creatinine 1.13 H, Estim Creat Clear Calc 30.86, Est GFR (MDRD) Af Amer 59 L, Est GFR (MDRD) Non-Af 48 L, BUN/Creatinine Ratio 23.9 H , Glucose 93, Calcium 9.1 Micro: Microbiology 01/05/22 18:05 Nasal Secretion SARS-CoV-2 & FLU Antigen (Rapid) - Final Physical Exam Narrative Const alert and no apparent distress General Appearance: uncooperative HEENT normocephalic and moist oral mucous membranes Eyes PERRL, EOMs intact bilaterally, conjunctivae normal and no scleral icterus Neck supple and no JVD General: trachea midline Resp normal respiratory effort and normal air movement Auscultation: rales Cardio regular rate, regular rhythm, S1 normal heart sound and S2 normal heart sound GI soft to palpation, non-tender and non-distended; Negative for hepatosplenomegaly Extremity General Extremity: edema Skin no rashes or lesions noted Skin Narrative: Both legs are wrapped Neuro moves all extremities, no focal motor deficits and no sensory deficits noted Psych affect normal Appearance: appropriate Assessment & Plan Assessment/Plan (1) Heart failure: (2) Elevated troponin I level: (3) Diabetes mellitus type 2 in obese: (4) Essential hypertension: PLAN: Plan 1. Acute on chronic congestive heart failure with preserved ejection fraction ? Echo obtained in August 2021 demonstrated a normal EF with slightly elevated pulmonary arterial systolic pressure of 44 mmHg. -Strict input and output -daily weight -PO diuretics, diuresing well 2. Pulmonary hypertension ? Patient being treated symptomatically 3. Paroxysmal A. fib ?Currently rate controlled -Continue Eliquis 4. Hypertension -Continue Losartan, furosemide -Vital signs per protocol, currently stable 5. Gout ? Continue allopurinol 6. Hypothyroidism -Continue levothyroxine DVT prophylaxis-Continue eliquis Discharge planning-patient awaiting pre-CERT for ECF placement This patient was seen by ZOLTAN BaxterC under the supervision of Dr. Middleton 12 minutes spent in clinical coordination of patient's plan of care. Documented by User: Dr. Javy Middleton MD 01/10/22 13:56 Objective Data Lab / Micro Data Result Diagrams: 01/10/22 05:53 01/10/22 05:53 Assessment & Plan Assessment/Plan (1) Heart failure: (2) Elevated troponin I level: (3) Diabetes mellitus type 2 in obese: (4) Essential hypertension: Addt'l Comments This patient was seen in conjunction with REJI Baxter .? I have independently interviewed and examined the patient and reviewed pertinent historical, laboratory, and other data.? Please refer to REJI Baxter? note for details of this patient's presentation, findings, and recommendations.? I have reviewed? REJI Baxter note and concur? with documented findings. In brief, patient Patient is an 86-year-old female admitted with progressive shortness of breath diagnosed with acute congestive heart failure 01/09/2022; adjusted patient Lasix drip in view of worsening kidney function graft 01/10/2022; patient seen much more interactive compared to previous day. Awaiting insurance precertification prior to transfer to intermediate facility Physical Examination: GENERAL: Patient is frail looking HEENT: Atraumatic; EYES; Anicteric, Normal Conjunctiva NECK; supple, normal thyroid, RESPIRATORY: Diminished to auscultation CARDIOVASCULAR:? Regular S1 S2, GI:? soft, normoactive bowel sounds, : No Renal angle tenderness; EXTREMITIES: Bipedal edema, no clubbing, MUSCULOSKELETAL:? no muscle wasting NEURO:? Awake;? no lateralizing signs. SKIN:? No Rash PSYCH; Flat? affect Assessment: ? 1.? Acute on chronic congestive heart failure with preserved ejection fraction ? Echo obtained in August 2021 demonstrated a normal EF with slightly elevated pulmonary arterial systolic pressure of 44 mmHg.? Admitted to regular nursing floor managed with strict input and output, daily weight, and IV diuretics patient appears to be responding to treatment 2.? Pulmonary hypertension ? Patient being treated symptomatically 3.? Paroxysmal A. fib ? Rate controlled on systemic anticoagulation with Eliquis did continue 4.? Hypertension - Blood pressure controlled, home medications continued with dose adjustment as needed 5.? Gout ? Patient is on allopurinol 6.? Hypothyroidism - Patient is on levothyroxine home dose continued 7.? DVT prophylaxis ? Patient is on Eliquis 8.? Hypokalemia -Corrected per protocol Recommendations: 1.? I have discussed the results of my overview and impressions with the patient 2.? Options for management were reviewed Total time spent by myself and the advanced practice practitioner evaluating patient, reviewing labs, subsequent management decisions, discussion with patient as well as other providers 40 minutes ( 25 of which was spent by myself) Charges/Coding Visit Charges Inpatient E&M: 31358 Subs Hosp L2
[2022-01-10] MEDS: QUEtiapine 25 MG Tablet PO (21:28)
[2022-01-11] VITALS (9 sets, daily range): BP systolic 114–141; BP diastolic 70–91; PULSE 86–97; RESP 16–18; TEMP 36.2–37.5; O2SAT 92–97
[2022-01-11] MEDS: Levothyroxine 50 MCG Tablet PO (05:45)
[2022-01-11 06:02] LABS: Absolute Lymphocyte Count 1.37 X10^3/uL (0.83-4.51); Absolute Neutrophil Count 5.6 X10^3/uL (2.0-7.7); Basophil# 0.04 X10^3/uL; Basophil% 0.5 % (0-1); Eosinophil# 0.31 X10^3/uL; Eosinophils% 3.8 % (0-5); Hematocrit 39.2 % (37-47); Hemoglobin 12.4 g/dL (12.0-15.0); Lymphocyte # 1.37 X10^3/ul (0.83-4.51); Mean Corp Hgb Conc 31.6 g/dL (32-36); Mean Corpuscular Hgb 29.6 pg (27.0-32.0); Mean Corpuscular Volume 93.6 fL (81-99); Mean Platelet Vol. 10.6 fl (6.2-12.0); Monocyte# 0.68 X10^3/uL; Monocyte% 8.4 % (0-10); NRBC Flagged by Analyzer 0 % (0-5); Neutrophil # 5.63 X10^3/uL (2.7-7.7); Neutrophil % 69.9 % (47-70); Platelet Count 232 K/mm3 (150-450); RBC Distribution Width CV 14.3 % (11.6-14.6); Red Blood Count 4.19 M/mm3 (4.2-5.4); White Blood Count 8.1 K/mm3 (4.4-11.0)
[2022-01-11 06:38] LABS: Anion Gap 5 (5-15); BUN 27 mg/dL (7-18); BUN/Creat Ratio 26.5 RATIO (10-20); Calcium,Total 9.1 mg/dL (8.5-10.1); Chloride 107 mmol/L (98-107); Creatinine, Serum 1.02 mg/dL (0.55-1.02); EST Glomerular Filtration Rate 55 mL/min (>60); Est Glom Filt Rate - Afr Amer 66 mL/min (>60); Estimated Creatinine Clearance 34.19 ml/min; Glucose 94 mg/dL (74-106); Potassium 3.7 mmol/L (3.5-5.1); Sodium Level 141 mmol/L (136-145)
[2022-01-11] MEDS: Menthol/Lanolin/Calamine/Znox 113 GM Tube 1 APPLIC TOPICAL ×2 (08:33→21:02)
[2022-01-11] MEDS: APIXABAN 2.5 MG TABLET PO ×2 (08:34→21:02)
[2022-01-11] MEDS: Losartan Potassium 100 MG Tablet PO (08:34)
[2022-01-11] MEDS: Potassium Chloride Oral Tablet 20 MEQ PO ×2 (08:34→17:15)
[2022-01-11] MEDS: Furosemide 40 MG Tablet PO (08:34)
[2022-01-11] MEDS: Allopurinol 300 MG Tablet PO (08:34)
[2022-01-11] MEDS: Calcium Carb/Vitamin D 1 TABLET Tablet PO (08:34)
--- NOTE | 2022-01-11 08:48 | CASEMGMT ---
Discharge Solder Sprayer Celia Rebolledo/deon Area Attendant reached out to Amber at [facility] regarding pre-cert. Will continue to follow up. Celia Joaquin Discharge Solder Sprayer
--- NOTE | 2022-01-11 10:54 | PCM.TXEXTCAR ---
Diet Diet Order/Speech Therapy: 01/09/22 14:45 Diet: Cardiac - Heart Healthy Food consistency:: Regular Liquid Consistency:: Regular/Thin Dietary Modifications:: Sodium Restricted Consistent Carbohydrate Type of Dietary Supplement:: Ensure Pudding Fluid restriction:: 1500 mL Diet Comments: ES pudding BID w/ lunch and dinner Routine Orders/Code Status Enema Type: Fleetz Enema Frequency: Daily PRN Suppository Type: Dulcolax 10mg Suppository Frequency: Daily PRN O2 Liters per Minute: 2 O2 Frequency: PRN Keep PO Greater than or Equal to (%): 90 Routine Lab Work: - (Weekly CBC, BMP) Code Status: DNRCC-A (With intubation) Suggestions for Active Care Change Position every (hours): 2 Times a day to sit in chair: 3 Problem/Diagnosis (1) Heart failure: Status: Acute Code(s): I50.9 - Heart failure, unspecified Allergies/Procedures Done in Hospital Allergies dicyclomine HCl [From Bentyl] Allergy (Verified 01/05/22 17:14) Unknown doxepin [Doxepin] Allergy (Verified 01/05/22 17:14) Unknown hydroxyzine HCl [From Vistaril] Allergy (Verified 01/05/22 17:14) Unknown hydroxyzine pamoate [From Vistaril] Allergy (Verified 01/05/22 17:14) Unknown oxymetazoline HCl [From Tristen-Synephrine (phenylephrine)] Allergy (Verified 01/05/22 17:14) Swelling phenylephrine HCl [From Tristen-Synephrine (phenylephrine)] Allergy (Verified 01/05/22 17:14) Swelling promethazine HCl [From Phenergan] Allergy (Verified 01/05/22 17:14) Unknown xylometazoline HCl [From Tristen-Synephrine (phenylephrine)] Allergy (Verified 01/05/22 17:14) Swelling Procedures: None Type of Care/Length of Stay Estimated LOS: Convalescent Care Less Than 30 days Type of Care Needed: Skilled Rehab Potential: Fair Prognosis: Fair Additional Orders/Day of Discharge H&P will serve as current which was dated: 01/05/22 Day of Discharge: 01/11/22 Dietary and Speech Recommendations Dietitian Recommendations/Changes: Will adjust diet to cardiac/sodium-restricted/consistent carbohydrate diet with 1500ml FR Ensure pudding BID w/ lunch and dinner. Trend weights closely--possible inaccurate weight noted. Plans for [place] at d/c. Discharge Plan Admission Admit Date/Time: 01/05/22 19:20 Primary Reason for Your Visit: Heart failure Attending Provider: Javy Middleton Primary Care Provider: Rayshawn Ryan Chi Consulting Providers: Dilshad Mancera ; Dawood Farrell Discharge Orders/Prescriptions Prescriptions: New furosemide 40 mg Tablet 40 mg PO DAILY Qty: 0 0RF Continued losartan [Cozaar] 100 MG tablet 100 mg PO DAILY Label Comments: high blood pressure levothyroxine 50 MCG tablet 50 mcg PO DAILY Label Comments: thyroid potassium chloride [Klor-Con M20] 20 MEQ tablet,ER particles/crystals 20 meq PO DAILY calcium-vitamin D3-vitamin K [Citracal-D3 Soft Chew] 1 EACH tablet,chewable 1 ea PO DAILY quetiapine [Seroquel] 25 mg tablet 25 mg PO QHS allopurinol 300 MG tablet 300 mg PO DAILY Qty: 0 0RF Label Comments: gout Eliquis 2.5 mg tablet 2.5 mg PO BID Referrals / Follow Up: Rayshawn Ryan Chi, MD [Primary Care Provider] - In 1 Week Karishma Joaquin PA [PHYSICIAN BOARDING KENNEL OR CATTERY OPERATOR] - Within 1 Week Disposition Disposition (needs filled in before D/C Order can be placed): Senior Care Facility
--- NOTE | 2022-01-11 11:12 | PCM.PN.HOSP ---
Documented by User: Precious Allan NP, BUTTONHOLE MACHINE OPERATOR-C 01/11/22 11:35 Subjective Subjective Patient seen and examined. Denies shortness of breath. Oxygen stable on room air. Denies other symptoms or complaints. Awaiting approval to [facility]. Objective Data Objective Data Vital Signs: Vital Signs Temp Pulse Resp BP Pulse Ox O2 Del Method O2 Flow Rate 97.4 F L 97 18 141/78 H 93 Room Air 2 01/11/22 08:25 01/11/22 08:25 01/11/22 08:25 01/11/22 08:25 01/11/22 08:25 01/11/22 08:25 01/09/22 07:06 Oxygen Flow Rate (L/min) 2 Oxygen Delivery Method Room Air Weight: 148 lb 12.992 oz Body Mass Index (BMI) 32.4 Intake & Output: Intake and Output for Last 24 Hours 01/09/22 01/10/22 01/11/22 23:59 23:59 23:59 Intake Total 560 / 560 60 / 60 50 / 50 Output Total 1375 / 1375 375 / 375 100 / 100 Balance -815 / -815 -315 / -315 -50 / -50 Lab / Micro Data Result Diagrams: 01/11/22 05:40 01/11/22 05:40 Labs: Laboratory Results - last 24 hr 01/11/22 05:40: WBC 8.1, RBC 4.19 L, Hgb 12.4, Hct 39.2, MCV 93.6, MCH 29.6, MCHC 31.6 L, RDW Std Deviation 49.0 H, RDW Coeff of Angie 14.3, Plt Count 232, MPV 10.6, Immature Gran % (Auto) 0.400, Neut % (Auto) 69.9, Lymph % (Auto) 17.0 L, Coleman % (Auto) 8.4, Eos % (Auto) 3.8, Baso % (Auto) 0.5, Absolute Neuts (auto) 5.6, Absolute Lymphs (auto) 1.37, Nucleated RBC % 0 01/11/22 05:40: Sodium 141, Potassium 3.7, Chloride 107, Carbon Dioxide 29.0, Anion Gap 5, BUN 27 H, Creatinine 1.02, Estim Creat Clear Calc 34.19, Est GFR (MDRD) Af Amer 66, Est GFR (MDRD) Non-Af 55 L, BUN/Creatinine Ratio 26.5 H, Glucose 94, Calcium 9.1 Micro: Microbiology 01/05/22 18:05 Nasal Secretion SARS-CoV-2 & FLU Antigen (Rapid) - Final Physical Exam Const alert and oriented x3 HEENT normocephalic and moist oral mucous membranes Eyes PERRL, EOMs intact bilaterally and conjunctivae normal Neck no lymphadenopathy Resp normal respiratory effort and clear to auscultation bilaterally Cardio regular rate, regular rhythm and no murmurs Peripheral Pulses: pulses 2+ throughout GI normal to inspection, nondistended, normoactive bowel sounds, non-tender and non-distended Extremity normal to inspection Skin no rashes or lesions noted Lesions: no lesions Rashes: no rashes Trauma: no lacerations or abrasions Neuro CN's II-XII intact bilaterally, no focal motor deficits, no sensory deficits noted and deep tendon reflexes 2+ bilaterally Psych mental status grossly normal Mood & Affect: flat affect Assessment & Plan Assessment/Plan (1) Heart failure: PLAN: Plan 1. Acute on chronic heart failure with preserved ejection fraction-recent echo August 2021 with EF 60%, PA pressure 44 mmHg. IV Lasix during admission with transition to oral regimen. Continue Lasix 40 mg daily at discharge. Follow-up with cardiology at discharge. 2. Pulmonary hypertension- recommend outpatient follow up. 3. Paroxysmal atrial fibrillation- not on rate control regimen. Continue eliquis. 4. Hypertension- stable, continue losartan. 5. Hypothyroidism-continue Synthroid. 6. Chronic kidney disease stage IIIa-at baseline. 7. Gout-on allopurinol. 8. Suspected mild cognitive impairment-on Seroquel at baseline. Recommend follow-up with geriatrics for formal diagnosis. No behavioral disturbances during admission. DVT prophylaxis- Eliquis This patient was seen by REJI Stapleton under the supervision of Dr. Middleton. Documented by User: Dr. Javy Middleton MD 01/11/22 15:24 Objective Data Lab / Micro Data Result Diagrams: 01/11/22 05:40 01/11/22 05:40 Assessment & Plan Assessment/Plan (1) Heart failure: Addt'l Comments This patient was seen in conjunction with REJI Stapleton . I have independently interviewed and examined the patient and reviewed pertinent historical, laboratory, and other data. Please refer to REJI Stapleton note for details of this patient's presentation, findings, and recommendations. I have reviewed REJI Stapleton note and concur with documented findings. In brief, patient Patient is an 86-year-old female admitted with progressive shortness of breath diagnosed with acute congestive heart failure 01/09/2022; adjusted patient Lasix drip in view of worsening kidney function graft 01/10/2022; patient seen much more interactive compared to previous day. Awaiting insurance precertification prior to transfer to senior care facility 01/11/2022; patient seen awaiting transfer to senior care facility Physical Examination: GENERAL: Patient is frail looking HEENT: Atraumatic; EYES; Anicteric, Normal Conjunctiva NECK; supple, normal thyroid, RESPIRATORY: Diminished to auscultation CARDIOVASCULAR: Regular S1 S2, GI: soft, normoactive bowel sounds, : No Renal angle tenderness; EXTREMITIES: Bipedal edema, no clubbing, MUSCULOSKELETAL: no muscle wasting NEURO: Awake; no lateralizing signs. SKIN: No Rash PSYCH; Flat affect Assessment: 1. Acute on chronic congestive heart failure with preserved ejection fraction ? Echo obtained in August 2021 demonstrated a normal EF with slightly elevated pulmonary arterial systolic pressure of 44 mmHg. Admitted to regular nursing floor managed with strict input and output, daily weight, and IV diuretics patient appears to be responding to treatment 2. Pulmonary hypertension ? Patient being treated symptomatically 3. Paroxysmal A. fib ? Rate controlled on systemic anticoagulation with Eliquis did continue 4. Hypertension - Blood pressure controlled, home medications continued with dose adjustment as needed 5. Gout ? Patient is on allopurinol 6. Hypothyroidism - Patient is on levothyroxine home dose continued 7. DVT prophylaxis ? Patient is on Eliquis 8. Hypokalemia -Corrected per protocol Recommendations: 1. I have discussed the results of my overview and impressions with the patient 2. Options for management were reviewed Total time spent by myself and the advanced practice practitioner evaluating patient, reviewing labs, subsequent management decisions, discussion with patient as well as other providers 40 minutes ( 25 of which was spent by myself) Charges/Coding Visit Charges Inpatient E&M: 48809 Subs Hosp L2
[2022-01-11] MEDS: 0.9% Saline Lock 10 ML Syringe IV (20:38)
[2022-01-11] MEDS: QUEtiapine 25 MG Tablet PO (21:02)
[2022-01-12 03:00] VITALS: BP 109/51; PULSE 90; RESP 18; TEMP 36.6; O2SAT 96
[2022-01-12] MEDS: Levothyroxine 50 MCG Tablet PO (06:03)
[2022-01-12 07:00] VITALS: PULSE 83
[2022-01-12 07:53] VITALS: O2SAT 92
[2022-01-12 09:00] VITALS: BP 133/68; PULSE 88; RESP 16; TEMP 36.3; O2SAT 94
[2022-01-12] MEDS: Losartan Potassium 100 MG Tablet PO (09:02)
[2022-01-12] MEDS: Potassium Chloride Oral Tablet 20 MEQ PO ×2 (09:02→16:27)
[2022-01-12] MEDS: APIXABAN 2.5 MG TABLET PO ×2 (09:02→22:01)
[2022-01-12] MEDS: Menthol/Lanolin/Calamine/Znox 113 GM Tube 1 APPLIC TOPICAL ×2 (09:02→22:00)
[2022-01-12] MEDS: Calcium Carb/Vitamin D 1 TABLET Tablet PO (09:02)
[2022-01-12] MEDS: Allopurinol 300 MG Tablet PO (09:02)
[2022-01-12] MEDS: Furosemide 40 MG Tablet PO (09:02)
--- NOTE | 2022-01-12 10:00 | CASEMGMT ---
Discharge Library Media Technician D/c Fire Marshal faxed over patient update to Amber at [place]. Celia Joaquin Discharge Library Media Technician
[2022-01-12] MEDS: Senna/Docusate Sodium 1 Tablet 2 TABLET PO (10:30)
--- NOTE | 2022-01-12 11:05 | CASEMGMT ---
Discharge Manufacturing Process Engineer Amber reached out pre-cert is still pending. Celia Joaquin Discharge Manufacturing Process Engineer
--- NOTE | 2022-01-12 11:35 | PN.HOSP_ITS ---
Documented by User: Precious Allan NP, EDUCATIONAL DIRECTOR-C 01/12/22 11:37 Subjective Subjective Patient seen and examined. No acute events overnight. Denies symptoms or complaints. Awaiting approval to [facility]. Objective Data Objective Data Vital Signs: Vital Signs Temp Pulse Resp BP Pulse Ox O2 Del Method O2 Flow Rate 97.4 F L 88 16 133/68 H 94 Room Air 2 01/12/22 09:00 01/12/22 09:00 01/12/22 09:00 01/12/22 09:00 01/12/22 09:00 01/12/22 09:00 01/09/22 07:06 Oxygen Flow Rate (L/min) 2 Oxygen Delivery Method Room Air Weight: 147 lb 4.301 oz Body Mass Index (BMI) 32.4 Intake & Output: Intake and Output for Last 24 Hours 01/10/22 01/11/22 01/12/22 23:59 23:59 23:59 Intake Total 60 / 60 410 / 410 550 / 550 Output Total 375 / 375 1000 / 1000 350 / 350 Balance -315 / -315 -590 / -590 200 / 200 Lab / Micro Data Result Diagrams: 01/11/22 05:40 01/11/22 05:40 Micro: Microbiology 01/05/22 18:05 Nasal Secretion SARS-CoV-2 & FLU Antigen (Rapid) - Final Physical Exam Const alert, oriented x3 and no apparent distress Orientation / Consciousness: awake, oriented to person, oriented to place and oriented to time HEENT normocephalic and moist oral mucous membranes Eyes PERRL, EOMs intact bilaterally and conjunctivae normal Neck no lymphadenopathy Resp normal respiratory effort and clear to auscultation bilaterally Cardio regular rate, regular rhythm and no murmurs Peripheral Pulses: pulses 2+ throughout GI normal to inspection, nondistended, normoactive bowel sounds, non-tender and non-distended Extremity normal to inspection Skin no rashes or lesions noted Lesions: no lesions Rashes: no rashes Trauma: no lacerations or abrasions Neuro CN's II-XII intact bilaterally, no focal motor deficits, no sensory deficits noted and deep tendon reflexes 2+ bilaterally Psych mental status grossly normal Mood & Affect: flat affect Assessment & Plan Assessment/Plan (1) Heart failure: PLAN: Plan 1. Acute on chronic heart failure with preserved ejection fraction-recent echo August 2021 with EF 60%, PA pressure 44 mmHg.? IV Lasix during admission with transition to oral regimen.? Continue Lasix 40 mg daily at discharge.? Follow-up with cardiology at discharge. 2. Pulmonary hypertension- recommend outpatient follow up. 3. Paroxysmal atrial fibrillation- not on rate control regimen. Continue eliquis. 4. Hypertension- stable, continue losartan. 5. Hypothyroidism-continue Synthroid. 6. Chronic kidney disease stage IIIa-at baseline. 7. Gout-on allopurinol. 8. Suspected mild cognitive impairment-on Seroquel at baseline.? Recommend follow-up with geriatrics for formal diagnosis.? No behavioral disturbances during admission. DVT prophylaxis- Eliquis This patient was seen by REJI Stapleton under the supervision of Dr. Middleton. Documented by User: Dr. Javy Middleton MD 01/12/22 12:03 Objective Data Lab / Micro Data Result Diagrams: 01/11/22 05:40 01/11/22 05:40 Assessment & Plan Assessment/Plan (1) Heart failure: Addt'l Comments This patient was seen in conjunction with REJI Stapleton .? I have independently interviewed and examined the patient and reviewed pertinent historical, laboratory, and other data.? Please refer to REJI Stapleton? note for details of this patient's presentation, findings, and recommendations.? I have reviewed? REJI Stapleton ? note and concur? with documented findings. In brief, patient Patient is an 86-year-old female admitted with progressive shortness of breath diagnosed with acute congestive heart failure 01/09/2022; adjusted patient Lasix drip in view of worsening kidney function graft 01/10/2022; patient seen much more interactive compared to previous day.? Awaiting insurance precertification prior to transfer to longterm facility 01/11/2022; patient seen awaiting transfer to longterm facility 01/12/2022; no change in condition awaiting transfer to longterm facility Physical Examination: GENERAL: Patient is frail looking HEENT: Atraumatic; EYES; Anicteric, Normal Conjunctiva NECK; supple, normal thyroid, RESPIRATORY: Diminished to auscultation CARDIOVASCULAR:? Regular S1 S2, GI:? soft, normoactive bowel sounds, : No Renal angle tenderness; EXTREMITIES: Bipedal edema, no clubbing, MUSCULOSKELETAL:? no muscle wasting NEURO:? Awake;? no lateralizing signs. SKIN:? No Rash PSYCH; Flat? affect Assessment: ? 1.? Acute on chronic congestive heart failure with preserved ejection fraction ? Echo obtained in August 2021 demonstrated a normal EF with slightly elevated pulmonary arterial systolic pressure of 44 mmHg.? Admitted to regular nursing floor managed with strict input and output, daily weight, and IV diuretics patient appears to be responding to treatment 2.? Pulmonary hypertension ? Patient being treated symptomatically 3.? Paroxysmal A. fib ? Rate controlled on systemic anticoagulation with Eliquis did continue 4.? Hypertension - Blood pressure controlled, home medications continued with dose adjustment as needed 5.? Gout ? Patient is on allopurinol 6.? Hypothyroidism - Patient is on levothyroxine home dose continued 7.? DVT prophylaxis ? Patient is on Eliquis 8.? Hypokalemia -Corrected per protocol Recommendations: 1.? I have discussed the results of my overview and impressions with the patient 2.? Options for management were reviewed Total time spent by myself and the advanced practice practitioner evaluating patient, reviewing labs, subsequent management decisions, discussion with patient as well as other providers 40 minutes ( 25 of which was spent by myself) Charges/Coding Visit Charges Inpatient E&M: 64245 Subs Hosp L2
[2022-01-12 15:00] VITALS: BP 128/66; PULSE 84; PULSE 85; RESP 16; TEMP 36.7; O2SAT 96
--- NOTE | 2022-01-12 15:34 | CASEMGMT ---
Discharge Employee Relations Director Celia reached out to Amber at [place] and asked Amber to call [phone] if they obtain pre-cert. Celia Joaquin Discharge Employee Relations Director
--- NOTE | 2022-01-12 16:26 | CASEMGMT ---
CHAGO called patient's daughter in law Linda and let her know we are still waiting on insurance. She understood and thanked CHAGO for the update. Carolee WARE
[2022-01-12 21:00] VITALS: BP 136/83; PULSE 87; RESP 16; TEMP 36.9; O2SAT 95
[2022-01-12] MEDS: QUEtiapine 25 MG Tablet PO (22:01)
[2022-01-13 04:58] VITALS: BP 115/69; PULSE 86; RESP 16; TEMP 36.6; O2SAT 94
--- NOTE | 2022-01-13 05:00 | NURSING ---
assumed care of pt
[2022-01-13] MEDS: Levothyroxine 50 MCG Tablet PO (06:52)
[2022-01-13 07:32] VITALS: O2SAT 93
[2022-01-13 08:40] VITALS: BP 137/76; PULSE 82; RESP 16; TEMP 36.4; O2SAT 95
[2022-01-13] MEDS: Calcium Carb/Vitamin D 1 TABLET Tablet PO (08:52)
[2022-01-13] MEDS: Losartan Potassium 100 MG Tablet PO (08:52)
[2022-01-13] MEDS: Allopurinol 300 MG Tablet PO (08:52)
[2022-01-13] MEDS: Potassium Chloride Oral Tablet 20 MEQ PO ×2 (08:52→16:57)
[2022-01-13] MEDS: Furosemide 40 MG Tablet PO (08:53)
[2022-01-13] MEDS: APIXABAN 2.5 MG TABLET PO ×2 (08:53→22:10)
[2022-01-13] MEDS: Menthol/Lanolin/Calamine/Znox 113 GM Tube 1 APPLIC TOPICAL ×2 (08:53→22:10)
--- NOTE | 2022-01-13 11:18 | PN.HOSP_ITS ---
Documented by User: Precious Allan NP, AIRCRAFT PARTS ASSEMBLER-C 01/13/22 11:20 Subjective Subjective Patient seen and examined. Resting comfortably in bed. No acute events overnight. Denies symptoms or complaints. Objective Data Objective Data Vital Signs: Vital Signs Temp Pulse Resp BP Pulse Ox O2 Del Method O2 Flow Rate 97.6 F L 82 16 137/76 H 95 Room Air 2 01/13/22 08:40 01/13/22 08:40 01/13/22 08:40 01/13/22 08:40 01/13/22 08:40 01/13/22 08:45 01/09/22 07:06 Oxygen Flow Rate (L/min) 2 Oxygen Delivery Method Room Air Weight: 147 lb 4.301 oz Body Mass Index (BMI) 32.4 Intake & Output: Intake and Output for Last 24 Hours 01/11/22 01/12/22 01/13/22 23:59 23:59 23:59 Intake Total 410 / 410 1270 / 1270 Output Total 1000 / 1000 650 / 850 400 / 400 Balance -590 / -590 620 / 420 -400 / -400 Lab / Micro Data Result Diagrams: 01/11/22 05:40 01/11/22 05:40 Micro: Microbiology 01/05/22 18:05 Nasal Secretion SARS-CoV-2 & FLU Antigen (Rapid) - Final Physical Exam Const alert Orientation / Consciousness: awake and oriented to person HEENT normocephalic and moist oral mucous membranes Eyes PERRL, EOMs intact bilaterally and conjunctivae normal Neck no lymphadenopathy Resp normal respiratory effort and clear to auscultation bilaterally Cardio regular rate, regular rhythm and no murmurs Peripheral Pulses: pulses 2+ throughout GI normal to inspection, nondistended, normoactive bowel sounds, non-tender and non-distended Extremity normal to inspection Skin no rashes or lesions noted Lesions: no lesions Rashes: no rashes Trauma: no lacerations or abrasions Neuro CN's II-XII intact bilaterally, no focal motor deficits, no sensory deficits noted and deep tendon reflexes 2+ bilaterally Psych Mood & Affect: flat affect Assessment & Plan Assessment/Plan (1) Heart failure: PLAN: Plan 1. Acute on chronic heart failure with preserved ejection fraction-recent echo August 2021 with EF 60%, PA pressure 44 mmHg.? IV Lasix during admission with transition to oral regimen.? Continue Lasix 40 mg daily at discharge.? Follow-up with cardiology at discharge. 2. Pulmonary hypertension- recommend outpatient follow up. 3. Paroxysmal atrial fibrillation- not on rate control regimen. Continue eliquis. 4. Hypertension- stable, continue losartan. 5. Hypothyroidism-continue Synthroid. 6. Chronic kidney disease stage IIIa-at baseline. 7. Gout-on allopurinol. 8. Suspected mild cognitive impairment-on Seroquel at baseline.? Recommend follow-up with geriatrics for formal diagnosis.? No behavioral disturbances during admission. DVT prophylaxis- Eliquis This patient was seen by REJI Stapleton under the supervision of Dr. Middleton. Documented by User: Dr. Javy Middleton MD 01/13/22 12:45 Objective Data Lab / Micro Data Result Diagrams: 01/11/22 05:40 01/11/22 05:40 Assessment & Plan Assessment/Plan (1) Heart failure: Addt'l Comments This patient was seen in conjunction with REJI Stapleton .? I have in dependently interviewed and examined the patient and reviewed pertinent historical, laboratory, and other data.? Please refer to REJI Stapleton? note for details of this patient's presentation, findings, and recommendations.? I have reviewed? REJI Stapleton ? note and concur? with documented findings. In brief, patient Patient is an 86-year-old female admitted with progressive sh ortness of breath diagnosed with acute congestive heart failure 01/09/2022; adjusted patient Lasix drip in view of worsening kidney function graft 01/10/2022; patient seen much more interactive compared to previous day.? Awaiting insurance precertification prior to transfer to alf [facility] 01/11/2022; patient seen awaiting transfer to alf facility 01/12/2022; no change in condition awaiting transfer to alf facility 01/13/2022; seen , has flat affect Physical Examination: GENERAL: Patient is frail looking HEENT: Atraumatic; EYES; Anicteric, Normal Conjunctiva NECK; supple, normal thyroid, RESPIRATORY: Diminished to auscultation CARDIOVASCULAR:? Regular S1 S2, GI:? soft, normoactive bowel sounds, : No Renal angle tenderness; EXTREMITIES: Bipedal edema, no clubbing, MUSCULOSKELETAL:? no muscle wasting NEURO:? Awake;? no lateralizing signs. SKIN:? No Rash PSYCH; Flat? affect Assessment: ? 1.? Acute on chronic congestive heart failure with preserved ejection fraction ? Echo obtained in August 2021 demonstrated a normal EF with slightly elevated pulmonary arterial systolic pressure of 44 mmHg.? Admitted to regular nursing floor managed with strict input and output, daily weight, and IV diuretics patient appears to be responding to treatment 2.? Pulmonary hypertension ? Patient being treated symptomatically 3.? Paroxysmal A. fib ? Rate controlled on systemic anticoagulation with Eliquis did continue 4.? Hypertension - Blood pressure controlled, home medications continued with dose adjustment as needed 5.? Gout ? Patient is on allopurinol 6.? Hypothyroidism - Patient is on levothyroxine home dose continued 7.? DVT prophylaxis ? Patient is on Eliquis 8.? Hypokalemia -Corrected per protocol Recommendations: 1.? I have discussed the results of my overview and impressions with the patient 2.? Options for management were reviewed Total time spent by myself and the advanced practice practitioner evaluating patient, reviewing labs, subsequent management decisions, discussion with patient as well as other providers 40 minutes ( 25 of which was spent by myself) Charges/Coding Visit Charges Inpatient E&M: 16503 Subs Hosp L2
[2022-01-13 14:52] VITALS: BP 140/89; PULSE 91; RESP 16; TEMP 36.6; O2SAT 94
--- NOTE | 2022-01-13 16:26 | CASEMGMT ---
Social Work Note CHAGO emailed Amber at [facility] inquiring about pre-cert. CHAGO asked Amber to call [facility] directly if pre-cert is obtained. Plan: [facility] pending pre-cert aMria GOODSON, STAKEHOLDER MANAGER
[2022-01-13 22:08] VITALS: BP 149/88; PULSE 98; RESP 18; TEMP 36.1; O2SAT 94
[2022-01-13] MEDS: QUEtiapine 25 MG Tablet PO (22:09)
[2022-01-14 04:15] VITALS: BP 127/78; PULSE 85; RESP 16; TEMP 36.8; O2SAT 98
[2022-01-14] MEDS: Levothyroxine 50 MCG Tablet PO (05:26)
[2022-01-14 09:22] VITALS: BP 136/79; PULSE 80; RESP 16; TEMP 36.4; O2SAT 94
[2022-01-14] MEDS: Menthol/Lanolin/Calamine/Znox 113 GM Tube 1 APPLIC TOPICAL ×2 (09:31→21:07)
[2022-01-14] MEDS: APIXABAN 2.5 MG TABLET PO ×2 (09:32→21:07)
[2022-01-14] MEDS: 0.9% Saline Lock 10 ML Syringe IV (09:32)
[2022-01-14] MEDS: Potassium Chloride Oral Tablet 20 MEQ PO ×2 (09:32→16:29)
[2022-01-14] MEDS: Calcium Carb/Vitamin D 1 TABLET Tablet PO (09:32)
[2022-01-14] MEDS: Furosemide 40 MG Tablet PO (09:32)
[2022-01-14] MEDS: Allopurinol 300 MG Tablet PO (09:32)
[2022-01-14] MEDS: Losartan Potassium 100 MG Tablet PO (09:32)
[2022-01-14 10:02] VITALS: O2SAT 94
--- NOTE | 2022-01-14 11:14 | PN.HOSP_ITS ---
Documented by User: Precious Allan NP, PROPELLER TESTER-C 01/14/22 11:19 Subjective Subjective Patient seen and examined. Resting comfortably in bed. No acute events overnight. Objective Data Objective Data Vital Signs: Vital Signs Temp Pulse Resp BP Pulse Ox O2 Del Method O2 Flow Rate 97.6 F L 80 16 136/79 H 94 Room Air 2 01/14/22 09:22 01/14/22 09:22 01/14/22 09:22 01/14/22 09:22 01/14/22 10:02 01/14/22 10:02 01/09/22 07:06 Oxygen Flow Rate (L/min) 2 Oxygen Delivery Method Room Air Weight: 147 lb 4.301 oz Body Mass Index (BMI) 32.4 Intake & Output: Intake and Output for Last 24 Hours 01/12/22 01/13/22 01/14/22 23:59 23:59 23:59 Intake Total 1270 / 1270 500 / 500 100 / 100 Output Total 650 / 850 1250 / 1250 200 / 200 Balance 620 / 420 -750 / -750 -100 / -100 Lab / Micro Data Result Diagrams: 01/11/22 05:40 01/11/22 05:40 Micro: Microbiology 01/05/22 18:05 Nasal Secretion SARS-CoV-2 & FLU Antigen (Rapid) - Final Physical Exam Const alert and no apparent distress Orientation / Consciousness: oriented to person Nutritional Appearance: cachectic HEENT normocephalic and moist oral mucous membranes Eyes PERRL, EOMs intact bilaterally and conjunctivae normal Neck no lymphadenopathy Resp normal respiratory effort and clear to auscultation bilaterally Cardio regular rate, regular rhythm and no murmurs Peripheral Pulses: pulses 2+ throughout GI normal to inspection, nondistended, normoactive bowel sounds, non-tender and non-distended Extremity normal to inspection Skin no rashes or lesions noted Lesions: no lesions Rashes: no rashes Trauma: no lacerations or abrasions Neuro CN's II-XII intact bilaterally, no focal motor deficits, no sensory deficits noted and deep tendon reflexes 2+ bilaterally Psych mental status grossly normal Mood & Affect: flat affect Assessment & Plan Assessment/Plan (1) Heart failure: PLAN: Plan 1. Acute on chronic heart failure with preserved ejection fraction-recent echo August 2021 with EF 60%, PA pressure 44 mmHg.? IV Lasix during admission with transition to oral regimen.? Continue Lasix 40 mg daily at discharge.? Follow-up with cardiology at discharge. 2. Pulmonary hypertension- recommend outpatient follow up. 3. Paroxysmal atrial fibrillation- not on rate control regimen. Continue eliquis. 4. Hypertension- stable, continue losartan. 5. Hypothyroidism-continue Synthroid. 6. Chronic kidney disease stage IIIa-at baseline. 7. Gout-on allopurinol. 8. Suspected mild cognitive impairment-on Seroquel at baseline.? Recommend follow-up with geriatrics for formal diagnosis.? No behavioral disturbances during admission. DVT prophylaxis- Eliquis Discharge planning: Awaiting insurance approval to SNF. This patient was seen by REJI Stapleton under the supervision of Dr. Middleton. Documented by User: Dr. Javy Middleton MD 01/14/22 13:43 Objective Data Lab / Micro Data Result Diagrams: 01/11/22 05:40 01/11/22 05:40 Assessment & Plan Assessment/Plan (1) Heart failure: Addt'l Comments This patient was seen in conjunction with REJI Stapleton .? I have independently interviewed and examined the patient and reviewed pertinent historical, laboratory, and other data.? Please refer to REJI Stapleton? note for details of this patient's presentation, findings, and recommendations.? I have reviewed? REJI Stapleton ? note and concur? with documented findings. In brief, patient Patient is an 86-year-old female admitted with progressive shortness of breath diagnosed with acute congestive heart failure 01/09/2022; adjusted patient Lasix drip in view of worsening kidney function graft 01/10/2022; patient seen much more interactive compared to previous day.? Awaiting insurance precertification prior to [facility] to detention facility 01/11/2022; patient seen awaiting transfer to detention facility 01/12/2022; no change in condition awaiting transfer to detention facility 01/13/2022; seen , has flat affect 01/14/2022; insurance precertification still pending no significant change in patient's overall clinical condition Physical Examination: GENERAL: Patient is frail looking HEENT: Atraumatic; EYES; Anicteric, Normal Conjunctiva NECK; supple, normal thyroid, RESPIRATORY: Diminished to auscultation CARDIOVASCULAR:? Regular S1 S2, GI:? soft, normoactive bowel sounds, : No Renal angle tenderness; EXTREMITIES: Bipedal edema, no clubbing, MUSCULOSKELETAL:? no muscle wasting NEURO:? Awake;? no lateralizing signs. SKIN:? No Rash PSYCH; Flat? affect Assessment: ? 1.? Acute on chronic congestive heart failure with preserved ejection fraction ? Echo obtained in August 2021 demonstrated a normal EF with slightly elevated pulmonary arterial systolic pressure of 44 mmHg.? Admitted to regular nursing floor managed with strict input and output, daily weight, and IV diuretics patient appears to be responding to treatment 2.? Pulmonary hypertension ? Patient being treated symptomatically 3.? Paroxysmal A. fib ? Rate controlled on systemic anticoagulation with Eliquis did continue 4.? Hypertension - Blood pressure controlled, home medications continued with dose adjustment as needed 5.? Gout ? Patient is on allopurinol 6.? Hypothyroidism - Patient is on levothyroxine home dose continued 7.? DVT prophylaxis ? Patient is on Eliquis 8.? Hypokalemia -Corrected per protocol Recommendations: 1.? I have discussed the results of my overview and impressions with the patient 2.? Options for management were reviewed Total time spent by myself and the advanced practice practitioner evaluating patient, reviewing labs, subsequent management decisions, discussion with patient as well as other providers 40 minutes ( 25 of which was spent by myself) Charges/Coding Visit Charges Inpatient E&M: 66027 Subs Hosp L2 Hospital Course Operations None
[2022-01-14 14:10] VITALS: BP 121/70; PULSE 94; RESP 18; TEMP 36.2; O2SAT 97
[2022-01-14 20:37] VITALS: BP 138/79; PULSE 83; RESP 16; TEMP 36.8; O2SAT 95
[2022-01-14] MEDS: QUEtiapine 25 MG Tablet PO (21:07)
[2022-01-15 02:24] VITALS: BP 139/83; PULSE 72; RESP 18; TEMP 36.6; O2SAT 95
[2022-01-15] MEDS: Levothyroxine 50 MCG Tablet PO (06:12)
[2022-01-15 06:17] VITALS: BP 137/77; PULSE 87; RESP 18; TEMP 36.4; O2SAT 96
[2022-01-15 08:33] VITALS: O2SAT 93
[2022-01-15 08:56] VITALS: BP 152/79; PULSE 88; RESP 16; TEMP 36.5; O2SAT 95
[2022-01-15] MEDS: Losartan Potassium 100 MG Tablet PO ×2 (09:05→09:06)
[2022-01-15] MEDS: Potassium Chloride Oral Tablet 20 MEQ PO (09:06)
[2022-01-15] MEDS: Furosemide 40 MG Tablet PO (09:06)
[2022-01-15] MEDS: APIXABAN 2.5 MG TABLET PO (09:06)
[2022-01-15] MEDS: Calcium Carb/Vitamin D 1 TABLET Tablet PO (09:06)
[2022-01-15] MEDS: Allopurinol 300 MG Tablet PO (09:07)
[2022-01-15] MEDS: Menthol/Lanolin/Calamine/Znox 113 GM Tube 1 APPLIC TOPICAL (09:07)
--- NOTE | 2022-01-15 09:24 | CASEMGMT ---
Discharge Assembler Mechanical Ordnance Celia D/deon Product Picker reached out to [facility]. Pre-cert has been obtained. Celia will notify CHAGO Zarco. Celia Joaquin Discharge Assembler Mechanical Ordnance
--- NOTE | 2022-01-15 09:33 | DS.PCM_ITS ---
Documented by User: Precious Allan NP, CHANGE ROOM ATTENDANT-C 01/15/22 09:44 Providers Date of Admission: 01/05/22 Date of Discharge: 01/15/22 Primary Care Physician: Dr. Rayshawn Ryan MD Reason For Visit: ACUTE HEART FAILURE WITH PRESERVED EF Diagnosis Discharge Diagnosis (1) Heart failure: Status: Acute Code(s): I50.9 - Heart failure, unspecified Medications at Discharge Home Medications levothyroxine 50 mcg tablet 50 mcg PO DAILY thyroid 10/02/13 losartan 100 mg tablet (Cozaar) 100 mg PO DAILY bp 10/02/13 calcium-vitamin D3-vitamin K 500 mg-1,000 unit-40 mcg chewable tablet (Citracal- D3 Soft Chew) 1 ea PO DAILY supplement 03/16/18 potassium chloride 20 mEq tablet,extended release(part/cryst) (Klor-Con M) 20 meq PO DAILY supplement 03/16/18 quetiapine 25 mg tablet (Seroquel) 25 mg PO QHS mood 09/01/21 allopurinol 300 mg tablet 300 mg PO DAILY gout #0 tabs 09/04/21 apixaban 2.5 mg tablet (Eliquis) 2.5 mg PO BID blood thinner 09/13/21 furosemide 40 mg tablet 40 mg PO DAILY #0 tabs 01/11/22 Hospital Course Operations None Procedures None Summary of Care Provided Hospital Course: Patient is an 86-year-old female admitted 01/05/2022 due to shortness of breath. 1. Acute on chronic heart failure with preserved ejection fraction-recent echo August 2021 with EF 60%, PA pressure 44 mmHg.? IV Lasix during admission with transition to oral regimen.? Continue Lasix 40 mg daily at discharge.? Follow-up with cardiology at discharge. 2. Pulmonary hypertension- recommend outpatient follow up. 3. Paroxysmal atrial fibrillation- not on rate control regimen. Continue eliquis. 4. Hypertension- stable, continue losartan. 5. Hypothyroidism-continue Synthroid. 6. Chronic kidney disease stage IIIa-at baseline. 7. Gout-on allopurinol. 8. Suspected mild cognitive impairment-on Seroquel at baseline.? Recommend follow-up with geriatrics for formal diagnosis.? No behavioral disturbances during admission. Physical Exam Const alert and no apparent distress Orientation / Consciousness: oriented to person Nutritional Appearance: cachectic HEENT normocephalic and moist oral mucous membranes Eyes PERRL, EOMs intact bilaterally and conjunctivae normal Neck no lymphadenopathy Resp normal respiratory effort and clear to auscultation bilaterally Cardio regular rate, regular rhythm and no murmurs Peripheral Pulses: pulses 2+ throughout GI normal to inspection, nondistended, normoactive bowel sounds, non-tender and non-distended Extremity normal to inspection Skin no rashes or lesions noted Lesions: no lesions Rashes: no rashes Trauma: no lacerations or abrasions Neuro CN's II-XII intact bilaterally, no focal motor deficits, no sensory deficits noted and deep tendon reflexes 2+ bilaterally Psych mental status grossly normal Mood & Affect: flat affect Patient seen and examined prior to discharge. Physical assessment as noted above. Patient is stable for discharge with follow up recommendations as noted above. This patient was seen by REJI Stapleton under the supervision of Dr. Yeh. Time spent examining patient, reviewing data and subsequent management of care: 24 Minutes Weight / BMI Weight Weight: 147 lb 4.301 oz Body Mass Index (BMI) 32.4 ABG / Lab / Microbiology Data Result Diagrams: 01/11/22 05:40 01/11/22 05:40 Microbiology: Microbiology 01/05/22 18:05 Nasal Secretion SARS-CoV-2 & FLU Antigen (Rapid) - Final Meaningful Use Info Meaningful Use Diagnoses (Choose all that apply): CHF CHF MADDIE/ARB ordered at discharge?: Yes Documented LVEF (%): 60 Discharge Plan Admission Admit Date/Time: 01/05/22 19:20 Primary Reason for Your Visit: Heart failure Attending Provider: Randi Yeh Primary Care Provider: Rayshawn Ryan Chi Consulting Providers: Dilshad Mancera ; Dawood Farrell ; Javy Middleton Discharge Orders/Prescriptions Prescriptions: New furosemide 40 mg Tablet 40 mg PO DAILY Qty: 0 0RF Continued losartan [Cozaar] 100 MG tablet 100 mg PO DAILY Label Comments: high blood pressure levothyroxine 50 MCG tablet 50 mcg PO DAILY Label Comments: thyroid potassium chloride [Klor-Con M20] 20 MEQ tablet,ER particles/crystals 20 meq PO DAILY calcium-vitamin D3-vitamin K [Citracal-D3 Soft Chew] 1 EACH tablet,chewable 1 ea PO DAILY quetiapine [Seroquel] 25 mg tablet 25 mg PO QHS allopurinol 300 MG tablet 300 mg PO DAILY Qty: 0 0RF Label Comments: gout Eliquis 2.5 mg tablet 2.5 mg PO BID Referrals / Follow Up: Rayshawn Ryan Chi, MD [Primary Care Provider] - In 1 Week Karishma Joaquin PA [PHYSICIAN FURNITURE SALES CONSULTANT] - Within 1 Week Disposition Disposition (needs filled in before D/C Order can be placed): Snf Facility Documented by User: Dr. Randi Yeh MD 01/15/22 13:54 Providers Date of Admission: 01/05/22 Reason For Visit: ACUTE HEART FAILURE WITH PRESERVED EF Diagnosis Discharge Diagnosis (1) Heart failure: Status: Acute Code(s): I50.9 - Heart failure, unspecified Medications at Discharge Home Medications levothyroxine 50 mcg tablet 50 mcg PO DAILY thyroid 10/02/13 losartan 100 mg tablet (Cozaar) 100 mg PO DAILY bp 10/02/13 calcium-vitamin D3-vitamin K 500 mg-1,000 unit-40 mcg chewable tablet (Citracal- D3 Soft Chew) 1 ea PO DAILY supplement 03/16/18 potassium chloride 20 mEq tablet,extended release(part/cryst) (Klor-Con M) 20 meq PO DAILY supplement 03/16/18 quetiapine 25 mg tablet (Seroquel) 25 mg PO QHS mood 09/01/21 allopurinol 300 mg tablet 300 mg PO DAILY gout #0 tabs 09/04/21 apixaban 2.5 mg tablet (Eliquis) 2.5 mg PO BID blood thinner 09/13/21 furosemide 40 mg tablet 40 mg PO DAILY #0 tabs 01/11/22 ABG / Lab / Microbiology Data Result Diagrams: 01/11/22 05:40 01/11/22 05:40 Discharge Plan Admission Admit Date/Time: 01/05/22 19:20 Primary Reason for Your Visit: Heart failure Attending Provider: Randi Yeh Primary Care Provider: Rayshawn Ryan Chi Consulting Providers: Dilshad Mancera ; Dawood Farrell ; Javy Middleton Discharge Orders/Prescriptions Prescriptions: New furosemide 40 mg Tablet 40 mg PO DAILY Qty: 0 0RF Continued losartan [Cozaar] 100 MG tablet 100 mg PO DAILY Label Comments: high blood pressure levothyroxine 50 MCG tablet 50 mcg PO DAILY Label Comments: thyroid potassium chloride [Klor-Con M20] 20 MEQ tablet,ER particles/crystals 20 meq PO DAILY calcium-vitamin D3-vitamin K [Citracal-D3 Soft Chew] 1 EACH tablet,chewable 1 ea PO DAILY quetiapine [Seroquel] 25 mg tablet 25 mg PO QHS allopurinol 300 MG tablet 300 mg PO DAILY Qty: 0 0RF Label Comments: gout Eliquis 2.5 mg tablet 2.5 mg PO BID Referrals / Follow Up: Rayshawn Ryan Chi, MD [Primary Care Provider] - In 1 Week Karishma Joaquin PA [PHYSICIAN FURNITURE SALES CONSULTANT] - Within 1 Week Disposition Disposition (needs filled in before D/C Order can be placed): Snf Facility Charges/Coding Addendum Addendum: This patient was seen in conjunction with Precious Allan NP. I have independently interviewed and examined the patient and reviewed pertinent historical, laboratory, and other data. I have reviewed her note and concur with her documentation 86 y/o with multiple comorbidities significant for dementia, TIA, type II DM who presented with progressive worsening shortness of breath, orthopnea and bilateral leg edema. Patient was managed as acute on chronic heart failure with preserved EF. She was managed on IV Lasix. She continued to steadily improve. She was seen by PT and OT and skilled for discharge to group home facility. On the day of discharge, patient was seen and examined. No acute events overnight. Physical Exam: Gen: Comfortable, not pale, not jaundiced CVS:HS I +II, regular, no murmurs RESP: Diminished at lung bases GI: BS present and normal, soft, nontender, no palpable organs EXT:No edema Time spent coordinating all aspects of patient's care, discussing with nursin minutes Visit Charges Inpatient E&M: 92251 Disch Hosp
--- NOTE | 2022-01-15 10:06 | CASEMGMT ---
Patient was approved for care home. D/c strategic planning specialist Celia completed discharge process. Carolee WARE
--- NOTE | 2022-01-15 10:10 | CASEMGMT ---
Discharge Logistics Team Leader Celia D/deon Distribution Lineman notified patient she will be going to [place] today. Celia also called Linda patients family and Linda was notified of patients transfer. [facility] will pick patient up at Noon. RN and Mold Sprayer has been made aware. Celia Joaquin Discharge Logistics Team Leader
--- NOTE | 2022-01-15 10:52 | NURSING ---
Attempted to call report to [facility]. Call was transferred to [facility] wing- no answer.
== END 2022-01-15 12:15 | DRG 291 ==
LOC: ED 19:21 → PCU 22:03
PROVIDERS: Family Medicine; Internal Medicine; Nurse Practitioner; Admitting Provider Hospitalist; Emergency Provider Emergency Medicine; PCP Family Medicine Geriatric Medicine; Visit Provider Internal Medicine
DX: I13.0 Hypertensive heart and chronic kidney disease with heart failure and stage 1 through stage 4 chronic kidney disease, or unspecified chronic kidney disease (principal); I50.33 Acute on chronic diastolic (congestive) heart failure; I27.20 Pulmonary hypertension, unspecified; E11.22 Type 2 diabetes mellitus with diabetic chronic kidney disease; I48.0 Paroxysmal atrial fibrillation; N18.31 Chronic kidney disease, stage 3a; F03.90 Unspecified dementia, unspecified severity, without behavioral disturbance, psychotic disturbance, mood disturbance, and anxiety; E03.9 Hypothyroidism, unspecified; E78.5 Hyperlipidemia, unspecified; E87.6 Hypokalemia; M10.9 Gout, unspecified; R77.8 Other specified abnormalities of plasma proteins; Z20.822 Contact with and (suspected) exposure to COVID-19; Z66 Do not resuscitate; Z79.01 Long term (current) use of anticoagulants; Z79.890 Hormone replacement therapy; Z79.899 Other long term (current) drug therapy; Z86.73 Personal history of transient ischemic attack (TIA), and cerebral infarction without residual deficits; Z95.0 Presence of cardiac pacemaker; R09.02 Hypoxemia
CPT/HCPCS: 36415; 36600; 71045; 80048; 82803; 83735; 83880; 84100; 84484; 85025; 87426; 87428; 93005; 94640; 97110; 97162; 97166; 97530; 97535; 97802; 97803; 99285; A4216; J1940

== ENCOUNTER → 2022-01-17 | Outpatient (REF) | payer SELFPAY ==
[2022-01-17 09:22] LABS: Hematocrit 41.6 % (37-47); Hemoglobin 12.9 g/dL (12.0-15.0); Mean Corpuscular Hgb 29.5 pg (27.0-32.0); Mean Corpuscular Volume 95.2 fL (81-99); Mean Platelet Vol. 11.5 fl (6.2-12.0); Platelet Count 250 K/mm3 (150-450); RBC Distribution Width CV 13.9 % (11.6-14.6); RBC Distribution Width SD 48.8 fl (35.1-43.9); Red Blood Count 4.37 M/mm3 (4.2-5.4); White Blood Count 9.1 K/mm3 (4.4-11.0)
[2022-01-17 09:51] LABS: Anion Gap 6 (5-15); BUN 54 mg/dL (7-18); BUN/Creat Ratio 21.2 RATIO (10-20); Calcium,Total 9.8 mg/dL (8.5-10.1); Chloride 105 mmol/L (98-107); Creatinine, Serum 2.55 mg/dL (0.55-1.02); EST Glomerular Filtration Rate 19 mL/min (>60); Est Glom Filt Rate - Afr Amer 23 mL/min (>60); Glucose 102 mg/dL (74-106); Potassium 3.9 mmol/L (3.5-5.1); Sodium Level 141 mmol/L (136-145)
== END | disposition home or self-care (01) ==
LOC: OLS.WHLTCC 06:15
PROVIDERS: PCP Family Medicine Geriatric Medicine; Visit Provider Family Medicine
DX: K21.9 Gastro-esophageal reflux disease without esophagitis (principal); E11.9 Type 2 diabetes mellitus without complications; M10.9 Gout, unspecified; M19.90 Unspecified osteoarthritis, unspecified site; M25.519 Pain in unspecified shoulder; M62.81 Muscle weakness (generalized); M26.9 Dentofacial anomaly, unspecified
CPT/HCPCS: 36415; 80048; 85027

== ENCOUNTER → 2022-01-19 | Outpatient (REF) | payer SELFPAY ==
[2022-01-19 09:07] LABS: Anion Gap 7 (5-15); BUN 65 mg/dL (7-18); BUN/Creat Ratio 30.8 RATIO (10-20); Calcium,Total 9.4 mg/dL (8.5-10.1); Chloride 106 mmol/L (98-107); Creatinine, Serum 2.11 mg/dL (0.55-1.02); EST Glomerular Filtration Rate 24 mL/min (>60); Est Glom Filt Rate - Afr Amer 29 mL/min (>60); Glucose 90 mg/dL (74-106); Potassium 3.9 mmol/L (3.5-5.1); Sodium Level 142 mmol/L (136-145)
== END | disposition home or self-care (01) ==
LOC: OLS.WHLTCC 05:00
PROVIDERS: PCP Family Medicine Geriatric Medicine; Visit Provider Family Medicine
DX: I50.33 Acute on chronic diastolic (congestive) heart failure (principal); I27.0 Primary pulmonary hypertension; R48.8 Other symbolic dysfunctions; M62.81 Muscle weakness (generalized)
CPT/HCPCS: 36415; 80048

== ENCOUNTER → 2022-01-22 | Outpatient (REF) | payer SELFPAY ==
[2022-01-22 08:37] LABS: Absolute Lymphocyte Count 1.95 X10^3/uL (0.83-4.51); Absolute Neutrophil Count 4.4 X10^3/uL (2.0-7.7); Basophil# 0.05 X10^3/uL; Basophil% 0.7 % (0-1); Eosinophil# 0.33 X10^3/uL; Eosinophils% 4.6 % (0-5); Hematocrit 38.1 % (37-47); Lymphocyte # 1.95 X10^3/ul (0.83-4.51); Lymphocyte % 26.9 % (19-41); Mean Corp Hgb Conc 31.5 g/dL (32-36); Mean Corpuscular Hgb 29.9 pg (27.0-32.0); Mean Platelet Vol. 11.8 fl (6.2-12.0); Monocyte# 0.53 X10^3/uL; Monocyte% 7.3 % (0-10); NRBC Flagged by Analyzer 0 % (0-5); Neutrophil # 4.35 X10^3/uL (2.7-7.7); Neutrophil % 60.1 % (47-70); Platelet Count 256 K/mm3 (150-450); RBC Distribution Width CV 13.3 % (11.6-14.6); RBC Distribution Width SD 46.5 fl (35.1-43.9); Red Blood Count 4.01 M/mm3 (4.2-5.4); White Blood Count 7.2 K/mm3 (4.4-11.0)
[2022-01-22 08:45] LABS: Anion Gap 6 (5-15); BUN 45 mg/dL (7-18); BUN/Creat Ratio 33.1 RATIO (10-20); Calcium,Total 9.4 mg/dL (8.5-10.1); Chloride 103 mmol/L (98-107); Creatinine, Serum 1.36 mg/dL (0.55-1.02); EST Glomerular Filtration Rate 39 mL/min (>60); Est Glom Filt Rate - Afr Amer 47 mL/min (>60); Glucose 86 mg/dL (74-106); Potassium 3.9 mmol/L (3.5-5.1); Sodium Level 138 mmol/L (136-145)
== END | disposition home or self-care (01) ==
LOC: OLS.WHLTCC 05:00
PROVIDERS: PCP Family Medicine Geriatric Medicine; Visit Provider Family Medicine
DX: I50.33 Acute on chronic diastolic (congestive) heart failure (principal); I27.0 Primary pulmonary hypertension; M62.81 Muscle weakness (generalized); R26.2 Difficulty in walking, not elsewhere classified
CPT/HCPCS: 36415; 80048; 85025

== ENCOUNTER → 2022-03-08 | Outpatient (CLI) | payer MEDICARE, MEDICAID, SELFPAY ==
[2022-03-08 16:56] LABS: Absolute Lymphocyte Count 1.49 X10^3/uL (0.83-4.51); Absolute Neutrophil Count 4.4 X10^3/uL (2.0-7.7); Basophil# 0.04 X10^3/uL; Basophil% 0.6 % (0-1); Eosinophil# 0.31 X10^3/uL; Eosinophils% 4.7 % (0-5); Hematocrit 35.5 % (37-47); Hemoglobin 11.4 g/dL (12.0-15.0); Lymphocyte # 1.49 X10^3/ul (0.83-4.51); Lymphocyte % 22.4 % (19-41); Mean Corp Hgb Conc 32.1 g/dL (32-36); Mean Corpuscular Hgb 30.2 pg (27.0-32.0); Mean Corpuscular Volume 93.9 fL (81-99); Mean Platelet Vol. 10.7 fl (6.2-12.0); Monocyte# 0.38 X10^3/uL; Monocyte% 5.7 % (0-10); NRBC Flagged by Analyzer 0 % (0-5); Neutrophil # 4.42 X10^3/uL (2.7-7.7); Neutrophil % 66.3 % (47-70); Platelet Count 246 K/mm3 (150-450); RBC Distribution Width CV 15.5 % (11.6-14.6); RBC Distribution Width SD 52.8 fl (35.1-43.9); Red Blood Count 3.78 M/mm3 (4.2-5.4); White Blood Count 6.7 K/mm3 (4.4-11.0)
[2022-03-08 17:14] LABS: Vitamin D,25 Hydroxy 28.2 ng/mL
[2022-03-08 17:18] LABS: ALB/GLOB Ratio 0.9 RATIO (0.9-2.4); AST(SGOT) 23 U/L (15-37); Alanine Aminotransfer ALT/SGPT 18 U/L (13-56); Albumin, Serum 3.1 g/dL (3.2-5.0); Alkaline Phosphatase 58 U/L (45-117); Anion Gap 6 (5-15); BUN 19 mg/dL (7-18); BUN/Creat Ratio 17.3 RATIO (10-20); Calcium,Total 9.5 mg/dL (8.5-10.1); Chloride 108 mmol/L (98-107); EST Glomerular Filtration Rate 50 mL/min (>60); Est Glom Filt Rate - Afr Amer 60 mL/min (>60); Globulin 3.4 g/dL (2.2-4.2); Glucose 136 mg/dL (74-106); Potassium 4.1 mmol/L (3.5-5.1); Protein, Total 6.5 g/dL (6.4-8.2); Sodium Level 141 mmol/L (136-145); Thyroid Stim Hormone (TSH) 1.87 uIU/mL (0.358-3.74); Uric Acid 3.4 mg/dL (2.6-6.0)
== END | disposition home or self-care (01) ==
LOC: POLAB3 12:44
PROVIDERS: PCP Family Medicine Geriatric Medicine; Visit Provider Family Medicine Geriatric Medicine
DX: I10 Essential (primary) hypertension (principal); E55.9 Vitamin D deficiency, unspecified; M10.9 Gout, unspecified
CPT/HCPCS: 36415; 80053; 82306; 84443; 84550; 85025

== ENCOUNTER → 2022-04-27 | Outpatient (CLI) | payer MEDICARE, MEDICAID, SELFPAY ==
--- NOTE | 2022-04-27 12:45 | RAD_ITS ---
EXAM: XR CHEST, 2 VIEWS CLINICAL INDICATION: COUGH AB PAIN TECHNIQUE: Frontal and lateral views of the chest. This report was created using [employer] report generation technology. COMPARISON: 01/07/2022 FINDINGS: LUNGS AND PLEURAL SPACES: There are minimal interstitial opacities in the lung base with a trace right-sided effusion. There has been improved aeration from reference exam. No pneumothorax. HEART: Unremarkable. Cardiac silhouette not enlarged. MEDIASTINUM: Central airways and mediastinal contour are unremarkable. BONES/JOINTS: Unremarkable. SOFT TISSUES: Unremarkable. TUBES, LINES AND DEVICES: Left-sided pacemaker in stable position. RAD/Chest PA and Lateral IMPRESSION: Trace interstitial opacities may represent scar or edema. There is blunting the right costophrenic angle which may represent a small effusion. Left-sided pacemaker in stable position. Electronically Signed: Isaac Cai MD at 20:24 EDT ,
--- NOTE | 2022-04-27 12:47 | RAD_ITS ---
EXAM: XR ABDOMEN, 1 VIEW CLINICAL INDICATION: KUB TECHNIQUE: Frontal supine view of the abdomen/pelvis. This report was created using [employer] report generation technology. COMPARISON: None. FINDINGS: LOWER THORAX: No acute pathology. GASTROINTESTINAL TRACT: Unremarkable. Non-obstructive. No bowel or stomach distention. ORGANS: Unremarkable as visualized. No organomegaly. No abnormal calcifications. BONES/JOINTS: No acute pathology. SOFT TISSUES: No acute pathology. RAD/Abdomen Single View IMPRESSION: Non-obstructive bowel gas pattern. Electronically Signed: Isaac Cai MD at 20:36 EDT ,
[2022-04-27 13:10] LABS: Absolute Lymphocyte Count 1.15 X10^3/uL (0.83-4.51); Absolute Neutrophil Count 8.1 X10^3/uL (2.0-7.7); Basophil# 0.05 X10^3/uL; Basophil% 0.5 % (0-1); Eosinophil# 0.28 X10^3/uL; Eosinophils% 2.7 % (0-5); Hematocrit 31.8 % (37-47); Lymphocyte # 1.15 X10^3/ul (0.83-4.51); Mean Corp Hgb Conc 31.4 g/dL (32-36); Mean Corpuscular Hgb 29.4 pg (27.0-32.0); Mean Corpuscular Volume 93.5 fL (81-99); Mean Platelet Vol. 10.6 fl (6.2-12.0); Monocyte% 7.7 % (0-10); NRBC Flagged by Analyzer 0 % (0-5); Neutrophil # 8.14 X10^3/uL (2.7-7.7); Neutrophil % 77.8 % (47-70); Platelet Count 336 K/mm3 (150-450); RBC Distribution Width CV 14.9 % (11.6-14.6); RBC Distribution Width SD 50.7 fl (35.1-43.9); White Blood Count 10.5 K/mm3 (4.4-11.0)
[2022-04-27 13:37] LABS: Anion Gap 7 (5-15); BUN 24 mg/dL (7-18); BUN/Creat Ratio 20.7 RATIO (10-20); Calcium,Total 9.3 mg/dL (8.5-10.1); Chloride 108 mmol/L (98-107); Creatinine, Serum 1.16 mg/dL (0.55-1.02); EST Glomerular Filtration Rate 47 mL/min (>60); Est Glom Filt Rate - Afr Amer 57 mL/min (>60); Glucose 135 mg/dL (74-106); Potassium 3.7 mmol/L (3.5-5.1); Sodium Level 141 mmol/L (136-145)
== END | disposition home or self-care (01) ==
PROVIDERS: PCP Family Medicine Geriatric Medicine; Referring Provider Family Medicine Geriatric Medicine; Visit Provider Family Medicine Geriatric Medicine
DX: R10.9 Unspecified abdominal pain (principal)
CPT/HCPCS: 36415; 71046; 74018; 80048; 85025

== ENCOUNTER → 2022-05-02 | Outpatient (CLI) | payer MEDICARE, MEDICAID, SELFPAY ==
[2022-05-02 17:15] LABS: Absolute Lymphocyte Count 1.92 X10^3/uL (0.83-4.51); Absolute Neutrophil Count 9.7 X10^3/uL (2.0-7.7); Basophil# 0.02 X10^3/uL; Basophil% 0.2 % (0-1); Eosinophil# 0.19 X10^3/uL; Eosinophils% 1.5 % (0-5); Hematocrit 37.1 % (37-47); Hemoglobin 11.6 g/dL (12.0-15.0); Lymphocyte # 1.92 X10^3/ul (0.83-4.51); Lymphocyte % 15.1 % (19-41); Mean Corp Hgb Conc 31.3 g/dL (32-36); Mean Corpuscular Hgb 29.4 pg (27.0-32.0); Mean Corpuscular Volume 93.9 fL (81-99); Mean Platelet Vol. 10.7 fl (6.2-12.0); Monocyte# 0.86 X10^3/uL; Monocyte% 6.8 % (0-10); NRBC Flagged by Analyzer 0 % (0-5); Neutrophil # 9.65 X10^3/uL (2.7-7.7); Neutrophil % 75.8 % (47-70); Platelet Count 426 K/mm3 (150-450); RBC Distribution Width CV 14.6 % (11.6-14.6); Red Blood Count 3.95 M/mm3 (4.2-5.4); White Blood Count 12.7 K/mm3 (4.4-11.0)
[2022-05-02 17:28] LABS: Ferritin 107 ng/mL (8-252); Iron 29 ug/dL (50-170); Iron Binding Capacity,Total 230 ug/dL (250-450); PERCENT IRON SATURATION 12.6 % (15.0-55.0)
[2022-05-04 15:08] LABS: Folate, RBC (Hct) Test 36.6 % (34.0-46.6)
[2022-05-05 17:34] LABS: Folates, RBC Test 1675 ng/mL (>498)
== END | disposition home or self-care (01) ==
LOC: POLAB3 12:27
PROVIDERS: PCP Family Medicine Geriatric Medicine; Visit Provider Family Medicine Geriatric Medicine
DX: D50.9 Iron deficiency anemia, unspecified (principal)
CPT/HCPCS: 36415; 82728; 82747; 83540; 83550; 85014; 85025

== ENCOUNTER 2022-05-09 09:13 | Inpatient (IN) | payer MEDICARE, MEDICAID, SELFPAY ==
[2022-05-09] VITALS (14 sets, daily range): BP systolic 101–147; BP diastolic 40–89; PULSE 81–116; RESP 14–30; TEMP 36.2–38.1; O2SAT 87–100; BMI 25.0; BMI 23.8
--- NOTE | 2022-05-09 09:43 | EKG12_ITS ---
Test Reason : Blood Pressure : / mmHG Vent. Rate : 097 BPM Atrial Rate : 097 BPM P-R Int : 130 ms QRS Dur : 178 ms QT Int : 418 ms P-R-T Axes : 090 -83 092 degrees QTc Int : 530 ms Atrial-sensed ventricular-paced rhythm Abnormal ECG Confirmed by NATALIE MENDEZ, MARTHA ([id number]), mapping editor DALIA JOSEPH ([id number]) on 05/15/2022 9:25:15 A M Referred By: Confirmed By:ALEA ESTRADA MD
--- NOTE | 2022-05-09 09:43 | CT_ITS ---
STUDY: CT BRAIN WITHOUT CONTRAST REASON FOR EXAM: Female, 87 years old. An injury due to a fall. RADIATION DOSAGE (If Supplied By Facility): CTDIvol = ( 44.99 ) mGy, DLP = ( 812.98 ) mGycm TECHNIQUE: Transaxial CT imaging of the brain was performed without administration of intravenous contrast material. Individualized dose optimization techniques were used for this CT. COMPARISON: Comparison is made with prior study dated 09/01/2021. FINDINGS: Normal soft tissue structures. Normal calvarium. There is mild cerebral atrophy with widening of the extra-axial spaces and ventricular dilatation. There are areas of decreased attenuation within the white matter tracts of the supratentorial brain, consistent with microvascular disease changes. Stable small bilateral lacunar infarcts in the basal ganglia. Normal brainstem. There is mild cerebellar atrophy. There is no intracranial hemorrhage. There are no findings of an acute ischemic infarction. Atherosclerotic calcification of the vertebral arteries and cavernous portions of the internal carotid arteries bilaterally. Normal visualized paranasal sinuses. CT/Brain/Head without Contrast IMPRESSION: Chronic involutional changes of the brain. Electronically Signed: Stew Green MD at 11:02 EST ,
--- NOTE | 2022-05-09 09:44 | EDS_ITS ---
HPI History of Present Illness Chief Complaint: Alt LOC Informant: EMS Narrative Narrative: 87-year-old female presenting to the emergency room with altered mental status. The patient is from home but is going to be reportedly going to a [place] facility in the next few days. Reportedly she has been on a antibiotic but we do not know what that antibiotic is. She developed a rash but we do not know when. We were told that she fell yesterday striking her head against the bathtub. Fortunately the patient cannot provide any information and there is no family in the room. EMS notes a rash over her torso. The patient's daughter states that she was recently on cefdinir and doxycycline as well as steroids. She is not sure what infection that they were treating. Last dose of antibiotics was Saturday. Symptomology began yesterday. [facility] Medical History AVB (atrioventricular block) Bradycardia Cancer Colon cancer CVA (cerebral vascular accident) (2014) Dementia Depression Diabetes mellitus type 2 in obese Essential hypertension Gout Heart failure Hypothyroid Hypothyroidism Junctional rhythm Left ventricular hypertrophy Paroxysmal atrial fibrillation TIA (transient ischemic attack) Vascular dementia Home Medications levothyroxine 50 mcg tablet 50 mcg PO DAILY thyroid 10/02/13 [History Last Taken 09/01/21] losartan 100 mg tablet (Cozaar) 100 mg PO DAILY BLOOD PRESSURE 10/02/13 [History Last Taken 09/01/21] calcium-vitamin D3-vitamin K 500 mg-1,000 unit-40 mcg chewable tablet (Citracal- D3 Soft Chew) 1 ea PO DAILY supplement 03/16/18 [History Last Taken 09/01/21] potassium chloride 20 mEq tablet,extended release(part/cryst) (Klor-Con M) 20 meq PO DAILY supplement 03/16/18 [History Last Taken 09/01/21] quetiapine 25 mg tablet (Seroquel) 25 mg PO QHS mood 09/01/21 [History Last Taken 08/31/21] apixaban 2.5 mg tablet (Eliquis) 2.5 mg PO BID blood thinner 09/13/21 [History Last Taken Unknown] albuterol sulfate 90 mcg/actuation aerosol inhaler 2 inh inhalation UD PRN Shortness Of Breath 05/09/22 [History Last Taken Unknown] allopurinol 300 mg tablet 150 mg PO DAILY gout 05/09/22 [History Last Taken Unknown] atenolol 50 mg tablet 50 mg PO DAILY 05/09/22 [History Last Taken Unknown] cefdinir 300 mg capsule 300 mg PO BID 05/09/22 [History Last Taken Unknown] codeine 10 mg-guaifenesin 100 mg/5 mL oral liquid 5 ml PO UD PRN Cough 05/09/22 [History Last Taken Unknown] doxycycline hyclate 100 mg capsule 100 mg PO BID 05/09/22 [History Last Taken Unknown] furosemide 20 mg tablet 20 mg PO DAILY edema 05/09/22 [History Last Taken Unknown] prednisone 10 mg tablet See Taper PO DAILY 05/09/22 [History Last Taken Unknown] Allergy/AdvReac Type Severity Reaction Status Date / Time dicyclomine HCl [From Bentyl] Allergy Unknown Verified 05/09/22 09:50 doxepin [Doxepin] Allergy Unknown Verified 05/09/22 09:50 hydroxyzine HCl Allergy Unknown Verified 05/09/22 09:50 [From Vistaril] hydroxyzine pamoate Allergy Unknown Verified 05/09/22 09:50 [From Vistaril] oxymetazoline HCl Allergy Swelling Verified 05/09/22 09:50 [From Tristen-Synephrine (phenylephrine)] phenylephrine HCl Allergy Swelling Verified 05/09/22 09:50 [From Tristen-Synephrine (phenylephrine)] promethazine HCl Allergy Unknown Verified 05/09/22 09:50 [From Phenergan] xylometazoline HCl Allergy Swelling Verified 05/09/22 09:50 [From Tristen-Synephrine (phenylephrine)] Family History Other Dementia Diabetes Surgical History H/O eye surgery History of colon surgery History of permanent cardiac pacemaker placement (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 When asked questions she moans. She does not open her eyes. Const Vital Signs: 05/09/22 09:15 05/09/22 09:18 05/09/22 12:22 Temperature 97.7 F L 100.6 F H Temperature Source Temporal Temporal Pulse Rate 98 114 H Respiratory Rate 16 18 Respiratory Pattern Normal Blood Pressure 139/77 H 147/84 H Blood Pressure Mean 97 105 Pulse Ox 98 94 Oxygen Delivery Method Room Air Room Air Oxygen Flow Rate (L/min) 05/09/22 11:30 05/09/22 10:30 05/09/22 13:18 Temperature Temperature Source Pulse Rate 116 H 103 H Respiratory Rate 20 H 22 H Respiratory Pattern Blood Pressure 147/79 H 144/74 H Blood Pressure Mean 101 97 Pulse Ox 94 93 87 Oxygen Delivery Method Room Air Room Air Room Air Oxygen Flow Rate (L/min) 05/09/22 13:18 05/09/22 14:00 05/09/22 15:12 Temperature 99.6 F H Temperature Source Temporal Pulse Rate 116 H 109 H 107 H Respiratory Rate 23 H 30 H 20 H Respiratory Pattern Blood Pressure 145/89 H 144/71 H 133/66 H Blood Pressure Mean 107 95 88 Pulse Ox 96 95 95 Oxygen Delivery Method Nasal Cannula Nasal Cannula Nasal Cannula Oxygen Flow Rate (L/min) 2 2 2 05/09/22 15:24 Temperature 99.7 F H Temperature Source Temporal Pulse Rate 105 H Respiratory Rate 25 H Respiratory Pattern Blood Pressure 132/61 H Blood Pressure Mean 84 Pulse Ox 95 Oxygen Delivery Method Nasal Cannula Oxygen Flow Rate (L/min) 2 Positive well nourished and well developed General Appearance ED: well developed HEENT Reports normocephalic and moist mucous membranes HEENT Narrative: Hematoma contusion over the righ Forehead periorbital region. Eyes PERRL and EOMs intact bilaterally Neck no lymphadenopathy, supple and no JVD Resp normal respiratory effort and clear to auscultation bilaterally Cardio regular rate, regular rhythm and no murmurs GI normal to inspection, nondistended, normoactive bowel sounds and non-tender Palpation: soft Back/Spine no CVA tenderness and normal ROM Extremity normal to inspection General Extremety ED: Negative for edema General Extremity: Negative for edema Neuro Neuro Narrative: Patient can move all 4 extremities but she is lethargic. Sensorium / Orientation: lethargic Skin no wounds Skin Narrative: There is an urticarial-like rash over her torso. Lesions on the lower extremity. There is no sloughing of the skin. MDM MDM MDM Narrative Medical decision making narrative: Basic blood work showed a white count of 13.5 and a hemoglobin of 11.5. Lactic acid is normal. Blood cultures were obtained. The patient did spike a fever and was given Tylenol. Blood cultures were obtained and she received Zosyn. We also administered Benadryl Pepcid and Solu-Medrol. Patient continues to have AMS. Plan is admission into the hospital. Lab Data Attestation: I reviewed the patient's lab results. Labs: Laboratory Results - last 24 hr 05/09/22 05/09/22 05/09/22 10:10 10:10 10:10 WBC 13.5 H RBC 4.02 L Hgb 11.5 L Hct 37.3 MCV 92.8 MCH 28.6 MCHC 30.8 L RDW Std Deviation 50.7 H RDW Coeff of Angie 15.0 H Plt Count 203 MPV 11.3 Immature Gran % (Auto) 0.500 Neut % (Auto) 86.5 H Lymph % (Auto) 6.4 L [place] % (Auto) 3.6 Eos % (Auto) 2.9 Baso % (Auto) 0.1 Absolute Neuts (auto) 11.7 H Absolute Lymphs (auto) 0.86 Nucleated RBC % 0 PT 18.7 H INR 1.6 APTT 35.3 Sodium 138 Potassium 3.8 Chloride 104 Carbon Dioxide 29.0 Anion Gap 5 BUN 20 H Creatinine 1.16 H Estim Creat Clear Calc 29.50 Est GFR (MDRD) Af Amer 57 L Est GFR (MDRD) Non-Af 47 L BUN/Creatinine Ratio 17.2 Glucose 82 Lactic Acid Calcium 9.0 Total Bilirubin 0.90 AST 16 ALT 18 Alkaline Phosphatase 62 Troponin I High Sens 48 Total Protein 6.4 Albumin 2.9 L Globulin 3.5 Albumin/Globulin Ratio 0.8 L Lipase 144 Urine Color Urine Clarity Urine pH Ur Specific [place] Urine Protein Urine Glucose (UA) Urine Ketones Urine Occult Blood Urine Nitrite Urine Bilirubin Urine Urobilinogen Ur Leukocyte Esterase Urine RBC Urine WBC Ur Squamous Epith Cells Urine Bacteria Urine Mucus 05/09/22 05/09/22 10:10 12:21 WBC RBC Hgb Hct MCV MCH MCHC RDW Std Deviation RDW Coeff of Angie Plt Count MPV Immature Gran % (Auto) Neut % (Auto) Lymph % (Auto) [place] % (Auto) Eos % (Auto) Baso % (Auto) Absolute Neuts (auto) Absolute Lymphs (auto) Nucleated RBC % PT INR APTT Sodium Potassium Chloride Carbon Dioxide Anion Gap BUN Creatinine Estim Creat Clear Calc Est GFR (MDRD) Af Amer Est GFR (MDRD) Non-Af BUN/Creatinine Ratio Glucose Lactic Acid 1.2 Calcium Total Bilirubin AST ALT Alkaline Phosphatase Troponin I High Sens Total Protein Albumin Globulin Albumin/Globulin Ratio Lipase Urine Color Yellow Urine Clarity Sl. Cloudy Urine pH 7.0 Ur Specific [place] 1.010 Urine Protein 30 H Urine Glucose (UA) Normal Urine Ketones 15 H Urine Occult Blood Negative Urine Nitrite Negative Urine Bilirubin Negative Urine Urobilinogen Normal Ur Leukocyte Esterase 25 H Urine RBC 0 SEEN Urine WBC 0-5 SEEN Ur Squamous Epith Cells 0-5 SEEN Urine Bacteria 0 SEEN Urine Mucus 0 SEEN Radiography Diagnostic Testing: Clinical Impression(s) from Imaging Studies Brain CT 05/09/22 09:43 IMPRESSION: Chronic involutional changes of the brain. Electronically Signed: Stew Green MD at 11:02 EST , Chest X-Ray 05/09/22 10:15 IMPRESSION: Cardiomegaly. Mild increased markings at the lung bases worse at the left lung base with blunting of the left costophrenic angle. This may represent either atelectasis and/or early infiltrate. Electronically Signed: Stew Green MD at 10:37 EST , Discharge Plan Triage Chief Complaint: Alt LOC ED Provider: Matthew Almanzar Dx/Rx/DC Orders Prescriptions: No Action losartan [Cozaar] 100 MG tablet 100 mg PO DAILY Label Comments: high blood pressure levothyroxine 50 MCG tablet 50 mcg PO DAILY Label Comments: thyroid potassium chloride [Klor-Con M20] 20 MEQ tablet,ER particles/crystals 20 meq PO DAILY calcium-vitamin D3-vitamin K [Citracal-D3 Soft Chew] 1 EACH tablet,chewable 1 ea PO DAILY quetiapine [Seroquel] 25 mg tablet 25 mg PO QHS furosemide 20 mg tablet 20 mg PO DAILY albuterol sulfate 90 mcg/actuation HFA aerosol inhaler 2 inh INHALATION UD PRN (Reason: Shortness Of Breath) Label Comments: Inhale two puffs by mouth and into the lungs six times daily as needed for shortness of breath. cefdinir 300 mg capsule 300 mg PO BID atenolol 50 mg tablet 50 mg PO DAILY prednisone 10 mg tablet See Taper PO DAILY Taper: Prednisone Taper 30 mg DAILY for 2 Days and 0 Hour 20 mg DAILY for 2 Days and 0 Hour 10 mg DAILY for 2 Days and 0 Hour Rx Instructions: TAKE THREE TABLETS BY MOUTH EVERY DAY FOR TWO DAYS TAKE TWO TABLETS BY MOUTH FOR TWO DAYS THEN TAKE ONE TABLET BY MOUTH FOR TWO DAYS doxycycline hyclate 100 mg capsule 100 mg PO BID codeine-guaifenesin 10-100 mg/5 mL liquid 5 ml PO UD PRN (Reason: Cough) Rx Instructions: TAKE 5 MLS BY MOUTH 6 TIMES PER DAY NEEDED FOR COUGH allopurinol 300 MG tablet 150 mg PO DAILY Label Comments: gout Eliquis 2.5 mg tablet 2.5 mg PO BID Primary Care Provider: Rayshawn Ryan Chi Referrals: Rayshawn Ryan Chi, MD [Primary Care Provider] -
--- NOTE | 2022-05-09 10:15 | RAD_ITS ---
STUDY: X-RAY CHEST REASON FOR EXAM: Female, 87 years old. Head injury. Decreased level of consciousness. TECHNIQUE: Single AP portable view of the chest. COMPARISON: Comparison is made with prior study dated 04/27/2022. FINDINGS: EKG electrodes are seen. Increased markings at the lung bases suggestive of either atelectasis and/or early infiltrates worse at the left lung base. Blunting of the left costophrenic angle. There is moderate cardiac enlargement. A left-sided dual-chamber pacemaker is seen. Normal mediastinum and ene. Normal visualized pulmonary arteries. There is atherosclerotic calcification of the aortic arch with tortuosity. There are diffuse degenerative changes of the visualized thoracic spine. There is degenerative osteoarthritis of the bilateral shoulders. There is no demonstrated abnormality of the visualized soft tissue structures of the upper abdomen. RAD/Chest 1 View (Portable) IMPRESSION: Cardiomegaly. Mild increased markings at the lung bases worse at the left lung base with blunting of the left costophrenic angle. This may represent either atelectasis and/or early infiltrate. Electronically Signed: Stew Green MD at 10:37 EST ,
[2022-05-09 10:26] LABS: Absolute Lymphocyte Count 0.86 X10^3/uL (0.83-4.51); Absolute Neutrophil Count 11.7 X10^3/uL (2.0-7.7); Basophil# 0.02 X10^3/uL; Basophil% 0.1 % (0-1); Eosinophil# 0.39 X10^3/uL; Eosinophils% 2.9 % (0-5); Hematocrit 37.3 % (37-47); Hemoglobin 11.5 g/dL (12.0-15.0); Lymphocyte # 0.86 X10^3/ul (0.83-4.51); Lymphocyte % 6.4 % (19-41); Mean Corp Hgb Conc 30.8 g/dL (32-36); Mean Corpuscular Hgb 28.6 pg (27.0-32.0); Mean Corpuscular Volume 92.8 fL (81-99); Mean Platelet Vol. 11.3 fl (6.2-12.0); Monocyte# 0.48 X10^3/uL; Monocyte% 3.6 % (0-10); NRBC Flagged by Analyzer 0 % (0-5); Neutrophil # 11.67 X10^3/uL (2.7-7.7); Neutrophil % 86.5 % (47-70); Platelet Count 203 K/mm3 (150-450); RBC Distribution Width SD 50.7 fl (35.1-43.9); Red Blood Count 4.02 M/mm3 (4.2-5.4); White Blood Count 13.5 K/mm3 (4.4-11.0)
[2022-05-09 10:42] LABS: International Normalized Ratio 1.6; Prothrombin Time (Protime)PT. 18.7 SECONDS (11.7-14.9)
[2022-05-09 10:43] LABS: Partial Thromboplast Time 35.3 Seconds (24.1-36.2)
[2022-05-09 10:48] LABS: ALB/GLOB Ratio 0.8 RATIO (0.9-2.4); AST(SGOT) 16 U/L (15-37); Alanine Aminotransfer ALT/SGPT 18 U/L (13-56); Albumin, Serum 2.9 g/dL (3.2-5.0); Alkaline Phosphatase 62 U/L (45-117); Anion Gap 5 (5-15); BUN 20 mg/dL (7-18); BUN/Creat Ratio 17.2 RATIO (10-20); Chloride 104 mmol/L (98-107); Creatinine, Serum 1.16 mg/dL (0.55-1.02); EST Glomerular Filtration Rate 47 mL/min (>60); Est Glom Filt Rate - Afr Amer 57 mL/min (>60); Globulin 3.5 g/dL (2.2-4.2); Glucose 82 mg/dL (74-106); Lipase 144 U/L (73-393); Potassium 3.8 mmol/L (3.5-5.1); Protein, Total 6.4 g/dL (6.4-8.2); Sodium Level 138 mmol/L (136-145); Troponin-I HS 48 pg/mL (3.0-54.0)
[2022-05-09 10:57] LABS: Lactic Acid 1.2 mmol/L (0.4-1.9)
[2022-05-09 12:25] LABS: Bacteria 0 SEEN /hpf (None Seen); Mucous, Urine 0 SEEN /hpf (<or=2+); Red Blood Cells-Urine 0 SEEN /hpf (0-5)
[2022-05-09 12:36] LABS: Color, Urine Yellow (Yellow); Glucose, Dipstick Normal (Normal); Ketone-Dipstick 15 mg/dl (Negative); Leukocyte Esterase-Dipstick 25 /ul (Negative); Nitrite-Dipstick Negative (Negative); Occult Blood-Urine Negative /ul (Negative); Protein-Dipstick 30 mg/dl (Negative); Urine Bilirubin Dipstick Negative (Negative); Urine Clarity Sl. Cloudy (Clear); Urine Urobilinogen Normal (Normal)
[2022-05-09 12:42] LABS: Squamous Epithelial Cells - UA 0-5 SEEN /hpf (5-10); White Blood Cells 0-5 SEEN /hpf (0-5)
[2022-05-09] MEDS: DiphenhydrAMINE 50 MG/ML Syringe 25 MG IV (13:16)
[2022-05-09] MEDS: MethylPREDNISolone 125 MG/2 ML Vial IV (13:16)
[2022-05-09] MEDS: Famotidine 200 MG/20 ML MDV 20 MG in 0.9% Normal Saline (Pres. free 8 ML 300 MG IV ×2 (14:01→22:49)
--- NOTE | 2022-05-09 14:48 | HP.PCM.HOS_ITS ---
[facility] - [facility] General Date of Service: 05/09/22 Chief Complaint: Confusion and rash. [facility] Narrative WILI SOARES, is a 87 F who presents with confusion and a rash. Patient is confused and unable provide history. No family is available. Therefore, history was obtained through the emergency room physician. Patient recently been put on an unspecified antibiotic and developed a rash. Yesterday, patient had fallen hitting her head against the bathtub. Patient was noted to have a macular rash diffusely. Patient did have a fever while she was in the emergency room. Patient received methylprednisolone, diphenhydramine and famotidine. And for the fever she did receive Zosyn. Family had informed emergency physician that she had started cefdinir, doxycycline and steroids. Patient had completed antibiotics Saturday and then the symptoms began on the . [facility] Medical History AVB (atrioventricular block) Bradycardia Cancer Colon cancer CVA (cerebral vascular accident) (2014) Dementia Depression Diabetes mellitus type 2 in obese Essential hypertension Gout Heart failure Hypothyroid Hypothyroidism Junctional rhythm Left ventricular hypertrophy Paroxysmal atrial fibrillation TIA (transient ischemic attack) Vascular dementia Home Medications levothyroxine 50 mcg tablet 50 mcg PO DAILY thyroid 10/02/13 [History Last Taken 09/01/21] losartan 100 mg tablet (Cozaar) 100 mg PO DAILY bp 10/02/13 [History Last Taken 09/01/21] calcium-vitamin D3-vitamin K 500 mg-1,000 unit-40 mcg chewable tablet (Citracal- D3 Soft Chew) 1 ea PO DAILY supplement 03/16/18 [History Last Taken 09/01/21] potassium chloride 20 mEq tablet,extended release(part/cryst) (Klor-Con M) 20 meq PO DAILY supplement 03/16/18 [History Last Taken 09/01/21] quetiapine 25 mg tablet (Seroquel) 25 mg PO QHS mood 09/01/21 [History Last Taken 08/31/21] allopurinol 300 mg tablet 300 mg PO DAILY gout #0 tabs 09/04/21 [Rx Last Taken 09/01/21] apixaban 2.5 mg tablet (Eliquis) 2.5 mg PO BID blood thinner 09/13/21 [History Last Taken Unknown] furosemide 40 mg tablet 40 mg PO DAILY #0 tabs 01/11/22 [Rx Last Taken Unknown] Allergy/AdvReac Type Severity Reaction Status Date / Time dicyclomine HCl [From Bentyl] Allergy Unknown Verified 05/09/22 09:50 doxepin [Doxepin] Allergy Unknown Verified 05/09/22 09:50 hydroxyzine HCl Allergy Unknown Verified 05/09/22 09:50 [From Vistaril] hydroxyzine pamoate Allergy Unknown Verified 05/09/22 09:50 [From Vistaril] oxymetazoline HCl Allergy Swelling Verified 05/09/22 09:50 [From Tristen-Synephrine (phenylephrine)] phenylephrine HCl Allergy Swelling Verified 05/09/22 09:50 [From Tristen-Synephrine (phenylephrine)] promethazine HCl Allergy Unknown Verified 05/09/22 09:50 [From Phenergan] xylometazoline HCl Allergy Swelling Verified 05/09/22 09:50 [From Tristen-Synephrine (phenylephrine)] Family History Other Dementia Diabetes Surgical History H/O eye surgery History of colon surgery History of permanent cardiac pacemaker placement (09/03/21) Social History Smoking Status: Never smoker ROS Review of Systems ROS Unobtainable: due to encephalopathy Vital Signs Vital Signs Vital Signs: 05/09/22 09:15 05/09/22 09:18 05/09/22 12:22 Temperature 36.5 C L 38.1 C H Temperature Source Temporal Temporal Pulse Rate 98 114 H Respiratory Rate 16 18 Respiratory Pattern Normal Blood Pressure 139/77 H 147/84 H Blood Pressure Mean 97 105 Pulse Ox 98 94 Oxygen Delivery Method Room Air Room Air Oxygen Flow Rate (L/min) 05/09/22 11:30 05/09/22 10:30 05/09/22 13:18 Temperature Temperature Source Pulse Rate 116 H 103 H Respiratory Rate 20 H 22 H Respiratory Pattern Blood Pressure 147/79 H 144/74 H Blood Pressure Mean 101 97 Pulse Ox 94 93 87 Oxygen Delivery Method Room Air Room Air Room Air Oxygen Flow Rate (L/min) 05/09/22 13:18 05/09/22 14:00 Temperature 37.6 C H Temperature Source Temporal Pulse Rate 116 H 109 H Respiratory Rate 23 H 30 H Respiratory Pattern Blood Pressure 145/89 H 144/71 H Blood Pressure Mean 107 95 Pulse Ox 96 95 Oxygen Delivery Method Nasal Cannula Nasal Cannula Oxygen Flow Rate (L/min) 2 2 Weight Weight: 66.3 kg Body Mass Index (BMI) 25.0 Physical Exam Const Constitutional Narrative: Follow some simple commands such as opening her eyes but does not verbalize. Somnolent. Orientation / Consciousness: confused HEENT normocephalic, head/scalp atraumatic and moist oral mucous membranes Eyes Eyes Narrative: No icterus Neck no lymphadenopathy Neck Narrative: No thyromegaly. No meningismus Resp normal respiratory effort, no retractions, no use of accessory muscles and clear to auscultation bilaterally Cardio Cardio Narrative: Tachycardic into the 110. Rhythm is paced. GI normal to inspection, nondistended, normoactive bowel sounds, soft to palpation, non-tender and non-distended Extremity Extremity Narrative: Trace lower extremity edema Skin Skin Narrative: Diffuse, patchy in areas but more confluent on the torso and abdomen, but involves to lesser extent her face, neck her left upper extremity and her upper legs. A macular rash. No vesicles seen. Neuro Neuro Narrative: No clonus Sensorium / Orientation: Negative for oriented to person, oriented to place or oriented to time Psych Negative for affect normal Results Lab / Micro Data Attestation: I reviewed the patient's lab results. Result Diagrams: 05/09/22 10:10 05/09/22 10:10 Labs: Laboratory Results - last 24 hr 05/09/22 10:10: WBC 13.5 H, RBC 4.02 L, Hgb 11.5 L, Hct 37.3, MCV 92.8, MCH 28.6, MCHC 30.8 L, RDW Std Deviation 50.7 H, RDW Coeff of Angie 15.0 H, Plt Count 203, MPV 11.3, Immature Gran % (Auto) 0.500, Neut % (Auto) 86.5 H, Lymph % (Auto) 6.4 L, [place] % (Auto) 3.6, Eos % (Auto) 2.9, Baso % (Auto) 0.1, Absolute Neuts (auto) 11.7 H, Absolute Lymphs (auto) 0.86, Nucleated RBC % 0 05/09/22 10:10: PT 18.7 H, INR 1.6, APTT 35.3 05/09/22 10:10: Sodium 138, Potassium 3.8, Chloride 104, Carbon Dioxide 29.0, Anion Gap 5, BUN 20 H, Creatinine 1.16 H, Estim Creat Clear Calc 29.50, Est GFR (MDRD) Af Amer 57 L, Est GFR (MDRD) Non-Af 47 L, BUN/Creatinine Ratio 17.2, Glucose 82, Calcium 9.0, Total Bilirubin 0.90, AST 16, ALT 18, Alkaline Phosphatase 62, Troponin I High Sens 48, Total Protein 6.4, Albumin 2.9 L, Globulin 3.5, Albumin/Globulin Ratio 0.8 L, Lipase 144 05/09/22 10:10: Lactic Acid 1.2 05/09/22 12:21: Urine Color Yellow, Urine Clarity Sl. Cloudy, Urine pH 7.0, Ur Specific [place] 1.010, Urine Protein 30 H, Urine Glucose (UA) Normal, Urine Ketones 15 H, Urine Occult Blood Negative, Urine Nitrite Negative, Urine Bilirubin Negative, Urine Urobilinogen Normal, Ur Leukocyte Esterase 25 H, Urine RBC 0 SEEN, Urine WBC 0-5 SEEN, Ur Squamous Epith Cells 0-5 SEEN, Urine Bacteria 0 SEEN, Urine Mucus 0 SEEN Micro: Microbiology 05/09/22 12:47 Nasal Secretion SARS-CoV-2 & FLU Antigen (Rapid) - Final EKG Initial EKG: Attestation: I personally reviewed and interpreted this EKG as follows: Prior EKG tracings: available for review EKG Rhythm Intrepretation: Ventricular Paced Radiology Impression Brain CT 05/09/22 09:43 IMPRESSION: Chronic involutional changes of the brain. Electronically Signed: Stew Green MD at 11:02 EST , Chest X-Ray 05/09/22 10:15 IMPRESSION: Cardiomegaly. Mild increased markings at the lung bases worse at the left lung base with blunting of the left costophrenic angle. This may represent either atelectasis and/or early infiltrate. Electronically Signed: Stew Green MD at 10:37 EST , Assessment & Plan Assessment/Plan (1) Drug rash: PLAN: Suspected this is more of a macular rash. This does not appear to be Kramer-Lei's or TEN. Patient has no eosinophilia therefore I do not feel that it is DRESS. Etiology is unclear could be the antibiotics but those have been stopped a few days prior to the rash developing. Patient does take allopurinol which can ca use DRESS, but once again I do not feel that that it is that. No lip swelling, tongue swelling, therefore no angioedema. No vesicular rashes therefore I do not feel that this is disseminated zoster Plan: * Hold possible culprit medications with allopurinol, furosemide and losartan * Patient has an allergy to hydroxyzine though she did receive diphenhydramine in the emergency room. We will treat her with 24-hour additional of methylprednisolone and famotidine. * Will hold off on additional antibiotics at this time. Patient did receive Zosyn in the emergency room. I reviewed her chest x-ray and I did not appreciate any infiltrate. (2) Encephalopathy: PLAN: Unclear etiology. This is per family report. Patient was to go to a [facility] later this week as he previously had been unable to care for her. Unclear how much some of the medications is contributing to this Head CT was unremarked for any acute process other than showing atrophy. Avoid potentiating medications, though steroids may or confusion in the patient (3) Debility: PLAN: Patient is already planned to go to a long term facility as patient's family is unable to care for her. PT OT evaluate and treat Case management PLAN: Plan Chronic conditions * Paroxysmal H fibrillation: Patient is paced. Continue with apixaban * Hypothyroidism: Continue levothyroxine VTE prophylaxis: Not indicated as patient is already anticoagulated. Charges/Coding Visit Charges Inpatient E&M: 15546 Init Hosp L3
--- NOTE | 2022-05-09 15:12 | NURSING ---
MED SURG CAROLYNN ENCEPHALOPATHY, DRUG RASH
[2022-05-09] MEDS: 0.9% Normal Saline 1,000 ML 150 ML IV (17:45)
[2022-05-09 19:36] LABS: Bedside Glucose 99 mg/dL (74-106)
[2022-05-09] MEDS: Menthol/Lanolin/Calamine/Znox 113 GM Tube 1 APPLIC TOPICAL (22:51)
[2022-05-09 23:20] LABS: Bedside Glucose 100 mg/dL (74-106)
[2022-05-10 02:52] VITALS: BP 130/57; PULSE 61; RESP 18; TEMP 36.6; O2SAT 98
[2022-05-10] MEDS: Menthol/Lanolin/Calamine/Znox 113 GM Tube 1 APPLIC TOPICAL ×3 (05:18→21:56)
[2022-05-10 05:31] LABS: Bedside Glucose 111 mg/dL (74-106)
[2022-05-10 06:28] LABS: Absolute Lymphocyte Count 0.64 X10^3/uL (0.83-4.51); Basophil# 0.03 X10^3/uL; Basophil% 0.3 % (0-1); Hematocrit 32.5 % (37-47); Hemoglobin 10.3 g/dL (12.0-15.0); Lymphocyte # 0.64 X10^3/ul (0.83-4.51); Lymphocyte % 6.5 % (19-41); Mean Corp Hgb Conc 31.7 g/dL (32-36); Mean Corpuscular Hgb 29.1 pg (27.0-32.0); Mean Corpuscular Volume 91.8 fL (81-99); Mean Platelet Vol. 10.2 fl (6.2-12.0); NRBC Flagged by Analyzer 0 % (0-5); Neutrophil # 9.01 X10^3/uL (2.7-7.7); Neutrophil % 90.8 % (47-70); Platelet Count 173 K/mm3 (150-450); RBC Distribution Width CV 14.5 % (11.6-14.6); RBC Distribution Width SD 49.1 fl (35.1-43.9); Red Blood Count 3.54 M/mm3 (4.2-5.4); White Blood Count 9.9 K/mm3 (4.4-11.0)
[2022-05-10 06:54] LABS: ALB/GLOB Ratio 0.7 RATIO (0.9-2.4); AST(SGOT) 13 U/L (15-37); Alanine Aminotransfer ALT/SGPT 16 U/L (13-56); Albumin, Serum 2.2 g/dL (3.2-5.0); Alkaline Phosphatase 52 U/L (45-117); Anion Gap 8 (5-15); BUN 26 mg/dL (7-18); BUN/Creat Ratio 21.8 RATIO (10-20); Calcium,Total 8.1 mg/dL (8.5-10.1); Chloride 107 mmol/L (98-107); Creatinine, Serum 1.19 mg/dL (0.55-1.02); EST Glomerular Filtration Rate 46 mL/min (>60); Est Glom Filt Rate - Afr Amer 55 mL/min (>60); Estimated Creatinine Clearance 28.76 ml/min; Glucose 108 mg/dL (74-106); Potassium 3.9 mmol/L (3.5-5.1); Protein, Total 5.2 g/dL (6.4-8.2); Sodium Level 141 mmol/L (136-145)
[2022-05-10 08:26] VITALS: BP 128/58; PULSE 60; RESP 30; TEMP 36.7; O2SAT 90
[2022-05-10] MEDS: APIXABAN 2.5 MG TABLET PO ×2 (09:12→21:51)
[2022-05-10 11:06] VITALS: BP 110/54; PULSE 88; RESP 20; TEMP 36.9; O2SAT 94
[2022-05-10 11:15] LABS: Bedside Glucose 179 mg/dL (74-106)
--- NOTE | 2022-05-10 11:57 | CASEMGMT ---
Social Work SW met with patient for initial transition planning/care coordination assessment. SW introduced self and role at [facility]. Patient lying in bed and willing to participate in assessment. Care providers, pharmacy, and demographics verified. SW inquired about discharge plan and pt states I don't know what they are going to do with me. SW requested to call Daughter in Law Linda and pt agreeable. PCP: Connor Specialists: Nemesio, director customer Preferred Pharmacy: [facility] Insurance: [employer] Prescription Benefit: yes Living Will/HPOA: yes, daughter in law Sarah Tuttle, HPOA. Pt has not completed Living Will. LNOK: son, JERILYN Living Arrangements: Patient lives with DIL and son in a single story home with 4 steps and railing. DIL assists patient with ADLs and IADLs. Patient goes to [facility] 5 days per week. Transportation: Daughter in law for appts DME/HHC: Patient has raised toilet, tub bench, walker, grab bars, lift chair, and medical alert. Patient has had HHC in the past but family could not recall agency. Patient has been to [facility], [facility], and [facility] in the past. Patient has [employer] with counter caser May Stinson. Disposition Plan: SW spoke with pt JERILYN/HCPOA Linda Tuttle who states family was planning on placing pt at [facility] tomorrow for a respite stay, and then had determined they can no longer care for pt at home and parts counterman placement would be a better option. Pt now hospitalized but Linda states the plan continues to be [facility]. Linda will be going out of town this weekend. Phone call to Amber at [facility] who confirms information from Linda and states they can accept pt mcc or skilled. Precert will need to be obtained either way. Therapy has not yet seen pt therefore, needed level of care has not yet been determined. Amber states they can accept pt, level of care needs determined and precert will need obtained. A list of SNF providers including quality and resource use data and consistent with the patient?s preferred geographic region, medical needs, and insurance network were provided from the [employer] Guide in the event pt and family would like other options. Pt dgt states preferred provider is [facility]. Referral to be sent to [facility] and precert will be started once all clinical information is obtained and reviewed by Chirag Nuñez. [facility], pending precert ROBERT Mcdonald
--- NOTE | 2022-05-10 12:19 | CASEMGMT ---
Social Work Pt has a Health Care POA on file at [facility] naming her Daughter In Law Linda Tuttle. Pt has chosen not to complete a Living Will. ROBERT Mcdonald
--- NOTE | 2022-05-10 12:29 | CASEMGMT ---
Discharge First Responder Referral sent to Amber at [place]. Leonie HANKS Food Checkers And Cashiers Supervisor
[2022-05-10] MEDS: Insulin Lispro 100 UNIT/ML INSULN.PEN SC ×3 (12:52→21:54)
--- NOTE | 2022-05-10 14:27 | CHAPLAIN ---
Type of Pastoral Visit _x__ Initial Visit ___ Follow-up Visit ___ On-call Visit ___ General Patient Visit ___ Spiritual Assessment ___ Family Conference ___ Bereavement ___ Rapid Response ___ Code Blue ___ Other (describe below) Pastoral Care Referral From _x__ Patient ___ Family ___ Nurse ___ Physician ___ Undertaker Assistant ___ [place] Pumper ___ Other (describe below) Sacrament/Intervention _x__ Active listening ___ Anointing ___ Gnosticist ___ Bereavement ___ Communion ___ Annette exploration ___ ___ Life review _x__ Prayer ___ Reconciliation ___ Sacrament of Sick _x__ Supportive presence ___ Wedding ___ Other (describe below) Pastoral Comments patient is sitting in chair near the window with eyes closed; pt responds to her name and interacts with this evp global product leadership; pt is able to answer questions and responds appropriately; pt states that she is fine, I would like a prayer, and thank you for coming; pt says she is cold and another blanket is given to her; pt does not initiate conversation but appears to be comfortable and in no distress; prayer given
[2022-05-10] MEDS: 0.9% Saline Lock 10 ML Syringe IV ×2 (14:30→21:54)
[2022-05-10 14:31] VITALS: BP 133/69; PULSE 88; RESP 20; TEMP 36.5; O2SAT 97
[2022-05-10] MEDS: Ensure Plus High Protein 120 ML LIQUID PO (14:36)
--- NOTE | 2022-05-10 16:31 | PCM.PN.HOSP ---
Subjective Subjective Doing well, rash appears to be improving but she is complaining of some itchiness Objective Data Objective Data Vital Signs: Vital Signs Temp Pulse Resp BP Pulse Ox O2 Del Method O2 Flow Rate 97.7 F L 88 20 H 133/69 H 97 Room Air 2 05/10/22 14:31 05/10/22 14:31 05/10/22 14:31 05/10/22 14:31 05/10/22 14:31 05/10/22 14:31 05/09/22 20:45 Oxygen Flow Rate (L/min) 2 Oxygen Delivery Method Room Air Weight: 138 lb 9.6 oz Body Mass Index (BMI) 23.8 Intake & Output: Intake and Output for Last 24 Hours 05/09/22 05/10/22 05/11/22 03:59 03:59 03:59 Intake Total 1025 / 1025 0 / 0 Output Total 200 / 200 Balance 1025 / 1025 -200 / -200 Medical Nutrition Assessment Dietitian: Malnutrition Criteria Met Start: 05/10/22 11:37 Freq: Status: Active Protocol: Document 05/10/22 11:37 ELIEL (Rec: 05/10/22 11:37 ELIEL [id number]) Nutrition Malnutrition Evidence of Malnutrition Exists Yes Malnutrition (severe): Chronic Evidenced By Suboptimal Energy Intake ( Severe),Weight Loss (Severe), Physical Changes (Severe) Clinical Problem Chronic Disease or Condition Related Malnutrition Etiology related to pt hx dementia and inability to consume adequate nutrition to meet est nutrition needs Signs/Symptoms as evidenced by po intake meeting <50% of estimated nutritional needs, 26.7% wt loss x 5 mo and fat/muscle loss per NFPA. Status Active Problem Biting/Chewing Difficulty Etiology related to edentulous Signs/Symptoms as evidenced by puree diet consistency (per pt request) Status Active Problem Recommendation Dietitian Recommendations/Changes Will liberalize diet to regular puree d/t signs/ symptoms of malnutrition. Will order 4 oz ensure plus high protein w/ medpass 4x/day Will provide fortified foods at meals as able. Lab / Micro Data Result Diagrams: 05/10/22 06:20 05/10/22 06:20 Labs: Laboratory Results - last 24 hr 05/09/22 19:17: POC Glucose 99 05/09/22 23:02: POC Glucose 100 05/10/22 05:03: POC Glucose 111 H 05/10/22 06:20: WBC 9.9, RBC 3.54 L, Hgb 10.3 L, Hct 32.5 L, MCV 91.8, MCH 29.1, MCHC 31.7 L, RDW Std Deviation 49.1 H, RDW Coeff of Angie 14.5, Plt Count 173, MPV 10.2, Immature Gran % (Auto) 0.400, Neut % (Auto) 90.8 H, Lymph % (Auto) 6.5 L, [place] % (Auto) 2.0, Eos % (Auto) 0.0, Baso % (Auto) 0.3, Absolute Neuts (auto) 9.0 H, Absolute Lymphs (auto) 0.64 L, Nucleated RBC % 0 05/10/22 06:20: Sodium 141, Potassium 3.9, Chloride 107, Carbon Dioxide 26.0, Anion Gap 8, BUN 26 H, Creatinine 1.19 H, Estim Creat Clear Calc 28.76, Est GFR (MDRD) Af Amer 55 L, Est GFR (MDRD) Non-Af 46 L, BUN/Creatinine Ratio 21.8 H, Glucose 108 H, Calcium 8.1 L, Total Bilirubin 0.60, AST 13 L, ALT 16, Alkaline Phosphatase 52, Total Protein 5.2 L, Albumin 2.2 L, Globulin 3.0, Albumin/Globulin Ratio 0.7 L 05/10/22 10:54: POC Glucose 179 H Micro: Microbiology 05/09/22 12:47 Nasal Secretion SARS-CoV-2 & FLU Antigen (Rapid) - Final Physical Exam Narrative General: Alert, confused, Cooperative, No apparent distress HEENT: Atraumatic, PERRLA, EOMI, Normocephalic Oral: Moist Mucosa Neck: Supple, No JVD Lungs: Clear to auscultation, Normal air movement, No rhonchi, No wheeze, No rales Cardiovascular: Regular rate, Regular Rhythm, Normal S1, Normal S2, No murmurs Abdomen: Soft, Non Tender, Non-Distended, No Hepato-splenomegaly Extremities: No edema, Capillary Refill Less than 3 Seconds Skin: Diffuse maculopapular rash on her trunk. Blanching Musculoskeletal: No Tenderness to Palpation of Joints or Extremities Neurological: Cranial nerves II-XII grossly intact, Motor Exam 5/5 strength throughout, Sensory exam intact to light touch and pain Psych/Mental Status: Flat affect, Appropriate Assessment & Plan Assessment/Plan (1) Drug rash: PLAN: Unsure as to the offending medication will hold most of her home medications Will hold Benadryl as she became very sleepy, continue with prednisone as she pulled out her IV (2) Encephalopathy: PLAN: Unclear etiology. This is per family report. Patient was to go to a skilled nursing later this week as he previously had been unable to care for her. She does appear to be improving so we will continue to monitor (3) Debility: PLAN: Patient is already planned to go to a halfway facility as patient's family is unable to care for her. PT OT evaluate and treat, pre-CERT is pending Case management PLAN: Plan Chronic conditions Paroxysmal H fibrillation: Patient is paced. Continue with apixaban Hypothyroidism: Continue levothyroxine DVT: Eliquis Charges/Coding Visit Charges Inpatient E&M: 10741 Subs Hosp L2
[2022-05-10] MEDS: Petrolatum 33% Tube 1 APPLIC TOPICAL (17:14)
[2022-05-10 17:30] LABS: Bedside Glucose 269 mg/dL (74-106)
[2022-05-10 19:56] VITALS: BP 117/61; PULSE 99; RESP 20; TEMP 36.8; O2SAT 98
[2022-05-10] MEDS: Glucerna Shake 120 ML LIQUID PO (21:52)
[2022-05-10] MEDS: Famotidine 200 MG/20 ML MDV 20 MG in 0.9% Normal Saline (Pres. free 8 ML 300 MG IV (21:54)
[2022-05-10 23:45] LABS: Bedside Glucose 183 mg/dL (74-106)
[2022-05-11 02:10] VITALS: BP 111/61; PULSE 98; RESP 18; TEMP 36.8; O2SAT 93
[2022-05-11 05:39] LABS: Absolute Lymphocyte Count 0.95 X10^3/uL (0.83-4.51); Absolute Neutrophil Count 18.7 X10^3/uL (2.0-7.7); Basophil# 0.03 X10^3/uL; Basophil% 0.1 % (0-1); Eosinophil# 0.04 X10^3/uL; Eosinophils% 0.2 % (0-5); Hematocrit 30.2 % (37-47); Hemoglobin 9.9 g/dL (12.0-15.0); Lymphocyte # 0.95 X10^3/ul (0.83-4.51); Lymphocyte % 4.6 % (19-41); Mean Corp Hgb Conc 32.8 g/dL (32-36); Mean Corpuscular Hgb 29.6 pg (27.0-32.0); Mean Corpuscular Volume 90.4 fL (81-99); Mean Platelet Vol. 11.3 fl (6.2-12.0); Monocyte# 0.85 X10^3/uL; Monocyte% 4.1 % (0-10); NRBC Flagged by Analyzer 0 % (0-5); Neutrophil # 18.73 X10^3/uL (2.7-7.7); Neutrophil % 90.3 % (47-70); Platelet Count 210 K/mm3 (150-450); RBC Distribution Width CV 14.7 % (11.6-14.6); RBC Distribution Width SD 48.7 fl (35.1-43.9); Red Blood Count 3.34 M/mm3 (4.2-5.4); White Blood Count 20.8 K/mm3 (4.4-11.0)
[2022-05-11 06:07] LABS: Anion Gap 7 (5-15); BUN 37 mg/dL (7-18); BUN/Creat Ratio 30.1 RATIO (10-20); Calcium,Total 8.6 mg/dL (8.5-10.1); Chloride 107 mmol/L (98-107); Creatinine, Serum 1.23 mg/dL (0.55-1.02); EST Glomerular Filtration Rate 44 mL/min (>60); Est Glom Filt Rate - Afr Amer 53 mL/min (>60); Estimated Creatinine Clearance 27.83 ml/min; Glucose 118 mg/dL (74-106); Potassium 3.6 mmol/L (3.5-5.1); Sodium Level 140 mmol/L (136-145)
[2022-05-11] MEDS: Levothyroxine 50 MCG Tablet PO (07:01)
[2022-05-11 07:26] LABS: Bedside Glucose 133 mg/dL (74-106)
[2022-05-11] MEDS: Menthol/Lanolin/Calamine/Znox 113 GM Tube 1 APPLIC TOPICAL ×3 (07:28→21:13)
[2022-05-11 08:10] VITALS: BP 126/74; PULSE 98; RESP 18; TEMP 36.4; O2SAT 99
[2022-05-11] MEDS: predniSONE 20 MG Tablet 40 MG PO (09:13)
[2022-05-11] MEDS: APIXABAN 2.5 MG TABLET PO ×2 (09:14→21:12)
--- NOTE | 2022-05-11 09:19 | PN.HOSP_ITS ---
Subjective Subjective Doing well, she is much more alert today. She is still complaining of some itchiness Objective Data Objective Data Vital Signs: Vital Signs Temp Pulse Resp BP Pulse Ox O2 Del Method O2 Flow Rate 97.5 F L 98 18 126/74 H 99 Room Air 2 05/11/22 08:10 05/11/22 08:10 05/11/22 08:10 05/11/22 08:10 05/11/22 08:10 05/11/22 08:10 05/09/22 20:45 Oxygen Flow Rate (L/min) 2 Oxygen Delivery Method Room Air Weight: 138 lb 9.6 oz Body Mass Index (BMI) 23.8 Intake & Output: Intake and Output for Last 24 Hours 05/10/22 05/11/22 05/12/22 03:59 03:59 03:59 Intake Total 1025 / 1025 Output Total 400 / 400 200 / 200 Balance 1025 / 1025 -390 / -390 -200 / -200 Medical Nutrition Assessment Dietitian: Malnutrition Criteria Met Start: 05/10/22 11:37 Freq: Status: Active Protocol: Document 05/10/22 11:37 ELIEL (Rec: 05/10/22 11:37 ELIEL [id number]) Nutrition Malnutrition Evidence of Malnutrition Exists Yes Malnutrition (severe): Chronic Evidenced By Suboptimal Energy Intake ( Severe),Weight Loss (Severe), Physical Changes (Severe) Clinical Problem Chronic Disease or Condition Related Malnutrition Etiology related to pt hx dementia and inability to consume adequate nutrition to meet est nutrition needs Signs/Symptoms as evidenced by po intake meeting <50% of estimated nutritional needs, 26.7% wt loss x 5 mo and fat/muscle loss per NFPA. Status Active Problem Biting/Chewing Difficulty Etiology related to edentulous Signs/Symptoms as evidenced by puree diet consistency (per pt request) Status Active Problem Recommendation Dietitian Recommendations/Changes Will liberalize diet to regular puree d/t signs/ symptoms of malnutrition. Will order 4 oz ensure plus high protein w/ medpass 4x/day Will provide fortified foods at meals as able. Lab / Micro Data Result Diagrams: 05/11/22 04:38 05/11/22 04:38 Labs: Laboratory Results - last 24 hr 05/10/22 10:54: POC Glucose 179 H 05/10/22 17:08: POC Glucose 269 H 05/10/22 21:35: POC Glucose 183 H 05/11/22 04:38: WBC 20.8 H, RBC 3.34 L, Hgb 9.9 L, Hct 30.2 L, MCV 90.4, MCH 29.6, MCHC 32.8, RDW Std Deviation 48.7 H, RDW Coeff of Angie 14.7 H, Plt Count 210, MPV 11.3, Immature Gran % (Auto) 0.700, Neut % (Auto) 90.3 H, Lymph % (Auto) 4.6 L, [place] % (Auto) 4.1, Eos % (Auto) 0.2, Baso % (Auto) 0.1, Absolute Neuts (auto) 18.7 H, Absolute Lymphs (auto) 0.95, Nucleated RBC % 0 05/11/22 04:38: Sodium 140, Potassium 3.6, Chloride 107, Carbon Dioxide 26.0, Anion Gap 7, BUN 37 H, Creatinine 1.23 H, Estim Creat Clear Calc 27.83, Est GFR (MDRD) Af Amer 53 L, Est GFR (MDRD) Non-Af 44 L, BUN/Creatinine Ratio 30.1 H, Glucose 118 H, Calcium 8.6 05/11/22 06:58: POC Glucose 133 H Micro: Microbiology 05/09/22 13:25 Blood Culture (Wb) - Anticubital Left Blood Culture - Preliminary No growth in 48 hours. 05/09/22 12:47 Blood Culture (Wb) - Anticubital Right Blood Culture - Preliminary No growth in 48 hours. 05/09/22 12:47 Nasal Secretion SARS-CoV-2 & FLU Antigen (Rapid) - Final Physical Exam Narrative General: Alert, confused, Cooperative, No apparent distress HEENT: Atraumatic, PERRLA, EOMI, Normocephalic Oral: Moist Mucosa Neck: Supple, No JVD Lungs: Clear to auscultation, Normal air movement, No rhonchi, No wheeze, No rales Cardiovascular: Regular rate, Regular Rhythm, Normal S1, Normal S2, No murmurs Abdomen: Soft, Non Tender, Non-Distended, No Hepato-splenomegaly Extremities: No edema, Capillary Refill Less than 3 Seconds Skin: Diffuse maculopapular rash on her trunk. Blanching, pruritic Musculoskeletal: No Tenderness to Palpation of Joints or Extremities Neurological: Cranial nerves II-XII grossly intact, Motor Exam 5/5 strength throughout, Sensory exam intact to light touch and pain Psych/Mental Status: Normal affect, Appropriate Assessment & Plan Assessment/Plan (1) Drug rash: PLAN: Unsure as to the offending medication will hold most of her home medications Will hold Benadryl as she became very sleepy, continue with prednisone as she pulled out her IV (2) Encephalopathy: PLAN: Unclear etiology. This is per family report. Patient was to go to a half-way later this week as he previously had been unable to care for her. She does appear to be improving so we will continue to monitor Pre-CERT is pending for SNF placement (3) Debility: PLAN: Patient is already planned to go to a [facility] facility as patient's family is unable to care for her. PT/OT evaluate and treat, pre-CERT is pending Case management PLAN: Plan Chronic conditions * Paroxysmal H fibrillation: Patient is paced. Continue with apixaban * Hypothyroidism: Continue levothyroxine DVT: Eliquis Charges/Coding Visit Charges Inpatient E&M: 08201 Subs Hosp L2
[2022-05-11] MEDS: Glucerna Shake 120 ML LIQUID PO ×3 (10:28→21:13)
--- NOTE | 2022-05-11 10:45 | CASEMGMT ---
Discharge Product Builder This continuity writer sent PT/OT notes to Amber at [place]. This continuity writer requested pre-cert to be started. Leonie HANKS Drawing Frame Tender
[2022-05-11] MEDS: Insulin Lispro 100 UNIT/ML INSULN.PEN SC ×3 (11:42→21:16)
[2022-05-11 12:05] LABS: Bedside Glucose 194 mg/dL (74-106)
[2022-05-11 14:15] VITALS: BP 142/71; PULSE 102; RESP 16; TEMP 37; O2SAT 97
--- NOTE | 2022-05-11 15:25 | CASEMGMT ---
Social Work Precert has not yet been obtained from insurance for admission to [facility]. SW requested [facility] contact the nursing floor over the weekend should precert be obtained. Phone call to STAR Tuttle and updated and she is understanding. SW spoke with pt and discussed discharge plan and she is agreeable. Phone call to May Stinson, [facility] and updated of pt admission and discharge plan. Discharge orders to be faxed to [facility]. Plan: [facility], pending precert ROBERT Mcdonald
[2022-05-11 17:35] LABS: Bedside Glucose 288 mg/dL (74-106)
[2022-05-11 20:00] VITALS: BP 158/94; PULSE 106; RESP 18; TEMP 36.9; O2SAT 95
[2022-05-11] MEDS: Petrolatum 33% Tube 1 APPLIC TOPICAL (21:12)
[2022-05-11 21:41] LABS: Bedside Glucose 248 mg/dL (74-106)
[2022-05-12 02:00] VITALS: BP 154/89; PULSE 99; RESP 18; TEMP 36.6; O2SAT 94
[2022-05-12] MEDS: Insulin Lispro 100 UNIT/ML INSULN.PEN SC ×3 (04:40→21:45)
[2022-05-12] MEDS: Levothyroxine 50 MCG Tablet PO (04:40)
[2022-05-12] MEDS: Menthol/Lanolin/Calamine/Znox 113 GM Tube 1 APPLIC TOPICAL ×3 (04:42→21:44)
[2022-05-12 05:06] LABS: Bedside Glucose 183 mg/dL (74-106)
[2022-05-12 07:16] LABS: Anion Gap 4 (5-15); BUN 36 mg/dL (7-18); BUN/Creat Ratio 26.1 RATIO (10-20); Chloride 109 mmol/L (98-107); Creatinine, Serum 1.38 mg/dL (0.55-1.02); EST Glomerular Filtration Rate 38 mL/min (>60); Est Glom Filt Rate - Afr Amer 47 mL/min (>60); Glucose 178 mg/dL (74-106); Potassium 3.7 mmol/L (3.5-5.1); Sodium Level 140 mmol/L (136-145)
[2022-05-12] MEDS: predniSONE 20 MG Tablet 40 MG PO (09:32)
[2022-05-12] MEDS: APIXABAN 2.5 MG TABLET PO ×2 (09:32→21:45)
[2022-05-12] MEDS: Glucerna Shake 120 ML LIQUID PO ×4 (09:33→21:47)
[2022-05-12 09:38] VITALS: BP 147/90; PULSE 100; RESP 20; TEMP 36.4; O2SAT 94
--- NOTE | 2022-05-12 09:40 | PCM.PN.HOSP ---
Subjective Subjective Doing well, no issues overnight. Her rash does appear to be improving Objective Data Objective Data Vital Signs: Vital Signs Temp Pulse Resp BP Pulse Ox O2 Del Method O2 Flow Rate 98 F 99 18 154/89 H 94 Nasal Cannula 2 05/12/22 02:00 05/12/22 02:00 05/12/22 02:00 05/12/22 02:00 05/12/22 02:00 05/12/22 02:00 05/12/22 02:00 Oxygen Flow Rate (L/min) 2 Oxygen Delivery Method Nasal Cannula Weight: 138 lb 9.6 oz Body Mass Index (BMI) 23.8 Intake & Output: Intake and Output for Last 24 Hours 05/11/22 05/12/22 05/13/22 03:59 03:59 03:59 Intake Total 350 / 350 Output Total 400 / 400 200 / 200 100 / 100 Balance -390 / -390 150 / 150 -100 / -100 Medical Nutrition Assessment Dietitian: Malnutrition Criteria Met Start: 05/10/22 11:37 Freq: Status: Active Protocol: Document 05/10/22 11:37 ELIEL (Rec: 05/10/22 11:37 ELIEL [id number]) Nutrition Malnutrition Evidence of Malnutrition Exists Yes Malnutrition (severe): Chronic Evidenced By Suboptimal Energy Intake ( Severe),Weight Loss (Severe), Physical Changes (Severe) Clinical Problem Chronic Disease or Condition Related Malnutrition Etiology related to pt hx dementia and inability to consume adequate nutrition to meet est nutrition needs Signs/Symptoms as evidenced by po intake meeting <50% of estimated nutritional needs, 26.7% wt loss x 5 mo and fat/muscle loss per NFPA. Status Active Problem Biting/Chewing Difficulty Etiology related to edentulous Signs/Symptoms as evidenced by puree diet consistency (per pt request) Status Active Problem Recommendation Dietitian Recommendations/Changes Will liberalize diet to regular puree d/t signs/ symptoms of malnutrition. Will order 4 oz ensure plus high protein w/ medpass 4x/day Will provide fortified foods at meals as able. Lab / Micro Data Result Diagrams: 05/11/22 04:38 05/12/22 05:48 Labs: Laboratory Results - last 24 hr 05/11/22 11:40: POC Glucose 194 H 05/11/22 17:12: POC Glucose 288 H 05/11/22 21:15: POC Glucose 248 H 05/12/22 04:38: POC Glucose 183 H 05/12/22 05:48: Sodium 140, Potassium 3.7, Chloride 109 H, Carbon Dioxide 27.0, Anion Gap 4 L, BUN 36 H, Creatinine 1.38 H, Estim Creat Clear Calc 24.80, Est GFR (MDRD) Af Amer 47 L, Est GFR (MDRD) Non-Af 38 L, BUN/Creatinine Ratio 26.1 H, Glucose 178 H, Calcium 9.0 Micro: Microbiology 05/09/22 13:25 Blood Culture (Wb) - Anticubital Left Blood Culture - Preliminary No growth in 48 hours. 05/09/22 12:47 Blood Culture (Wb) - Anticubital Right Blood Culture - Preliminary No growth in 48 hours. 05/09/22 12:47 Nasal Secretion SARS-CoV-2 & FLU Antigen (Rapid) - Final Physical Exam Narrative General: Alert, confused, Cooperative, No apparent distress HEENT: Atraumatic, PERRLA, EOMI, Normocephalic Oral: Moist Mucosa Neck: Supple, No JVD Lungs: Clear to auscultation, Normal air movement, No rhonchi, No wheeze, No rales Cardiovascular: Regular rate, Regular Rhythm, Normal S1, Normal S2, No murmurs Abdomen: Soft, Non Tender, Non-Distended, No Hepato-splenomegaly Extremities: No edema, Capillary Refill Less than 3 Seconds Skin: Diffuse maculopapular rash on her trunk. Blanching, pruritic. Improving Musculoskeletal: No Tenderness to Palpation of Joints or Extremities Neurological: Cranial nerves II-XII grossly intact, Motor Exam 5/5 strength throughout, Sensory exam intact to light touch and pain Psych/Mental Status: Normal affect, Appropriate Assessment & Plan Assessment/Plan (1) Drug rash: PLAN: Unsure as to the offending medication will hold most of her home medications Will hold Benadryl as she became very sleepy, continue with prednisone as she pulled out her IV (2) Encephalopathy: PLAN: Unclear etiology. This is per family report. Patient was to go to a correction later this week as he previously had been unable to care for her. Her encephalopathy appears to be resolved and her mental status appears to be back to baseline Pre-CERT is pending for SNF placement (3) Debility: PLAN: Patient is already planned to go to a senior living facility as patient's family is unable to care for her. PT/OT evaluate and treat, pre-CERT is pending Case management PLAN: Plan Chronic conditions Paroxysmal A fibrillation: Patient is paced. Continue with apixaban Hypothyroidism: Continue levothyroxine DVT: Eliquis Charges/Coding Visit Charges Inpatient E&M: 73107 Subs Hosp L2
[2022-05-12 10:16] LABS: Bedside Glucose 147 mg/dL (74-106)
[2022-05-12] MEDS: 0.9% Normal Saline 1,000 ML 75 ML IV (11:59)
[2022-05-12] MEDS: 0.9% Saline Lock 10 ML Syringe IV (11:59)
[2022-05-12 19:41] VITALS: BP 142/95; PULSE 106; RESP 18; TEMP 36.4; O2SAT 97
[2022-05-12 22:00] LABS: Bedside Glucose 230 mg/dL (74-106)
[2022-05-12 22:46] LABS: Bedside Glucose 201 mg/dL (74-106)
[2022-05-13] VITALS (10 sets, daily range): BP systolic 119–140; BP diastolic 72–94; PULSE 99–119; RESP 18; TEMP 36.3–36.8; O2SAT 87–98
[2022-05-13] MEDS: Menthol/Lanolin/Calamine/Znox 113 GM Tube 1 APPLIC TOPICAL ×3 (05:54→21:31)
[2022-05-13] MEDS: Levothyroxine 50 MCG Tablet PO (05:54)
[2022-05-13 06:15] LABS: Bedside Glucose 104 mg/dL (74-106)
[2022-05-13 06:54] LABS: Anion Gap 5 (5-15); BUN 35 mg/dL (7-18); BUN/Creat Ratio 33.7 RATIO (10-20); Calcium,Total 8.7 mg/dL (8.5-10.1); Chloride 110 mmol/L (98-107); Creatinine, Serum 1.04 mg/dL (0.55-1.02); EST Glomerular Filtration Rate 53 mL/min (>60); Est Glom Filt Rate - Afr Amer 64 mL/min (>60); Estimated Creatinine Clearance 32.91 ml/min; Glucose 112 mg/dL (74-106); Sodium Level 141 mmol/L (136-145)
--- NOTE | 2022-05-13 08:40 | PN.HOSP_ITS ---
Subjective Subjective Doing well, no new issues overnight Objective Data Objective Data Vital Signs: Vital Signs Temp Pulse Resp BP Pulse Ox O2 Del Method O2 Flow Rate 97.8 F 99 18 119/92 H 96 Nasal Cannula 2 05/13/22 02:00 05/13/22 02:00 05/13/22 02:00 05/13/22 02:00 05/13/22 02:00 05/13/22 04:34 05/13/22 04:34 Oxygen Flow Rate (L/min) 2 Oxygen Delivery Method Nasal Cannula Weight: 138 lb 9.6 oz Body Mass Index (BMI) 23.8 Intake & Output: Intake and Output for Last 24 Hours 05/12/22 05/13/22 05/14/22 03:59 03:59 03:59 Intake Total 350 / 350 5 / 214 60 / 60 Output Total 200 / 200 100 / 100 150 / 150 Balance 150 / 150 2044 -90 / -90 Medical Nutrition Assessment Dietitian: Malnutrition Criteria Met Start: 05/10/22 11:37 Freq: Status: Active Protocol: Document 05/10/22 11:37 ELIEL (Rec: 05/10/22 11:37 ELIEL [id number]) Nutrition Malnutrition Evidence of Malnutrition Exists Yes Malnutrition (severe): Chronic Evidenced By Suboptimal Energy Intake ( Severe),Weight Loss (Severe), Physical Changes (Severe) Clinical Problem Chronic Disease or Condition Related Malnutrition Etiology related to pt hx dementia and inability to consume adequate nutrition to meet est nutrition needs Signs/Symptoms as evidenced by po intake meeting <50% of estimated nutritional needs, 26.7% wt loss x 5 mo and fat/muscle loss per NFPA. Status Active Problem Biting/Chewing Difficulty Etiology related to edentulous Signs/Symptoms as evidenced by puree diet consistency (per pt request) Status Active Problem Recommendation Dietitian Recommendations/Changes Will liberalize diet to regular puree d/t signs/ symptoms of malnutrition. Will order 4 oz ensure plus high protein w/ medpass 4x/day Will provide fortified foods at meals as able. Lab / Micro Data Result Diagrams: 05/11/22 04:38 05/13/22 05:50 Labs: Laboratory Results - last 24 hr 05/12/22 09:50: POC Glucose 147 H 05/12/22 16:11: POC Glucose 230 H 05/12/22 21:43: POC Glucose 201 H 05/13/22 05:50: Sodium 141, Potassium 4.0, Chloride 110 H, Carbon Dioxide 26.0, Anion Gap 5, BUN 35 H, Creatinine 1.04 H, Estim Creat Clear Calc 32.91, Est GFR (MDRD) Af Amer 64, Est GFR (MDRD) Non-Af 53 L, BUN/Creatinine Ratio 33.7 H, Glucose 112 H, Calcium 8.7 05/13/22 05:56: POC Glucose 104 Micro: Microbiology 05/09/22 13:25 Blood Culture (Wb) - Anticubital Left Blood Culture - Preliminary No growth in 48 hours. 05/09/22 12:47 Blood Culture (Wb) - Anticubital Right Blood Culture - Prel iminary No growth in 48 hours. 05/09/22 12:47 Nasal Secretion SARS-CoV-2 & FLU Antigen (Rapid) - Final Physical Exam Narrative General: Alert, confused, Cooperative, No apparent distress HEENT: Atraumatic, PERRLA, EOMI, Normocephalic Oral: Moist Mucosa Neck: Supple, No JVD Lungs: Clear to auscultation, Normal air movement, No rhonchi, No wheeze, No rales Cardiovascular: Regular rate, Regular Rhythm, Normal S1, Normal S2, No murmurs Abdomen: Soft, Non Tender, Non-Distended, No Hepato-splenomegaly Extremities: No edema, Capillary Refill Less than 3 Seconds Skin: Diffuse maculopapular rash on her trunk. Blanching, pruritic. Improving Musculoskeletal: No Tenderness to Palpation of Joints or Extremities Neurological: Cranial nerves II-XII grossly intact, Motor Exam 5/5 strength throughout, Sensory exam intact to light touch and pain Psych/Mental Status: Normal affect, Appropriate Assessment & Plan Assessment/Plan (1) Drug rash: PLAN: Unsure as to the offending medication will hold most of her home medic ations Will hold Benadryl as she became very sleepy, continue with prednisone as she pulled out her IV (2) Encephalopathy: PLAN: Unclear etiology. This is per family report. Patient was to go to a alf later this week as he previously had been unable to care for her. Her encephalopathy appears to be resolved and her mental status appears to be back to baseline Pre-CERT is pending for SNF placement (3) Debility: PLAN: Patient is already planned to go to a nursing home facility as patient's family is unable to care for her. PT/OT evaluate and treat, pre-CERT is pending Case management PLAN: Plan Chronic conditions * Paroxysmal A fibrillation: Patient is paced. Continue with apixaban * Hypothyroidism: Continue levothyroxine DVT: Eliquis Charges/Coding Visit Charges Inpatient E&M: 46697 Subs Hosp L2
[2022-05-13] MEDS: predniSONE 20 MG Tablet 40 MG PO (09:20)
[2022-05-13] MEDS: Glucerna Shake 120 ML LIQUID PO ×3 (09:21→21:31)
[2022-05-13] MEDS: APIXABAN 2.5 MG TABLET PO ×2 (10:48→21:31)
[2022-05-13] MEDS: Insulin Lispro 100 UNIT/ML INSULN.PEN SC ×3 (10:51→21:35)
[2022-05-13 11:16] LABS: Bedside Glucose 163 mg/dL (74-106)
[2022-05-13 16:35] LABS: Bedside Glucose 318 mg/dL (74-106)
[2022-05-13] MEDS: Atenolol 50 MG Tablet PO (18:02)
[2022-05-13] MEDS: Acetaminophen 325 MG Tablet 650 MG PO (19:57)
[2022-05-13] MEDS: QUEtiapine 25 MG Tablet PO (21:33)
[2022-05-13 22:05] LABS: Bedside Glucose 276 mg/dL (74-106)
[2022-05-14 01:50] VITALS: BP 149/92; PULSE 84; RESP 18; TEMP 36.3; O2SAT 91
[2022-05-14 05:34] LABS: Absolute Lymphocyte Count 2.05 X10^3/uL (0.83-4.51); Absolute Neutrophil Count 12.7 X10^3/uL (2.0-7.7); Basophil# 0.04 X10^3/uL; Basophil% 0.3 % (0-1); Eosinophil# 0.02 X10^3/uL; Eosinophils% 0.1 % (0-5); Hematocrit 35.3 % (37-47); Lymphocyte # 2.05 X10^3/ul (0.83-4.51); Lymphocyte % 13.2 % (19-41); Mean Corp Hgb Conc 31.2 g/dL (32-36); Mean Corpuscular Hgb 29.4 pg (27.0-32.0); Mean Corpuscular Volume 94.4 fL (81-99); Mean Platelet Vol. 11.8 fl (6.2-12.0); Monocyte% 3.9 % (0-10); NRBC Flagged by Analyzer 0 % (0-5); Neutrophil # 12.67 X10^3/uL (2.7-7.7); Neutrophil % 81.8 % (47-70); Platelet Count 223 K/mm3 (150-450); RBC Distribution Width SD 52.3 fl (35.1-43.9); Red Blood Count 3.74 M/mm3 (4.2-5.4); White Blood Count 15.5 K/mm3 (4.4-11.0)
[2022-05-14] MEDS: Levothyroxine 50 MCG Tablet PO (06:07)
[2022-05-14] MEDS: Menthol/Lanolin/Calamine/Znox 113 GM Tube 1 APPLIC TOPICAL ×3 (06:07→23:00)
[2022-05-14] MEDS: Insulin Lispro 100 UNIT/ML INSULN.PEN SC ×4 (06:07→22:52)
[2022-05-14 06:11] LABS: Anion Gap 7 (5-15); BUN 53 mg/dL (7-18); BUN/Creat Ratio 33.8 RATIO (10-20); Chloride 108 mmol/L (98-107); Creatinine, Serum 1.57 mg/dL (0.55-1.02); EST Glomerular Filtration Rate 33 mL/min (>60); Est Glom Filt Rate - Afr Amer 40 mL/min (>60); Glucose 176 mg/dL (74-106); Potassium 4.8 mmol/L (3.5-5.1); Sodium Level 140 mmol/L (136-145)
[2022-05-14 06:31] LABS: Bedside Glucose 161 mg/dL (74-106)
--- NOTE | 2022-05-14 07:25 | PCM.PN.HOSP ---
Subjective Subjective Patient is an 87-year-old lady brought to the ED with generalized weakness and generalized rash. Patient seen still remains delirious has elevated WBC count. Ordered checks x-ray as well as urinalysis to rule out infectious etiology. Patient also has impaired kidney function started on IV fluids with subsequent monitoring of electrolytes, Objective Data Objective Data Vital Signs: Vital Signs Temp Pulse Resp BP Pulse Ox O2 Del Method O2 Flow Rate 97.4 F L 84 18 149/92 H 91 Room Air 2 05/14/22 01:50 05/14/22 01:50 05/14/22 01:50 05/14/22 01:50 05/14/22 01:50 05/14/22 01:50 05/13/22 19:52 Oxygen Flow Rate (L/min) 2 Oxygen Delivery Method Room Air Weight: 62.868 kg Body Mass Index (BMI) 23.8 Intake & Output: Intake and Output for Last 24 Hours 05/12/22 05/13/22 05/14/22 23:59 23:59 23:59 Intake Total 1025 / 1145 1929 / 1989 120 / 120 Output Total 100 / 100 350 / 350 150 / 150 Balance 925 / 1045 1580 / 1640 -30 / -30 Medical Nutrition Assessment Dietitian: Malnutrition Criteria Met Start: 05/10/22 11:37 Freq: Status: Active Protocol: Document 05/10/22 11:37 ELIEL (Rec: 05/10/22 11:37 ELIEL [id number]) Nutrition Malnutrition Evidence of Malnutrition Exists Yes Malnutrition (severe): Chronic Evidenced By Suboptimal Energy Intake ( Severe),Weight Loss (Severe), Physical Changes (Severe) Clinical Problem Chronic Disease or Condition Related Malnutrition Etiology related to pt hx dementia and inability to consume adequate nutrition to meet est nutrition needs Signs/Symptoms as evidenced by po intake meeting <50% of estimated nutritional needs, 26.7% wt loss x 5 mo and fat/muscle loss per NFPA. Status Active Problem Biting/Chewing Difficulty Etiology related to edentulous Signs/Symptoms as evidenced by puree diet consistency (per pt request) Status Active Problem Recommendation Dietitian Recommendations/Changes Will liberalize diet to regular puree d/t signs/ symptoms of malnutrition. Will order 4 oz ensure plus high protein w/ medpass 4x/day Will provide fortified foods at meals as able. Lab / Micro Data Result Diagrams: 05/14/22 04:36 05/14/22 04:36 Labs: Laboratory Results - last 24 hr 05/13/22 10:51: POC Glucose 163 H 05/13/22 16:15: POC Glucose 318 H 05/13/22 21:34: POC Glucose 276 H 05/14/22 04:36: WBC 15.5 H, RBC 3.74 L, Hgb 11.0 L, Hct 35.3 L, MCV 94.4, MCH 29.4, MCHC 31.2 L, RDW Std Deviation 52.3 H, RDW Coeff of Angie 15.0 H, Plt Count 223, MPV 11.8, Immature Gran % (Auto) 0.700, Neut % (Auto) 81.8 H, Lymph % (Auto) 13.2 L, [place] % (Auto) 3.9, Eos % (Auto) 0.1, Baso % (Auto) 0.3, Absolute Neuts (auto) 12.7 H, Absolute Lymphs (auto) 2.05, Nucleated RBC % 0 05/14/22 04:36: Sodium 140, Potassium 4.8, Chloride 108 H, Carbon Dioxide 25.0, Anion Gap 7, BUN 53 H, Creatinine 1.57 H, Estim Creat Clear Calc 21.80, Est GFR (MDRD) Af Amer 40 L, Est GFR (MDRD) Non-Af 33 L, BUN/Creatinine Ratio 33.8 H, Glucose 176 H, Calcium 9.0 05/14/22 06:05: POC Glucose 161 H Micro: Microbiology 05/09/22 13:25 Blood Culture (Wb) - Anticubital Left Blood Culture - Preliminary No growth in 48 hours. 05/09/22 12:47 Blood Culture (Wb) - Anticubital Right Blood Culture - Preliminary No growth in 48 hours. 05/09/22 12:47 Nasal Secretion SARS-CoV-2 & FLU Antigen (Rapid) - Final Physical Exam Narrative GENERAL: Patient appears delirious HEENT: Atraumatic; normocephalic EYES; Anicteric, Normal Conjunctiva NECK; supple, normal thyroid, RESPIRATORY: Diminished to auscultation CARDIOVASCULAR: Regular S1 S2, GI: soft, normoactive bowel sounds, : No Renal angle tenderness; EXTREMITIES: No edema, no clubbing, MUSCULOSKELETAL: no muscle wasting NEURO: Awake; no lateralizing signs. SKIN: Maculopapular rash on torso PSYCH; Flat affect Assessment & Plan Assessment/Plan (1) Debility: (2) Encephalopathy: PLAN: Plan Patient is an 87-year-old lady brought to the ED with generalized weakness and generalized rash 1. Generalized rash ? Suspected to be secondary to drug rash. Patient was on allopurinol furosemide and losartan held treated symptomatically with Benadryl, methylprednisolone and famotidine 2. Acute encephalopathy ? CT of the head obtained on admission came back unremarkable 3. Leukocytosis ? Etiology not clear ordered urinalysis and chest x-ray 4. Hyperglycemia ? Patient is not a known diabetic. Order hemoglobin A1c 5. Acute kidney injury ? Patient started on IV fluids with monitoring of electrolytes ordered 6. Physical deconditioning - Requested for PT OT eval and social media sr strategy manager to assist with discharge planning 7. Paroxysmal A. fib ? Patient heart rate is controlled on systemic anticoagulation with apixaban 8. Hypothyroidism - Patient is on levothyroxine home dose continued 9. Gout ? Patient is on allopurinol held 10. Essential hypertension ? Patient losartan held on atenolol continued 11. DVT prophylaxis ? Patient is on apixaban Charges/Coding Visit Charges Inpatient E&M: 55947 [facility] Hosp L3
[2022-05-14 08:00] VITALS: BP 130/74; PULSE 91; RESP 18; TEMP 36.6; O2SAT 96
[2022-05-14 08:14] VITALS: O2SAT 95
[2022-05-14] MEDS: Glucerna Shake 120 ML LIQUID PO (08:26)
[2022-05-14] MEDS: predniSONE 20 MG Tablet 40 MG PO (08:27)
--- NOTE | 2022-05-14 10:02 | CASEMGMT ---
Discharge Instructor Ground Services Amber from [employer] reached out. Pre-cert has been obtained. Leonie HANKS Lard Bleacher
--- NOTE | 2022-05-14 10:05 | CASEMGMT ---
Social Work SW informed Dr. Middleton of insurance auth approval. Dr. Middleton reports pt still confused, will review chart before deciding on d/c today or not. ROBERT Fritz
[2022-05-14] MEDS: APIXABAN 2.5 MG TABLET PO (10:24)
[2022-05-14] MEDS: Atenolol 50 MG Tablet PO (10:24)
[2022-05-14 10:27] VITALS: O2SAT 96
--- NOTE | 2022-05-14 10:35 | RAD_ITS ---
STUDY: X-RAY CHEST REASON FOR EXAM: Female, 87 years old. Leukocytosis TECHNIQUE: Single AP portable view of the chest. COMPARISON: Comparison is made with prior study of 05/09/2022. FINDINGS: Progressive left lower infiltrate with blunting of the left costophrenic angle. Blunting of the right costophrenic angle with mild increased markings at the right lung base. There is moderate cardiac enlargement. A left-sided dual-chamber pacemaker is seen. Normal mediastinum and ene. Normal visualized pulmonary arteries. There is atherosclerotic calcification of the aortic arch with tortuosity. There are diffuse degenerative changes of the visualized thoracic spine. Normal visualized ribs, clavicles, and shoulders. There is no demonstrated abnormality of the visualized soft tissue structures of the upper abdomen. RAD/Chest 1 View (Portable) IMPRESSION: Progressive left lower lobe infiltrate with small left pleural effusion. Blunting of the right costophrenic angle. Mild increased markings at the right lung base. Electronically Signed: Stew Green MD at 14:53 EST ,
[2022-05-14 13:54] LABS: Bacteria 0 SEEN /hpf (None Seen); Mucous, Urine 0 SEEN /hpf (<or=2+); Red Blood Cells-Urine 0 SEEN /hpf (0-5)
[2022-05-14 14:00] VITALS: BP 142/84; PULSE 61; RESP 18; TEMP 36.4; O2SAT 97
[2022-05-14 14:03] LABS: Color, Urine Yellow (Yellow); Glucose, Dipstick Normal (Normal); Ketone-Dipstick 5 mg/dl (Negative); Leukocyte Esterase-Dipstick 25 /ul (Negative); Nitrite-Dipstick Negative (Negative); Occult Blood-Urine Negative /ul (Negative); Protein-Dipstick 15 mg/dl (Negative); Specific Gravity, Urine 1.015 (1.002-1.030); Urine Bilirubin Dipstick Negative (Negative); Urine Clarity Sl. Cloudy (Clear); Urine Urobilinogen 1 mg/dl (Normal)
[2022-05-14 14:14] LABS: Squamous Epithelial Cells - UA 0-5 SEEN /hpf (5-10); White Blood Cells 0-5 SEEN /hpf (0-5)
[2022-05-14] MEDS: 0.9% Normal Saline 1,000 ML 150 ML IV ×2 (14:36→22:49)
[2022-05-14] MEDS: Vancomycin IV 1,000 MG/200 ML BAG 200 MG IV (17:01)
[2022-05-14 17:11] LABS: Bedside Glucose 207 mg/dL (74-106)
[2022-05-14 17:20] LABS: Bedside Glucose 233 mg/dL (74-106)
[2022-05-14 17:54] LABS: M R Staph aureus DNA By PCR Negative (Negative); Probe Check PASS; Specimen Processing Control PASS
--- NOTE | 2022-05-14 20:50 | PCM.RX.CS ---
Consult Pharmacy has been consulted to manage selected antiobiotic: Vancomycin Type of Consult: New start Suspected Infection: Pneumonia Prior Doses of Antibiotics Received/Current Regimen: Loading dose of 1gm iv x 1 on 05.14.22. Labs: Sodium 140 mmol/L (136-145) 05/14/22 04:36 Potassium 4.8 mmol/L (3.5-5.1) 05/14/22 04:36 Chloride 108 mmol/L (98-107) H 05/14/22 04:36 Carbon Dioxide 25.0 mmol/L (21.0-32.0) 05/14/22 04:36 Anion Gap 7 (5-15) 05/14/22 04:36 BUN 53 mg/dL (7-18) H 05/14/22 04:36 Creatinine 1.57 mg/dL (0.55-1.02) H 05/14/22 04:36 Est GFR (MDRD) Af Amer 40 mL/min (>60) L 05/14/22 04:36 Est GFR (MDRD) Non-Af 33 mL/min (>60) L 05/14/22 04:36 BUN/Creatinine Ratio 33.8 RATIO (10-20) H 05/14/22 04:36 Glucose 176 mg/dL (74-106) H 05/14/22 04:36 Microbiology: Microbiology 05/14/22 16:25 Mucosa - Nasopharyngeal Respiratory Panel (PCR) - Final 05/09/22 13:25 Blood Culture (Wb) - Anticubital Left Blood Culture - Final No growth in 5 days. 05/09/22 12:47 Blood Culture (Wb) - Anticubital Right Blood Culture - Final No growth in 5 days. 05/09/22 12:47 Nasal Secretion SARS-CoV-2 & FLU Antigen (Rapid) - Final Weight used for dosin.9 kg Estimated Creatinine Clearance: 23ml/min Goal Trough: 15-20 mcg/mL Pharmacy Plan for Drug Dosing: Will start 500mg iv q24h per policy. Trough level ordered for before third cumulative dose. Pharmacy Service will continue to monitor and adjust dosing as required. Follow-Up Labs: Trough Vancomycin - 05.16.22 @1630 before 1700 dose
[2022-05-14 22:34] VITALS: BP 147/92; PULSE 79; RESP 20; TEMP 37.1; O2SAT 98
[2022-05-14 23:46] LABS: Bedside Glucose 295 mg/dL (74-106)
[2022-05-15] VITALS (7 sets, daily range): BP systolic 124–140; BP diastolic 81–87; PULSE 60–77; RESP 18–20; TEMP 35.3–36.8; O2SAT 94–100
[2022-05-15] MEDS: Acetaminophen 325 MG Tablet 650 MG PO (01:22)
[2022-05-15] MEDS: QUEtiapine 25 MG Tablet PO ×2 (01:29→21:03)
[2022-05-15] MEDS: Triamcinolone 0.5% Cream 1 APPLIC TOPICAL (04:23)
[2022-05-15] MEDS: 0.9% Saline Lock 10 ML Syringe IV (04:26)
[2022-05-15] MEDS: 0.9% Normal Saline 1,000 ML 150 ML IV ×3 (04:27→21:00)
[2022-05-15 05:06] LABS: Absolute Lymphocyte Count 2.75 X10^3/uL (0.83-4.51); Absolute Neutrophil Count 16.8 X10^3/uL (2.0-7.7); Basophil# 0.04 X10^3/uL; Basophil% 0.2 % (0-1); Eosinophil# 0.01 X10^3/uL; Hemoglobin 10.4 g/dL (12.0-15.0); Lymphocyte # 2.75 X10^3/ul (0.83-4.51); Lymphocyte % 13.2 % (19-41); Mean Corp Hgb Conc 31.5 g/dL (32-36); Mean Corpuscular Hgb 29.3 pg (27.0-32.0); Mean Platelet Vol. 11.9 fl (6.2-12.0); Monocyte# 1.13 X10^3/uL; Monocyte% 5.4 % (0-10); NRBC Flagged by Analyzer 0 % (0-5); Neutrophil # 16.75 X10^3/uL (2.7-7.7); Neutrophil % 80.5 % (47-70); Platelet Count 241 K/mm3 (150-450); RBC Distribution Width CV 15.2 % (11.6-14.6); RBC Distribution Width SD 52.2 fl (35.1-43.9); Red Blood Count 3.55 M/mm3 (4.2-5.4); White Blood Count 20.8 K/mm3 (4.4-11.0)
[2022-05-15 05:32] LABS: Anion Gap 8 (5-15); BUN 59 mg/dL (7-18); BUN/Creat Ratio 40.7 RATIO (10-20); Calcium,Total 8.4 mg/dL (8.5-10.1); Chloride 111 mmol/L (98-107); Creatinine, Serum 1.45 mg/dL (0.55-1.02); EST Glomerular Filtration Rate 36 mL/min (>60); Est Glom Filt Rate - Afr Amer 44 mL/min (>60); Glucose 121 mg/dL (74-106); Potassium 4.6 mmol/L (3.5-5.1); Sodium Level 142 mmol/L (136-145)
[2022-05-15] MEDS: Menthol/Lanolin/Calamine/Znox 113 GM Tube 1 APPLIC TOPICAL ×3 (05:58→21:02)
[2022-05-15] MEDS: Levothyroxine 50 MCG Tablet PO (05:58)
[2022-05-15 07:25] LABS: Bedside Glucose 129 mg/dL (74-106)
--- NOTE | 2022-05-15 07:26 | PN.HOSP_ITS ---
Subjective Subjective Patient seen in bed moaning when asked if she knew where she was she was able to respond appropriately [facility] Per nursing staff patient has been refusing to eat. WBC count trending up. Patient was started on empiric antibiotic therapy for suspected bacterial pneumonia Objective Data Objective Data Vital Signs: Vital Signs Temp Pulse Resp BP Pulse Ox O2 Del Method O2 Flow Rate 98.2 F 77 20 H 133/81 H 99 Room Air 2 05/15/22 02:00 05/15/22 02:00 05/15/22 02:00 05/15/22 02:00 05/15/22 02:00 05/15/22 02:00 05/13/22 19:52 Oxygen Flow Rate (L/min) 2 Oxygen Delivery Method Room Air Weight: 62.868 kg Body Mass Index (BMI) 23.8 Intake & Output: Intake and Output for Last 24 Hours 05/13/22 05/14/22 05/15/22 23:59 23:59 23:59 Intake Total 193 / 1989 1765 / 1765 845 / 845 Output Total 350 / 350 200 / 350 150 / 150 Balance 1580 / 1640 1565 / 1415 695 / 695 Medical Nutrition Assessment Dietitian: Malnutrition Criteria Met Start: 05/10/22 11:37 Freq: Status: Active Protocol: Document 05/10/22 11:37 ELIEL (Rec: 05/10/22 11:37 ELIEL [id number]) Nutrition Malnutrition Evidence of Malnutrition Exists Yes Malnutrition (severe): Chronic Evidenced By Suboptimal Energy Intake ( Severe),Weight Loss (Severe), Physical Changes (Severe) Clinical Problem Chronic Disease or Condition Related Malnutrition Etiology related to pt hx dementia and inability to consume adequate nutrition to meet est nutrition needs Signs/Symptoms as evidenced by po intake meeting <50% of estimated nutritional needs, 26.7% wt loss x 5 mo and fat/muscle loss per NFPA. Status Active Problem Biting/Chewing Difficulty Etiology related to edentulous Signs/Symptoms as evidenced by puree diet consistency (per pt request) Status Active Problem Recommendation Dietitian Recommendations/Changes Will liberalize diet to regular puree d/t signs/ symptoms of malnutrition. Will order 4 oz ensure plus high protein w/ medpass 4x/day Will provide fortified foods at meals as able. Lab / Micro Data Result Diagrams: 05/15/22 04:19 05/15/22 04:19 Labs: Laboratory Results - last 24 hr 05/14/22 11:02: POC Glucose 207 H 05/14/22 13:40: Urine Color Yellow, Urine Clarity Sl. Cloudy, Urine pH 5.0, Ur Specific [place] 1.015, Urine Protein 15 H, Urine Glucose (UA) Normal, Urine Ketones 5 H, Urine Occult Blood Negative, Urine Nitrite Negative, Urine Bilirubin Negative, Urine Urobilinogen 1 H, Ur Leukocyte Esterase 25 H, Urine RBC 0 SEEN, Urine WBC 0-5 SEEN, Ur Squamous Epith Cells 0-5 SEEN, Urine Bacteria 0 SEEN, Urine Mucus 0 SEEN 05/14/22 16:15: MRSA (PCR) Negative 05/14/22 16:25: COVID-19 (KIMBERLY) Not Detected 05/14/22 16:55: POC Glucose 233 H 05/14/22 22:45: POC Glucose 295 H 05/15/22 04:19: WBC 20.8 H, RBC 3.55 L, Hgb 10.4 L, Hct 33.0 L, MCV 93.0, MCH 29.3, MCHC 31.5 L, RDW Std Deviation 52.2 H, RDW Coeff of Angie 15.2 H, Plt Count 241, MPV 11.9, Immature Gran % (Auto) 0.700, Neut % (Auto) 80.5 H, Lymph % (Auto) 13.2 L, [place] % (Auto) 5.4, Eos % (Auto) 0.0, Baso % (Auto) 0.2, Absolute Neuts (auto) 16.8 H, Absolute Lymphs (auto) 2.75, Nucleated RBC % 0 05/15/22 04:19: Sodium 142, Potassium 4.6, Chloride 111 H, Carbon Dioxide 23.0, Anion Gap 8, BUN 59 H, Creatinine 1.45 H, Estim Creat Clear Calc 23.60, Est GFR (MDRD) Af Amer 44 L, Est GFR (MDRD) Non-Af 36 L, BUN/Creatinine Ratio 40.7 H, Glucose 121 H, Calcium 8.4 L, Magnesium 3.0 H 05/15/22 05:54: POC Glucose 129 H Micro: Microbiology 05/14/22 16:25 Mucosa - Nasopharyngeal Respiratory Panel (PCR) - Final 05/09/22 13:25 Blood Culture (Wb) - Anticubital Left Blood Culture - Final No growth in 5 days. 05/09/22 12:47 Blood Culture (Wb) - Anticubital Right Blood Culture - Final No growth in 5 days. 05/09/22 12:47 Nasal Secretion SARS-CoV-2 & FLU Antigen (Rapid) - Final Radiography Diagnostic Testing: Radiology Impression Chest X-Ray 05/14/22 10:35 IMPRESSION: Progressive left lower lobe infiltrate with small left pleural effusion. Blunting of the right costophrenic angle. Mild increased markings at the right lung base. Electronically Signed: Stew Green MD at 14:53 EST , Physical Exam Narrative GENERAL: Patient appears delirious HEENT: Atraumatic; normocephalic EYES; Anicteric, Normal Conjunctiva NECK; supple, normal thyroid, RESPIRATORY: Diminished to auscultation CARDIOVASCULAR: Regular S1 S2, GI: soft, normoactive bowel sounds, : No Renal angle tenderness; EXTREMITIES: No edema, no clubbing, MUSCULOSKELETAL: no muscle wasting NEURO: Awake; no lateralizing signs. SKIN: Maculopapular rash on torso PSYCH; Flat affect Assessment & Plan Assessment/Plan (1) Debility: (2) Encephalopathy: PLAN: Plan Patient is an 87-year-old lady brought to the ED with generalized weakness and generalized rash 1. Generalized rash ? Suspected to be secondary to drug rash. Patient was on allopurinol furosemide and losartan held treated symptomatically with Benadryl, methylprednisolone and famotidine 2. Acute encephalopathy ? CT of the head obtained on admission came back unremarkable 3. Pneumonia -05/15/2022 suspected to be secondary to pneumonia with MDR's. Chest x-ray obtained the day prior did show Progressive left lower lobe infiltrate with small left pleural effusion. Blunting of the right costophrenic angle. Mild increased markings at the right lung baseBlood and sputum cultures sent. Patient was started on broad- spectrum antibiotic therapy with cefepime azithromycin as well as vancomycin 4. Hyperglycemia ? Patient is not a known diabetic. Order hemoglobin A1c 5. Acute kidney injury ? Patient started on IV fluids with monitoring of electrolytes ordered 6. Physical deconditioning - Requested for PT OT eval and social work associate to assist with discharge planning 7. Paroxysmal A. fib ? Patient heart rate is controlled on systemic anticoagulation with apixaban 8. Hypothyroidism - Patient is on levothyroxine home dose continued 9. Gout ? Patient is on allopurinol held 10. Essential hypertension ? Patient losartan held on atenolol continued 11. DVT prophylaxis ? Patient is on apixaban 12. Severe malnutrition ? Related to pt hx dementia and inability to consume adequate nutrition to meet est nutrition needs as evidenced by po intake meeting <50% of estimated nutritional needs,? 26.7% wt loss x 5 mo and fat/muscle loss per NFPA. Will liberalize diet to regular puree d/t signs/symptoms of malnutrition. ?Consult placed to dietitian for nutrition orders Charges/Coding Visit Charges Inpatient E&M: 87527 Subs Hosp L2
[2022-05-15] MEDS: predniSONE 20 MG Tablet 40 MG PO (08:52)
[2022-05-15] MEDS: Atenolol 50 MG Tablet PO (08:56)
[2022-05-15] MEDS: APIXABAN 2.5 MG TABLET PO ×2 (08:56→21:03)
[2022-05-15] MEDS: guaiFENesin 1,200 MG Tablet 1200 MG PO ×2 (08:56→21:03)
[2022-05-15] MEDS: Glucerna Shake 120 ML LIQUID PO (08:56)
[2022-05-15] MEDS: Insulin Lispro 100 UNIT/ML INSULN.PEN SC ×3 (11:30→22:49)
[2022-05-15 11:51] LABS: Bedside Glucose 173 mg/dL (74-106)
[2022-05-15] MEDS: Vancomycin IV 500 MG/100 ML BAG 100 MG IV (16:31)
[2022-05-15 17:01] LABS: Bedside Glucose 222 mg/dL (74-106)
[2022-05-15 23:11] LABS: Bedside Glucose 165 mg/dL (74-106)
[2022-05-16 02:40] VITALS: BP 142/87; PULSE 77; RESP 19; TEMP 36.9; O2SAT 96
[2022-05-16] MEDS: 0.9% Normal Saline 1,000 ML 150 ML IV ×2 (03:52→10:31)
[2022-05-16] MEDS: Menthol/Lanolin/Calamine/Znox 113 GM Tube 1 APPLIC TOPICAL (05:43)
[2022-05-16] MEDS: Levothyroxine 50 MCG Tablet PO (05:44)
[2022-05-16 06:06] LABS: Bedside Glucose 118 mg/dL (74-106)
[2022-05-16 06:54] LABS: Absolute Lymphocyte Count 2.46 X10^3/uL (0.83-4.51); Absolute Neutrophil Count 18.7 X10^3/uL (2.0-7.7); Basophil# 0.03 X10^3/uL; Basophil% 0.1 % (0-1); Eosinophil# 0.01 X10^3/uL; Hematocrit 33.8 % (37-47); Hemoglobin 10.4 g/dL (12.0-15.0); Lymphocyte # 2.46 X10^3/ul (0.83-4.51); Lymphocyte % 10.9 % (19-41); Mean Corp Hgb Conc 30.8 g/dL (32-36); Mean Corpuscular Hgb 28.7 pg (27.0-32.0); Mean Corpuscular Volume 93.4 fL (81-99); Mean Platelet Vol. 11.8 fl (6.2-12.0); Monocyte# 1.16 X10^3/uL; Monocyte% 5.1 % (0-10); NRBC Flagged by Analyzer 0 % (0-5); Neutrophil # 18.74 X10^3/uL (2.7-7.7); Neutrophil % 83.1 % (47-70); Platelet Count 277 K/mm3 (150-450); RBC Distribution Width CV 15.5 % (11.6-14.6); RBC Distribution Width SD 52.9 fl (35.1-43.9); Red Blood Count 3.62 M/mm3 (4.2-5.4); White Blood Count 22.6 K/mm3 (4.4-11.0)
[2022-05-16 07:20] LABS: Anion Gap 8 (5-15); BUN 65 mg/dL (7-18); BUN/Creat Ratio 44.8 RATIO (10-20); Calcium,Total 8.6 mg/dL (8.5-10.1); Chloride 114 mmol/L (98-107); Creatinine, Serum 1.45 mg/dL (0.55-1.02); EST Glomerular Filtration Rate 36 mL/min (>60); Est Glom Filt Rate - Afr Amer 44 mL/min (>60); Glucose 121 mg/dL (74-106); Sodium Level 141 mmol/L (136-145)
--- NOTE | 2022-05-16 07:27 | PN.HOSP_ITS ---
Subjective Subjective Patient seen much more awake currently sitting in bed. WBC count still remains elevated cultures have remained negative to date Objective Data Objective Data Vital Signs: Vital Signs Temp Pulse Resp BP Pulse Ox O2 Del Method O2 Flow Rate 98.5 F 77 19 H 142/87 H 96 Room Air 2 05/16/22 02:40 05/16/22 02:40 05/16/22 02:40 05/16/22 02:40 05/16/22 02:40 05/16/22 07:18 05/13/22 19:52 Oxygen Flow Rate (L/min) 2 Oxygen Delivery Method Room Air Weight: 62.868 kg Body Mass Index (BMI) 23.8 Intake & Output: Intake and Output for Last 24 Hours 05/14/22 05/15/22 05/16/22 23:59 23:59 23:59 Intake Total 1765 / 1765 3300.0 / 3350.0 1080 / 1080 Output Total 200 / 350 150 / 150 Balance 1565 / 1415 3150.0 / 3200.0 1080 / 1080 Medical Nutrition Assessment Dietitian: Malnutrition Criteria Met Start: 05/10/22 11:37 Freq: Status: Active Protocol: Document 05/10/22 11:37 ELIEL (Rec: 05/10/22 11:37 ELIEL [id number]) Nutrition Malnutrition Evidence of Malnutrition Exists Yes Malnutrition (severe): Chronic Evidenced By Suboptimal Energy Intake ( Severe),Weight Loss (Severe), Physical Changes (Severe) Clinical Problem Chronic Disease or Condition Related Malnutrition Etiology related to pt hx dementia and inability to consume adequate nutrition to meet est nutrition needs Signs/Symptoms as evidenced by po intake meeting <50% of estimated nutritional needs, 26.7% wt loss x 5 mo and fat/muscle loss per NFPA. Status Active Problem Biting/Chewing Difficulty Etiology related to edentulous Signs/Symptoms as evidenced by puree diet consistency (per pt request) Status Active Problem Recommendation Dietitian Recommendations/Changes Will liberalize diet to regular puree d/t signs/ symptoms of malnutrition. Will order 4 oz ensure plus high protein w/ medpass 4x/day Will provide fortified foods at meals as able. Lab / Micro Data Result Diagrams: 05/16/22 06:05 05/16/22 06:05 Labs: Laboratory Results - last 24 hr 05/15/22 04:19: Hemoglobin A1c 6.0 H 05/15/22 11:27: POC Glucose 173 H 05/15/22 16:28: POC Glucose 222 H 05/15/22 22:46: POC Glucose 165 H 05/16/22 05:42: POC Glucose 118 H 05/16/22 06:05: WBC 22.6 H, RBC 3.62 L, Hgb 10.4 L, Hct 33.8 L, MCV 93.4, MCH 28.7, MCHC 30.8 L, RDW Std Deviation 52.9 H, RDW Coeff of Angie 15.5 H, Plt Count 277, MPV 11.8, Immature Gran % (Auto) 0.800, Neut % (Auto) 83.1 H, Lymph % (Auto) 10.9 L, [place] % (Auto) 5.1, Eos % (Auto) 0.0, Baso % (Auto) 0.1, Absolute Neuts (auto) 18.7 H, Absolute Lymphs (auto) 2.46, Nucleated RBC % 0 05/16/22 06:05: Sodium 141, Potassium 5.0, Chloride 114 H, Carbon Dioxide 19.0 L , Anion Gap 8, BUN 65 H, Creatinine 1.45 H, Estim Creat Clear Calc 23.60, Est GFR (MDRD) Af Amer 44 L, Est GFR (MDRD) Non-Af 36 L, BUN/Creatinine Ratio 44.8 H , Glucose 121 H, Calcium 8.6 Micro: Microbiology 05/14/22 13:45 Urine Catheter - Catheter Streptococcus pneumoniae Antigen (M - Final 05/14/22 13:45 Urine Catheter - Catheter Legionella Antigen - Final 05/14/22 16:25 Mucosa - Nasopharyngeal Respiratory Panel (PCR) - Final 05/09/22 13:25 Blood Culture (Wb) - Anticubital Left Blood Culture - Final No growth in 5 days. 05/09/22 12:47 Blood Culture (Wb) - Anticubital Right Blood Culture - Final No growth in 5 days. 05/09/22 12:47 Nasal Secretion SARS-CoV-2 & FLU Antigen (Rapid) - Final Physical Exam Narrative GENERAL: Patient appears delirious HEENT: Atraumatic; normocephalic EYES; Anicteric, Normal Conjunctiva NECK; supple, normal thyroid, RESPIRATORY: Diminished to auscultation CARDIOVASCULAR:? Regular S1 S2, GI:? soft, normoactive bowel sounds, : No Renal angle tenderness; EXTREMITIES:? No edema, no clubbing, MUSCULOSKELETAL:? no muscle wasting NEURO:? Awake;? no lateralizing signs. SKIN: Maculopapular rash on torso PSYCH; Flat? affect Assessment & Plan Assessment/Plan (1) Debility: (2) Encephalopathy: PLAN: Plan Patient is an 87-year-old lady brought to the ED with generalized weakness and generalized rash 1.? Generalized rash ? Suspected to be secondary to drug rash.? Patient was on allopurinol furosemide and losartan held treated symptomatically with Benadryl, methylprednisolone and famotidine ?05/16/2022; Patient's rash improving 2.? Acute encephalopathy ? CT of the head obtained on admission came back unremarkable ? 05/16/2022 patient level of sensorium improved 3.? Pneumonia -05/15/2022 suspected to be secondary to pneumonia with MDR's.? Chest x-ray obtained the day prior did show Progressive left lower lobe infiltrate with small left pleural effusion. Blunting of the right costophrenic angle.? Mild increased markings at the right lung baseBlood and sputum cultures sent.? Patient was started on broad- spectrum antibiotic therapy with cefepime azithromycin as well as vancomycin ? 01/13/2022 WBC count remains elevated however patient is on prednisone which may be contributing prednisone has since been discontinued 4.? Hyperglycemia ? Patient is not a known diabetic.? Order hemoglobin A1c 5.? Acute kidney injury ? Patient started on IV fluids with monitoring of electrolytes ordered 6.? Physical deconditioning - Requested for PT OT eval and psych social worker to assist with discharge planning 7.? Paroxysmal A. fib ? Patient heart rate is controlled on systemic anticoagulation with apixaban 8.? Hypothyroidism - Patient is on levothyroxine home dose continued 9.? Gout ? Patient is on allopurinol held 10.? Essential hypertension ? Patient losartan held on atenolol continued 11.? DVT prophylaxis ? Patient is on apixaban 12.? Severe malnutrition ? Related to pt hx dementia and inability to consume adequate nutrition to meet est nutrition needs as evidenced by po intake meeting <50% of estimated nutritional needs,? 26.7% wt loss x 5 mo and fat/muscle loss per NFPA. Will liberalize diet to regular puree d/t signs/symptoms of malnutrition. ?Consult placed to dietitian for nutrition orders Charges/Coding Visit Charges Inpatient E&M: 63194 Subs Hosp L2
[2022-05-16 08:13] VITALS: BP 141/88; PULSE 78; RESP 20; TEMP 36.5; O2SAT 95
[2022-05-16] MEDS: Atenolol 50 MG Tablet PO (08:15)
[2022-05-16] MEDS: predniSONE 20 MG Tablet 40 MG PO (08:15)
[2022-05-16] MEDS: guaiFENesin 1,200 MG Tablet 1200 MG PO (08:15)
[2022-05-16 09:48] VITALS: O2SAT 93; O2SAT 94
[2022-05-16] MEDS: APIXABAN 2.5 MG TABLET PO (10:31)
[2022-05-16] MEDS: Insulin Lispro 100 UNIT/ML INSULN.PEN SC (11:26)
[2022-05-16 11:51] LABS: Bedside Glucose 258 mg/dL (74-106)
--- NOTE | 2022-05-16 12:24 | EXP.PCM_ITS ---
Preliminary Cause of Preliminary Cause of Preliminary Cause of : Pneumonia Date of Admission: 05/09/22 Date of : 05/16/22 Principle Diagnosis Pneumonia Problem List: Active and Suspected Problems (Updated 05/09/22 @ 14:[address] Sonny Alicea, DO) Debility (Acute) Encephalopathy (Acute) Drug rash (Acute) Hospital Course Patient is an 87-year-old lady admitted with progressive generalized weakness generalized rash. Patient generalized rash was thought to be secondary to drug related. The suspected offending medications were held. Patient was also encephalopathic at the time of admission CT of the head came back unremarkable checks x-ray however did not show left lower lobe infiltrate. Patient was started on antibiotics per protocol her condition however did not improve. On 05/16/2022 at 1210 patient was found without apical heart tones and without spo ntaneous breathing. Patient was pronounced . Visit Charges Inpatient E&M: 78148 Disch Hosp
--- NOTE | 2022-05-16 12:25 | NURSING ---
Addendum entered by Desirae Landeros 05/16/22 12:27: 1210 verification of no apical/no respirations. Original Note: 1203 into room, pt with >5 minute period of apnea, verification of no apical/carotid pulse by [address] Middleton informed. post mortum care done
--- NOTE | 2022-05-16 12:32 | NURSING ---
Sarah Tuttle ([facility]) listed in chart, notified of time of . Linda states that the home of choice is [place] in [facility].
--- NOTE | 2022-05-16 12:34 | NURSING ---
[employer] called at this time, voicemail left.
--- NOTE | 2022-05-16 13:21 | NURSING ---
[facility] release given, [id number]
--- NOTE | 2022-05-16 13:31 | CASEMGMT ---
Social Work CHAGO called Amber at [facility] to request cancellation of insurance authorization. CHAGO explained pt has passed and will no longer be coming to [facility]. Amber stated already aware as pts daughter in law, Linda, called her immediately following the notification from the hospital. CHAGO also called pt's KYRA CONWAY, May Stinson and left voice mail regarding pt passing. ROBERT Fritz
== END 2022-05-16 13:49 | DRG 606 ==
LOC: ED 14:31 → MS3 15:55
PROVIDERS: Family Medicine; Emergency Provider Emergency Medicine; PCP Family Medicine Geriatric Medicine; Visit Provider Internal Medicine
DX: L27.0 Generalized skin eruption due to drugs and medicaments taken internally (principal); E43 Unspecified severe protein-calorie malnutrition; J15.9 Unspecified bacterial pneumonia; G93.40 Encephalopathy, unspecified; N17.9 Acute kidney failure, unspecified; I11.0 Hypertensive heart disease with heart failure; I50.9 Heart failure, unspecified; I48.0 Paroxysmal atrial fibrillation; E11.65 Type 2 diabetes mellitus with hyperglycemia; E03.9 Hypothyroidism, unspecified; M10.9 Gout, unspecified; R53.81 Other malaise; Z79.01 Long term (current) use of anticoagulants; Z79.899 Other long term (current) drug therapy; Z68.23 Body mass index [BMI] 23.0-23.9, adult; Z95.0 Presence of cardiac pacemaker; T50.4X5A Adverse effect of drugs affecting uric acid metabolism, initial encounter; T50.1X5A Adverse effect of loop [high-ceiling] diuretics, initial encounter; T46.5X5A Adverse effect of other antihypertensive drugs, initial encounter
CPT/HCPCS: 36415; 70450; 71045; 80048; 80053; 81001; 82962; 83036; 83605; 83690; 83735; 84484; 85025; 85610; 85730; 87040; 87077; 87086; 87088; 87186; 87428; 87449; 87633; 87635; 87641; 92526; 92610; 93005; 97110; 97162; 97165; 97530; 97535; 97802; 99285; J7030; J7050; P9612; A4216; J3490; U0003; U0005